=== PATIENT | female | born 1945 | race Caucasian/White ===

== ENCOUNTER 2016-09-02 09:03 | Emergency (ER) | payer MEDICARE, MEDICAID ==
[2016-09-02] MEDS ORDERED: oxyCODONE TAB* 5 MG TAB PO ONE ×3 (09:51→13:20)
--- NOTE | 2016-09-02 10:20 | RAD ---
HISTORY: Trauma, laceration above left eye COMPARISONS: November 07, 2015 TECHNIQUE: Multiple contiguous axial CT scans were obtained of the head without intravenous contrast. FINDINGS: HEMORRHAGE/INFARCT: There is no hemorrhage or acute infarct. MASSES/SHIFT: There is no mass or shift. EXTRA-AXIAL SPACES: There are no extra-axial fluid collections. SULCI AND VENTRICLES: The sulci and ventricles are normal in size and position for the patient's stated age. CEREBRUM: There are no focal parenchymal abnormalities. BRAINSTEM: There are no focal parenchymal abnormalities. CEREBELLUM: There are no focal parenchymal abnormalities. VESSELS: The vessels are grossly normal. PARANASAL SINUSES: The paranasal sinuses are clear. ORBITS: The orbits are unremarkable. BONES AND SOFT TISSUE: No bone or soft tissue abnormalities are noted. OTHER: None IMPRESSION: NO ACUTE INTRACRANIAL PATHOLOGY.
--- NOTE | 2016-09-02 10:23 | RAD ---
HISTORY: Trauma, fall. No other history is provided COMPARISONS: March 17, 2014 TECHNIQUE: Multiple contiguous axial CT scans were obtained of the cervical spine without intravenous contrast, with coronal and sagittal multiplanar reformations. FINDINGS: BRAIN: The visualized brain is unremarkable CENTRAL CANAL: Evaluation of the central canal is limited on CT technique; however, there is no obvious canalicular mass or epidural hemorrhage. ALIGNMENT: The alignment is normal, without subluxation or dislocation. VERTEBRAL BODIES: The odontoid process is intact. The atlantoaxial intervals are symmetric. The vertebral bodies are normal in attenuation, without fracture. JOINTS: There is mild uncovertebral and facet hypertrophy. There is osteoarthritis of the atlantoaxial articulation. MUSCULATURE: Unremarkable INTERVERTEBRAL DISCS: There is diffuse loss of intervertebral disc height. AXIAL IMAGES: C2-C3: There is no osseous neural foraminal narrowing or central canal stenosis. C3-C4: There is no osseous neural foraminal narrowing or central canal stenosis. C4-C5: There is no osseous neural foraminal narrowing or central canal stenosis. C5-C6: There is no osseous neural foraminal narrowing or central canal stenosis. C6-C7: There is no osseous neural foraminal narrowing or central canal stenosis. C7-T1: There is no osseous neural foraminal narrowing or central canal stenosis. SOFT TISSUES: The visualized soft tissues of the neck are unremarkable. The prevertebral fat stripe is preserved. OTHER: None. IMPRESSION: 1. DEGENERATIVE DISC DISEASE AND OSTEOARTHRITIS. 2. NO ACUTE OSSEOUS INJURY TO THE CERVICAL SPINE
--- NOTE | 2016-09-02 10:46 | RAD ---
Indication: Facial injury. CT of the facial bones was obtained in the axial plane. Sagittal and coronal reconstructed images were obtained. The patient is edentulous. The mandible demonstrates no fracture. Maxilla demonstrates no fracture. The pterygoid plates are intact. Zygomatic arch is unremarkable. The orbits are unremarkable. Skull base is unremarkable. Nasal bones appear intact with no evidence of fracture. IMPRESSION: No fracture of the facial bones is identified. Paranasal sinuses are clear.
--- NOTE | 2016-09-02 11:55 | RAD ---
Indication: Left chest pain after fall. 2 views of the chest and shape no mediastinal shift. Heart is of normal size and configuration. No pleural, pneumonia or pneumothorax is noted. Right upper lobe atelectasis is noted. When compared to previous exam of November 06, 2015 findings are similar. IMPRESSION: No pneumothorax is noted. Right upper lobe atelectasis is noted.
--- NOTE | 2016-09-02 12:05 | RAD ---
Indication: Left chest pain. 3 views of left ribs demonstrate no fracture. No other bone or joint abnormality is noted. IMPRESSION: No fracture of the left ribs is noted.
--- NOTE | 2016-09-02 13:25 | ED ---
Bird Friedman Adam, scribed for Pete Kim MD on 09/02/16 at 0940 . Adult Trauma - HPI Summary HPI Summary: She states that she tripped over some snow and fell on her left side, hitting her head at 08:30. She has a TOLENTINO at the site of some dried blood above her left eye. She also has left-sided rib pain since the fall. Her pain is 8-9/10 in severity and is worsening. She denies any blurriness, dizziness, lightheadedness , or new numbness/tingling. She denies losing consciousness but she states that there was a pool of blood on the ground where she hit her head. She has not taken any pain medication. She denies ever having a concussion. She is a former tobacco user. FMHx of CVA (mother in 70's, sister in 50's), open heart surgery, diverticulitis, and bladder CA. PMHx of hypothyroidism, hepatitis C, osteoporosis, and arthritis. She has a blood clot in her left thigh. She was on Warfarin but is no longer. - History of Current Complaint Chief Complaint: EDFacialInjury Stated Complaint: FALL Time Seen by Provider: 09/02/16 09:27 Hx Obtained From: Patient Mechanism of Injury: Fall Ambulatory at the Scene: Yes Loss of Consciousness: no loss of consciousness Onset/Duration: Started Hours Ago, Traumatic, Still Present Onset of Pain: Immediate Onset Severity: Mild Current Severity: Moderate Pain Intensity: 10 Pain Scale Used: 0-10 Numeric Location: Head, Chest - Left ribs Aggravating Factor(s): Nothing Alleviating Factor(s): Nothing Associated Signs & Symptoms: Positive: Negative - Additional Pertinent History Primary Care Physician: [id number] - Allergy/Home Medications Allergies/Adverse Reactions: Allergies Allergy/AdvReac Type Severity Reaction Status Date / Time Promethazine [From Phenergan] Allergy Intermediate Hives Verified 02/22/16 13:39 Acetaminophen [From Tylenol] Allergy See Comment Verified 02/22/16 13:39 Ibuprofen Allergy HEP C Verified 05/28/16 19:50 NSAIDs AdvReac Mild ULCERS Verified 02/22/16 13:39 Tramadol [From Ultram] AdvReac Mild OUT OF IT Verified 02/22/16 13:39 PMH/Surg Hx/FS Hx/Imm Hx Endocrine/Hematology History: Reports: Hx Thyroid Disease, Other Endocrine/ Hematological Disorders - hepatitis c, h/o bleeding issue w/ elevated INR in the past Denies: Hx Anticoagulant Therapy, Hx Diabetes Cardiovascular History: Reports: Hx Deep Vein Thrombosis, Hx Hypertension - STATES NOT BEING TREATED FOR HYPERTENSION Denies: Hx Congestive Heart Failure, Hx Pacemaker/ICD Comment Only: Other Cardiovascular Problems/Disorders - PACS Respiratory History: Reports: Other Respiratory Problems/Disorders - r lung mass removal-benign Denies: Hx Asthma, Hx Chronic Obstructive Pulmonary Disease (COPD) GI History: Reports: Hx Gastroesophageal Reflux Disease, Hx Ulcer, Other GI Disorders - DIARRHEA X 1 WEEK, PERIUMBILICAL ABD PAIN History: Denies: Hx Renal Disease Musculoskeletal History: Reports: Hx Arthritis, Hx Back Problems, Hx Osteoporosis, Other Musculoskeletal History - bilat carpal tunnel surg, bernardo knee replacement. 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 Hx Chemotherapy: No Hx Radiation Therapy: No - Surgical History Surgery Procedure, Year, and Place: CHOLECYSTECTOMY JONATHAN EN Y GASTRIC BYPASS ( 1999) X2 R LUNG MASS REMOVED,BILATERAL KNEE REPLACEMENT, BILATERAL CARPAL TUNNEL,BILATERAL ROTATOR CUFF SURGERY, CATARACTS ,RT EYE MUSCLE SURGERY A CHILD, RT LUMPECTOMY 1979, LT LUMPECTOMY 2013,TONSILS Infectious Disease History: No Infectious Disease History: Reports: Hx Hepatitis Denies: Hx Human Immunodeficiency Virus (HIV), Traveled Outside the [place] in Last 30 Days - Family History Known Family History: Positive: Cardiac Disease - Open heart surgery (sister), Other - Brother - colon ca, son - pancreatitis, sister and mother CVA - Social History Occupation: Retired Lives: Alone Alcohol Use: Rare Substance Use Type: Reports: None, Prescribed Substance Use Comment - Amount & Last Used: denies substance abuse however ED staff notied carmona (injection sites) Hx Tobacco Use: Yes Smoking Status (MU): Former Smoker Type: Cigarettes Review of Systems Negative: Blurred Vision Positive: Myalgia - Left-sided rib pain Positive: Other - Dried blood above left eye Positive: Headache. Negative: Weakness, Numbness, Syncope All Other Systems Reviewed And Are Negative: Yes Physical Exam Triage Information Reviewed: Yes Vital Signs On Initial Exam: Initial Vitals Temp Pulse Resp BP Pulse Ox 97.9 F 81 20 121/75 97 09/02/16 09:11 09/02/16 09:11 09/02/16 09:11 09/02/16 09:11 09/02/16 09:11 Vital Signs Reviewed: Yes Appearance: Positive: Well-Appearing, No Pain Distress Skin: Positive: Warm, Skin Color Reflects Adequate Perfusion, Dry Head/Face: Positive: Normal Head/Face Inspection Eyes: Positive: EOMI, SRINI ENT: Positive: Normal ENT inspection Neck: Positive: Supple, Nontender Respiratory/Lung Sounds: Positive: Clear to Auscultation, Breath Sounds Present Cardiovascular: Positive: RRR Abdomen Description: Positive: Nontender, Soft Bowel Sounds: Positive: Present Musculoskeletal: Positive: Strength/ROM Intact, Other - Mild tenderness over the left lower ribs Neurological: Positive: Normal, Sensory/Motor Intact, Alert, Oriented to Person Place, Time Psychiatric: Positive: Affect/Mood Appropriate - [place] Coma Scale Coma Scale Total: 15 Procedures - Laceration/Wound Repair 1 Location: head - Glued a 5 mm long laceration to the left forehead Laceration/Wound Explored: clean - Cleaned with Shur-cleanse and sterile saline Diagnostics - Vital Signs Vital Signs Temp Pulse Resp BP Pulse Ox 09/02/16 09:11 97.9 F 81 20 121/75 97 - Laboratory Lab Statement: Any lab studies that have been ordered have been reviewed, and results considered in the medical decision making process. - Radiology RIBS Radiology Interpretation Completed By: Radiologist - IMPRESSION: No fracture of the left ribs is noted. CXR Radiology Interpretation Completed By: Radiologist - IMPRESSION: No pneumothorax is noted. Right upper lobe atelectasis is noted. - CT CERVICAL SPINE CT Interpretation Completed By: Radiologist - IMPRESSION: 1. DEGENERATIVE DISC DISEASE AND OSTEOARTHRITIS. 2. NO ACUTE OSSEOUS INJURY TO THE CERVICAL SPINE BRAIN CT Interpretation Completed By: Radiologist - IMPRESSION: NO ACUTE INTRACRANIAL PATHOLOGY. MAXILLOFACIAL CT Interpretation Completed By: Radiologist - IMPRESSION: No fracture of the facial bones is identified. Paranasal sinuses are clear. Adult Trauma Course/Dx - Course Assessment/Plan: WELL IN ED. DISCUSSED RESULTS WITH PATIENT. DISCHARGE HOME STABLE. - Diagnoses Provider Diagnoses: Head injury, Facial laceration Discharge - Discharge Plan Condition: Stable Disposition: HOME Patient Education Materials: Head Injury (ED), Skin Adhesive Care (ED), Facial Laceration (ED) Referrals: Natan Burrell MD [Primary Care Provider] - Additional Instructions: DISCUSSED RESULTS WITH PATIENT. NAD IN ED. DISCHARGE HOME STABLE. The documentation as recorded by the Bird jiménez Adam accurately reflects the service I personally performed and the decisions made by , Pete Kim MD.
[2016-09-02 13:27] VITALS: BP 113/61
== END 2016-09-02 13:32 | disposition home or self-care (01) ==
LOC: ED 09:03
DX: S09.90XA Unspecified injury of head, initial encounter (principal); S01.81XA Laceration without foreign body of other part of head, initial encounter; R07.81 Pleurodynia; W18.40XA Slipping, tripping and stumbling without falling, unspecified, initial encounter; Y93.9 Activity, unspecified; Y92.9 Unspecified place or not applicable; Z87.891 Personal history of nicotine dependence
CPT/HCPCS: 70450; 70486; 71020; 72125; 99284; A9270-GY

== ENCOUNTER 2016-11-01 02:25 | Emergency (ER) | payer MEDICARE, MEDICAID ==
[2016-11-01 02:52] LABS: Hematocrit 41 % (35-47); Hemoglobin 12.7 g/dl (12.0-16.0); Mean Corpuscular HGB Conc 31 g/dl (31-36); Mean Corpuscular Hemoglobin 25 pg (27-31); Mean Corpuscular Volume 81 fL (80-97); Mean Platelet Volume 8 um3 (7.4-10.4); Red Blood Count 5.05 10^6/ul (4.0-5.4); Red Cell Distribution Width 16 % (10.5-15); White Blood Count 9.2 10^3/ul (3.5-10.8)
[2016-11-01 02:59] LABS: Add Diff/Slide Review? Slide Review Added; Comments Flag Yes
--- NOTE | 2016-11-01 03:08 | ED ---
Ashley Friedman Erika, scribed for Micheal Stoddard MD on 11/01/16 at 0239 . 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 When asked what happened, patient states "I fell" and "I don't know what I was doing outside." Per EMS, patient was found naked outside with an abrasion to the left forehead. Time spent outside is unknown. Pt now complains of constant headache. She states that she drank vodka tonight. Report indicated that patient had not been taking her medications, but patient states that she has been. - History Of Current Complaint Stated Complaint: AMS Time Seen by Provider: 11/01/16 02:29 Hx Obtained From: Patient, EMS Mechanism Of Injury: Fall From A Standing Position Onset/Duration: Started Hours Ago, Traumatic, Still Present Severity Currently: Moderate Associated Signs And Symptoms: Confusion, Headache, Other: - abrasion to the left forehead - Allergies/Home Medications Allergies/Adverse Reactions: Allergies Allergy/AdvReac Type Severity Reaction Status Date / Time Promethazine [From Phenergan] Allergy Intermediate Hives Verified 02/22/16 13:39 Acetaminophen [From Tylenol] Allergy See Comment Verified 02/22/16 13:39 Ibuprofen Allergy HEP C Verified 05/28/16 19:50 NSAIDs AdvReac Mild ULCERS Verified 02/22/16 13:39 Tramadol [From Ultram] AdvReac Mild OUT OF IT Verified 02/22/16 13:39 PMH/Surg Hx/FS Hx/Imm Hx Endocrine/Hematology History: Reports: Hx Thyroid Disease, Other Endocrine/ Hematological Disorders - hepatitis c, h/o bleeding issue w/ elevated INR in the past Denies: Hx Anticoagulant Therapy, Hx Diabetes Cardiovascular History: Reports: Hx Deep Vein Thrombosis, Hx Hypertension - STATES NOT BEING TREATED FOR HYPERTENSION Denies: Hx Congestive Heart Failure, Hx Pacemaker/ICD Comment Only: Other Cardiovascular Problems/Disorders - PACS Respiratory History: Reports: Other Respiratory Problems/Disorders - r lung mass removal-benign Denies: Hx Asthma, Hx Chronic Obstructive Pulmonary Disease (COPD) GI History: Reports: Hx Gastroesophageal Reflux Disease, Hx Ulcer, Other GI Disorders - DIARRHEA X 1 WEEK, PERIUMBILICAL ABD PAIN History: Denies: Hx Renal Disease Musculoskeletal History: Reports: Hx Arthritis, Hx Back Problems, Hx Osteoporosis, Other Musculoskeletal History - bilat carpal tunnel surg, bernardo knee replacement. 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 Hx Chemotherapy: No Hx Radiation Therapy: No - Surgical History Surgery Procedure, Year, and Place: CHOLECYSTECTOMY JONATHAN EN Y GASTRIC BYPASS ( 1999) X2 R LUNG MASS REMOVED,BILATERAL KNEE REPLACEMENT, BILATERAL CARPAL TUNNEL,BILATERAL ROTATOR CUFF SURGERY, CATARACTS ,RT EYE MUSCLE SURGERY A CHILD, RT LUMPECTOMY 1979, LT LUMPECTOMY 2013,TONSILS Infectious Disease History: Reports: Hx Hepatitis Denies: Hx Human Immunodeficiency Virus (HIV) - Family History Known Family History: Positive: Cardiac Disease, Other - Brother - colon ca, son - pancreatitis, sister and mother CVA - Social History Occupation: Retired Hx Tobacco Use: Yes Smoking Status (MU): Former Smoker Type: Cigarettes Review of Systems Skin: Other - abrasion to the left forehead Neurological: Other - confusion. Intoxicated Positive: Headache All Other Systems Reviewed And Are Negative: Yes Physical Exam Triage Information Reviewed: Yes Vital Signs On Initial Exam: Temp Pulse Resp BP Pulse Ox 97.0 F 95 16 135/61 100 11/01/16 02:25 11/01/16 02:25 11/01/16 02:25 11/01/16 02:25 11/01/16 02:25 Vital Signs Reviewed: Yes Appearance: Positive: Well-Appearing, Pain Distress - mild discomfort Skin: Positive: Warm Head/Face: Positive: Other - abrasion lt lat frontal scalp Eyes: Positive: EOMI, SRINI ENT: Positive: Hearing grossly normal Neck: Positive: Supple Respiratory/Lung Sounds: Positive: Breath Sounds Present Cardiovascular: Positive: RRR Abdomen Description: Positive: Nontender, Soft Bowel Sounds: Positive: Present Musculoskeletal: Positive: Strength/ROM Intact Neurological: Positive: Sensory/Motor Intact, Alert, Oriented to Person Place, Time, Normal Gait Psychiatric: Positive: Anxious Diagnostics - Vital Signs Vital Signs Temp Pulse Resp BP Pulse Ox 11/01/16 02:25 97.0 F 95 16 135/61 100 - Laboratory Lab Results: Lab Results 11/01/16 Range/Units 02:40 WBC 9.2 (3.5-10.8) 10^3/ul RBC 5.05 (4.0-5.4) 10^6/ul Hgb 12.7 (12.0-16.0) g/dl Hct 41 (35-47) % MCV 81 (80-97) fL MCH 25 L (27-31) pg MCHC 31 (31-36) g/dl RDW 16 H (10.5-15) % Plt Count 206 (150-450) 10^3/ul MPV 8 (7.4-10.4) um3 Neut % (Auto) 71.1 (38-83) % Lymph % (Auto) 18.4 L (25-47) % [place] % (Auto) 8.7 (1-9) % Eos % (Auto) 1.4 (0-6) % Baso % (Auto) 0.4 (0-2) % Absolute Neuts (auto) 6.6 (1.5-7.7) 10^3/ul Absolute Lymphs (auto) 1.7 (1.0-4.8) 10^3/ul Absolute Monos (auto) 0.8 (0-0.8) 10^3/ul Absolute Eos (auto) 0.1 (0-0.6) 10^3/ul Absolute Basos (auto) 0 (0-0.2) 10^3/ul Absolute Nucleated RBC 0 10^3/ul Nucleated RBC % 0 Result Diagrams: 11/01/16 02:40 11/01/16 02:40 Lab Statement: Any lab studies that have been ordered have been reviewed, and results considered in the medical decision making process. - Radiology CXR Xray Interpretation: No Acute Changes Radiology Interpretation Completed By: ED Physician - CT CT Brain CT Interpretation Completed By: Radiologist - Imaging professor of physical education - No evidence for acute pathology Re-Evaluation - Re-Evaluation First Eval Re-Evaluation Time: 06:22 - pt seen and cleared by [facility] Head Injury Course/Dx Assessment/Plan: Patient is medically cleared for [facility] evaluation at 03:30. [facility] senior case manager recommends discharge, so patient is discharged with follow up from her PCP. Brain CT negative. - Diagnoses Provider Diagnoses: Unspecified psychosis Discharge - Discharge Plan Condition: Stable Disposition: HOME Patient Education Materials: Brief Psychotic Disorder (ED) Referrals: Natan Burrell MD [Primary Care Provider] - Additional Instructions: Please follow up with your PCP The documentation as recorded by the Ashley jiménez Erika accurately reflects the service I personally performed and the decisions made by me, Micheal Stoddard MD.
[2016-11-01 03:14] LABS: ALT 10 U/L (7-52); AST 15 U/L (13-39); Alkaline Phosphatase 76 U/L (34-104); Anion Gap 6 mmol/L (2-11); BUN/Creatinine Ratio 15.6 (8-20); Blood Urea Nitrogen 14 mg/dL (6-24); CO2 Carbon Dioxide 22 mmol/L (22-32); Calcium 9.9 mg/dL (8.6-10.3); Chloride 112 mmol/L (101-111); EGFR African American 79.8 (>60); EGFR Non-African American 62.1 (>60); Glucose 106 mg/dL (70-100); Potassium 3.7 mmol/L (3.5-5.0); Sodium 140 mmol/L (133-145)
[2016-11-01 03:35] LABS: Acetaminophen < 15 mcg/mL; Alcohol 49 mg/dL (<10); Salicylate < 2.50 mg/dL (<30)
[2016-11-01 03:45] LABS: TSH (Thyroid Stimulating Horm) 10.58 mcIU/mL (0.34-5.60)
[2016-11-01 05:19] LABS: Urine Bacteria 1+ (Absent); Urine Bilirubin Negative (Negative); Urine Glucose Negative (Negative); Urine Nitrite Positive (Negative)
[2016-11-01 05:36] LABS: Benzodiazepine Urine Screen None Detected (None Detect)
--- NOTE | 2016-11-01 07:52 | RAD ---
INDICATION: Intracranial injury COMPARISON: September 02, 2016 TECHNIQUE: Noncontrast axial source images were acquired from the skull base to the vertex. FINDINGS: Ventricles/sulci: The ventricles and cisterns are normal in size and configuration for age. Brain parenchyma: There is no focal parenchymal finding, evidence of intracranial mass, or intracranial mass effect. Intracranial hemorrhage:None. Extra-axial spaces: There are no abnormal extra axial fluid collections or evidence of extra-axial mass. Calvarium: There is no calvarial fracture or other calvarial abnormality. Scalp: There is no evidence of scalp or extracalvarial soft tissue abnormality. Paranasal sinuses/mastoid: The paranasal sinuses and mastoid air cells are clear. Other: None. IMPRESSION: NEGATIVE EXAMINATION
--- NOTE | 2016-11-01 07:57 | RAD ---
INDICATION: Chest pain. COMPARISON: Comparison is made with prior chest x-ray studies from December 19, 2008, February 06, 2015, November 06, 2015 and September 02, 2016. TECHNIQUE: Dual-energy PA and lateral views of the chest were obtained. FINDINGS: The heart is upper limits of normal in size and unchanged from the prior exam. There is a small chronic infiltrate in the right upper lobe. The lungs are otherwise clear. No pleural effusion is seen. Postsurgical changes are noted in the right shoulder. IMPRESSION: SMALL CHRONIC RIGHT UPPER LOBE INFILTRATE, UNCHANGED. NO EVIDENCE FOR ACUTE FINDING.
[2016-11-01 09:32] VITALS: BP 120/79
--- NOTE | 2016-11-03 07:05 | PN ---
Progress Note - Progress Note Note: Patient was sent home with diagnosis of unspecified psychosis. Patient was not complaining of any symptoms. Urine preliminary culture grew 75-100,000 E Coli. Will wait for final culture results to call and check on patient if she is having symptoms, so if an antibiotic is needed susceptibility results are available to start one. No changes needed at this time.
--- NOTE | 2016-11-04 08:08 | PN ---
Progress Note - Progress Note Note: Patient was called at 8am on 11/04/16 and message left to return call and discuses received urine culture results. Urine culture grew 75-100,000 E Coli. Patient was not complaining of symptoms while at ED. Was calling to see if she was experiencing symptoms and if so would be treated with antibiotic. Final culture results showed susceptibility to all antibiotics, including Macrobid, Bactrim and Ciprofloxacin. Will wait for call back, if no returned call on 11/04/16 will have letter sent to follow up with PCP or return to ED if worsening symptoms. Depending on symptoms will or will not be treated with Macrobid as bacterial growth was <100,000.
--- NOTE | 2016-11-04 10:59 | PN ---
Progress Note - Progress Note Note: Patient returned call at 10:57am. States she has had some urgency and frequency with little production. Also has some lower intermittent back pain. Symptoms have been going on for the past week without improvement. Denies fever/ chills, nausea/vomiting. Macrobid will be sent as it was susceptible per urine culture final results. Aware of worsening signs and symptoms, side effects and instructed to drink plenty of fluids and OTC naproxen for pain.
== END 2016-11-01 07:50 | disposition home or self-care (01) ==
LOC: ED 02:25
DX: F29 Unspecified psychosis not due to a substance or known physiological condition (principal); S00.81XA Abrasion of other part of head, initial encounter; R41.0 Disorientation, unspecified; R51 Headache; W19.XXXA Unspecified fall, initial encounter; Y93.9 Activity, unspecified; Y92.9 Unspecified place or not applicable; Y99.8 Other external cause status; Z87.891 Personal history of nicotine dependence
CPT/HCPCS: 36415; 70450; 71020; 80053; 80307; 80320; 80329; 81003; 81015; 84443; 85025; 87077; 87086; 87186; 99283; G0480

== ENCOUNTER 2016-12-23 23:08 | Emergency (ER) | payer MEDICARE, MEDICAID ==
[2016-12-24] MEDS ORDERED: oxyCODONE TAB* 5 MG TAB PO ONE ×2 (00:41→08:48)
[2016-12-24 01:27] LABS: Urine Bilirubin Negative (Negative); Urine Glucose Negative (Negative); Urine Nitrite Negative (Negative)
[2016-12-24 01:34] LABS: Benzodiazepine Urine Screen None Detected (None Detect)
[2016-12-24 01:44] LABS: Add Diff/Slide Review? Slide Review Added; Comments Flag Yes; Hematocrit 41 % (35-47); Hemoglobin 12.7 g/dl (12.0-16.0); Mean Corpuscular HGB Conc 31 g/dl (31-36); Mean Corpuscular Hemoglobin 25 pg (27-31); Mean Corpuscular Volume 81 fL (80-97); Mean Platelet Volume 9 um3 (7.4-10.4); Red Blood Count 5.12 10^6/ul (4.0-5.4); Red Cell Distribution Width 17 % (10.5-15); White Blood Count 15.6 10^3/ul (3.5-10.8)
[2016-12-24 01:54] LABS: Ammonia 33 mol/L (16-53)
[2016-12-24 01:55] LABS: ALT 13 U/L (7-52); AST 22 U/L (13-39); Albumin 3.9 g/dL (3.2-5.2); Alkaline Phosphatase 123 U/L (34-104); Anion Gap 4 mmol/L (2-11); BUN/Creatinine Ratio 15.5 (8-20); Blood Urea Nitrogen 13 mg/dL (6-24); C Reactive Protein 2.36 mg/L (< 5.00); CO2 Carbon Dioxide 25 mmol/L (22-32); Calcium 9.8 mg/dL (8.6-10.3); Chloride 109 mmol/L (101-111); Creatine Kinase 403 U/L (10-223); EGFR African American 86.5 (>60); EGFR Non-African American 67.2 (>60); Globulin 2.8 g/dL (2-4); Glucose 98 mg/dL (70-100); Lipase 17 U/L (11.0-82.0); Magnesium 1.8 mg/dL (1.9-2.7); Potassium 3.7 mmol/L (3.5-5.0); Sodium 138 mmol/L (133-145); Total Protein 6.7 g/dL (6.4-8.9); Troponin I 0.01 ng/mL (<0.04)
[2016-12-24 01:56] LABS: Acetaminophen < 15 mcg/mL; Alcohol < 10 mg/dL (<10)
[2016-12-24 01:59] LABS: B Type Natriuretic Peptide 233 pg/mL
[2016-12-24 02:06] LABS: TSH (Thyroid Stimulating Horm) 2.33 mcIU/mL (0.34-5.60)
[2016-12-24] MEDS ORDERED: NS 0.9% 1000 ML* 1,000 ML IV ONE (06:29)
--- NOTE | 2016-12-24 06:45 | ED ---
Keith Friedman Benjamin, scribed for Pete Kim MD on 12/24/16 at 0053 . Lower Extremity - HPI Summary HPI Summary: 71yo female states that pt has been falling frequently the past few years because her left leg gives up frequently. Pt fell tonight and unable to get up on her own. Pt has pre-existing contusions on right periorbital area, right eblow, and bilateral knees. Pt has hx of bilateral knee replacements 15 years ago. Pt is on warfarin. Pt states that there isnt any new injury from tonight s fall. Pt reports pain in left knee, foot, and toes. Pt think she might have broken her left 3rd toe 2 days ago from a previous fall. - History of Current Complaint Chief Complaint: EDBackInjuryPain Stated Complaint: FALL Time Seen by Provider: 12/24/16 00:27 Hx Obtained From: Patient Mechanism Of Injury: Fall From A Standing Position Onset/Duration: Resolved Severity Initially: Mild Severity Currently: None Pain Intensity: 0 Pain Scale Used: 0-10 Numeric Timing: Intermittent Associated Signs And Symptoms: Positive: Bruising - contusions on right periorbital area and extremities, Weakness - LLE Aggravating Factor(s): Nothing Alleviating Factor(s): Nothing - Allergies/Home Medications Allergies/Adverse Reactions: Allergies Allergy/AdvReac Type Severity Reaction Status Date / Time Promethazine [From Phenergan] Allergy Intermediate Hives Verified 11/17/16 12:22 Acetaminophen [From Tylenol] Allergy See Comment Verified 11/17/16 12:22 Ibuprofen Allergy HEP C Verified 11/17/16 12:22 NSAIDs AdvReac Mild ULCERS Verified 11/17/16 12:22 Tramadol [From Ultram] AdvReac Mild OUT OF IT Verified 11/17/16 12:22 PMH/Surg Hx/FS Hx/Imm Hx Endocrine/Hematology History: Reports: Hx Thyroid Disease, Other Endocrine/ Hematological Disorders - hepatitis c, h/o bleeding issue w/ elevated INR in the past Denies: Hx Anticoagulant Therapy, Hx Diabetes Cardiovascular History: Reports: Hx Deep Vein Thrombosis, Hx Hypertension - STATES NOT BEING TREATED FOR HYPERTENSION Denies: Hx Congestive Heart Failure, Hx Pacemaker/ICD Comment Only: Other Cardiovascular Problems/Disorders - PACS Respiratory History: Reports: Other Respiratory Problems/Disorders - r lung mass removal-benign Denies: Hx Asthma, Hx Chronic Obstructive Pulmonary Disease (COPD) GI History: Reports: Hx Gastroesophageal Reflux Disease, Hx Ulcer, Other GI Disorders - DIARRHEA X 1 WEEK, PERIUMBILICAL ABD PAIN History: Denies: Hx Renal Disease Musculoskeletal History: Reports: Hx Arthritis, Hx Back Problems, Hx Osteoporosis, Other Musculoskeletal History - bilat carpal tunnel surg, bernardo knee replacement. 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 Hx Chemotherapy: No Hx Radiation Therapy: No - Surgical History Surgery Procedure, Year, and Place: CHOLECYSTECTOMY JONATHAN EN Y GASTRIC BYPASS ( 1999) X2 R LUNG MASS REMOVED,BILATERAL KNEE REPLACEMENT, BILATERAL CARPAL TUNNEL,BILATERAL ROTATOR CUFF SURGERY, CATARACTS ,RT EYE MUSCLE SURGERY A CHILD, RT LUMPECTOMY 1979, LT LUMPECTOMY 2013,[facility] Infectious Disease History: No Infectious Disease History: Reports: Hx Hepatitis Denies: Hx Human Immunodeficiency Virus (HIV), Traveled Outside the [place] in Last 30 Days - Family History Known Family History: Positive: None - reviewed & noncontributory, Cardiac Disease, Other - Brother - colon ca, son - pancreatitis, sister and mother CVA - Social History Alcohol Use: None Substance Use Type: Reports: None, Prescribed Substance Use Comment - Amount & Last Used: Pt denies Hx Tobacco Use: Yes Smoking Status (MU): Former Smoker Type: Cigarettes Review of Systems Constitutional: Negative Eyes: Negative ENT: Negative Cardiovascular: Negative Respiratory: Negative Gastrointestinal: Negative Genitourinary: Negative Positive: Arthralgia - left 3rd toe; left knee; back Skin: Negative Positive: Weakness - LLE Psychological: Normal All Other Systems Reviewed And Are Negative: Yes Physical Exam Triage Information Reviewed: Yes Vital Signs On Initial Exam: Initial Vitals BP 144/63 12/23/16 23:30 Vital Signs Reviewed: Yes Appearance: Positive: Well-Appearing, No Pain Distress, Well-Nourished Skin: Positive: Warm, Skin Color Reflects Adequate Perfusion, Dry, Other - Ecchymosis left holiness, left knee, right knee, and left elbow. Head/Face: Positive: Normal Head/Face Inspection Eyes: Positive: EOMI, SRINI ENT: Positive: Normal ENT inspection Neck: Positive: Supple, Nontender Respiratory/Lung Sounds: Positive: Clear to Auscultation, Breath Sounds Present Cardiovascular: Positive: RRR Abdomen Description: Positive: Nontender, No Organomegaly, Soft Bowel Sounds: Positive: Present Musculoskeletal: Positive: Other - subjective LLE weakness Neurological: Positive: Other - mildly confused. Negative: Focal Deficit @ - no focal neurological deficit Psychiatric: Positive: Affect/Mood Appropriate - Ileana Coma Scale Coma Scale Total: 15 Diagnostics - Vital Signs Vital Signs Temp Pulse Resp BP Pulse Ox 12/24/16 00:01 98 F 70 17 140/66 99 12/24/16 00:00 70 17 100 12/23/16 23:31 72 19 99 12/23/16 23:30 144/63 - Laboratory Lab Results: Lab Results 12/23/16 12/24/16 12/24/16 Range/Units 23:15 00:56 01:25 WBC 15.6 H (3.5-10.8) 10^3/ul RBC 5.12 (4.0-5.4) 10^6/ul Hgb 12.7 (12.0-16.0) g/dl Hct 41 (35-47) % MCV 81 (80-97) fL MCH 25 L (27-31) pg MCHC 31 (31-36) g/dl RDW 17 H (10.5-15) % Plt Count 231 (150-450) 10^3/ul MPV 9 (7.4-10.4) um3 Neut % (Auto) 79.0 (38-83) % Lymph % (Auto) 11.1 L (25-47) % Bourbon % (Auto) 8.3 (1-9) % Eos % (Auto) 1.0 (0-6) % Baso % (Auto) 0.6 (0-2) % Absolute Neuts (auto) 12.3 H (1.5-7.7) 10^3/ul Absolute Lymphs (auto) 1.7 (1.0-4.8) 10^3/ul Absolute Monos (auto) 1.3 H (0-0.8) 10^3/ul Absolute Eos (auto) 0.2 (0-0.6) 10^3/ul Absolute Basos (auto) 0.1 (0-0.2) 10^3/ul Absolute Nucleated RBC 0 10^3/ul Nucleated RBC % 0 INR (Anticoag Therapy) (0.89-1.11) APTT (26.0-36.3) seconds Sodium (133-145) mmol/L Potassium (3.5-5.0) mmol/L Chloride (101-111) mmol/L Carbon Dioxide (22-32) mmol/L Anion Gap (2-11) mmol/L BUN (6-24) mg/dL Creatinine (0.51-0.95) mg/dL Est GFR ( Amer) (>60) Est GFR (Non-Af Amer) (>60) BUN/Creatinine Ratio (8-20) Glucose (70-100) mg/dL Lactic Acid (0.5-2.0) mmol/L Calcium (8.6-10.3) mg/dL Magnesium (1.9-2.7) mg/dL Total Bilirubin (0.2-1.0) mg/dL AST (13-39) U/L ALT (7-52) U/L Alkaline Phosphatase (34-104) U/L Ammonia (16-53) mol/L Total Creatine Kinase (10-223) U/L CK-MB (CK-2) (0.6-6.3) ng/mL Troponin I (<0.04) ng/mL C-Reactive Protein (< 5.00) mg/L B-Natriuretic Peptide ( - 100) pg/mL Total Protein (6.4-8.9) g/dL Albumin (3.2-5.2) g/dL Globulin (2-4) g/dL Albumin/Globulin Ratio (1-3) Lipase (11.0-82.0) U/L TSH (0.34-5.60) mcIU/mL Urine Color Yellow Urine Appearance Cloudy Urine pH 8.0 (5-9) Ur Specific Surprise 1.013 (1.010-1.030) Urine Protein Negative (Negative) Urine Ketones Negative (Negative) Urine Blood Negative (Negative) Urine Nitrate Negative (Negative) Urine Bilirubin Negative (Negative) Urine Urobilinogen Negative (Negative) Ur Leukocyte Esterase Negative (Negative) Urine Glucose Negative (Negative) Urine Opiates Screen None detected (None Detect) Acetaminophen mcg/mL Ur Barbiturates Screen None detected (None Detect) Ur Phencyclidine Scrn None detected (None Detect) Ur Amphetamines Screen None detected (None Detect) U Benzodiazepines Scrn None detected (None Detect) Urine Cocaine Screen None detected (None Detect) U Cannabinoids Screen None detected (None Detect) Serum Alcohol (<10) mg/dL 12/24/16 12/24/16 12/24/16 Range/Units 01:25 01:25 01:25 WBC (3.5-10.8) 10^3/ul RBC (4.0-5.4) 10^6/ul Hgb (12.0-16.0) g/dl Hct (35-47) % MCV (80-97) fL MCH (27-31) pg MCHC (31-36) g/dl RDW (10.5-15) % Plt Count (150-450) 10^3/ul MPV (7.4-10.4) um3 Neut % (Auto) (38-83) % Lymph % (Auto) (25-47) % Bourbon % (Auto) (1-9) % Eos % (Auto) (0-6) % Baso % (Auto) (0-2) % Absolute Neuts (auto) (1.5-7.7) 10^3/ul Absolute Lymphs (auto) (1.0-4.8) 10^3/ul Absolute Monos (auto) (0-0.8) 10^3/ul Absolute Eos (auto) (0-0.6) 10^3/ul Absolute Basos (auto) (0-0.2) 10^3/ul Absolute Nucleated RBC 10^3/ul Nucleated RBC % INR (Anticoag Therapy) 0.92 (0.89-1.11) APTT 29.6 (26.0-36.3) seconds Sodium 138 (133-145) mmol/L Potassium 3.7 (3.5-5.0) mmol/L Chloride 109 (101-111) mmol/L Carbon Dioxide 25 (22-32) mmol/L Anion Gap 4 (2-11) mmol/L BUN 13 (6-24) mg/dL Creatinine 0.84 (0.51-0.95) mg/dL Est GFR ( Amer) 86.5 (>60) Est GFR (Non-Af Amer) 67.2 (>60) BUN/Creatinine Ratio 15.5 (8-20) Glucose 98 (70-100) mg/dL Lactic Acid (0.5-2.0) mmol/L Calcium 9.8 (8.6-10.3) mg/dL Magnesium 1.8 L (1.9-2.7) mg/dL Total Bilirubin 0.80 (0.2-1.0) mg/dL AST 22 (13-39) U/L ALT 13 (7-52) U/L Alkaline Phosphatase 123 H (34-104) U/L Ammonia 33 (16-53) mol/L Total Creatine Kinase 403 H (10-223) U/L CK-MB (CK-2) 8.0 H (0.6-6.3) ng/mL Troponin I 0.01 (<0.04) ng/mL C-Reactive Protein 2.36 (< 5.00) mg/L B-Natriuretic Peptide 233 H ( - 100) pg/mL Total Protein 6.7 (6.4-8.9) g/dL Albumin 3.9 (3.2-5.2) g/dL Globulin 2.8 (2-4) g/dL Albumin/Globulin Ratio 1.4 (1-3) Lipase 17 (11.0-82.0) U/L TSH 2.33 (0.34-5.60) mcIU/mL Urine Color Urine Appearance Urine pH (5-9) Ur Specific Surprise (1.010-1.030) Urine Protein (Negative) Urine Ketones (Negative) Urine Blood (Negative) Urine Nitrate (Negative) Urine Bilirubin (Negative) Urine Urobilinogen (Negative) Ur Leukocyte Esterase (Negative) Urine Glucose (Negative) Urine Opiates Screen (None Detect) Acetaminophen < 15 mcg/mL Ur Barbiturates Screen (None Detect) Ur Phencyclidine Scrn (None Detect) Ur Amphetamines Screen (None Detect) U Benzodiazepines Scrn (None Detect) Urine Cocaine Screen (None Detect) U Cannabinoids Screen (None Detect) Serum Alcohol < 10 (<10) mg/dL 12/24/16 Range/Units 01:25 WBC (3.5-10.8) 10^3/ul RBC (4.0-5.4) 10^6/ul Hgb (12.0-16.0) g/dl Hct (35-47) % MCV (80-97) fL MCH (27-31) pg MCHC (31-36) g/dl RDW (10.5-15) % Plt Count (150-450) 10^3/ul MPV (7.4-10.4) um3 Neut % (Auto) (38-83) % Lymph % (Auto) (25-47) % Bourbon % (Auto) (1-9) % Eos % (Auto) (0-6) % Baso % (Auto) (0-2) % Absolute Neuts (auto) (1.5-7.7) 10^3/ul Absolute Lymphs (auto) (1.0-4.8) 10^3/ul Absolute Monos (auto) (0-0.8) 10^3/ul Absolute Eos (auto) (0-0.6) 10^3/ul Absolute Basos (auto) (0-0.2) 10^3/ul Absolute Nucleated RBC 10^3/ul Nucleated RBC % INR (Anticoag Therapy) (0.89-1.11) APTT (26.0-36.3) seconds Sodium (133-145) mmol/L Potassium (3.5-5.0) mmol/L Chloride (101-111) mmol/L Carbon Dioxide (22-32) mmol/L Anion Gap (2-11) mmol/L BUN (6-24) mg/dL Creatinine (0.51-0.95) mg/dL Est GFR ( Amer) (>60) Est GFR (Non-Af Amer) (>60) BUN/Creatinine Ratio (8-20) Glucose (70-100) mg/dL Lactic Acid 0.9 (0.5-2.0) mmol/L Calcium (8.6-10.3) mg/dL Magnesium (1.9-2.7) mg/dL Total Bilirubin (0.2-1.0) mg/dL AST (13-39) U/L ALT (7-52) U/L Alkaline Phosphatase (34-104) U/L Ammonia (16-53) mol/L Total Creatine Kinase (10-223) U/L CK-MB (CK-2) (0.6-6.3) ng/mL Troponin I (<0.04) ng/mL C-Reactive Protein (< 5.00) mg/L B-Natriuretic Peptide ( - 100) pg/mL Total Protein (6.4-8.9) g/dL Albumin (3.2-5.2) g/dL Globulin (2-4) g/dL Albumin/Globulin Ratio (1-3) Lipase (11.0-82.0) U/L TSH (0.34-5.60) mcIU/mL Urine Color Urine Appearance Urine pH (5-9) Ur Specific Surprise (1.010-1.030) Urine Protein (Negative) Urine Ketones (Negative) Urine Blood (Negative) Urine Nitrate (Negative) Urine Bilirubin (Negative) Urine Urobilinogen (Negative) Ur Leukocyte Esterase (Negative) Urine Glucose (Negative) Urine Opiates Screen (None Detect) Acetaminophen mcg/mL Ur Barbiturates Screen (None Detect) Ur Phencyclidine Scrn (None Detect) Ur Amphetamines Screen (None Detect) U Benzodiazepines Scrn (None Detect) Urine Cocaine Screen (None Detect) U Cannabinoids Screen (None Detect) Serum Alcohol (<10) mg/dL Result Diagrams: 12/24/16 01:25 12/24/16 01:25 Lab Statement: Any lab studies that have been ordered have been reviewed, and results considered in the medical decision making process. - Radiology Foot XR Xray Interpretation: No Acute Changes Radiology Interpretation Completed By: ED Physician Knee XR Xray Interpretation: No Acute Changes Radiology Interpretation Completed By: ED Physician - CT CT Brain CT Interpretation: No Acute Changes CT Interpretation Completed By: Radiologist CT L spine CT Interpretation: No Acute Changes CT Interpretation Completed By: Radiologist - EKG 2352.. Cardiac Rate: NL - 70bpm EKG Rhythm: Sinus Rhythm EKG Interpretation: RBBB. Inverted T at V2, flat T at III and aVF Lower Extremity Course/Dx - Course Course Of Treatment: NO CRITICAL CARE TIME Assessment/Plan: PATIENT STATES SHE DOES NOT FEEL SAFE GOING HOME TO TO REPEAT FALLS AND WEAKNESS. SOCIAL WORK CONSULTATION PENDING AT SHIFT CHANGE, STABLE. - Diagnoses Provider Diagnoses: Weakness, Falls frequently, Head injury, Knee contusion, Foot contusion - Physician Notifications Discussed Care of Patient With: Dr. Miguel (hospitalist) @[phone]. Discharge - Discharge Plan Condition: Stable Disposition: OTHER Discharge Disposition Comment: S Referrals: Natan Burrell MD [Primary Care Provider] - The documentation as recorded by the Keith jiménez Benjamin accurately reflects the service I personally performed and the decisions made by me, Pete Kim MD.
--- NOTE | 2016-12-24 08:00 | RAD ---
HISTORY: Fall, left leg weakness COMPARISONS: November 17, 2016 TECHNIQUE: Multiple contiguous axial CT scans were obtained of the head without intravenous contrast. FINDINGS: HEMORRHAGE/INFARCT: There is no hemorrhage or acute infarct. MASSES/SHIFT: There is no mass or shift. EXTRA-AXIAL SPACES: There are no extra-axial fluid collections. SULCI AND VENTRICLES: The sulci and ventricles are normal in size and position for the patient's stated age. CEREBRUM: There are no focal parenchymal abnormalities. BRAINSTEM: There are no focal parenchymal abnormalities. CEREBELLUM: There are no focal parenchymal abnormalities. VESSELS: The vessels are grossly normal. PARANASAL SINUSES: The paranasal sinuses are clear. ORBITS: The orbits are unremarkable. BONES AND SOFT TISSUE: No bone or soft tissue abnormalities are noted. OTHER: None IMPRESSION: NO ACUTE INTRACRANIAL PATHOLOGY.
--- NOTE | 2016-12-24 08:02 | RAD ---
INDICATION: Left foot injury COMPARISON: None TECHNIQUE: AP, lateral, and oblique views were obtained. FINDINGS: There is no acute fracture. The joint spaces are maintained. There are small heel spurs. The soft tissues are normal.. IMPRESSION: NO ACUTE FRACTURE
--- NOTE | 2016-12-24 08:03 | RAD ---
HISTORY: Low back pain, left leg weakness, fall COMPARISONS: MRI dated June 30, 2015 TECHNIQUE: Multiple contiguous axial CT scans were obtained of the lumbar spine without intravenous contrast, with coronal and sagittal multiplanar reformations. FINDINGS: SPINAL CANAL: Evaluation of the central canal is limited on CT technique; however, there is no obvious canalicular mass or epidural hemorrhage. ALIGNMENT: The alignment is normal. VERTEBRAL BODIES: There is mild anterolateral marginal osteophyte formation. There is a Schmorl's node of the superior endplate of T11, stable from the previous examination. There is no displaced fracture. JOINTS: There is mild facet hypertrophic change MUSCULATURE: Unremarkable INTERVERTEBRAL DISCS: There is diffuse loss of intervertebral disc height throughout the spine. AXIAL IMAGES: T10-T11: There is no osseous neural foraminal narrowing or central canal stenosis T11-T12: There is no osseous neural foraminal narrowing or central. T12-L1: There is no osseous neural foraminal narrowing or central canal stenosis. L1-L2: There is no osseous neural foraminal narrowing or central canal stenosis. L2-L3: There is no osseous neural foraminal narrowing or central canal stenosis. L3-L4: There is mild disc bulge. There is no significant osseous neural foraminal narrowing or central canal stenosis. L4-L5: There is broad-based disc bulge. There is no osseous neural foraminal narrowing or central calcinosis. L5-S1: There is marginal osteophyte formation at the neural foramina bilaterally. There is moderate right neural foraminal narrowing. There is no significant central canal stenosis. SOFT TISSUES: The visualized soft tissues of the abdomen are unremarkable. OTHER: None IMPRESSION: 1. MILD DEGENERATIVE DISC DISEASE AND OSTEOARTHRITIS. 2. THERE IS RIGHT-SIDED NEURAL FORAMINAL NARROWING L5-S1. THERE IS NO SIGNIFICANT OSSEOUS CENTRAL CANAL STENOSIS.
--- NOTE | 2016-12-24 08:05 | RAD ---
INDICATION: Knee pain. Fall. COMPARISON: November 17, 2016 TECHNIQUE: AP, lateral, tunnel, and sunrise views were obtained. FINDINGS: There is left knee arthroplasty. There is no evidence of hardware failure. There is no acute bony change. The soft tissues are normal. IMPRESSION: LEFT KNEE ARTHROPLASTY. NO ACUTE FINDINGS.
[2016-12-24 09:09] VITALS: BP 121/60
--- NOTE | 2016-12-24 14:28 | ED ---
Chandler Friedman Billy, singhibed for William Cooper MD on 12/24/16 at 0847 . Progress - Progress Note Progress Note: Patient signed out at shift change pending social media job titles consult. 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 She has pain medications at home. She will be discharged home to be seen by visiting nurses. Re-Evaluation - Re-Evaluation First Eval Re-Evaluation Time: 08:55 Course/Dx - Diagnoses Provider Diagnoses: Fall, Ambulatory dysfunction, Chronic back pain Discharge - Discharge Plan Condition: Stable Disposition: HOME Meds/Orders/Equipment: Home Care: Skilled Needs Location: Determined By Patient Patient Education Materials: Chronic Back Pain (ED), Fall Prevention for Older Adults (ED) Referrals: Services, [facility] [Other] (Please contact to request home assessment for home health aide services.) Program, Falls Prevention [Other] (Please contact for in home assessment of safety for grab bars.) Visiting Nurse Service [place] [Outside] - 2 Days Natan Burrell MD [Primary Care Provider] - The documentation as recorded by the Chandler jiménez Billy accurately reflects the service I personally performed and the decisions made by Allison deshpande Drew, MD.
== END 2016-12-24 09:38 | disposition home or self-care (01) ==
LOC: ED 23:08
DX: M54.9 Dorsalgia, unspecified (principal); R26.89 Other abnormalities of gait and mobility; W19.XXXA Unspecified fall, initial encounter; Y92.9 Unspecified place or not applicable; G89.29 Other chronic pain
CPT/HCPCS: 36415; 70450; 72131; 80053; 80307; 80320; 80329; 81003; 82140; 82550; 82553; 83605; 83690; 83735; 83880; 84443; 84484; 85025; 85610; 85730; 86140; 93005; 99284; A9270-GY; G0480

== ENCOUNTER 2017-06-30 22:42 | Emergency (ER) | payer MEDICARE ==
[2017-07-01 01:14] LABS: Hematocrit 34 % (35-47); Hemoglobin 10.5 g/dl (12.0-16.0); Mean Corpuscular HGB Conc 31 g/dl (31-36); Mean Corpuscular Hemoglobin 23 pg (27-31); Mean Corpuscular Volume 76 fL (80-97); Mean Platelet Volume 9 um3 (7.4-10.4); Red Blood Count 4.51 10^6/ul (4.0-5.4); Red Cell Distribution Width 19 % (10.5-15); White Blood Count 9.8 10^3/ul (3.5-10.8)
[2017-07-01 01:29] LABS: Alcohol < 10 mg/dL (<10)
[2017-07-01 01:30] LABS: ALT 10 U/L (7-52); AST 16 U/L (13-39); Albumin 3.6 g/dL (3.2-5.2); Alkaline Phosphatase 66 U/L (34-104); Anion Gap 5 mmol/L (2-11); BUN/Creatinine Ratio 18.9 (8-20); Blood Urea Nitrogen 17 mg/dL (6-24); CO2 Carbon Dioxide 27 mmol/L (22-32); Calcium 9.6 mg/dL (8.6-10.3); Chloride 106 mmol/L (101-111); EGFR African American 79.6 (>60); EGFR Non-African American 61.9 (>60); Globulin 2.3 g/dL (2-4); Glucose 87 mg/dL (70-100); Potassium 4.3 mmol/L (3.5-5.0); Sodium 138 mmol/L (133-145); Total Protein 5.9 g/dL (6.4-8.9)
[2017-07-01 03:26] LABS: Urine Bilirubin Negative (Negative); Urine Glucose Negative (Negative); Urine Nitrite Negative (Negative)
[2017-07-01 03:35] LABS: Benzodiazepine Urine Screen None Detected (None Detect)
--- NOTE | 2017-07-01 05:41 | ED ---
Tania Friedman Edward, scribed for Good Stevens MD on 06/30/17 at 2324 . Altered Mental Status - HPI Summary HPI Summary: 72 y/o female BIBA c/o AMS described as confusion. Symptoms not aggravated or alleviated by anything. Pt denies being tired. Pt denies other complaints currently. Pt lives alone. History limited due to AMS. Pt states she has not been drinking and does not smoke. However, it is known that the pt drinks and uses marijuana. The pt is not a trustworthy historian. - History Of Current Complaint Chief Complaint: EDAltMentalStatus Stated Complaint: LETHARGIC Hx Obtained From: Patient Onset/Duration: Unknown Timing: Constant Character: Confusion Aggravating Factor(s): Nothing Alleviating Factor(s): Nothing Associated Signs And Symptoms: Positive: Negative - Allergies/Home Medications Allergies/Adverse Reactions: Allergies Allergy/AdvReac Type Severity Reaction Status Date / Time Promethazine [From Phenergan] Allergy Intermediate Hives Verified 06/30/17 22:55 Acetaminophen [From Tylenol] Allergy See Comment Verified 06/30/17 22:55 Ibuprofen Allergy HEP C Verified 06/30/17 22:55 NSAIDs AdvReac Mild ULCERS Verified 06/30/17 22:55 Tramadol [From Ultram] AdvReac Mild OUT OF IT Verified 06/30/17 22:55 PMH/Surg Hx/FS Hx/Imm Hx Previously Healthy: No Endocrine/Hematology History: Reports: Hx Thyroid Disease, Other Endocrine/ Hematological Disorders - hepatitis c, h/o bleeding issue w/ elevated INR in the past Denies: Hx Anticoagulant Therapy, Hx Diabetes Cardiovascular History: Reports: Hx Deep Vein Thrombosis, Hx Hypertension - STATES NOT BEING TREATED FOR HYPERTENSION Denies: Hx Congestive Heart Failure, Hx Pacemaker/ICD Comment Only: Other Cardiovascular Problems/Disorders - PACS Respiratory History: Reports: Other Respiratory Problems/Disorders - r lung mass removal-benign Denies: Hx Asthma, Hx Chronic Obstructive Pulmonary Disease (COPD) GI History: Reports: Hx Gastroesophageal Reflux Disease, Hx Ulcer, Other GI Disorders - DIARRHEA X 1 WEEK, PERIUMBILICAL ABD PAIN History: Denies: Hx Renal Disease Musculoskeletal History: Reports: Hx Arthritis, Hx Back Problems, Hx Osteoporosis, Other Musculoskeletal History - bilat carpal tunnel surg, bernardo knee replacement. 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 Hx Chemotherapy: No Hx Radiation Therapy: No - Surgical History Surgery Procedure, Year, and Place: CHOLECYSTECTOMY JONATHAN EN Y GASTRIC BYPASS ( 1999) X2 R LUNG MASS REMOVED,BILATERAL KNEE REPLACEMENT, BILATERAL CARPAL TUNNEL,BILATERAL ROTATOR CUFF SURGERY, CATARACTS ,RT EYE MUSCLE SURGERY A CHILD, RT LUMPECTOMY 1979, LT LUMPECTOMY 2013,TONSILS Infectious Disease History: No Infectious Disease History: Reports: Hx Hepatitis Denies: Hx Human Immunodeficiency Virus (HIV), Traveled Outside the [place] in Last 30 Days - Family History Known Family History: Positive: Cardiac Disease, Other - Brother - colon ca, son - pancreatitis, sister and mother CVA - Social History Alcohol Use: Occasionally Hx Substance Use: Yes Substance Use Type: Reports: Marijuana Substance Use Comment - Amount & Last Used: last week Hx Tobacco Use: Yes Smoking Status (MU): Former Smoker Type: Cigarettes Review of Systems Constitutional: Negative Eyes: Negative ENT: Negative Cardiovascular: Negative Respiratory: Negative Gastrointestinal: Negative Genitourinary: Negative Musculoskeletal: Negative Skin: Negative Neurological: Other - AMS - confusion Psychological: Normal All Other Systems Reviewed And Are Negative: Yes Physical Exam Triage Information Reviewed: Yes Vital Signs On Initial Exam: Initial Vitals Temp Pulse Resp BP Pulse Ox 97.6 F 84 14 126/68 100 06/30/17 22:49 06/30/17 22:49 06/30/17 22:49 06/30/17 22:49 06/30/17 22:49 Vital Signs Reviewed: Yes Appearance: Positive: Well-Appearing, No Pain Distress Skin: Positive: Warm, Skin Color Reflects Adequate Perfusion, Dry Head/Face: Positive: Normal Head/Face Inspection, Other - Dried drool on mouth Eyes: Positive: Other: - Pupils are midrange and reactive. Extraocular movements are good. ENT: Positive: Normal ENT inspection Neck: Positive: Supple, Nontender Respiratory/Lung Sounds: Positive: Clear to Auscultation, Breath Sounds Present Cardiovascular: Positive: RRR, Pulses are Symmetrical in both Upper and Lower Extremities Abdomen Description: Positive: Nontender, Soft Bowel Sounds: Positive: Present Musculoskeletal: Positive: Normal, Strength/ROM Intact Neurological: Positive: Sensory/Motor Intact, Other - Pt is somnolent and slurs her speech. There are no focal neurological deficits. Diagnostics - Vital Signs Vital Signs Temp Pulse Resp BP Pulse Ox 06/30/17 23:04 81 95 06/30/17 23:02 103/81 06/30/17 22:49 97.6 F 84 14 126/68 100 - Laboratory Lab Results: Lab Results 07/01/17 07/01/17 07/01/17 Range/Units 01:00 01:00 01:00 WBC 9.8 (3.5-10.8) 10^3/ul RBC 4.51 (4.0-5.4) 10^6/ul Hgb 10.5 L (12.0-16.0) g/dl Hct 34 L (35-47) % MCV 76 L (80-97) fL MCH 23 L (27-31) pg MCHC 31 (31-36) g/dl RDW 19 H (10.5-15) % Plt Count 235 (150-450) 10^3/ul MPV 9 (7.4-10.4) um3 Neut % (Auto) 72.5 (38-83) % Lymph % (Auto) 16.1 L (25-47) % Adair % (Auto) 8.3 (1-9) % Eos % (Auto) 2.5 (0-6) % Baso % (Auto) 0.6 (0-2) % Absolute Neuts (auto) 7.1 (1.5-7.7) 10^3/ul Absolute Lymphs (auto) 1.6 (1.0-4.8) 10^3/ul Absolute Monos (auto) 0.8 (0-0.8) 10^3/ul Absolute Eos (auto) 0.2 (0-0.6) 10^3/ul Absolute Basos (auto) 0.1 (0-0.2) 10^3/ul Absolute Nucleated RBC 0.01 10^3/ul Nucleated RBC % 0.1 Sodium 138 (133-145) mmol/L Potassium 4.3 (3.5-5.0) mmol/L Chloride 106 (101-111) mmol/L Carbon Dioxide 27 (22-32) mmol/L Anion Gap 5 (2-11) mmol/L BUN 17 (6-24) mg/dL Creatinine 0.90 (0.51-0.95) mg/dL Est GFR ( Amer) 79.6 (>60) Est GFR (Non-Af Amer) 61.9 (>60) BUN/Creatinine Ratio 18.9 (8-20) Glucose 87 (70-100) mg/dL Lactic Acid (0.5-2.0) mmol/L Calcium 9.6 (8.6-10.3) mg/dL Total Bilirubin 0.30 (0.2-1.0) mg/dL AST 16 (13-39) U/L ALT 10 (7-52) U/L Alkaline Phosphatase 66 (34-104) U/L Ammonia 41 (16-53) mol/L Troponin I 0.00 (<0.04) ng/mL Total Protein 5.9 L (6.4-8.9) g/dL Albumin 3.6 (3.2-5.2) g/dL Globulin 2.3 (2-4) g/dL Albumin/Globulin Ratio 1.6 (1-3) Urine Color Urine Appearance Urine pH (5-9) Ur Specific Garfield (1.010-1.030) Urine Protein (Negative) Urine Ketones (Negative) Urine Blood (Negative) Urine Nitrate (Negative) Urine Bilirubin (Negative) Urine Urobilinogen (Negative) Ur Leukocyte Esterase (Negative) Urine Glucose (Negative) Urine Ascorbic Acid (Negative) Urine Opiates Screen (None Detect) Ur Barbiturates Screen (None Detect) Ur Phencyclidine Scrn (None Detect) Ur Amphetamines Screen (None Detect) U Benzodiazepines Scrn (None Detect) Urine Cocaine Screen (None Detect) U Cannabinoids Screen (None Detect) Serum Alcohol < 10 (<10) mg/dL 07/01/17 07/01/17 07/01/17 Range/Units 01:00 03:00 03:00 WBC (3.5-10.8) 10^3/ul RBC (4.0-5.4) 10^6/ul Hgb (12.0-16.0) g/dl Hct (35-47) % MCV (80-97) fL MCH (27-31) pg MCHC (31-36) g/dl RDW (10.5-15) % Plt Count (150-450) 10^3/ul MPV (7.4-10.4) um3 Neut % (Auto) (38-83) % Lymph % (Auto) (25-47) % Adair % (Auto) (1-9) % Eos % (Auto) (0-6) % Baso % (Auto) (0-2) % Absolute Neuts (auto) (1.5-7.7) 10^3/ul Absolute Lymphs (auto) (1.0-4.8) 10^3/ul Absolute Monos (auto) (0-0.8) 10^3/ul Absolute Eos (auto) (0-0.6) 10^3/ul Absolute Basos (auto) (0-0.2) 10^3/ul Absolute Nucleated RBC 10^3/ul Nucleated RBC % Sodium (133-145) mmol/L Potassium (3.5-5.0) mmol/L Chloride (101-111) mmol/L Carbon Dioxide (22-32) mmol/L Anion Gap (2-11) mmol/L BUN (6-24) mg/dL Creatinine (0.51-0.95) mg/dL Est GFR ( Amer) (>60) Est GFR (Non-Af Amer) (>60) BUN/Creatinine Ratio (8-20) Glucose (70-100) mg/dL Lactic Acid 1.6 (0.5-2.0) mmol/L Calcium (8.6-10.3) mg/dL Total Bilirubin (0.2-1.0) mg/dL AST (13-39) U/L ALT (7-52) U/L Alkaline Phosphatase (34-104) U/L Ammonia (16-53) mol/L Troponin I (<0.04) ng/mL Total Protein (6.4-8.9) g/dL Albumin (3.2-5.2) g/dL Globulin (2-4) g/dL Albumin/Globulin Ratio (1-3) Urine Color Yellow Urine Appearance Clear Urine pH 6.0 (5-9) Ur Specific Garfield 1.016 (1.010-1.030) Urine Protein Negative (Negative) Urine Ketones Negative (Negative) Urine Blood Negative (Negative) Urine Nitrate Negative (Negative) Urine Bilirubin Negative (Negative) Urine Urobilinogen Negative (Negative) Ur Leukocyte Esterase Negative (Negative) Urine Glucose Negative (Negative) Urine Ascorbic Acid * H (Negative) Urine Opiates Screen Presumptive positive H (None Detect) Ur Barbiturates Screen None detected (None Detect) Ur Phencyclidine Scrn None detected (None Detect) Ur Amphetamines Screen None detected (None Detect) U Benzodiazepines Scrn None detected (None Detect) Urine Cocaine Screen None detected (None Detect) U Cannabinoids Screen Presumptive positive H (None Detect) Serum Alcohol (<10) mg/dL Result Diagrams: 07/01/17 01:00 07/01/17 01:00 Lab Statement: Any lab studies that have been ordered have been reviewed, and results considered in the medical decision making process. - CT BRAIN CT CT Interpretation: No Acute Changes - INVOLUTIONAL CHANGES. NO HEMORRHAGE. NO MASS. NO DETECTABLE INFARCT. NO SHIFT OR HERNIATION. OSSEOUS STRCUTURES ARE INTACT. CT Interpretation Completed By: Radiologist - ED PHYSICIAN REVIEWS AND AGREES - Additional Comments Diagnostic Additional Comments: EKG - NSR @ 77 BPM. Normal axis, normal intervals. Flipped T waves in anterior leads. Re-Evaluation - Re-Evaluation First Eval Re-Evaluation Time: 03:51 Change: Improved Comment: The patient now demonstrates clear speech and steady gait. She wonders why she is in the emergency department. The patient admits to taking OxyContin, Trazodone, and marijuana. The patient's daughter says that this behavior has occurred before. Altered Mental Statu Course/Dx - Course Course Of Treatment: Pt with slurred speech and somnulence with hx of opiate tx and marijuana use. CT neg. No medical cause found. Drug screen c/w hx above. Pt sobered in the ED and returned to functional capacity with clear speech/steady gait and intact cognition. D/W daughter. D/C to home. - Diagnoses Discharge Diagnoses: Polypharmacy ingestion, Drug-induced delirium, Marijuana abuse Discharge - Discharge Plan Condition: Good Disposition: HOME Patient Education Materials: Opioid Pain Management (ED) Referrals: Natan Burrell MD [Primary Care Provider] - Additional Instructions: Call your doctor in the morning -- you will need to have your medications adjusted. If you feel you need help with your medication or drug use contact us or your doctor for resources. Do not use marijuana or alcohol that may cause drowsiness or overdose of your pain/sleeping medication. Return if worse, new symptoms or other concerns. Do not drive. The documentation as recorded by the Tania jiménez Edward accurately reflects the service I personally performed and the decisions made by me, Good Stevens MD.
[2017-07-01 06:12] VITALS: BP 97/52
--- NOTE | 2017-07-01 08:04 | RAD ---
INDICATION: Change in mental status COMPARISON: None TECHNIQUE: Noncontrast axial source images were acquired from the skull base to the vertex. FINDINGS: Ventricles/sulci: The ventricles and cisterns are normal in size and configuration for age. Brain parenchyma: There is no focal parenchymal finding, evidence of intracranial mass, or intracranial mass effect. Intracranial hemorrhage:None. Extra-axial spaces: There are no abnormal extra axial fluid collections or evidence of extra-axial mass. Calvarium: There is no calvarial fracture or other calvarial abnormality. Scalp: There is no evidence of scalp or extracalvarial soft tissue abnormality. Paranasal sinuses/mastoid: The paranasal sinuses and mastoid air cells are clear. Other: None. IMPRESSION: No acute intracranial findings
== END 2017-07-01 06:28 | disposition home or self-care (01) ==
LOC: ED 22:42
DX: T50.901A Poisoning by unspecified drugs, medicaments and biological substances, accidental (unintentional), initial encounter (principal); F12.10 Cannabis abuse, uncomplicated; R41.0 Disorientation, unspecified
CPT/HCPCS: 36415; 70450; 80053; 80307; 80320; 81003; 82140; 83605; 84484; 85025; 93005; 99283; G0480

== ENCOUNTER 2017-07-17 21:05 | Emergency (ER) | payer MEDICARE, MEDICAID ==
[2017-07-17] MEDS ORDERED: oxyCODONE/Acetamin 5/325 MG* TAB PO ONE (22:38)
--- NOTE | 2017-07-17 23:06 | ED ---
Matthew Friedman Tiffany, scribed for Davide Mcdaniel on 07/17/17 at 2241 . Lower Extremity - HPI Summary HPI Summary: This patient is a 72 year old F presenting to [facility] with a chief complaint of bilateral knee pain since this week. The patient rates the pain 8/10 in severity. Symptoms aggravated by nothing. Symptoms alleviated by nothing. The patient has a history of knee arthritis. She takes pain medication but ran out. She requests more pain medication. - History of Current Complaint Chief Complaint: EDExtremityLower Stated Complaint: KNEE PAIN Time Seen by Provider: 07/17/17 22:32 Hx Obtained From: Patient Onset/Duration: Still Present Severity Currently: Severe Pain Intensity: 8 Pain Scale Used: 0-10 Numeric Location: Other - Bilateral knees Aggravating Factor(s): Nothing Alleviating Factor(s): Nothing - Allergies/Home Medications Allergies/Adverse Reactions: Allergies Allergy/AdvReac Type Severity Reaction Status Date / Time Promethazine [From Phenergan] Allergy Intermediate Hives Verified 06/30/17 22:55 Acetaminophen [From Tylenol] Allergy See Comment Verified 06/30/17 22:55 Ibuprofen Allergy HEP C Verified 06/30/17 22:55 NSAIDs AdvReac Mild ULCERS Verified 06/30/17 22:55 Tramadol [From Ultram] AdvReac Mild OUT OF IT Verified 06/30/17 22:55 PMH/Surg Hx/FS Hx/Imm Hx Previously Healthy: No Endocrine/Hematology History: Reports: Hx Thyroid Disease, Other Endocrine/ Hematological Disorders - hepatitis c, h/o bleeding issue w/ elevated INR in the past Denies: Hx Anticoagulant Therapy, Hx Diabetes Cardiovascular History: Reports: Hx Deep Vein Thrombosis, Hx Hypertension - STATES NOT BEING TREATED FOR HYPERTENSION Denies: Hx Congestive Heart Failure, Hx Pacemaker/ICD Comment Only: Other Cardiovascular Problems/Disorders - PACS Respiratory History: Reports: Other Respiratory Problems/Disorders - r lung mass removal-benign Denies: Hx Asthma, Hx Chronic Obstructive Pulmonary Disease (COPD) GI History: Reports: Hx Gastroesophageal Reflux Disease, Hx Ulcer, Other GI Disorders - DIARRHEA X 1 WEEK, PERIUMBILICAL ABD PAIN History: Denies: Hx Renal Disease Musculoskeletal History: Reports: Hx Arthritis, Hx Back Problems, Hx Osteoporosis, Other Musculoskeletal History - bilat carpal tunnel surg, bernardo knee replacement. 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 Hx Chemotherapy: No Hx Radiation Therapy: No - Surgical History Surgery Procedure, Year, and Place: CHOLECYSTECTOMY JONATHAN EN Y GASTRIC BYPASS ( 1999) X2 R LUNG MASS REMOVED,BILATERAL KNEE REPLACEMENT, BILATERAL CARPAL TUNNEL,BILATERAL ROTATOR CUFF SURGERY, CATARACTS ,RT EYE MUSCLE SURGERY A CHILD, RT LUMPECTOMY 1979, LT LUMPECTOMY 2013,TONSILS Infectious Disease History: No Infectious Disease History: Reports: Hx Hepatitis Denies: Hx Human Immunodeficiency Virus (HIV), Traveled Outside the [place] in Last 30 Days - Family History Known Family History: Positive: None - reviewed & noncontributory, Cardiac Disease, Other - Brother - colon ca, son - pancreatitis, sister and mother CVA - Social History Alcohol Use: Occasionally Hx Substance Use: Yes Substance Use Type: Reports: Marijuana Substance Use Comment - Amount & Last Used: last week Hx Tobacco Use: Yes Smoking Status (MU): Former Smoker Type: Cigarettes Review of Systems Negative: Fever Positive: Other - Bilateral knee pain All Other Systems Reviewed And Are Negative: Yes Physical Exam - Summary Physical Exam Summary: Appearance: Well appearing, no pain distress Skin: warm, dry, reflects adequate perfusion Head/face: normal Eyes: EOMI, SRINI ENT: normal Neck: supple, non-tender Respiratory: CTA, breath sounds present Cardiovascular: RRR, pulses symmetrical Abdomen: non-tender, soft Bowel: present Musculoskeletal: normal, strength/ROM intact Neuro: normal, sensory motor intact, A&Ox3 Triage Information Reviewed: Yes Vital Signs On Initial Exam: Initial Vitals Temp Pulse Resp BP Pulse Ox 96.6 F 88 16 132/64 97 07/17/17 21:24 07/17/17 21:24 07/17/17 21:24 07/17/17 21:24 07/17/17 21:24 Vital Signs Reviewed: Yes Diagnostics - Vital Signs Vital Signs Temp Pulse Resp BP Pulse Ox 07/17/17 21:24 96.6 F 88 16 132/64 97 - Laboratory Lab Statement: Any lab studies that have been ordered have been reviewed, and results considered in the medical decision making process. Lower Extremity Course/Dx - Course Course Of Treatment: This patient is a 72 year old F presenting to [facility] with a chief complaint of bilateral knee pain since this week. In the ED course the patient was given Percocet. Patient will be discharged with prescription for Percocet and follow up from PCP. The patient is agreeable with this plan. - Diagnoses Provider Diagnoses: Bilateral knee pain Discharge - Discharge Plan Condition: Stable Disposition: HOME Prescriptions: oxyCODONE/Acetamin 5/325 MG* [Percocet 5/325 TAB*] 1 tab PO Q8H PRN #10 tab MDD 3 PRN Reason: Pain Patient Education Materials: Knee Pain (ED) Referrals: Natan Burrell MD [Primary Care Provider] - 3 Days Additional Instructions: Follow up with PCP in 3 days. Return to the ED if you have any new or worsening symptoms. The documentation as recorded by the Matthew jiménez Tiffany accurately reflects the service I personally performed and the decisions made by Violeta deshpande Emmanuel.
[2017-07-17 23:09] VITALS: BP 144/106
== END 2017-07-17 23:12 | disposition home or self-care (01) ==
LOC: ED 21:05
DX: M25.562 Pain in left knee (principal); M25.561 Pain in right knee; E07.9 Disorder of thyroid, unspecified; I10 Essential (primary) hypertension; Z86.718 Personal history of other venous thrombosis and embolism; K21.9 Gastro-esophageal reflux disease without esophagitis; F41.9 Anxiety disorder, unspecified; F32.9 Major depressive disorder, single episode, unspecified; Z90.49 Acquired absence of other specified parts of digestive tract; Z98.84 Bariatric surgery status; Z96.653 Presence of artificial knee joint, bilateral; F12.90 Cannabis use, unspecified, uncomplicated; Z87.891 Personal history of nicotine dependence
CPT/HCPCS: 99282; A9270-GY

== ENCOUNTER 2017-08-13 05:51 | Emergency (ER) | payer MEDICARE, MEDICAID ==
[2017-08-13 07:05] LABS: Hematocrit 36 % (35-47); Hemoglobin 10.9 g/dl (12.0-16.0); Mean Corpuscular HGB Conc 31 g/dl (31-36); Mean Corpuscular Hemoglobin 23 pg (27-31); Mean Corpuscular Volume 74 fL (80-97); Mean Platelet Volume 8 um3 (7.4-10.4); Platelet Count 304 10^3/ul (150-450); Red Blood Count 4.82 10^6/ul (4.0-5.4); Red Cell Distribution Width 19 % (10.5-15); White Blood Count 11.1 10^3/ul (3.5-10.8)
[2017-08-13 07:19] LABS: EGFR Non-African American 63.5 (>60)
[2017-08-13 07:50] LABS: ABS Basophils 0.1 10^3/ul (0-0.2); ABS Eosinophils 0.2 10^3/ul (0-0.6); ABS Neutrophils 6.8 10^3/ul (1.5-7.7); ABS Nucleated RBC 0 10^3/ul; Eosinophil % 1.6 % (0-6); Lymphocyte % 26.8 % (25-47); Nucleated Red Blood Cells % 0.1
[2017-08-13 11:38] VITALS: BP 141/77
--- NOTE | 2017-08-13 11:48 | ED ---
Progress - Progress Note Progress Note: Pt was signed out at change of shift by Dr. Thomson 0700 08/13/17. Pt had presented with depression, alcohol intoxication and evidence of scratches on her arms, with concern for suicidal behavior. Pt is awaiting clinical sobriety so that she can give sober interview for mental health evaluation. Pt has no physical complaints at at the time of my evaluation denies suicidal ideation. Pt is ambulatory without gait disturbance, speech is clear and pt is calm and cooperative. Cleared for MHE 1000am. - Consult/PCP Time Called: 10:54 Course/Dx - Course Course Of Treatment: Pt brought in by ambulance, intoxicated with alcohol, evidence of injury to both arms with concern for suicidal behavior. Pt had labs and observation until she was clinically sober. Pt had MHE and per Yfn who discussed pt with Dr. Barrientos, pt is stable for DC. - Diagnoses Provider Diagnoses: Anemia, Alcohol abuse, Depression, Anxiety
== END 2017-08-13 11:37 | disposition home or self-care (01) ==
LOC: ED 05:51
DX: D64.9 Anemia, unspecified (principal); F10.10 Alcohol abuse, uncomplicated; F41.8 Other specified anxiety disorders; F32.9 Major depressive disorder, single episode, unspecified
CPT/HCPCS: 36415; 80053; 80307; 80320; 84443; 85025; 99284; G0480

== ENCOUNTER 2017-09-25 15:49 | Observation (INO) | payer MEDICARE, MEDICAID ==
--- NOTE | 2017-09-25 16:05 | RAD ---
Indication: Right-sided weakness. CT of the brain was performed without IV contrast. Ventricular structures are midline. No midline shift is noted. The extra-axial spaces are unremarkable. There is no evidence of intraluminal mass or hemorrhage. No other high or low density lesions are identified. Mastoid air cells and paranasal sinuses are grossly unremarkable. When compared to previous exam of July 01, 2017 no significant change is noted. IMPRESSION: No intracranial mass or hemorrhage is noted.
[2017-09-25 17:06] LABS: INR 1.25 (0.77-1.02)
[2017-09-25 17:11] LABS: EGFR Non-African American 63.5 (>60)
[2017-09-25 17:42] LABS: ABS Basophils 0.1 10^3/ul (0-0.2); ABS Eosinophils 0 10^3/ul (0-0.6); ABS Lymphocytes 0.9 10^3/ul (1.0-4.8); ABS Monocytes 1.3 10^3/ul (0-0.8); ABS Neutrophils 17.6 10^3/ul (1.5-7.7); ABS Nucleated RBC 0 10^3/ul; Eosinophil % 0.1 % (0-6); Hematocrit 34 % (35-47); Hemoglobin 10.2 g/dl (12.0-16.0); Lymphocyte % 4.6 % (25-47); Mean Corpuscular HGB Conc 30 g/dl (31-36); Mean Corpuscular Hemoglobin 22 pg (27-31); Mean Corpuscular Volume 71 fL (80-97); Mean Platelet Volume 9 um3 (7.4-10.4); Nucleated Red Blood Cells % 0; Platelet Count 257 10^3/ul (150-450); Red Blood Count 4.75 10^6/ul (4.0-5.4); Red Cell Distribution Width 18 % (10.5-15); White Blood Count 19.9 10^3/ul (3.5-10.8)
[2017-09-25] MEDS ORDERED: oxyCODONE TAB* 5 MG TAB PO ONE (17:47)
[2017-09-25] MEDS ORDERED: NS 0.9% 1000 ML* 1,000 ML IV ONE (18:05)
--- NOTE | 2017-09-25 20:09 | RAD ---
Indication: Stroke. Single frontal view of the chest performed at 1925 hours was reviewed. Comparison is made with previous exam dated November 01, 2016. No mediastinal shift is noted. Heart is of normal size and configuration. Lung michelle appear clear. IMPRESSION: NO ACTIVE CARDIOPULMONARY DISEASE IS NOTED.
[2017-09-25] MEDS ORDERED: Vancomycin(*) 1,000 MG in NS 0.9% 250 ML* 250 ML IVPB ONE (21:11)
[2017-09-25 21:34] LABS: Urine Appearance Cloudy; Urine Blood 3+ (Negative); Urine Color Yellow; Urine Ketones Negative (Negative); Urine Protein 2+(100 mg/dL) (Negative); Urine Specific Gravity 1.024 (1.010-1.030); Urine Urobilinogen Negative (Negative)
--- NOTE | 2017-09-25 21:57 | PN ---
Tania Friedman Edward, scribed for Matthias Lennon MD on 09/25/17 at 2103 . Progress Note - Progress Note Date of Service: 09/25/17 Note: Pt signed out by Dr. Light at shift change. CXR shows NAD. Re-eval at 21:00. 72 y/o female with history of recent alcohol abuse. Pt came with abnormal movement of RUE. Pt seen by dr light earlier. pt did not have signs or sx of CVA. In the ED course, pt [place] [id number]. Repeat exam, pt has blister filled with fluid over R leg. Pt states she has had it for 1 day. Also pt states she has lymphangitis. Pt given abx and admitted to Dr. Miguel. Dx: cellulitis Procedure note: opened blister @ R leg, with 7 CCs of thick serous fluid drained ; sent for culture. The documentation as recorded by the singhibTania thrasher Edward accurately reflects the service I personally performed and the decisions made by me, Matthias Lennon MD.
--- NOTE | 2017-09-25 23:18 | HP ---
H&P (Free Text) History and Physical: PCP: Reta Burrell MD Date/Time: 09/25/2017 2320 CC: blister R medial calf HPI: Mrs Lawson is a 72YO female who is a very difficult historian due to wild swings in affect from calm to sudden brief tearful outbursts reminiscent of pseudobulbar affect with a HX of hepatitis C, DVT, hypothyroidism, PAOD, anemia , chronic LBP, depression, & anxiety who reports the sudden onset of a large painful blister along her medial R calf earlier today. In contrast ED triage reports she presented for "fall, R-sided weakness, & AMS". During my evaluation , she denied any weakness and moved all extremities equally. She denies injury to the RLE, F/C, sweats, N/V, diarrhea, changes in bowel/bladder, headache, head injury, LOC, chest pain, SOB, and palpitations. The blistered was ruptured by ED and CX sent. WBCs are 19k 88% neutrophils. UA is consistent with UTI. Dr Kuldeep MD ED's note states she was a fall from standing with head injur and loss of consciousness for an unknown amount of time. EMS's initial evaluation reportedly found her to be disoriented even to person. The blister on the back of her leg was felt to be compression related. She mentioned none of this during my questioning and exam. Of note, being asked if she were , single, , or prompted a sudden tearful episode in which she stated that her Thanksgiving last year. She elaborated that she had known her for 6 (six ) years and been for 5 (five). However, multiple previous H&Ps have listed her as being unmarried or . PMedHx hepatitis C DVT hypothyroidism PUD microcytic anemia GERD chronic LBP depression anxiety Ambulatory Orders QUEtiapine TAB* [Seroquel TAB*] 300 mg PO BEDTIME 11/22/14 LORazepam TAB(*) [Ativan 0.5 MG TAB (*)] 0.5 mg PO QID PRN 01/30/15 Ranitidine TAB (NF) [Zantac TAB (NF)] 150 mg PO BID 04/10/15 Levothyroxine TAB* [Synthroid TAB*] 75 mcg PO DAILY 09/25/17 Metoprolol Tartrate TAB* [Lopressor TAB*] 12.5 mg PO BEDTIME 09/25/17 Metoprolol Tartrate TAB* [Lopressor TAB*] 25 mg PO QAM 09/25/17 Nortriptyline CAP* [Pamelor CAP*] 25 - 50 mg PO BEDTIME PRN 09/25/17 Oxycodone TAB(NF) [Oxycodone HCl 10 MG] 20 mg PO TID PRN 09/25/17 Potassium Chlor TAB* [Klor Con ER TAB*] 10 meq PO DAILY 09/25/17 Rivaroxaban TAB(*) [Xarelto 20 mg] 20 mg PO DAILY 09/25/17 Venlafaxine ER (NF) [Effexor ER (NF)] 300 mg PO DAILY 09/25/17 buPROPion SR TAB* [Wellbutrin SR TAB*] 150 mg PO DAILY 09/25/17 traZODone TAB* [Desyrel TAB*] 50 - 100 mg PO BEDTIME PRN 09/25/17 Allergies acetaminophen Allergy (Verified 09/25/17 19:50) Unknown Reaction Details ibuprofen Allergy (Verified 09/25/17 19:50) Unknown Reaction Details NSAIDS (Non-Steroidal Anti-Inflamma Allergy (Verified 09/25/17 19:50) GI Upset promethazine Allergy (Verified 09/25/17 19:50) Hives tramadol [From Ultram] Allergy (Verified 09/25/17 19:50) Unknown Reaction Details SocHx: quit smoking ~20 years ago w/ ~30PYHX, denies alcohol & recreational drugs; lives alone, has a son in [place] and a daughter living in [facility]; full code status FamHx: positive for Alzheimer's, colon CA, & bladder CA ROS: as above, otherwise reviewed and all were negative vitals: Vital Signs Temp 37.9 C 09/26/17 00:59 Pulse 92 09/26/17 00:59 Resp 18 09/26/17 01:33 BP 140/59 09/26/17 00:59 Pulse Ox 100 09/26/17 00:59 Intake & Output 09/25/17 09/25/17 09/26/17 11:59 23:59 11:59 Intake Total 1250 Balance 1250 Weight 58.967 kg 63.458 kg Intake: IV Fluids 1250 Constitutional: NAD, normally developed, overweight white female HEENM: atraumatic; sclera/conjunctiva: anicteric/clear; hearing: clinically intact; oropharynx: clear, mucosa moist Neck: soft tissue: no nuchal rigidity; thyroid: noprmal Pulmonary: clear to auscultation bilaterally, good aeration, no accessory muscle use CV: RR/RR, normal S1S2, no carotid bruit, no jugular venous distention, 2+ B DP/ PT, no edema Abdominal: soft, non-distended, non-tender, no rebound/guarding/rigidity, normoactive bowel sounds, no hepatosplenomegaly or masses, no costovertebral angle tenderness Musculoskeletal: general: grossly intact, no tenderness to palpation Integumental: R medial rachel/calf with fresh dressing covering a large drained blister/bullae Psychiatric orientation: AA&O to PPS affect: highly variable from clam/stoic to sudden tearful outbursts reminiscent of pseudobulbar affect mood: cooperative eye contact: fair content: unreliable responses: timely insight: poor Testing: Lab Results 09/25/17 09/25/17 09/25/17 Range/Units 16:04 16:23 16:23 WBC 19.9 H (3.5-10.8) 10^3/ul RBC 4.75 (4.0-5.4) 10^6/ul Hgb 10.2 L (12.0-16.0) g/dl Hct 34 L (35-47) % MCV 71 L (80-97) fL MCH 22 L (27-31) pg MCHC 30 L (31-36) g/dl RDW 18 H (10.5-15) % Plt Count 257 (150-450) 10^3/ul MPV 9 (7.4-10.4) um3 Neut % (Auto) 88.3 H (38-83) % Lymph % (Auto) 4.6 L (25-47) % [place] % (Auto) 6.6 (0-7) % Eos % (Auto) 0.1 (0-6) % Baso % (Auto) 0.4 (0-2) % Absolute Neuts (auto) 17.6 H (1.5-7.7) 10^3/ul Absolute Lymphs (auto) 0.9 L (1.0-4.8) 10^3/ul Absolute Monos (auto) 1.3 H (0-0.8) 10^3/ul Absolute Eos (auto) 0 (0-0.6) 10^3/ul Absolute Basos (auto) 0.1 (0-0.2) 10^3/ul Absolute Nucleated RBC 0 10^3/ul Nucleated RBC % 0 Hypochromasia 2+ INR (Anticoag Therapy) (0.77-1.02) Sodium 133 (133-145) mmol/L Potassium 5.1 H (3.5-5.0) mmol/L Chloride 102 (101-111) mmol/L Carbon Dioxide 26 (22-32) mmol/L Anion Gap 5 (2-11) mmol/L BUN 28 H (6-24) mg/dL Creatinine 0.88 (0.51-0.95) mg/dL Est GFR ( Amer) 81.7 (>60) Est GFR (Non-Af Amer) 63.5 (>60) BUN/Creatinine Ratio 31.8 H (8-20) Glucose 122 H (70-100) mg/dL POC Glucose (mg/dL) 114 H (70-100) mg/dL Lactic Acid (0.5-2.0) mmol/L Calcium 9.8 (8.6-10.3) mg/dL Magnesium 2.1 (1.9-2.7) mg/dL Total Bilirubin 0.50 (0.2-1.0) mg/dL AST 81 H (13-39) U/L ALT 25 (7-52) U/L Alkaline Phosphatase 76 (34-104) U/L Troponin I 0.00 (<0.04) ng/mL Total Protein 6.7 (6.4-8.9) g/dL Albumin 3.9 (3.2-5.2) g/dL Globulin 2.8 (2-4) g/dL Albumin/Globulin Ratio 1.4 (1-3) TSH 2.52 (0.34-5.60) mcIU/mL Urine Color Urine Appearance Urine pH (5-9) Ur Specific [place] (1.010-1.030) Urine Protein (Negative) Urine Ketones (Negative) Urine Blood (Negative) Urine Nitrate (Negative) Urine Bilirubin (Negative) Urine Urobilinogen (Negative) Ur Leukocyte Esterase (Negative) Urine WBC (Auto) (Absent) Urine RBC (Auto) (Absent) Ur Squamous Epith Cells (Absent) Urine Bacteria (Absent) Urine Glucose (Negative) Urine Ascorbic Acid (Negative) Serum Alcohol < 10 (<10) mg/dL 09/25/17 09/25/17 09/25/17 Range/Units 16:23 16:23 21:13 WBC (3.5-10.8) 10^3/ul RBC (4.0-5.4) 10^6/ul Hgb (12.0-16.0) g/dl Hct (35-47) % MCV (80-97) fL MCH (27-31) pg MCHC (31-36) g/dl RDW (10.5-15) % Plt Count (150-450) 10^3/ul MPV (7.4-10.4) um3 Neut % (Auto) (38-83) % Lymph % (Auto) (25-47) % [place] % (Auto) (0-7) % Eos % (Auto) (0-6) % Baso % (Auto) (0-2) % Absolute Neuts (auto) (1.5-7.7) 10^3/ul Absolute Lymphs (auto) (1.0-4.8) 10^3/ul Absolute Monos (auto) (0-0.8) 10^3/ul Absolute Eos (auto) (0-0.6) 10^3/ul Absolute Basos (auto) (0-0.2) 10^3/ul Absolute Nucleated RBC 10^3/ul Nucleated RBC % Hypochromasia INR (Anticoag Therapy) 1.25 H (0.77-1.02) Sodium (133-145) mmol/L Potassium (3.5-5.0) mmol/L Chloride (101-111) mmol/L Carbon Dioxide (22-32) mmol/L Anion Gap (2-11) mmol/L BUN (6-24) mg/dL Creatinine (0.51-0.95) mg/dL Est GFR ( Amer) (>60) Est GFR (Non-Af Amer) (>60) BUN/Creatinine Ratio (8-20) Glucose (70-100) mg/dL POC Glucose (mg/dL) (70-100) mg/dL Lactic Acid 1.9 (0.5-2.0) mmol/L Calcium (8.6-10.3) mg/dL Magnesium (1.9-2.7) mg/dL Total Bilirubin (0.2-1.0) mg/dL AST (13-39) U/L ALT (7-52) U/L Alkaline Phosphatase (34-104) U/L Troponin I (<0.04) ng/mL Total Protein (6.4-8.9) g/dL Albumin (3.2-5.2) g/dL Globulin (2-4) g/dL Albumin/Globulin Ratio (1-3) TSH (0.34-5.60) mcIU/mL Urine Color Yellow Urine Appearance Cloudy Urine pH 5.0 (5-9) Ur Specific [place] 1.024 (1.010-1.030) Urine Protein 2+(100 mg/dl) H (Negative) Urine Ketones Negative (Negative) Urine Blood 3+ H (Negative) Urine Nitrate Negative (Negative) Urine Bilirubin Negative (Negative) Urine Urobilinogen Negative (Negative) Ur Leukocyte Esterase Trace H (Negative) Urine WBC (Auto) 1+(6-10/hpf) H (Absent) Urine RBC (Auto) Trace(0-2/hpf) (Absent) Ur Squamous Epith Cells Present H (Absent) Urine Bacteria Absent (Absent) Urine Glucose 1+(50 mg/dl) H (Negative) Urine Ascorbic Acid * H (Negative) Serum Alcohol (<10) mg/dL ECG, personally reviewed: NSR rate 87, no ischemia CXR, personally reviewed: IMPRESSION: NO ACTIVE CARDIOPULMONARY DISEASE IS NOTED. CT brain WO, personally reviewed: IMPRESSION: No intracranial mass or hemorrhage is noted. Impression: 72F presenting with acute confusion delirium ? withdrawal, possible fall with LOC ? post-concussive, leukocytosis of uncertain etiology DIAGNOSIS & PLAN Primary acute confusion/delirium ? withdrawal vs psychosis : telemetry : check ammonia level : neurochecks : consider psychiatric evaluation in AM : supportive care possible fall with LOC ? post-concussive : on rivaroxaban for HX DVT, CT brain WO negative : supplemental oxygen : neurochecks : consider neurology consult in AM leukocytosis ? etiology : cannot exclude infection : blood, sputum, & urine CXs : given Vancomycin in ED : hold further ABX for now & trend WBCs & temperature curves Secondary hepatitis C : no acute issues HTN : continue metoprolol HX DVT : continue rivaroxaban hypothyroidism : continue levothyroxine microcytic anemia GERD/PUD : omeprazole chronic LBP : continue oxycodone depression : continue venlafaxine, quetiapine, & nortriptyline anxiety : continue lorazepam & bupropion SR Admission Rational: inpatient for complex medical presentation not anticipated to be adequately evaluated and improved w/i 48h to allow for discharge DVTp: rivaroxaban Code Status: full HCP: sonJuan Manuel
[2017-09-26] MEDS ORDERED: traZODone TAB* 50 MG TAB PO PRN (01:15)
[2017-09-26] MEDS ORDERED: Nortriptyline CAP* 25 MG PO PRN (01:15)
[2017-09-26] MEDS: oxyCODONE TAB* 5 MG TAB PO PRN ×3 (01:33→19:35)
[2017-09-26] MEDS ORDERED: Melatonin (NF) 3 MG TAB PO PRN (03:03)
[2017-09-26] MEDS ORDERED: Ondansetron INJ* 2 MG/ML VIAL IV PRN (03:03)
[2017-09-26] MEDS: Levothyroxine TAB* 75 MCG TAB PO SCH (05:11)
[2017-09-26] MEDS: Omeprazole CAP* 20 MG PO SCH (05:11)
[2017-09-26] MEDS: LORazepam TAB(*) 0.5 MG PO PRN (05:11)
[2017-09-26 09:11] LABS: EGFR Non-African American 82.7 (>60)
[2017-09-26 09:12] LABS: ABS Basophils 0.1 10^3/ul (0-0.2); ABS Eosinophils 0.2 10^3/ul (0-0.6); ABS Lymphocytes 1.8 10^3/ul (1.0-4.8); ABS Monocytes 1.1 10^3/ul (0-0.8); ABS Neutrophils 9.5 10^3/ul (1.5-7.7); ABS Nucleated RBC 0 10^3/ul; Eosinophil % 1.5 % (0-6); Hematocrit 30 % (35-47); Hemoglobin 9.3 g/dl (12.0-16.0); Mean Corpuscular HGB Conc 31 g/dl (31-36); Mean Corpuscular Hemoglobin 22 pg (27-31); Mean Corpuscular Volume 70 fL (80-97); Mean Platelet Volume 8 um3 (7.4-10.4); Nucleated Red Blood Cells % 0; Platelet Count 217 10^3/ul (150-450); Red Blood Count 4.32 10^6/ul (4.0-5.4); Red Cell Distribution Width 18 % (10.5-15); White Blood Count 12.6 10^3/ul (3.5-10.8)
[2017-09-26] MEDS: Docusate CAP* 100 MG PO SCH ×3 (10:44→20:10)
[2017-09-26] MEDS: Rivaroxaban TAB(*) 20 MG TAB PO SCH (10:45)
[2017-09-26] MEDS: Venlafaxine EXT RELEASE CAP* 75 MG PO SCH (10:45)
[2017-09-26] MEDS: Famotidine TAB* 20 MG PO SCH ×2 (10:46→20:09)
[2017-09-26] MEDS: Metoprolol Tartrate TAB* 25 MG PO SCH (10:46)
[2017-09-26] MEDS: buPROPion SR TAB.SR* 150 MG PO SCH (10:46)
[2017-09-26] MEDS: Potassium Chlor TAB* 10 MEQ TAB.ER PO SCH (12:30)
--- NOTE | 2017-09-26 12:47 | ED ---
Vale Friedman Thomas, scribed for Rohit Light MD on 09/25/17 at 1621 . Head Injury - HPI Summary HPI Summary: The patient is a 72 year old female brought in by ambulance after she fell and had loss of consciousness for an unknown amount of time. There is not a clear etiology to the fall. The patient is on Xarelto. She lives at home. The patient reports she cant stop her hand from hitting her face. Per EMS, the patient was not alert to person prior to arrival, although she is alert to person in the emergency department. She has a compression blister on the back of her right calf. The patient denies any numbness or tingling. - History Of Current Complaint Chief Complaint: EDNeurologicalDeficit Stated Complaint: POSSIBLE STROKE Time Seen by Provider: 09/25/17 16:00 Hx Obtained From: Patient, EMS Mechanism Of Injury: Fall From A Standing Position Onset/Duration: Still Present Onset of Pain: Immediate Severity Initially: Moderate Pain Intensity: 7 Pain Scale Used: 0-10 Numeric Alleviating Factor(s): Other: - Nothing Associated Signs And Symptoms: Other: - LOC, "can't stop hand from hitting face "; NEGATIVE: numbness, tingling Anticoagulant Therapy: Other: - Xarelto - Allergies/Home Medications Allergies/Adverse Reactions: Allergies Allergy/AdvReac Type Severity Reaction Status Date / Time acetaminophen Allergy Unknown Verified 09/25/17 19:50 Reaction Details ibuprofen Allergy Unknown Verified 09/25/17 19:50 Reaction Details NSAIDS (Non-Steroidal Allergy GI Upset Verified 09/25/17 19:50 Anti-Inflamma promethazine Allergy Hives Verified 09/25/17 19:50 tramadol [From Ultram] Allergy Unknown Verified 09/25/17 19:50 Reaction Details Home Medications: Home Medications Levothyroxine TAB* [Synthroid TAB*] 75 mcg PO DAILY 09/25/17 [History Confirmed 09/25/17] Metoprolol Tartrate TAB* [Lopressor TAB*] 12.5 mg PO BEDTIME 09/25/17 [History Confirmed 09/25/17] Metoprolol Tartrate TAB* [Lopressor TAB*] 25 mg PO QAM 09/25/17 [History Confirmed 09/25/17] Nortriptyline CAP* [Pamelor CAP*] 25 - 50 mg PO BEDTIME PRN 09/25/17 [History Confirmed 09/25/17] Oxycodone TAB(NF) [Oxycodone HCl 10 MG] 20 mg PO TID PRN 09/25/17 [History Confirmed 09/25/17] Potassium Chlor TAB* [Klor Con ER TAB*] 10 meq PO DAILY 09/25/17 [History Confirmed 09/25/17] Rivaroxaban TAB(*) [Xarelto 20 mg] 20 mg PO DAILY 09/25/17 [History Confirmed ] Venlafaxine ER (NF) [Effexor ER (NF)] 300 mg PO DAILY 09/25/17 [History Confirmed 09/25/17] buPROPion SR TAB* [Wellbutrin SR TAB*] 150 mg PO DAILY 09/25/17 [History Confirmed 09/25/17] traZODone TAB* [Desyrel TAB*] 50 - 100 mg PO BEDTIME PRN 09/25/17 [History Confirmed 09/25/17] PMH/Surg Hx/FS Hx/Imm Hx Endocrine/Hematology History: Reports: Hx Thyroid Disease, Other Endocrine/ Hematological Disorders - hepatitis c, h/o bleeding issue w/ elevated INR in the past Denies: Hx Anticoagulant Therapy, Hx Diabetes Cardiovascular History: Reports: Hx Deep Vein Thrombosis, Hx Hypertension - STATES NOT BEING TREATED FOR HYPERTENSION Denies: Hx Congestive Heart Failure, Hx Pacemaker/ICD Comment Only: Other Cardiovascular Problems/Disorders - PACS Respiratory History: Reports: Other Respiratory Problems/Disorders - r lung mass removal-benign Denies: Hx Asthma, Hx Chronic Obstructive Pulmonary Disease (COPD) GI History: Reports: Hx Gastroesophageal Reflux Disease, Hx Ulcer, Other GI Disorders - DIARRHEA X 1 WEEK, PERIUMBILICAL ABD PAIN History: Denies: Hx Renal Disease Musculoskeletal History: Reports: Hx Arthritis, Hx Back Problems, Hx Osteoporosis, Other Musculoskeletal History - bilat carpal tunnel surg, bernardo knee replacement. 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 Hx Chemotherapy: No Hx Radiation Therapy: No - Surgical History Surgery Procedure, Year, and Place: CHOLECYSTECTOMY JONATHAN [facility] Y GASTRIC BYPASS ( 1999) X2 R LUNG MASS REMOVED,BILATERAL KNEE REPLACEMENT, BILATERAL CARPAL TUNNEL,BILATERAL ROTATOR CUFF SURGERY, CATARACTS ,RT EYE MUSCLE SURGERY A CHILD, RT LUMPECTOMY 1979, LT LUMPECTOMY 2013,[facility] Infectious Disease History: Unable to Obtain/Confirm Infectious Disease History: Reports: Hx Hepatitis Denies: Hx Human Immunodeficiency Virus (HIV), Traveled Outside the [place] in Last 30 Days - Family History Known Family History: Positive: Cardiac Disease, Other - Brother - colon ca, son - pancreatitis, sister and mother CVA - Social History Alcohol Use: Occasionally Hx Substance Use: Yes Substance Use Type: Reports: Marijuana Substance Use Comment - Amount & Last Used: last week Hx Tobacco Use: Yes Smoking Status (MU): Former Smoker Type: Cigarettes Review of Systems Negative: Fever Negative: Epistaxis Neurological: Other - LOC, "can't stop hand from hiting face"; NEGATIVE: numbness Negative: Numbness All Other Systems Reviewed And Are Negative: Yes Physical Exam - Summary Physical Exam Summary: Appearance: The patient is well-nourished in no acute distress and in no acute pain. Skin: The skin is warm and dry and skin color reflects adequate perfusion. She has a compression blister on the back of her right calf. HEENT: The head is normocephalic and atraumatic. The pupils are equal and reactive. The conjunctivae are clear and without drainage. Nares are patent and without drainage. Mouth reveals moist mucous membranes and the throat is without erythema and exudate. The external ears are intact. The ear canals are patent and without drainage. The tympanic membranes are intact. Neck: the neck is supple with full range of motion and non-tender. There are no carotid bruits. There is no neck vein distension. Respiratory: Chest is non-tender. Lungs are clear to auscultation and breath sounds are symmetrical and equal. Cardiovascular: Heart is regular rate and rhythm.~There is no murmur or rub auscultated.~There is no peripheral edema and pulses are symmetrical and equal. Abdomen: The abdomen is soft and non-tender. There are normal bowel sounds heard in all four quadrants and there is no organomegaly palpated. Musculoskeletal: There is no back tenderness noted. Extremities are non-tender with full range of motion. There is good capillary refill. There is no peripheral edema or calf tenderness elicited. Neurological: Patient is alert and oriented to person, place and time. The patient has symmetrical motor strength in all four extremities. Cranial nerves are grossly intact. Deep tendon reflexes are symmetrical and equal in all four extremities. NIH Stroke Scale = 0. Psychiatric: The patient has an appropriate affect and does not exhibit any anxiety or depression. Triage Information Reviewed: Yes Vital Signs On Initial Exam: Initial Vitals Temp Pulse Resp BP Pulse Ox 99.1 F 88 18 108/88 100 09/25/17 16:00 09/25/17 16:00 09/25/17 16:00 09/25/17 16:00 09/25/17 16:00 Vital Signs Reviewed: Yes Diagnostics - Vital Signs Vital Signs Temp Pulse Resp BP Pulse Ox 09/25/17 16:00 99.1 F 88 18 108/88 100 - Laboratory Lab Results: Lab Results 09/25/17 09/25/17 09/25/17 Range/Units 16:04 16:23 16:23 WBC 19.9 H (3.5-10.8) 10^3/ul RBC 4.75 (4.0-5.4) 10^6/ul Hgb 10.2 L (12.0-16.0) g/dl Hct 34 L (35-47) % MCV 71 L (80-97) fL MCH 22 L (27-31) pg MCHC 30 L (31-36) g/dl RDW 18 H (10.5-15) % Plt Count 257 (150-450) 10^3/ul MPV 9 (7.4-10.4) um3 Neut % (Auto) 88.3 H (38-83) % Lymph % (Auto) 4.6 L (25-47) % [place] % (Auto) 6.6 (0-7) % Eos % (Auto) 0.1 (0-6) % Baso % (Auto) 0.4 (0-2) % Absolute Neuts (auto) 17.6 H (1.5-7.7) 10^3/ul Absolute Lymphs (auto) 0.9 L (1.0-4.8) 10^3/ul Absolute Monos (auto) 1.3 H (0-0.8) 10^3/ul Absolute Eos (auto) 0 (0-0.6) 10^3/ul Absolute Basos (auto) 0.1 (0-0.2) 10^3/ul Absolute Nucleated RBC 0 10^3/ul Nucleated RBC % 0 Hypochromasia 2+ INR (Anticoag Therapy) (0.77-1.02) Sodium 133 (133-145) mmol/L Potassium 5.1 H (3.5-5.0) mmol/L Chloride 102 (101-111) mmol/L Carbon Dioxide 26 (22-32) mmol/L Anion Gap 5 (2-11) mmol/L BUN 28 H (6-24) mg/dL Creatinine 0.88 (0.51-0.95) mg/dL Est GFR ( Amer) 81.7 (>60) Est GFR (Non-Af Amer) 63.5 (>60) BUN/Creatinine Ratio 31.8 H (8-20) Glucose 122 H (70-100) mg/dL POC Glucose (mg/dL) 114 H (70-100) mg/dL Lactic Acid (0.5-2.0) mmol/L Calcium 9.8 (8.6-10.3) mg/dL Magnesium 2.1 (1.9-2.7) mg/dL Total Bilirubin 0.50 (0.2-1.0) mg/dL AST 81 H (13-39) U/L ALT 25 (7-52) U/L Alkaline Phosphatase 76 (34-104) U/L Troponin I 0.00 (<0.04) ng/mL Total Protein 6.7 (6.4-8.9) g/dL Albumin 3.9 (3.2-5.2) g/dL Globulin 2.8 (2-4) g/dL Albumin/Globulin Ratio 1.4 (1-3) TSH 2.52 (0.34-5.60) mcIU/mL Urine Color Urine Appearance Urine pH (5-9) Ur Specific [place] (1.010-1.030) Urine Protein (Negative) Urine Ketones (Negative) Urine Blood (Negative) Urine Nitrate (Negative) Urine Bilirubin (Negative) Urine Urobilinogen (Negative) Ur Leukocyte Esterase (Negative) Urine WBC (Auto) (Absent) Urine RBC (Auto) (Absent) Ur Squamous Epith Cells (Absent) Urine Bacteria (Absent) Urine Glucose (Negative) Urine Ascorbic Acid (Negative) Serum Alcohol < 10 (<10) mg/dL 09/25/17 09/25/17 09/25/17 Range/Units 16:23 16:23 21:13 WBC (3.5-10.8) 10^3/ul RBC (4.0-5.4) 10^6/ul Hgb (12.0-16.0) g/dl Hct (35-47) % MCV (80-97) fL MCH (27-31) pg MCHC (31-36) g/dl RDW (10.5-15) % Plt Count (150-450) 10^3/ul MPV (7.4-10.4) um3 Neut % (Auto) (38-83) % Lymph % (Auto) (25-47) % [place] % (Auto) (0-7) % Eos % (Auto) (0-6) % Baso % (Auto) (0-2) % Absolute Neuts (auto) (1.5-7.7) 10^3/ul Absolute Lymphs (auto) (1.0-4.8) 10^3/ul Absolute Monos (auto) (0-0.8) 10^3/ul Absolute Eos (auto) (0-0.6) 10^3/ul Absolute Basos (auto) (0-0.2) 10^3/ul Absolute Nucleated RBC 10^3/ul Nucleated RBC % Hypochromasia INR (Anticoag Therapy) 1.25 H (0.77-1.02) Sodium (133-145) mmol/L Potassium (3.5-5.0) mmol/L Chloride (101-111) mmol/L Carbon Dioxide (22-32) mmol/L Anion Gap (2-11) mmol/L BUN (6-24) mg/dL Creatinine (0.51-0.95) mg/dL Est GFR ( Amer) (>60) Est GFR (Non-Af Amer) (>60) BUN/Creatinine Ratio (8-20) Glucose (70-100) mg/dL POC Glucose (mg/dL) (70-100) mg/dL Lactic Acid 1.9 (0.5-2.0) mmol/L Calcium (8.6-10.3) mg/dL Magnesium (1.9-2.7) mg/dL Total Bilirubin (0.2-1.0) mg/dL AST (13-39) U/L ALT (7-52) U/L Alkaline Phosphatase (34-104) U/L Troponin I (<0.04) ng/mL Total Protein (6.4-8.9) g/dL Albumin (3.2-5.2) g/dL Globulin (2-4) g/dL Albumin/Globulin Ratio (1-3) TSH (0.34-5.60) mcIU/mL Urine Color Yellow Urine Appearance Cloudy Urine pH 5.0 (5-9) Ur Specific [place] 1.024 (1.010-1.030) Urine Protein 2+(100 mg/dl) H (Negative) Urine Ketones Negative (Negative) Urine Blood 3+ H (Negative) Urine Nitrate Negative (Negative) Urine Bilirubin Negative (Negative) Urine Urobilinogen Negative (Negative) Ur Leukocyte Esterase Trace H (Negative) Urine WBC (Auto) 1+(6-10/hpf) H (Absent) Urine RBC (Auto) Trace(0-2/hpf) (Absent) Ur Squamous Epith Cells Present H (Absent) Urine Bacteria Absent (Absent) Urine Glucose 1+(50 mg/dl) H (Negative) Urine Ascorbic Acid * H (Negative) Serum Alcohol (<10) mg/dL Result Diagrams: 09/26/17 08:49 09/26/17 08:49 Lab Statement: Any lab studies that have been ordered have been reviewed, and results considered in the medical decision making process. - CT CT Brain CT Interpretation: No Acute Changes - NO INTRACRANIAL MASS OR HEMORRHAGE IS NOTED. Dr. Light has reviewed this report. CT Interpretation Completed By: Radiologist - EKG 16:41 Cardiac Rate: NL EKG Rhythm: Sinus Rhythm - at 87 BPM EKG Interpretation: Nonspecific septal changes. National Institutes Of Health - NIH Scale Level of Consciousness: Alert/Keenly Responsive Ask Patient the Month and His/Her Age: Both Correct Ask Pt to Open/Close Eyes and Coach Mechanic/Release Non-Paretic Hand: Both Correctly Best Gaze (Only Horizontal Eye Movement): Normal Visual Field Testing: No Visual Loss Facial Paresis-Pt to Smile & Close Eyes or Grimace Symmetry: Normal/Symmetrical Motor Function - Right Arm: No Drift-Holds 10 Seconds Motor Function - Left Arm: No Drift-Holds 10 Seconds Motor Function - Right Leg: No Drift-Holds 10 Seconds Motor Function - Left Leg: No Drift-Holds 10 Seconds Limb Ataxia-Must be out of Proportion to Weakness Present: Absent Sensory (Use Pinprick to Test Arms/Legs/Trunk/Face): Normal Best Language (Describe Picture, Name Items): No Aphasia Dysarthria (Read Several Words): Normal Extinction and Inattention: No Abnormality Total Score: 0 Head Injury Course/Dx Course Of Treatment: Ms. Lawson presented as a possible Code Collado with a fall, head injury and LOC. She reported to me that she was weak on the right side although I could not detect it in a limited evaluation on the EMS guerney in front of the charge nurse station. She was noted to have a right ptosis and mydriasis. She is on Xarelto so she was sent immediately to CT which was read as WNL. She reported to me that she has had her right eye symptoms and signs for decades although that is not reflected in old records. She is very shaky on her feet and admits that she normally uses a walker and is able to use one here to go to the BR. Her initial W/U is negative and after CT, her main C/O is that her right hand keeps hitting herself in the face. She demonstates that for me each time I interact with her. She frequently visits the ED and is usually intoxicated and we are still pending her U/A and ETOH level. I'm not sure what her disposition will be. - Diagnoses Provider Diagnoses: Syncope Discharge - Discharge Plan Condition: Stable Disposition: OTHER Discharge Disposition Comment: Signed out to Dr. Lennon at change of shift. The documentation as recorded by the Vale jiménez Thomas accurately reflects the service I personally performed and the decisions made by me, Rohit Light MD.
--- NOTE | 2017-09-26 14:27 | RAD ---
HISTORY: Right ankle pain, fall COMPARISONS: June 29, 2006 VIEWS: 3, Frontal, lateral, and oblique views of the right ankle FINDINGS: BONE DENSITY: Normal. BONES: There is no displaced fracture. Calcaneal enthesophytes are noted JOINTS: There is no arthropathy. ALIGNMENT: There is no dislocation. SOFT TISSUES: Unremarkable. OTHER FINDINGS: None. IMPRESSION: NO ACUTE OSSEOUS INJURY. IF SYMPTOMS PERSIST, RECOMMEND REPEAT IMAGING.
--- NOTE | 2017-09-26 16:34 | PN ---
Subjective Date of Service: 09/26/17 Interval History: Seen and examined several times throughout the day Patient identifies her right ankle and the blister on her right lower leg as the reasons she is in the hospital She cannot identify the timing of onset She is labile during conversation and frequently starts crying and talks about her boyfriend who in June. She is easily distracted She denies any pain, T[place], N/V, LH, SOB She endorses urinary urgency and hesitancy, denies dysuria Objective Active Medications: Bupropion HCl (Wellbutrin Sr Tab*) 150 mg PO DAILY [facility] Last Admin: 09/26/17 10:46 Dose: 150 mg Docusate Sodium (Colace Cap*) 200 mg PO BID [facility] Last Admin: 09/26/17 12:29 Dose: Not Given Famotidine (Pepcid Tab*) 20 mg PO BID [facility] PRN Reason: Protocol Last Admin: 09/26/17 10:46 Dose: 20 mg Levothyroxine Sodium (Synthroid Tab*) 75 mcg PO 0600 [facility] Last Admin: 09/26/17 05:11 Dose: 75 mcg Lorazepam (Ativan Tab(*)) 0.5 mg PO QID PRN PRN Reason: ANXIETY Last Admin: 09/26/17 05:11 Dose: 0.5 mg Melatonin (Melatonin (Nf)) 3 mg PO BEDTIME PRN; Protocol PRN Reason: Sleep Metoprolol Tartrate (Lopressor Tab*) 12.5 mg PO BEDTIME [facility] Metoprolol Tartrate (Lopressor Tab*) 25 mg PO QAM [facility] Last Admin: 09/26/17 10:46 Dose: 25 mg Nortriptyline HCl (Pamelor Cap*) 25 mg PO BEDTIME PRN PRN Reason: MIGRAINE HEADACHE Omeprazole (Prilosec Cap*) 20 mg PO DAILY@0600 [facility] Last Admin: 09/26/17 05:11 Dose: 20 mg Ondansetron HCl (Zofran Inj*) 4 mg IV Q6H PRN PRN Reason: NAUSEA Oxycodone HCl (Roxycodone Tab*) 20 mg PO TID PRN PRN Reason: PAIN Last Admin: 09/26/17 10:47 Dose: 20 mg Potassium Chloride (Klor Con Er Tab*) 10 meq PO DAILY [facility] Last Admin: 09/26/17 12:30 Dose: 10 meq Quetiapine Fumarate (Seroquel Tab*) 300 mg PO BEDTIME [facility] Rivaroxaban (Xarelto(*)) 20 mg PO DAILY [facility] Last Admin: 09/26/17 10:45 Dose: 20 mg Trazodone HCl (Desyrel Tab*) 50 mg PO BEDTIME PRN PRN Reason: SLEEP Venlafaxine HCl (Effexor Xr Cap*) 300 mg PO DAILY [facility] Last Admin: 09/26/17 10:45 Dose: 300 mg Vital Signs - 8 hr 09/26/17 09/26/17 09/26/17 08:29 08:55 10:47 Temperature Pulse Rate 93 Respiratory 16 17 Rate Blood Pressure 121/55 (mmHg) O2 Sat by Pulse Oximetry 09/26/17 09/26/17 09/26/17 10:59 11:36 13:33 Temperature 98.4 F Pulse Rate 90 Respiratory 16 Rate Blood Pressure 122/51 (mmHg) O2 Sat by Pulse 99 100 Oximetry 09/26/17 14:07 Temperature Pulse Rate Respiratory Rate Blood Pressure (mmHg) O2 Sat by Pulse 95 Oximetry Oxygen Devices in Use Now: None, Nasal Cannula Appearance: NAD Eyes: No Scleral Icterus, PERRLA Ears/Nose/Mouth/Throat: NL Teeth, Lips, Gums, Clear Oropharnyx, Mucous Membranes Moist Neck: NL Appearance and Movements; NL JVP, Trachea Midline Respiratory: Symmetrical Chest Expansion and Respiratory Effort, Clear to Auscultation Cardiovascular: NL Sounds; No Murmurs; No JVD, RRR Abdominal: NL Sounds; No Tenderness; No Distention, No Hepatosplenomegaly Lymphatic: No Cervical Adenopathy, No Axillary Adenopathy Extremities: No Edema, No Clubbing, Cyanosis Skin: - - blister on right medial calf was drained and now has no fluctuance no erythema Neurological: Alert and Oriented x 3, - - CN2-12 intact, 4/5 strength in right hand but can overcome weakness if asked to hold up hands, decreased sensation in right arm to soft touch but jumps with pain when placed on bed and indicates it caused more pain Result Diagrams: 09/26/17 08:49 09/26/17 08:49 Additional Lab and Data: Lab Results 09/25/17 09/25/17 09/25/17 Range/Units 16:04 16:23 16:23 WBC 19.9 H (3.5-10.8) 10^3/ul RBC 4.75 (4.0-5.4) 10^6/ul Hgb 10.2 L (12.0-16.0) g/dl Hct 34 L (35-47) % MCV 71 L (80-97) fL MCH 22 L (27-31) pg MCHC 30 L (31-36) g/dl RDW 18 H (10.5-15) % Plt Count 257 (150-450) 10^3/ul MPV 9 (7.4-10.4) um3 Neut % (Auto) 88.3 H (38-83) % Lymph % (Auto) 4.6 L (25-47) % [place] % (Auto) 6.6 (0-7) % Eos % (Auto) 0.1 (0-6) % Baso % (Auto) 0.4 (0-2) % Absolute Neuts (auto) 17.6 H (1.5-7.7) 10^3/ul Absolute Lymphs (auto) 0.9 L (1.0-4.8) 10^3/ul Absolute Monos (auto) 1.3 H (0-0.8) 10^3/ul Absolute Eos (auto) 0 (0-0.6) 10^3/ul Absolute Basos (auto) 0.1 (0-0.2) 10^3/ul Absolute Nucleated RBC 0 10^3/ul Nucleated RBC % 0 Hypochromasia 2+ INR (Anticoag Therapy) (0.77-1.02) Sodium 133 (133-145) mmol/L Potassium 5.1 H (3.5-5.0) mmol/L Chloride 102 (101-111) mmol/L Carbon Dioxide 26 (22-32) mmol/L Anion Gap 5 (2-11) mmol/L BUN 28 H (6-24) mg/dL Creatinine 0.88 (0.51-0.95) mg/dL Est GFR ( Amer) 81.7 (>60) Est GFR (Non-Af Amer) 63.5 (>60) BUN/Creatinine Ratio 31.8 H (8-20) Glucose 122 H (70-100) mg/dL POC Glucose (mg/dL) 114 H (70-100) mg/dL Lactic Acid (0.5-2.0) mmol/L Calcium 9.8 (8.6-10.3) mg/dL Magnesium 2.1 (1.9-2.7) mg/dL Total Bilirubin 0.50 (0.2-1.0) mg/dL AST 81 H (13-39) U/L ALT 25 (7-52) U/L Alkaline Phosphatase 76 (34-104) U/L Troponin I 0.00 (<0.04) ng/mL Total Protein 6.7 (6.4-8.9) g/dL Albumin 3.9 (3.2-5.2) g/dL Globulin 2.8 (2-4) g/dL Albumin/Globulin Ratio 1.4 (1-3) TSH 2.52 (0.34-5.60) mcIU/mL Urine Color Urine Appearance Urine pH (5-9) Ur Specific [place] (1.010-1.030) Urine Protein (Negative) Urine Ketones (Negative) Urine Blood (Negative) Urine Nitrate (Negative) Urine Bilirubin (Negative) Urine Urobilinogen (Negative) Ur Leukocyte Esterase (Negative) Urine WBC (Auto) (Absent) Urine RBC (Auto) (Absent) Ur Squamous Epith Cells (Absent) Urine Bacteria (Absent) Urine Glucose (Negative) Urine Ascorbic Acid (Negative) Serum Alcohol < 10 (<10) mg/dL 09/25/17 09/25/17 09/25/17 Range/Units 16:23 16:23 21:13 WBC (3.5-10.8) 10^3/ul RBC (4.0-5.4) 10^6/ul Hgb (12.0-16.0) g/dl Hct (35-47) % MCV (80-97) fL MCH (27-31) pg MCHC (31-36) g/dl RDW (10.5-15) % Plt Count (150-450) 10^3/ul MPV (7.4-10.4) um3 Neut % (Auto) (38-83) % Lymph % (Auto) (25-47) % [place] % (Auto) (0-7) % Eos % (Auto) (0-6) % Baso % (Auto) (0-2) % Absolute Neuts (auto) (1.5-7.7) 10^3/ul Absolute Lymphs (auto) (1.0-4.8) 10^3/ul Absolute Monos (auto) (0-0.8) 10^3/ul Absolute Eos (auto) (0-0.6) 10^3/ul Absolute Basos (auto) (0-0.2) 10^3/ul Absolute Nucleated RBC 10^3/ul Nucleated RBC % Hypochromasia INR (Anticoag Therapy) 1.25 H (0.77-1.02) Sodium (133-145) mmol/L Potassium (3.5-5.0) mmol/L Chloride (101-111) mmol/L Carbon Dioxide (22-32) mmol/L Anion Gap (2-11) mmol/L BUN (6-24) mg/dL Creatinine (0.51-0.95) mg/dL Est GFR ( Amer) (>60) Est GFR (Non-Af Amer) (>60) BUN/Creatinine Ratio (8-20) Glucose (70-100) mg/dL POC Glucose (mg/dL) (70-100) mg/dL Lactic Acid 1.9 (0.5-2.0) mmol/L Calcium (8.6-10.3) mg/dL Magnesium (1.9-2.7) mg/dL Total Bilirubin (0.2-1.0) mg/dL AST (13-39) U/L ALT (7-52) U/L Alkaline Phosphatase (34-104) U/L Troponin I (<0.04) ng/mL Total Protein (6.4-8.9) g/dL Albumin (3.2-5.2) g/dL Globulin (2-4) g/dL Albumin/Globulin Ratio (1-3) TSH (0.34-5.60) mcIU/mL Urine Color Yellow Urine Appearance Cloudy Urine pH 5.0 (5-9) Ur Specific [place] 1.024 (1.010-1.030) Urine Protein 2+(100 mg/dl) H (Negative) Urine Ketones Negative (Negative) Urine Blood 3+ H (Negative) Urine Nitrate Negative (Negative) Urine Bilirubin Negative (Negative) Urine Urobilinogen Negative (Negative) Ur Leukocyte Esterase Trace H (Negative) Urine WBC (Auto) 1+(6-10/hpf) H (Absent) Urine RBC (Auto) Trace(0-2/hpf) (Absent) Ur Squamous Epith Cells Present H (Absent) Urine Bacteria Absent (Absent) Urine Glucose 1+(50 mg/dl) H (Negative) Urine Ascorbic Acid * H (Negative) Serum Alcohol (<10) mg/dL Assess/Plan/Problems-Billing Assessment: 72 yo F h/o self reported bipolar dz without hospitalizations, HCV, DVT, chronic LBP, depression, anxiety with unclear presentation to ED found with blister, leukocytosis, and unclear history of syncope and weakness - Patient Problems (1) Weakness Comment: right hand - inconsistent exam. Low suspision for CVA. Refusing to work with PT/OT consistently (2) Leukocytosis Comment: unclear etiology frequent E. coli UTIs and reports urinary symptoms start bactrim and await cultures (3) Bipolar disorder Comment: seroquel (4) Blister Comment: gram stain negative cover with clean guaze (5) Ankle pain Comment: xray without fracture PT/OT (6) DVT prophylaxis Comment: xarelto also for DVT
[2017-09-26] MEDS: Sulfamethox/Trimethoprim DS 800/160* TAB PO SCH (20:09)
[2017-09-26] MEDS ORDERED: Metoprolol Tartrate TAB* 25 MG PO SCH (21:00)
[2017-09-26] MEDS ORDERED: QUEtiapine TAB* 300 MG PO SCH (21:00)
[2017-09-27] MEDS: LORazepam TAB(*) 0.5 MG PO PRN ×3 (03:24→15:45)
[2017-09-27] MEDS: oxyCODONE TAB* 5 MG TAB PO PRN ×3 (03:24→15:15)
[2017-09-27] MEDS: Omeprazole CAP* 20 MG PO SCH (05:29)
[2017-09-27] MEDS: Levothyroxine TAB* 75 MCG TAB PO SCH (05:29)
[2017-09-27 06:22] LABS: Hematocrit 29 % (35-47); Mean Corpuscular HGB Conc 31 g/dl (31-36); Mean Corpuscular Hemoglobin 22 pg (27-31); Mean Corpuscular Volume 71 fL (80-97); Mean Platelet Volume 9 um3 (7.4-10.4); Platelet Count 198 10^3/ul (150-450); Red Cell Distribution Width 18 % (10.5-15); White Blood Count 9.1 10^3/ul (3.5-10.8)
[2017-09-27 06:59] LABS: ABS Basophils 0 10^3/ul (0-0.2); ABS Eosinophils 0.3 10^3/ul (0-0.6); ABS Lymphocytes 1.4 10^3/ul (1.0-4.8); ABS Monocytes 0.7 10^3/ul (0-0.8); ABS Neutrophils 6.6 10^3/ul (1.5-7.7); ABS Nucleated RBC 0 10^3/ul; Eosinophil % 2.9 % (0-6); Lymphocyte % 15.5 % (25-47); Nucleated Red Blood Cells % 0.1
[2017-09-27] MEDS: Venlafaxine EXT RELEASE CAP* 75 MG PO SCH (09:22)
[2017-09-27] MEDS: Docusate CAP* 100 MG PO SCH (09:22)
[2017-09-27] MEDS: buPROPion SR TAB.SR* 150 MG PO SCH (09:22)
[2017-09-27] MEDS: Famotidine TAB* 20 MG PO SCH (09:22)
[2017-09-27] MEDS: Potassium Chlor TAB* 10 MEQ TAB.ER PO SCH (09:22)
[2017-09-27] MEDS: Rivaroxaban TAB(*) 20 MG TAB PO SCH (09:22)
[2017-09-27] MEDS: Sulfamethox/Trimethoprim DS 800/160* TAB PO SCH (09:23)
[2017-09-27] MEDS: Metoprolol Tartrate TAB* 25 MG PO SCH (09:23)
[2017-09-27 15:12] VITALS: BP 111/56
--- NOTE | 2017-09-28 12:25 | DS ---
CC: Dr. Burrell * DISCHARGE SUMMARY: DATE OF ADMISSION: 09/25/17 DATE OF DISCHARGE: 09/27/17 PRIMARY CARE PROVIDER: Dr. Burrell. PRIMARY DIAGNOSES: Include increased falls and right medial calf blister, post - concussive syndrome. SECONDARY DIAGNOSES: Include: 1. History of hepatitis C. 2. Deep venous thrombosis. 3. Hypothyroidism. 4. Gastroesophageal reflux disease. 5. Chronic lower back pain. 6. Depression. 7. Anxiety. 8. Bipolar disorder per self report. MEDICATIONS ON DISCHARGE: Include: 1. Lorazepam 0.5 mg 4 times a day as needed. 2. Metoprolol tartrate 25 mg in the morning and 12.5 mg at bedtime. 3. Effexor 300 mg daily. 4. Potassium chloride 10 mEq daily. 5. Nortriptyline 25 to 50 mg at bedtime as needed. 6. Bupropion 150 mg daily. 7. Seroquel 300 mg at bedtime. 8. Synthroid 75 mg daily. 9. Trazodone 50 to 100 mg at bedtime as needed. 10. Ranitidine 150 mg twice daily. 11. Rivaroxaban 20 mg daily. 12. Oxycodone 20 mg 3 times a day as needed. PERTINENT LABORATORY STUDIES: Pertinent microbiology is negative for Gram stain of right medial blister, negative blood cultures, and negative urine. HISTORY OF PRESENT ILLNESS AND HOSPITAL COURSE: This is a 72-year-old female, past medical history as outlined in the history of present illness on the day of admission, presented to the hospital after a fall at home with complaints of a blister on her right calf. She was admitted to the hospitalist service. The blister was drained in the emergency room and cultures negative. During her first 24 hours in the hospital stay, the patient was noted to be of wild swings in her affect, frequently crying and then interacted happy. This is completely resolved on her second day of remission. She was interactive without wild swings in emotion. Patient complain of right ankle pain for which x-ray did not indicate any acute fracture. She was able to ambulate with a walker, seen by a Physical Therapy, who recommended discharge to home. I witnessed this. Physical Therapy agreed that the patient is able to ambulate without distress. The patient does complain of right hand numbness which has been present for somewhere between 3 and 5 years which was not evaluated further. At followup please: 1. Evaluate for continued ability to care for herself at home. 2. No other specific labs or vitals that need followup. Reasons to return to the hospital including, but not limited to, recurrent or worsening symptoms including chest pain, shortness of breath, fevers, chills, night sweats, nausea, lightheadedness, loss of consciousness, near loss of consciousness, bleeding from any source discussed with the patient. She acknowledged understanding. TIME SPENT: Greater than 60 minutes was spent on discharge of this patient, greater than half was spent [id number] with the patient. [id number]/[facility] #: [id number] MTDD
== END 2017-09-27 16:30 | disposition home or self-care (01) ==
LOC: ED 15:49 → MED 23:30
PROVIDERS: ADMIT Hospitalist; ATTEND Internal Medicine
DX: R41.0 Disorientation, unspecified (principal); D72.829 Elevated white blood cell count, unspecified; B19.20 Unspecified viral hepatitis C without hepatic coma; I10 Essential (primary) hypertension; Z86.718 Personal history of other venous thrombosis and embolism; Z79.01 Long term (current) use of anticoagulants; E03.9 Hypothyroidism, unspecified; D50.9 Iron deficiency anemia, unspecified; S80.821A Blister (nonthermal), right lower leg, initial encounter; L03.115 Cellulitis of right lower limb; X58.XXXA Exposure to other specified factors, initial encounter; Y92.9 Unspecified place or not applicable; M25.571 Pain in right ankle and joints of right foot; K21.9 Gastro-esophageal reflux disease without esophagitis; M54.5 Low back pain; G89.29 Other chronic pain; F32.9 Major depressive disorder, single episode, unspecified; F41.9 Anxiety disorder, unspecified; Z79.899 Other long term (current) drug therapy; Z88.6 Allergy status to analgesic agent; Z88.8 Allergy status to other drugs, medicaments and biological substances; Z87.891 Personal history of nicotine dependence
CPT/HCPCS: 36415; 70450; 71045; 80048; 80053; 80320; 81003; 81015; 82140; 83605; 83735; 84443; 84484; 85025; 85610; 87040; 87070; 87086; 87205; 93005; 94760; 96365; 99285; A9270-GY; G0378; G0480; G8978-GP-CI; G8978-GP-CM; G8979-GP-CI; G8980-GP-CM; G8987-GO-CJ; G8988-GO-CI; G8989-GO-CI; J3370

== ENCOUNTER 2018-01-21 16:45 | Emergency (ER) | payer MEDICARE, MEDICAID ==
[2018-01-21 17:04] VITALS: BP 141/65
[2018-01-21] MEDS ORDERED: Cyclobenzaprine TAB* 10 MG PO ONE (17:59)
--- NOTE | 2018-01-21 17:59 | ED ---
Lower Extremity - HPI Summary HPI Summary: 73-year-old female presents with acute on chronic knee pain back pain and shoulder pain for the past couple days. She denies any injury. No fevers. No rash. No edema. She states it is her arthritis pain that is acting up. States the oxycodone is not working for her pain anymore. She cannot take Tylenol ibuprofen. Pain is in the same location as her arthritis pain. she states she is working with primary to get home health aid. She denies any weakness. She still able to ambulate. She denies any numbness or tingling. No loss of bowel or bladder saddle anesthesias. no chest pain or SOB. - History of Current Complaint Chief Complaint: EDGeneral Stated Complaint: RT SHOULDER AND BACK PAIN Time Seen by Provider: 01/21/18 16:55 Pain Intensity: 8 - Allergies/Home Medications Allergies/Adverse Reactions: Allergies Allergy/AdvReac Type Severity Reaction Status Date / Time acetaminophen Allergy Unknown Verified 01/21/18 17:04 Reaction Details ibuprofen Allergy Unknown Verified 01/21/18 17:04 Reaction Details NSAIDS (Non-Steroidal Allergy GI Upset Verified 01/21/18 17:04 Anti-Inflamma promethazine Allergy Hives Verified 01/21/18 17:04 tramadol [From Ultram] Allergy Unknown Verified 01/21/18 17:04 Reaction Details PMH/Surg Hx/FS Hx/Imm Hx Endocrine/Hematology History: Reports: Hx Thyroid Disease, Other Endocrine/ Hematological Disorders - hepatitis c, h/o bleeding issue w/ elevated INR in the past Denies: Hx Anticoagulant Therapy, Hx Diabetes Cardiovascular History: Reports: Hx Deep Vein Thrombosis, Hx Hypertension - STATES NOT BEING TREATED FOR HYPERTENSION Denies: Hx Congestive Heart Failure, Hx Pacemaker/ICD Comment Only: Other Cardiovascular Problems/Disorders - PACS Respiratory History: Reports: Other Respiratory Problems/Disorders - r lung mass removal-benign Denies: Hx Asthma, Hx Chronic Obstructive Pulmonary Disease (COPD) GI History: Reports: Hx Gastroesophageal Reflux Disease, Hx Ulcer, Other GI Disorders - DIARRHEA X 1 WEEK, PERIUMBILICAL ABD PAIN History: Denies: Hx Renal Disease Musculoskeletal History: Reports: Hx Arthritis, Hx Back Problems, Hx Osteoporosis, Other Musculoskeletal History - bilat carpal tunnel surg, bernardo knee replacement. 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 Hx Chemotherapy: No Hx Radiation Therapy: No - Surgical History Surgery Procedure, Year, and Place: CHOLECYSTECTOMY JONATHAN EN Y GASTRIC BYPASS ( 1999) X2 R LUNG MASS REMOVED,BILATERAL KNEE REPLACEMENT, BILATERAL CARPAL TUNNEL,BILATERAL ROTATOR CUFF SURGERY, CATARACTS ,RT EYE MUSCLE SURGERY A CHILD, RT LUMPECTOMY 1979, LT LUMPECTOMY 2013,TONSILS Infectious Disease History: No Infectious Disease History: Reports: Hx Hepatitis Denies: Hx Human Immunodeficiency Virus (HIV), Traveled Outside the [place] in Last 30 Days - Family History Known Family History: Positive: None - reviewed & noncontributory, Cardiac Disease, Other - Brother - colon ca, son - pancreatitis, sister and mother CVA - Social History Alcohol Use: Occasionally Hx Substance Use: Yes Substance Use Type: Reports: Marijuana Substance Use Comment - Amount & Last Used: last week Hx Tobacco Use: Yes Smoking Status (MU): Former Smoker Type: Cigarettes Review of Systems Negative: Fever Negative: Chest Pain Negative: Shortness Of Breath Positive: Myalgia - bilaterals knee, right side back, right shoulder pain All Other Systems Reviewed And Are Negative: Yes Physical Exam Triage Information Reviewed: Yes Vital Signs On Initial Exam: Initial Vitals Temp Pulse Resp BP Pulse Ox 98.1 F 100 16 141/65 99 01/21/18 16:59 01/21/18 16:59 01/21/18 16:59 01/21/18 16:59 01/21/18 16:59 Vital Signs Reviewed: Yes Appearance: Positive: Well-Appearing Skin: Positive: Warm, Dry Head/Face: Positive: Normal Head/Face Inspection Eyes: Positive: Normal, Conjunctiva Clear ENT: Positive: Pharynx normal Respiratory/Lung Sounds: Positive: Clear to Auscultation, Breath Sounds Present Cardiovascular: Positive: Normal, RRR Musculoskeletal: Positive: Strength/ROM Intact - knees, shoulder, and back with pain, Other - Tenderness on bilateral knees, right side of back, right shoulder , negative Straight leg raise, sensation grossly intact, scars on bilateral knees, no edema noted, negative drop arm, negative [place] impingement, good pulses Neurological: Positive: Normal Psychiatric: Positive: Normal Diagnostics - Vital Signs Vital Signs Temp Pulse Resp BP Pulse Ox 01/21/18 16:59 98.1 F 100 16 141/65 99 - Laboratory Lab Statement: Any lab studies that have been ordered have been reviewed, and results considered in the medical decision making process. Lower Extremity Course/Dx - Course Course Of Treatment: 73-year-old female presents with acute on chronic knee pain back pain and shoulder pain for the past couple days. She denies any injury. No fevers. No rash. No edema. She states it is her arthritis pain that is acting up. States the oxycodone is not working for her pain anymore. She cannot take Tylenol ibuprofen. Pain is in the same location as her arthritis pain. she states she is working with primary to get home health aid. She denies any weakness. She still able to ambulate. She denies any numbness or tingling. No loss of bowel or bladder saddle anesthesias. no chest pain or SOB. On exam range of motion of extremities and back pain with pain. Negative straight leg raise. Neurovascularly intact. Discuss will not get any imaging as no injury. Will add on muscle relaxer for the back pain. Told to follow-up with primary if want a pain medication change. Patient understands and agrees with plan. - Diagnoses Differential Diagnosis/HQI/PQRI: Positive: Fracture (Closed), Sprain, Strain Provider Diagnoses: Knee pain, Back pain, Right shoulder pain Discharge - Sign-Out/Discharge Documenting (check all that apply): Discharge/Admit/Transfer - Discharge Plan Condition: Good Disposition: HOME Prescriptions: Cyclobenzaprine TAB* [Flexeril 10 MG TAB*] 10 mg PO TID PRN #21 tab PRN Reason: Pain Patient Education Materials: Osteoarthritis (ED) Referrals: Natan Burrell MD [Primary Care Provider] - Additional Instructions: Take normal pain medication take muscle relaxer three times a day Apply ice, rest, elevate Follow up with primary care physician within 5 days Return to ED if develop any new or worsening symptoms - Billing Disposition and Condition Condition: GOOD Disposition: Home
== END 2018-01-21 18:13 | disposition home or self-care (01) ==
LOC: ED 16:45
DX: M25.562 Pain in left knee (principal); M25.561 Pain in right knee; M25.511 Pain in right shoulder; M54.9 Dorsalgia, unspecified; Z87.891 Personal history of nicotine dependence; Z88.8 Allergy status to other drugs, medicaments and biological substances; Z79.899 Other long term (current) drug therapy; I10 Essential (primary) hypertension; Z86.718 Personal history of other venous thrombosis and embolism; K21.9 Gastro-esophageal reflux disease without esophagitis; F41.9 Anxiety disorder, unspecified; F32.9 Major depressive disorder, single episode, unspecified; Z79.01 Long term (current) use of anticoagulants
CPT/HCPCS: 99281; A9270-GY

== ENCOUNTER 2018-01-24 22:23 | Emergency (ER) | payer MEDICARE, MEDICAID ==
[2018-01-24] MEDS ORDERED: oxyCODONE TAB* 5 MG TAB PO ONE (23:46)
--- NOTE | 2018-01-24 23:53 | ED ---
Head Injury - HPI Summary HPI Summary: Patient complains of mechanical fall at 10:30 PM tonight with subsequent right wrist pain and bruising around right eye. Patient states she tripped over the curb. Patient denies LOC, N/V, vision change, change in mental status, neck pain , back pain, chest wall pain, abdomen pain, left upper extremity pain, bilateral lower extremity pain, of sensation or function distally in right upper extremity. Patient ambulatory. Patient has history of chronically dilated right pupil, and chronically lazy right eye lid which is pending surgery. Patient on Xarelto before blood clot in left lower extremity. Medical history is hypothyroid, 8KI, blood clot, bipolar. - History Of Current Complaint Chief Complaint: EDHeadInjury Stated Complaint: FALL Time Seen by Provider: 01/24/18 23:30 Mechanism Of Injury: Fall From A Standing Position Onset/Duration: Started Hours Ago Onset of Pain: Immediate Severity Currently: Severe Severity Initially: Severe Pain Intensity: 10 Pain Scale Used: 0-10 Numeric Location of Head Injury: Temporal - Allergies/Home Medications Allergies/Adverse Reactions: Allergies Allergy/AdvReac Type Severity Reaction Status Date / Time acetaminophen Allergy Unknown Verified 01/24/18 22:30 Reaction Details ibuprofen Allergy Unknown Verified 01/24/18 22:30 Reaction Details NSAIDS (Non-Steroidal Allergy GI Upset Verified 01/24/18 22:30 Anti-Inflamma promethazine Allergy Hives Verified 01/24/18 22:30 tramadol [From Ultram] Allergy Unknown Verified 01/24/18 22:30 Reaction Details PMH/Surg Hx/FS Hx/Imm Hx Endocrine/Hematology History: Reports: Hx Thyroid Disease, Other Endocrine/ Hematological Disorders - hepatitis c, h/o bleeding issue w/ elevated INR in the past Denies: Hx Anticoagulant Therapy, Hx Diabetes Cardiovascular History: Reports: Hx Deep Vein Thrombosis, Hx Hypertension - STATES NOT BEING TREATED FOR HYPERTENSION Denies: Hx Congestive Heart Failure, Hx Pacemaker/ICD Comment Only: Other Cardiovascular Problems/Disorders - PACS Respiratory History: Reports: Other Respiratory Problems/Disorders - r lung mass removal-benign Denies: Hx Asthma, Hx Chronic Obstructive Pulmonary Disease (COPD) GI History: Reports: Hx Gastroesophageal Reflux Disease, Hx Ulcer, Other GI Disorders - DIARRHEA X 1 WEEK, PERIUMBILICAL ABD PAIN History: Denies: Hx Renal Disease Musculoskeletal History: Reports: Hx Arthritis, Hx Back Problems, Hx Osteoporosis, Other Musculoskeletal History - bilat carpal tunnel surg, bernardo knee replacement. 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 Hx Chemotherapy: No Hx Radiation Therapy: No - Surgical History Surgery Procedure, Year, and Place: CHOLECYSTECTOMY JONATHAN EN Y GASTRIC BYPASS ( 1999) X2 R LUNG MASS REMOVED,BILATERAL KNEE REPLACEMENT, BILATERAL CARPAL TUNNEL,BILATERAL ROTATOR CUFF SURGERY, CATARACTS ,RT EYE MUSCLE SURGERY A CHILD, RT LUMPECTOMY 1979, LT LUMPECTOMY 2013,TONSILS Infectious Disease History: No Infectious Disease History: Reports: Hx Hepatitis Denies: Hx Human Immunodeficiency Virus (HIV), Traveled Outside the [place] in Last 30 Days - Family History Known Family History: Positive: None - reviewed & noncontributory, Cardiac Disease, Other - Brother - colon ca, son - pancreatitis, sister and mother CVA - Social History Alcohol Use: Occasionally Hx Substance Use: Yes Substance Use Type: Reports: Marijuana Substance Use Comment - Amount & Last Used: last week Hx Tobacco Use: Yes Smoking Status (MU): Former Smoker Type: Cigarettes Review of Systems Constitutional: Negative Eyes: Negative ENT: Negative Cardiovascular: Negative Respiratory: Negative Gastrointestinal: Negative Genitourinary: Negative Positive: Other Positive: Bruising Neurological: Negative Psychological: Normal All Other Systems Reviewed And Are Negative: Yes Physical Exam - Summary Physical Exam Summary: Positive snuffbox tenderness. Mild swelling and ecchymosis to right wrist. PMS intact distally. No pain with flexion or extension of right shoulder, right elbow, fingers. No deformity, erythema, extra warmth to right wrist. Ecchymosis and swelling to right eye involving eyelid and eyebrow. EOMs intact. No deformity noted. No evidence of trauma to other areas of head, face , nose, tongue, teeth, lips. No pain with palpation of neck back, chest wall, abdomen, hips. Patient flexes and extends bilateral lower extremities without any indication of pain, and bilateral left upper extremity without any indication of pain. Abrasion to right elbow. Triage Information Reviewed: Yes Vital Signs On Initial Exam: Initial Vitals Temp Pulse Resp BP Pulse Ox 97.6 F 79 18 127/95 98 01/24/18 22:26 01/24/18 22:26 01/24/18 22:26 01/24/18 22:26 01/24/18 22:26 Vital Signs Reviewed: Yes Appearance: Positive: Well-Appearing Skin: Positive: Warm Head/Face: Positive: Other Eyes: Positive: Normal ENT: Positive: Normal ENT inspection Neck: Positive: Supple Respiratory/Lung Sounds: Positive: Clear to Auscultation Cardiovascular: Positive: Normal Abdomen Description: Positive: Nontender Musculoskeletal: Positive: Normal Neurological: Positive: Normal Psychiatric: Positive: Normal AVPU Assessment: Alert - Ileana Coma Scale Best Eye Response: 4 - Spontaneous Best Motor Response: 6 - Obeys Commands Best Verbal Response: 5 - Oriented Coma Scale Total: 15 Diagnostics - Vital Signs Vital Signs Temp Pulse Resp BP Pulse Ox 01/24/18 22:26 97.6 F 79 18 127/95 98 - Laboratory Lab Statement: Any lab studies that have been ordered have been reviewed, and results considered in the medical decision making process. - Radiology wrist Xray Interpretation: Positive (See Comments) - Distal radius fracture Radiology Interpretation Completed By: ED Physician forearm Xray Interpretation: Positive (See Comments) - Distal radius fracture Radiology Interpretation Completed By: ED Physician - CT brain CT Interpretation: No Acute Changes CT Interpretation Completed By: Radiologist Head Injury Course/Dx Course Of Treatment: Patient complains of mechanical fall at 10:30 PM tonight with subsequent right wrist pain and bruising around right eye. Patient states she tripped over the curb. Patient denies LOC, N/V, vision change, change in mental status, neck pain, back pain, chest wall pain, abdomen pain, left upper extremity pain, bilateral lower extremity pain, of sensation or function distally in right upper extremity. Patient ambulatory. Patient has history of chronically dilated right pupil, and chronically lazy right eye lid which is pending surgery. Patient on Xarelto before blood clot in left lower extremity. Medical history is hypothyroid, 8KI, blood clot, bipolar. Positive snuffbox tenderness. Mild swelling and ecchymosis to right wrist. PMS intact distally. No pain with flexion or extension of right shoulder, right elbow, fingers. No deformity, erythema, extra warmth to right wrist. Distal radius fracture. Sugar tong splint placed with thumb elevated for possible scaphoid fracture due to snuffbox tenderness. sling. Patient has orthopedic doctor and will call today to arrange for follow-up. Patient already has prescription for oxycodone 20 mg 3 times a day. - Diagnoses Provider Diagnoses: Distal radius fracture, right Discharge - Sign-Out/Discharge Documenting (check all that apply): Discharge/Admit/Transfer - Discharge Plan Condition: Stable Disposition: HOME Patient Education Materials: Wrist Fracture in Adults (ED), Scaphoid Fracture ( ED) Referrals: Natan Burrell MD [Primary Care Provider] - Additional Instructions: Follow-up with your orthopedic doctor. Return to the ED for any new or worsening symptoms - Billing Disposition and Condition Condition: STABLE Disposition: Home
[2018-01-25] MEDS ORDERED: oxyCODONE TAB* 5 MG TAB PO ONE (01:13)
[2018-01-25 02:11] VITALS: BP 127/94
--- NOTE | 2018-01-25 07:58 | RAD ---
Indication: Fall, right wrist injury 3 views of the wrist demonstrates fracture through the distal radius at the radial styloid process. No significant displacement is noted. IMPRESSION: Fracture through the distal radius at the radial styloid process.
--- NOTE | 2018-01-25 08:01 | RAD ---
Indication: Head injury. CT of the brain was performed without IV contrast. Ventricular structures are midline. No midline shift is noted. Central and cortical atrophy is noted. There is no evidence of intracranial mass or hemorrhage. No other high or low density lesions are identified. Hematoma is noted in the right supraorbital region. Underlying bony structure is unremarkable with mastoid air cells and paranasal sinuses to be clear. IMPRESSION: No intracranial mass or hemorrhage. Supraorbital hematoma is noted.
--- NOTE | 2018-01-25 08:02 | RAD ---
Indication: Fall, forearm injury. 2 views of the right forearm demonstrates fracture of the radial styloid process. No significant displacement is noted. IMPRESSION: Nondisplaced fracture distal radius. The remainder of the radius and ulna are unremarkable.
== END 2018-01-25 02:10 | disposition home or self-care (01) ==
LOC: ED 22:23
DX: S52.501A Unspecified fracture of the lower end of right radius, initial encounter for closed fracture (principal); W18.09XA Striking against other object with subsequent fall, initial encounter; Y93.89 Activity, other specified; Y92.9 Unspecified place or not applicable; M25.531 Pain in right wrist; Z88.6 Allergy status to analgesic agent; Z87.891 Personal history of nicotine dependence
CPT/HCPCS: 70450; 99282; A9270-GY

== ENCOUNTER 2018-01-25 10:16 | Emergency (ER) | payer MEDICARE, MEDICAID ==
[2018-01-25] MEDS ORDERED: oxyCODONE TAB* 5 MG TAB PO ONE ×2 (11:50→11:53)
--- NOTE | 2018-01-25 12:50 | RAD ---
INDICATION: RIGHT thigh pain and swelling post fall last night. COMPARISON: January 24, 2018 CT brain. September 25, 2017 CT brain. TECHNIQUE: Multidetector CT base of the skull through mandible without contrast. Multiplanar reformation. REPORT: Approximate 2 cm diameter RIGHT supraorbital scalp hematoma without significant interval change. Surrounding infiltrative hematoma or edema. Negative for post septal orbital hematoma or edema. The RIGHT ocular globe demonstrates heterogeneously increased density compared with the LEFT ocular globe however this finding is unchanged compared with the September 25, 2017 CT without suggestion of acute traumatic injury. The orbital and maxillary sinus margins, zygomatic arches, lamina papyracea, base of the maxilla, pterygoid plates, and nasal bones are intact. Edentulous. The senile morphology mandible is intact. Normal temporal mandibular joint alignment. IMPRESSION: 1. No evidence for facial fracture. 2. Approximate 2 cm diameter RIGHT supraorbital scalp hematoma without significant interval change. Surrounding infiltrative hematoma or edema. Negative for post septal orbital hematoma or edema.
[2018-01-25 14:22] VITALS: BP 128/86
--- NOTE | 2018-01-27 11:15 | ED ---
Shawn Friedman Tenzin, scribed for Josef Odell MD on 01/25/18 at 1155 . Upper Extremity Pain - HPI Summary HPI Summary: Pt is a 73 years old female BIBA with complaints of pain in her right arm after falling again today. Pt notes that she tripped over a curb and fell on her face yesterday and was seen by a PA at the ED. Today she is complaining that her armin wrap is partially coming off and she is feeling numbness and tingling [place] [id number] this morning in her arms. Pt rates the pain at 10/10 in severity. Pt denies: Fever, Chills, Sore throat, chest pain, SOB, cough, abd pain, V/N/D, Dysuria, Hematuria, rash and Dizziness. No aggravating and alleviating factors were noted. Pt notes that she falls often and has no vision in her right eye since she was [age] years old. She does has cataract done to her eyes. Pt notes that her head feels fine after the fall. She is currently on Xarelto. She does not drink. Additionally she adds that she broke her left wrist also in the past. Pt did not take any medication today. But she notes that she was prescribed Oxocodone 20 mg 3X a day for arthritis problem for years. PSHX: both knee replaced. - History of Current Complaint Chief Complaint: EDExtremityUpper Stated Complaint: NUMBNESS, TINGLING Time Seen by Provider: 01/25/18 10:50 Hx Obtained From: Patient Pain Location: Arm - right arm. Aggravating Factor(s): Nothing Alleviating Factor(s): Nothing Associated Signs & Symptoms: Positive: Swelling - in her right eye, Redness - right eye, Other - right arm pain.. Negative: Fever, Chest Pain, SOB, Diaphoresis, Nausea, Vomiting - Allergies/Home Medications Allergies/Adverse Reactions: Allergies Allergy/AdvReac Type Severity Reaction Status Date / Time acetaminophen Allergy Unknown Verified 01/24/18 22:30 Reaction Details ibuprofen Allergy Unknown Verified 01/24/18 22:30 Reaction Details NSAIDS (Non-Steroidal Allergy GI Upset Verified 01/24/18 22:30 Anti-Inflamma promethazine Allergy Hives Verified 01/24/18 22:30 tramadol [From Ultram] Allergy Unknown Verified 01/24/18 22:30 Reaction Details Home Medications: Home Medications Levothyroxine TAB* [Synthroid TAB*] 75 mcg PO DAILY 01/25/18 [History Confirmed 01/25/18] Metoprolol Tartrate TAB* [Lopressor TAB*] 25 mg PO QAM 01/25/18 [History Confirmed 01/25/18] Potassium Chlor TAB* [Klor Con ER TAB*] 10 meq PO DAILY 01/25/18 [History Confirmed 01/25/18] QUEtiapine TAB* [Seroquel 300 MG TAB*] 300 mg PO BEDTIME 01/25/18 [History Confirmed 01/25/18] Ranitidine TAB (NF) [Zantac TAB (NF)] 150 mg PO BID 01/25/18 [History Confirmed 01/25/18] Rivaroxaban TAB(*) [Xarelto 20 mg] 20 mg PO DAILY 01/25/18 [History Confirmed ] Venlafaxine EXT RELEASE CAP* [Effexor Xr CAP*] 300 mg PO DAILY 01/25/18 [ History Confirmed 01/25/18] buPROPion SR TAB* [Wellbutrin SR TAB*] 150 mg PO QAM 01/25/18 [History Confirmed 01/25/18] oxyCODONE TAB* [Roxycodone TAB 5 mg*] 20 mg PO TID PRN 01/25/18 [History Confirmed 01/25/18] traZODone TAB* [Desyrel TAB*] 50 - 100 mg PO BEDTIME PRN 01/25/18 [History Confirmed 01/25/18] PMH/Surg Hx/FS Hx/Imm Hx Endocrine/Hematology History: Reports: Hx Thyroid Disease, Other Endocrine/ Hematological Disorders - hepatitis c, h/o bleeding issue w/ elevated INR in the past Denies: Hx Anticoagulant Therapy, Hx Diabetes Cardiovascular History: Reports: Hx Deep Vein Thrombosis, Hx Hypertension - STATES NOT BEING TREATED FOR HYPERTENSION Denies: Hx Congestive Heart Failure, Hx Pacemaker/ICD Comment Only: Other Cardiovascular Problems/Disorders - PACS Respiratory History: Reports: Other Respiratory Problems/Disorders - r lung mass removal-benign Denies: Hx Asthma, Hx Chronic Obstructive Pulmonary Disease (COPD) GI History: Reports: Hx Gastroesophageal Reflux Disease, Hx Ulcer, Other GI Disorders - DIARRHEA X 1 WEEK, PERIUMBILICAL ABD PAIN History: Denies: Hx Renal Disease Musculoskeletal History: Reports: Hx Arthritis, Hx Back Problems, Hx Osteoporosis, Other Musculoskeletal History - bilat carpal tunnel surg, bernardo knee replacement. 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 Hx Chemotherapy: No Hx Radiation Therapy: No - Surgical History Surgery Procedure, Year, and Place: CHOLECYSTECTOMY JONATHAN EN Y GASTRIC BYPASS ( 1999) X2 R LUNG MASS REMOVED,BILATERAL KNEE REPLACEMENT, BILATERAL CARPAL TUNNEL,BILATERAL ROTATOR CUFF SURGERY, CATARACTS ,RT EYE MUSCLE SURGERY A CHILD, RT LUMPECTOMY 1979, LT LUMPECTOMY 2013,TONSILS Infectious Disease History: No Infectious Disease History: Reports: Hx Hepatitis Denies: Hx Human Immunodeficiency Virus (HIV), Traveled Outside the [place] in Last 30 Days - Family History Known Family History: Positive: None - reviewed & noncontributory, Cardiac Disease, Other - Brother - colon ca, son - pancreatitis, sister and mother CVA - Social History Alcohol Use: Occasionally Hx Substance Use: Yes Substance Use Type: Reports: Marijuana Substance Use Comment - Amount & Last Used: last week Hx Tobacco Use: Yes Smoking Status (MU): Former Smoker Type: Cigarettes Review of Systems Negative: Fever, Chills Positive: Erythema - right eye. Negative: Sore Throat Negative: Chest Pain Negative: Shortness Of Breath, Cough Negative: Abdominal Pain, Vomiting, Diarrhea, Nausea Negative: dysuria, hematuria Negative: Myalgia, Edema Negative: Rash All Other Systems Reviewed And Are Negative: Yes Physical Exam - Summary Physical Exam Summary: Constitutional: Well-developed, Well-nourished, Alert. (-) Distressed Skin: Warm, Dry HENT: Normocephalic; Atraumatic Eyes: right infraorbital tenderness Neck: Musculoskeletal ROM normal neck. (-) JVD, (-) Stridor, (-) Tracheal deviation Cardio: Rhythm regular, rate normal, Heart sounds normal; Intact distal pulses; The pedal pulses are 2+ and symmetric. Radial pulses are 2+ and symmetric. (-) Murmur Pulmonary/Chest wall: Effort normal. (-) Respiratory distress, (-) Wheezes, (-) Rales Abd: Soft, (-) Tenderness, (-) Distension, (-) Guarding, (-) Rebound Musculoskeletal: (-) Edema Lymph: (-) Cervical adenopathy Neuro: Alert, Oriented x3 Psych: Mood and affect Normal Triage Information Reviewed: Yes Vital Signs On Initial Exam: Initial Vitals Temp Pulse Resp BP Pulse Ox 97.9 F 67 22 127/79 100 01/25/18 10:21 01/25/18 10:21 01/25/18 10:21 01/25/18 10:21 01/25/18 10:21 Vital Signs Reviewed: Yes Procedures - Splinting Right Upper Extremity Location: right hand: thumb spica splint Hand-Made Type: fiberglass Splint: thumb spica Pre-Proc Neuro Vasc Exam: normal Post-Proc Neuro Vasc Exam: normal Diagnostics - Vital Signs Vital Signs Temp Pulse Resp BP Pulse Ox 01/25/18 10:21 97.9 F 67 22 127/79 100 - Laboratory Lab Statement: Any lab studies that have been ordered have been reviewed, and results considered in the medical decision making process. - CT Maxillofacial W/O CT Interpretation Completed By: Radiologist - IMPRESSION: 1. No evidence for facial fracture. 2. Approximate 2 cm diameter RIGHT supraorbital scalp hematoma without significant interval change. Surrounding infiltrative hematoma or edema. Negative for post septal orbital hematoma or edema. Re-Evaluation - Re-Evaluation First Eval Re-Evaluation Time: 13:00 - normal gait. Course/Dx - Course Course Of Treatment: Pt is a 73 years old female BIBA with complaints of pain in her right arm after falling again today. Pt was given pain medications at the ED for her pain. CT was negative for facial fracture. New Splint on right hand was applied in the ED today. Thumb spica splint, 2 inch fiber glass, 18 cm length. Pt's circulation and movement were checked before and after the splint application. Pt is also advised to use cane and walker as much as possible. Pt is advised to see Ortho or f/u with PCP in 3-5 days. - Diagnoses Provider Diagnoses: Wrist fracture, right Discharge - Sign-Out/Discharge Documenting (check all that apply): Discharge/Admit/Transfer - Discharge. - Discharge Plan Condition: Stable Disposition: HOME Patient Education Materials: Wrist Fracture in Adults (ED), Splint Care (ED) Referrals: Natan Burrell MD [Primary Care Provider] - 3 Days Additional Instructions: Follow up with your primary care physician in three-five days or see [facility] in 3-5 days. . RETURN TO THE EMERGENCY DEPARTMENT FOR CHANGING OR WORSENING SYMPTOMS. The documentation as recorded by the Shawn jiménez Tenzin accurately reflects the service I personally performed and the decisions made by me, Josef Odell MD.
== END 2018-01-25 13:45 | disposition home or self-care (01) ==
LOC: ED 10:16
DX: S62.101A Fracture of unspecified carpal bone, right wrist, initial encounter for closed fracture (principal); L53.9 Erythematous condition, unspecified; W19.XXXA Unspecified fall, initial encounter; Y92.9 Unspecified place or not applicable; Z87.891 Personal history of nicotine dependence
CPT/HCPCS: 70486; 99282; A9270-GY

== ENCOUNTER 2018-02-03 17:51 | Emergency (ER) | payer MEDICARE, MEDICAID ==
[2018-02-03] MEDS ORDERED: oxyCODONE/Acetamin 5/325 MG* TAB PO ONE (18:58)
--- NOTE | 2018-02-03 20:12 | ED ---
Upper Extremity Pain - HPI Summary HPI Summary: 73-year-old female presents with right wrist pain for the past week. She broke her wrist a week ago. She was placed in a splint and it was too tight she came back for reapplication of splint. She seen by ortho yesterday and placed in a removable thumb spica splint. States that she's been having increased swelling to her right hand. She admits occasional numbness and tingling. She states her pain is increasing as she ran out of her pain medications. She has been keeping it elevated but she has not been placing ice on the area. No rashes to the area. no new injury. - History of Current Complaint Chief Complaint: EDExtremityUpper Stated Complaint: RT WRIST PAIN/WEEK AGO FELL FACIAL INJURY Time Seen by Provider: 02/03/18 18:27 - Allergies/Home Medications Allergies/Adverse Reactions: Allergies Allergy/AdvReac Type Severity Reaction Status Date / Time acetaminophen Allergy Unknown Verified 02/03/18 18:13 Reaction Details ibuprofen Allergy Unknown Verified 02/03/18 18:13 Reaction Details NSAIDS (Non-Steroidal Allergy GI Upset Verified 02/03/18 18:13 Anti-Inflamma promethazine Allergy Hives Verified 02/03/18 18:13 tramadol [From Ultram] Allergy Unknown Verified 02/03/18 18:13 Reaction Details PMH/Surg Hx/FS Hx/Imm Hx Endocrine/Hematology History: Reports: Hx Thyroid Disease, Other Endocrine/ Hematological Disorders - hepatitis c, h/o bleeding issue w/ elevated INR in the past Denies: Hx Anticoagulant Therapy, Hx Diabetes Cardiovascular History: Reports: Hx Deep Vein Thrombosis, Hx Hypertension - STATES NOT BEING TREATED FOR HYPERTENSION Denies: Hx Congestive Heart Failure, Hx Pacemaker/ICD Comment Only: Other Cardiovascular Problems/Disorders - PACS Respiratory History: Reports: Other Respiratory Problems/Disorders - r lung mass removal-benign Denies: Hx Asthma, Hx Chronic Obstructive Pulmonary Disease (COPD) GI History: Reports: Hx Gastroesophageal Reflux Disease, Hx Ulcer, Other GI Disorders - DIARRHEA X 1 WEEK, PERIUMBILICAL ABD PAIN History: Denies: Hx Renal Disease Musculoskeletal History: Reports: Hx Arthritis, Hx Back Problems, Hx Osteoporosis, Other Musculoskeletal History - bilat carpal tunnel surg, bernardo knee replacement. 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 Hx Chemotherapy: No Hx Radiation Therapy: No - Surgical History Surgery Procedure, Year, and Place: CHOLECYSTECTOMY JONATHAN EN Y GASTRIC BYPASS ( 1999) X2 R LUNG MASS REMOVED,BILATERAL KNEE REPLACEMENT, BILATERAL CARPAL TUNNEL,BILATERAL ROTATOR CUFF SURGERY, CATARACTS ,RT EYE MUSCLE SURGERY A CHILD, RT LUMPECTOMY 1979, LT LUMPECTOMY 2013,TONSILS Infectious Disease History: Yes Infectious Disease History: Reports: Hx Hepatitis Denies: Hx Human Immunodeficiency Virus (HIV), Traveled Outside the [place] in Last 30 Days - Family History Known Family History: Positive: None - reviewed & noncontributory, Cardiac Disease, Other - Brother - colon ca, son - pancreatitis, sister and mother CVA - Social History Alcohol Use: Occasionally Hx Substance Use: Yes Substance Use Type: Reports: Marijuana Substance Use Comment - Amount & Last Used: last week Hx Tobacco Use: Yes Smoking Status (MU): Former Smoker Type: Cigarettes Review of Systems Negative: Fever Negative: Chest Pain Negative: Shortness Of Breath Positive: Myalgia - right wrist pain All Other Systems Reviewed And Are Negative: Yes Physical Exam Triage Information Reviewed: Yes Vital Signs On Initial Exam: Initial Vitals Temp Pulse Resp BP Pulse Ox 97.3 F 106 16 147/80 96 02/03/18 18:05 02/03/18 18:05 02/03/18 18:05 02/03/18 18:05 02/03/18 18:05 Vital Signs Reviewed: Yes Appearance: Positive: Well-Appearing Skin: Positive: Warm, Dry Head/Face: Positive: Normal Head/Face Inspection Eyes: Positive: Normal, Conjunctiva Clear ENT: Positive: Pharynx normal Respiratory/Lung Sounds: Positive: Clear to Auscultation, Breath Sounds Present Cardiovascular: Positive: Normal, RRR Musculoskeletal: Positive: Limited @ - right wrist with pain, Other - tenderness snuff box, edema noted to hand right, good pulses, capillary refill< 2 secs, sensation grossly intact Neurological: Positive: Normal Psychiatric: Positive: Normal Procedures - Splinting right wrist Location: right wrist Splint: thumb spica Pre-Proc Neuro Vasc Exam: normal Post-Proc Neuro Vasc Exam: normal Diagnostics - Vital Signs Vital Signs Temp Pulse Resp BP Pulse Ox 02/03/18 19:23 16 02/03/18 18:05 97.3 F 106 16 147/80 96 - Laboratory Lab Statement: Any lab studies that have been ordered have been reviewed, and results considered in the medical decision making process. Course/Dx - Course Course Of Treatment: 73-year-old female presents with right wrist pain for the past week. She broke her wrist a week ago. She was placed in a splint and it was too tight she came back for reapplication of splint. She seen by ortho yesterday and placed in a removable thumb spica splint. States that she's been having increased swelling to her right hand. She admits occasional numbness and tingling. She states her pain is increasing as she ran out of her pain medications. She has been keeping it elevated but she has not been placing ice on the area. No rashes to the area. On exam no sign of compartment syndrome. She has range of motion of the wrist. Tenderness snuffbox. Neurovascular intact. Had Dr. Odell evaluated and he states to place in a thumb spica splint again for more support. Neurovascular intact pre-and post-splint. Patient has a prescription for oxycodone already so will not write for any more pain medication. Told to follow-up with orthopedic. Prescription agrees with plan. - Diagnoses Differential Diagnosis/HQI/PQRI: Positive: Fracture (Closed), Strain, Sprain, Other - compartment syndrome Provider Diagnoses: Right wrist fracture Discharge - Sign-Out/Discharge Documenting (check all that apply): Discharge/Admit/Transfer - Discharge Plan Condition: Good Disposition: HOME Patient Education Materials: Wrist Fracture in Adults (ED) Referrals: Natan Burrell MD [Primary Care Provider] - Additional Instructions: Follow up with ortho office Use normal pain medication Ice, elevate Return to ED if develop any new or worsening symptoms - Billing Disposition and Condition Condition: GOOD Disposition: Home
[2018-02-03 20:28] VITALS: BP 159/54
== END 2018-02-03 20:30 | disposition home or self-care (01) ==
LOC: ED 17:51
DX: S62.101D Fracture of unspecified carpal bone, right wrist, subsequent encounter for fracture with routine healing (principal); W19.XXXD Unspecified fall, subsequent encounter; E07.9 Disorder of thyroid, unspecified; I10 Essential (primary) hypertension; Z86.718 Personal history of other venous thrombosis and embolism; K21.9 Gastro-esophageal reflux disease without esophagitis; F32.9 Major depressive disorder, single episode, unspecified; F41.9 Anxiety disorder, unspecified; Z96.653 Presence of artificial knee joint, bilateral; Z98.84 Bariatric surgery status; Z90.49 Acquired absence of other specified parts of digestive tract; Z88.6 Allergy status to analgesic agent; Z88.5 Allergy status to narcotic agent; Z88.8 Allergy status to other drugs, medicaments and biological substances; Z82.49 Family history of ischemic heart disease and other diseases of the circulatory system; Z80.0 Family history of malignant neoplasm of digestive organs; Z83.79 Family history of other diseases of the digestive system; Z82.3 Family history of stroke; Z87.891 Personal history of nicotine dependence
CPT/HCPCS: 99283; A9270-GY

== ENCOUNTER 2018-02-21 07:03 | Emergency (ER) | payer MEDICARE, MEDICAID ==
--- NOTE | 2018-02-21 08:02 | ED ---
Complex/Multi-Sys Presentation - HPI Summary HPI Summary: Patient is a 73-year-old female who presents emergency department for "pain." She localizes pain to bilateral groin. She is unable to say how long pain has been there but believes it has been a few days. She does note a mechanical fall over the weekend. Patient states pain this morning was so bad she had difficulty standing up secondary to pain in her hips. She denies back pain, numbness, tingling or weakness. She denies recent illness, cough, chest pain, shortness of breath, vomiting, diarrhea, urinary symptoms. Pt. also notes she has been having RUQ pain. She is unsure how long it has been present. History of cholecystectomy. He shouldn't states she saw her family doctor last week for this pain and was told she is constipated. Patient takes daily oxycodone for chronic pain. Symptoms are mild in severity. Movement makes symptoms worse. Rest makes symptoms better. - History Of Current Complaint Chief Complaint: EDGeneral Time Seen by Provider: 02/21/18 07:20 Hx Obtained From: Patient - Allergies/Home Medications Allergies/Adverse Reactions: Allergies Allergy/AdvReac Type Severity Reaction Status Date / Time acetaminophen Allergy Unknown Verified 02/03/18 18:13 Reaction Details ibuprofen Allergy Unknown Verified 02/03/18 18:13 Reaction Details NSAIDS (Non-Steroidal Allergy GI Upset Verified 02/03/18 18:13 Anti-Inflamma promethazine Allergy Hives Verified 02/03/18 18:13 tramadol [From Ultram] Allergy Unknown Verified 02/03/18 18:13 Reaction Details PMH/Surg Hx/FS Hx/Imm Hx Previously Healthy: Yes Endocrine/Hematology History: Reports: Hx Thyroid Disease, Other Endocrine/ Hematological Disorders - hepatitis c, h/o bleeding issue w/ elevated INR in the past Denies: Hx Anticoagulant Therapy, Hx Diabetes Cardiovascular History: Reports: Hx Deep Vein Thrombosis, Hx Hypertension - STATES NOT BEING TREATED FOR HYPERTENSION Denies: Hx Congestive Heart Failure, Hx Pacemaker/ICD Comment Only: Other Cardiovascular Problems/Disorders - PACS Respiratory History: Reports: Other Respiratory Problems/Disorders - r lung mass removal-benign Denies: Hx Asthma, Hx Chronic Obstructive Pulmonary Disease (COPD) GI History: Reports: Hx Gastroesophageal Reflux Disease, Hx Ulcer, Other GI Disorders - DIARRHEA X 1 WEEK, PERIUMBILICAL ABD PAIN History: Denies: Hx Renal Disease Musculoskeletal History: Reports: Hx Arthritis, Hx Back Problems, Hx Osteoporosis, Other Musculoskeletal History - bilat carpal tunnel surg, bernardo knee replacement. 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 Hx Chemotherapy: No Hx Radiation Therapy: No - Surgical History Surgery Procedure, Year, and Place: CHOLECYSTECTOMY JONATHAN EN Y GASTRIC BYPASS ( 1999) X2 R LUNG MASS REMOVED,BILATERAL KNEE REPLACEMENT, BILATERAL CARPAL TUNNEL,BILATERAL ROTATOR CUFF SURGERY, CATARACTS ,RT EYE MUSCLE SURGERY A CHILD, RT LUMPECTOMY 1979, LT LUMPECTOMY 2013,TONSILS Infectious Disease History: No Infectious Disease History: Reports: Hx Hepatitis Denies: Hx Human Immunodeficiency Virus (HIV), Traveled Outside the [place] in Last 30 Days - Family History Known Family History: Positive: None - reviewed & noncontributory, Cardiac Disease, Other - Brother - colon ca, son - pancreatitis, sister and mother CVA - Social History Occupation: Retired Lives: Alone Alcohol Use: Occasionally Hx Substance Use: Yes Substance Use Type: Reports: Marijuana Substance Use Comment - Amount & Last Used: last week Hx Tobacco Use: Yes Smoking Status (MU): Former Smoker Type: Cigarettes Review of Systems Constitutional: Negative Negative: Fever, Chills Eyes: Negative ENT: Negative Cardiovascular: Negative Negative: Chest Pain Respiratory: Negative Negative: Shortness Of Breath Positive: Abdominal Pain. Negative: Vomiting, Diarrhea, Nausea Genitourinary: Negative Positive: Other - Hip pain Neurological: Negative All Other Systems Reviewed And Are Negative: Yes Physical Exam Triage Information Reviewed: Yes Vital Signs On Initial Exam: Initial Vitals Temp Pulse Resp BP Pulse Ox 97.6 F 80 18 135/47 99 02/21/18 07:07 02/21/18 07:07 02/21/18 07:07 02/21/18 07:07 02/21/18 07:07 Vital Signs Reviewed: Yes Appearance: Positive: Well-Appearing - Pt. lying in bed in NAD. Skin: Positive: Warm, Dry Head/Face: Positive: Normal Head/Face Inspection Eyes: Positive: Normal Neck: Positive: Supple Abdomen Description: Positive: Other: - Abd. is soft, mildly distended. Pain on palpation to the RUQ. No lower abd. tenderness on palpation. Musculoskeletal: Positive: Other - 5/5 strength in bilateral LEs. No calf edema or pain. Negative straight leg test bilaterally. Neurological: Positive: Normal Psychiatric: Positive: Affect/Mood Appropriate Diagnostics - Vital Signs Vital Signs Temp Pulse Resp BP Pulse Ox 02/21/18 07:37 99 F 72 16 141/57 99 02/21/18 07:25 69 96 02/21/18 07:21 141/57 02/21/18 07:07 97.6 F 80 18 135/47 99 - Laboratory Result Diagrams: 02/21/18 08:04 02/21/18 08:04 Lab Statement: Any lab studies that have been ordered have been reviewed, and results considered in the medical decision making process. Complex Multi-Symp Course/Dx Course Of Treatment: Pt. presenting for bilateral groin pain and RUQ pain. She is afebrile and well appearing. She does not have a gallbladder. Did check basic labs which show chronic anemia. Pelvic xray is negative for fracture or dislocation but does show a large amount of stool in lower colon. Pt.'s discomfort is mostly secondary to constipation. Discussed results with pt. She is on chronic oxycodone and does not take a stool softener. Mag citrate rx. Pt. states she has Senokot at home and advised her to start taking. Also advised to increased fluids and fiber in diet. To call PCP today for a f.u apt. To return to ER if sxs change or worsen. Pt. understands and agrees with plan. - Diagnoses Provider Diagnoses: Constipation Discharge - Sign-Out/Discharge Documenting (check all that apply): Patient Departure - Discharge Plan Condition: Good Disposition: HOME Prescriptions: Magnesium CITRATE* [Citrate of Magnesia*] 300 ml PO ONCE #1 btl Patient Education Materials: Constipation (ED) Referrals: Natan Burrell MD [Primary Care Provider] - Additional Instructions: Schedule a follow up appointment with your PCP Take magnesium citrate as directed Take senokot daily as directed for constipation Increase fluids and fiber in diet Return to ER if symptoms change or worsen - Billing Disposition and Condition Condition: GOOD Disposition: Home
--- NOTE | 2018-02-21 08:18 | RAD ---
HISTORY: pain, fall, left-sided groin pain COMPARISONS: June 22, 2015 VIEWS: 1, Single frontal view of the pelvis FINDINGS: BONE DENSITY: Normal. BONES: There is no displaced fracture. JOINTS: There is no arthropathy. ALIGNMENT: There is no dislocation. SOFT TISSUES: Unremarkable. OTHER FINDINGS: None. IMPRESSION: NO ACUTE OSSEOUS INJURY. IF SYMPTOMS PERSIST, RECOMMEND REPEAT IMAGING.
[2018-02-21 08:25] LABS: ABS Basophils 0.1 10^3/ul (0-0.2); ABS Eosinophils 0.3 10^3/ul (0-0.6); ABS Lymphocytes 1.6 10^3/ul (1.0-4.8); ABS Monocytes 1.6 10^3/ul (0-0.8); ABS Nucleated RBC 0 10^3/ul; Eosinophil % 3.1 % (0-6); Hematocrit 28 % (35-47); Hemoglobin 8.5 g/dl (12.0-16.0); Mean Corpuscular HGB Conc 30 g/dl (31-36); Mean Corpuscular Hemoglobin 19 pg (27-31); Mean Corpuscular Volume 63 fL (80-97); Mean Platelet Volume 8.4 um3 (7.4-10.4); Nucleated Red Blood Cells % 0.1; Platelet Count 235 10^3/ul (150-450); Red Blood Count 4.45 10^6/ul (4.00-5.40); Red Cell Distribution Width 21 % (10.5-15); White Blood Count 9.6 10^3/ul (3.5-10.8)
[2018-02-21 08:29] LABS: EGFR Non-African American 55.3 (>60)
[2018-02-21 09:11] VITALS: BP 138/72
[2018-02-21 09:30] LABS: ABS Basophils 0 10^3/ul (0-0.2); ABS Neutrophils 6.6 10^3/ul (1.5-7.7); Monocytes % 16 % (0-7)
== END 2018-02-21 09:11 | disposition home or self-care (01) ==
LOC: ED 07:03
DX: K59.00 Constipation, unspecified (principal); R10.9 Unspecified abdominal pain; M25.559 Pain in unspecified hip; Z87.891 Personal history of nicotine dependence
CPT/HCPCS: 36415; 72170; 80053; 83690; 85025; 99282

== ENCOUNTER 2018-02-23 15:05 | Observation (INO) | payer MEDICARE, MEDICAID ==
[2018-02-23] MEDS ORDERED: NS 0.9% 1000 ML* 1,000 ML IV ONE (15:49)
--- NOTE | 2018-02-23 15:50 | ED ---
Altered Mental Status - HPI Summary HPI Summary: This is scribe Emiliano Goldstein documenting for attending Barrett Rolon MD. Patient is a 73 y/o F BIBA w/ c/o head injury and AMS. In the room, she states she went outside for a cigarette. She states she has no recollection of the fall , but notes that she felt dizzy, thinks she hit her head, but also does not think she experienced LOC. On triage, it is noted that neighbors found her and called her an ambulance. Patient takes pain medications. She is confused, slightly delayed in responses and alert and oriented x 2. When asked where she was, she replied [facility]. EMS reports FSBG > 100. On triage, pain is denied and nothing is noted to aggravate/alleviate Sx. Allergies and home medications are reviewed. - History Of Current Complaint Chief Complaint: EDAltMentalStatus Stated Complaint: FALL/WEAKNESS Time Seen by Provider: 02/23/18 15:42 Hx Obtained From: Patient Timing: Constant Severity Currently: None - pain is denied on triage Character: Confusion Aggravating Factor(s): Nothing Alleviating Factor(s): Nothing Associated Signs And Symptoms: Positive: Recent Trauma - patient reports head injury due to fall from a standing position - Allergies/Home Medications Allergies/Adverse Reactions: Allergies Allergy/AdvReac Type Severity Reaction Status Date / Time acetaminophen Allergy Unknown Verified 02/23/18 15:29 Reaction Details ibuprofen Allergy Unknown Verified 02/23/18 15:29 Reaction Details NSAIDS (Non-Steroidal Allergy GI Upset Verified 02/23/18 15:29 Anti-Inflamma promethazine Allergy Hives Verified 02/23/18 15:29 tramadol [From Ultram] Allergy Unknown Verified 02/23/18 15:29 Reaction Details PMH/Surg Hx/FS Hx/Imm Hx Endocrine/Hematology History: Reports: Hx Thyroid Disease, Other Endocrine/ Hematological Disorders - hepatitis c, h/o bleeding issue w/ elevated INR in the past Denies: Hx Anticoagulant Therapy, Hx Diabetes Cardiovascular History: Reports: Hx Deep Vein Thrombosis, Hx Hypertension - STATES NOT BEING TREATED FOR HYPERTENSION Denies: Hx Congestive Heart Failure, Hx Pacemaker/ICD Comment Only: Other Cardiovascular Problems/Disorders - PACS Respiratory History: Reports: Other Respiratory Problems/Disorders - r lung mass removal-benign Denies: Hx Asthma, Hx Chronic Obstructive Pulmonary Disease (COPD) GI History: Reports: Hx Gastroesophageal Reflux Disease, Hx Ulcer, Other GI Disorders - DIARRHEA X 1 WEEK, PERIUMBILICAL ABD PAIN History: Denies: Hx Renal Disease Musculoskeletal History: Reports: Hx Arthritis, Hx Back Problems, Hx Osteoporosis, Other Musculoskeletal History - bilat carpal tunnel surg, bernardo knee replacement. 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 Hx Chemotherapy: No Hx Radiation Therapy: No - Surgical History Surgery Procedure, Year, and Place: CHOLECYSTECTOMY JONATHAN EN Y GASTRIC BYPASS ( 1999) X2 R LUNG MASS REMOVED,BILATERAL KNEE REPLACEMENT, BILATERAL CARPAL TUNNEL,BILATERAL ROTATOR CUFF SURGERY, CATARACTS ,RT EYE MUSCLE SURGERY A CHILD, RT LUMPECTOMY 1979, LT LUMPECTOMY 2013,TONSILS Infectious Disease History: No Infectious Disease History: Reports: Hx Hepatitis Denies: Hx Human Immunodeficiency Virus (HIV), Traveled Outside the [place] in Last 30 Days - Family History Known Family History: Positive: Cardiac Disease, Other - Brother - colon ca, son - pancreatitis, sister and mother CVA - Social History Alcohol Use: Occasionally Hx Substance Use: Yes Substance Use Type: Reports: Marijuana Substance Use Comment - Amount & Last Used: last week Hx Tobacco Use: Yes Smoking Status (MU): Former Smoker Type: Cigarettes Review of Systems Neurological: Other - recent head trauma due to fall from standing position Positive: Other - confusion, A&Ox2; not oriented to place All Other Systems Reviewed And Are Negative: Yes Physical Exam - Summary Physical Exam Summary: VITAL SIGNS: Reviewed. GENERAL: Patient is a well-developed and nourished female who is lying comfortable in the stretcher. Patient is not in any acute respiratory distress. Slightly somnolent. HEAD AND FACE: No signs of trauma. No ecchymosis, hematomas or skull depressions. No sinus tenderness. EYES: right pupil is slight larger than the left. Right eye surgery is noted. EOMI x 2, No injected conjunctiva, no nystagmus. Nothing else is noted to be abnormal. EARS: Hearing grossly intact. Ear canals and tympanic membranes are within normal limits. MOUTH: Oropharynx within normal limits. NECK: Supple, trachea is midline, no adenopathy, no JVD, no carotid bruit, no c- spine tenderness, neck with full ROM. CHEST: Symmetric, no tenderness at palpation LUNGS: Clear to auscultation bilaterally. No wheezing or crackles. CVS: Regular rate and rhythm, S1 and S2 present, no murmurs or gallops appreciated. ABDOMEN: Soft, non-tender. No signs of distention. No rebound no guarding, and no masses palpated. Bowel sounds are normal. EXTREMITIES: FROM in all major joints, no edema, no cyanosis or clubbing. NEURO: Alert and oriented x 2, not oriented to place (she responds that she is at [facility]. No acute neurological deficits. Slightly slow to respond. SKIN: Dry and warm Triage Information Reviewed: Yes Vital Signs On Initial Exam: Initial Vitals Temp Pulse Resp BP Pulse Ox 97.0 F 94 14 112/64 97 02/23/18 15:23 02/23/18 15:23 02/23/18 15:23 02/23/18 15:23 02/23/18 15:23 Vital Signs Reviewed: Yes Diagnostics - Vital Signs Vital Signs Temp Pulse Resp BP Pulse Ox 02/23/18 15:23 97.0 F 94 14 112/64 97 - Laboratory Result Diagrams: 02/23/18 16:13 02/23/18 16:13 Lab Statement: Any lab studies that have been ordered have been reviewed, and results considered in the medical decision making process. - Radiology CXR Xray Interpretation: Positive (See Comments) Radiology Interpretation Completed By: Radiologist - mild cardiomegaly, patchy airspace disease of the right lung base. This report was reviewed by ED physician. - CT CT head CT Interpretation: No Acute Changes CT Interpretation Completed By: Radiologist - no evidence for acute intracranial abnormality. - EKG 1625 Cardiac Rate: NL - rate of 86 bpm EKG Rhythm: Sinus Rhythm EKG Comparison: No Significant Change - No ST elevation, has q waves in 3 and inverted t wave in v2; this EKG is similar to previous one taken on 09/25/17 Re-Evaluation - Re-Evaluation First Eval Re-Evaluation Time: 18:10 Comment: Patient informed of test results and labs. She was informed of likely decision to admit patient. Altered Mental Statu Course/Dx - Course Assessment/Plan: This patient is a 73-year-old female who presents to the emergency room with a chief complaint of altered mental status. Patient reports that today she had an accidental fall because she felt dizzy week And is slightly confused. Blood test results shows a hypochromic microcytic anemia which is slightly decreased for her Baseline, glucose of 101, magnesium 1.6 for which she was given magnesium by mouth. CPK is 771, TSH of 10.8. Urinalysis negative for UTI. Urine toxicology positive for opiates. I believe the most of her symptoms are secondary to overuse of opioids. Head CT impression: No evidence for acute intracranial abnormality. Chest x-ray impression: mild cardiomegaly. Patchy airspace disease of the right lung base. EKG shows no ST elevations. In the ED course and the patient was given IV fluids, the patient was given Levaquin for the pneumonia. At this point because of the findings test results I discussed the case with Dr. Alamo from the hospitalist services and he accepted the patient for admission. The patient is hemoglobin and crit stable. - Diagnoses Provider Diagnoses: Pneumonia, Altered mental state - Provider Notifications Discussed Care Of Patient With: Manuel Alamo Time Discussed With Above Provider: 18:20 Instructed by Provider To: Other - Dr. Alamo was consulted on this patient's case at 18:20. He accepts patient for admission to hospital. Discharge - Sign-Out/Discharge Documenting (check all that apply): Patient Departure - admit - Discharge Plan Condition: Good Disposition: ADMITTED TO [facility] Referrals: Natan Burrell MD [Primary Care Provider] -
--- NOTE | 2018-02-23 16:22 | RAD ---
HISTORY: AMS COMPARISONS: September 25, 2017 VIEWS: 1: frontal portable view of the chest at 4:08 PM FINDINGS: LINES AND TUBES: None. CARDIOMEDIASTINAL SILHOUETTE: The cardiac silhouette is mildly enlarged. The cardiomediastinal silhouette is otherwise normal for portable technique. PLEURA: The costophrenic angles are sharp. No pleural abnormalities are noted. LUNG PARENCHYMA: There is patchy alveolar opacification of the right lung base. ABDOMEN: The upper abdomen is clear. There is no subphrenic gas. BONES AND SOFT TISSUES: No bone or soft tissue abnormalities are noted. IMPRESSION: 1. MILD CARDIOMEGALY. 2. PATCHY AIRSPACE DISEASE OF THE RIGHT LUNG BASE.
[2018-02-23 16:40] LABS: EGFR Non-African American 68.7 (>60)
--- NOTE | 2018-02-23 17:05 | RAD ---
INDICATION: Altered mental status. COMPARISON: Comparison is made with a prior study from January 24, 2018. TECHNIQUE: Contiguous axial sections of the brain were obtained from the skull base to the vertex without contrast. FINDINGS: The ventricles, cisterns and sulci are enlarged consistent with age-related atrophy. No significant focal abnormality or mass effect is seen. There is no evidence for hemorrhage. The right globe is abnormal in density although unchanged from the prior study. No significant focal osseous abnormality is seen. The visualized portion of the paranasal sinuses and mastoid air cells appear clear. IMPRESSION: NO EVIDENCE FOR ACUTE INTRACRANIAL ABNORMALITY.
[2018-02-23 17:29] LABS: ABS Basophils 0 10^3/ul (0-0.2); ABS Eosinophils 0.2 10^3/ul (0-0.6); ABS Lymphocytes 1.1 10^3/ul (1.0-4.8); ABS Monocytes 0.7 10^3/ul (0-0.8); ABS Neutrophils 5.1 10^3/ul (1.5-7.7); Hematocrit 26 % (35-47); Hemoglobin 7.9 g/dl (12.0-16.0); Mean Corpuscular HGB Conc 31 g/dl (31-36); Mean Corpuscular Hemoglobin 19 pg (27-31); Mean Corpuscular Volume 63 fL (80-97); Mean Platelet Volume 8.1 um3 (7.4-10.4); Platelet Count 238 10^3/ul (150-450); Red Blood Count 4.13 10^6/ul (4.00-5.40); Red Cell Distribution Width 21 % (10.5-15); White Blood Count 7.1 10^3/ul (3.5-10.8)
[2018-02-23 17:34] LABS: ABS Basophils 0.1 10^3/ul (0-0.2); Monocytes % 3 % (0-7)
[2018-02-23 17:41] LABS: Urine Appearance Cloudy; Urine Blood Negative (Negative); Urine Color Yellow; Urine Ketones Negative (Negative); Urine Protein Negative (Negative); Urine Specific Gravity 1.014 (1.010-1.030); Urine Urobilinogen Positive (Negative)
[2018-02-23] MEDS ORDERED: Magnesium Oxide TAB* 400 MG PO ONE (18:17)
[2018-02-23] MEDS ORDERED: Levofloxacin 750 MG IVPREMIX(* 750 MG/150 ML BAG IVPB ONE (18:19)
[2018-02-24] MEDS ORDERED: Ondansetron ODT TAB* 4 MG PO PRN (02:27)
[2018-02-24] MEDS ORDERED: Melatonin 3 MG TAB PO PRN (02:27)
[2018-02-24] MEDS ORDERED: NS 0.9% 1000 ML* 1,000 ML IV SCH (02:30)
--- NOTE | 2018-02-24 02:37 | HP ---
H&P (Free Text) History and Physical: PCP: Reta Burrell MD Date/Time: 02/24/2018 0200 CC: fall, near syncope HPI: Mrs Lawson is a 72YO female HX of hepatitis C, DVT, hypothyroidism, PAOD, anemia, chronic LBP, depression, & anxiety presenting after going out to smoke a cigarette and "just falling over". She remembers falling, states she did not hit her head, and did not lose consciousness. She is unaware how long she was on the ground, but states her neighbor found her and called EMS. She denies prodromal symptoms, specifically chest pain, SOB, palpitations, and light- headedness. She has had no F/C, sweats, N/V/D, abdominal pain, B/U/F of urine, or other complaints. ED evaluation is notable for stable vitals. Labs show a stable microcytic anemia, total CK 771. UA is negative. CXR shows patchy LLL infiltrate suspicious mostly for aspiration pneumonitis in this clinical setting. Urine toxic is only positive for opioids of which she takes oxycodone IR 20mg TID. She "does not like to take" tylenol due to her HX of hepatitis C and NSAIDS upset her stomach. She denies any HX of medication reaction involving throat tightness, SOB, or swelling of the face/tongue. I agree with the ED physician's assessment that her issue is primarily of narcotic overuse. As such, I will decrease her oxycodone to 10mg QID PRN and initiate acetaminophen 325mg QID PRN. She was given a single dose of levofloxacin 750mg IV in ED, no further ABX indicated at this time. Trend WBC & temperature curves. Obtain blood & sputum CXs. Check urine S pneumonia antigen. PMedHx hepatitis C HX DVT hypothyroidism PUD microcytic anemia GERD chronic LBP depression anxiety Ambulatory Orders Nursing to reconcile. Levothyroxine TAB* [Synthroid TAB*] 75 mcg PO DAILY 01/25/18 Metoprolol Tartrate TAB* [Lopressor TAB*] 25 mg PO QAM 01/25/18 Potassium Chlor TAB* [Klor Con ER TAB*] 10 meq PO DAILY 01/25/18 QUEtiapine TAB* [Seroquel 300 MG TAB*] 300 mg PO BEDTIME 01/25/18 Ranitidine TAB (NF) [Zantac TAB (NF)] 150 mg PO BID 01/25/18 Venlafaxine EXT RELEASE CAP* [Effexor Xr CAP*] 300 mg PO DAILY 01/25/18 buPROPion SR TAB* [Wellbutrin SR TAB*] 150 mg PO QAM 01/25/18 oxyCODONE TAB* [Roxycodone TAB 5 mg*] 20 mg PO TID PRN 01/25/18 traZODone TAB* [Desyrel TAB*] 50 - 100 mg PO BEDTIME PRN 01/25/18 Allergies promethazine Allergy (Verified 02/23/18 15:29) Hives tramadol [From Ultra] Allergy (Verified 02/23/18 15:29) Unknown Reaction Details acetaminophen Adverse Reaction (Verified 02/24/18 02:57) does not like to take 2nd HX liver disease ibuprofen Adverse Reaction (Verified 02/24/18 02:57) GI Upset NSAIDS (Non-Steroidal Anti-Inflamma Adverse Reaction (Verified 02/24/18 02:28) GI Upset SocHx: quit smoking ~20 years ago w/ ~30PYHX, denies alcohol & recreational drugs; lives alone, has a son in [place] and a daughter living in [facility]; full code status FamHx: positive for Alzheimer's, colon CA, & bladder CA ROS: as above, otherwise reviewed and all were negative vitals: Vital Signs Temp 36.1 C 02/23/18 15:23 Pulse 81 02/23/18 20:00 Resp 13 02/23/18 21:11 BP 149/82 02/23/18 21:11 Pulse Ox 98 02/23/18 20:00 Intake & Output 02/23/18 02/23/18 02/24/18 11:59 23:59 11:59 Weight 68.039 kg Constitutional: NAD, normally developed, overweight white female HEENM: atraumatic; sclera/conjunctiva: anicteric/clear; hearing: clinically intact; oropharynx: clear, mucosa moist Neck: soft tissue: no nuchal rigidity; thyroid: noprmal Pulmonary: clear to auscultation bilaterally, good aeration, no accessory muscle use CV: RR/RR, normal S1S2, no carotid bruit, no jugular venous distention, 2+ B DP/ PT, no edema Abdominal: soft, non-distended, non-tender, no rebound/guarding/rigidity, normoactive bowel sounds, no hepatosplenomegaly or masses, no costovertebral angle tenderness Musculoskeletal: general: grossly intact, no tenderness to palpation Integumental: R medial rachel/calf with fresh dressing covering a large drained blister/bullae Psychiatric orientation: AA&O to PPS affect: highly variable from clam/stoic to sudden tearful outbursts reminiscent of pseudobulbar affect mood: cooperative eye contact: fair content: unreliable responses: timely insight: poor Testing: Lab Results 02/23/18 02/23/18 02/23/18 Range/Units 16:13 16:13 16:13 WBC 7.1 (3.5-10.8) 10^3/ul RBC 4.13 (4.00-5.40) 10^6/ul Hgb 7.9 L (12.0-16.0) g/dl Hct 26 L (35-47) % MCV 63 L (80-97) fL MCH 19 L (27-31) pg MCHC 31 (31-36) g/dl RDW 21 H (10.5-15) % Plt Count 238 (150-450) 10^3/ul MPV 8.1 (7.4-10.4) um3 Neut % (Auto) Not Reportable Lymph % (Auto) Not Reportable Harper % (Auto) Not Reportable Eos % (Auto) Not Reportable Baso % (Auto) Not Reportable Absolute Neuts (auto) 5.1 (1.5-7.7) 10^3/ul Absolute Lymphs (auto) 1.1 (1.0-4.8) 10^3/ul Absolute Monos (auto) 0.7 (0-0.8) 10^3/ul Absolute Eos (auto) 0.2 (0-0.6) 10^3/ul Absolute Basos (auto) 0 (0-0.2) 10^3/ul Absolute Nucleated RBC Not Reportable Immature Gran % 1 (0-9) % Neutrophils % 70 (38-83) % Lymphocytes % 18 L (25-47) % Reactive Lymphs % 6 (0-6) % Monocytes % 3 (0-7) % Eosinophils % 1 (0-6) % Basophils % 1 (0-2) % Myelocytes % 1 (0-1) % Nucleated RBC % Not Reportable Abs Neuts (Manual) 5.0 (1.5-7.7) 10^3/ul Abs Lymphs (Manual) 1.3 (1.0-4.8) 10^3/ul Abs Monocytes (Manual) 0.2 (0-0.8) 10^3/ul Absolute Eos (Manual) 0.1 (0-0.6) 10^3/ul Abs Basophils (Manual) 0.1 (0-0.2) 10^3/ul Normal RBC Morphology Not Reportable Hypochromasia 2+ Hem Pathologist Commnt Pending Sodium 140 (135-145) mmol/L Potassium 3.7 (3.5-5.0) mmol/L Chloride 107 (101-111) mmol/L Carbon Dioxide 30 (22-32) mmol/L Anion Gap 3 (2-11) mmol/L BUN 10 (6-24) mg/dL Creatinine 0.82 (0.51-0.95) mg/dL Est GFR ( Amer) 83.2 (>60) Est GFR (Non-Af Amer) 68.7 (>60) BUN/Creatinine Ratio 12.2 (8-20) Glucose 101 H (70-100) mg/dL Lactic Acid (0.5-2.0) mmol/L Calcium 9.0 (8.6-10.3) mg/dL Magnesium 1.6 L (1.9-2.7) mg/dL Total Bilirubin 0.60 (0.2-1.0) mg/dL AST 69 H (13-39) U/L ALT 40 (7-52) U/L Alkaline Phosphatase 52 (34-104) U/L Ammonia 26 (16-53) mcmol/L Total Creatine Kinase 771 H (10-223) U/L Troponin I 0.01 (<0.04) ng/mL Total Protein 4.9 L (6.4-8.9) g/dL Albumin 2.8 L (3.2-5.2) g/dL Globulin 2.1 (2-4) g/dL Albumin/Globulin Ratio 1.3 (1-3) TSH 10.88 H (0.34-5.60) mcIU/mL Urine Color Urine Appearance Urine pH (5-9) Ur Specific Windham (1.010-1.030) Urine Protein (Negative) Urine Ketones (Negative) Urine Blood (Negative) Urine Nitrate (Negative) Urine Bilirubin (Negative) Urine Urobilinogen (Negative) Ur Leukocyte Esterase (Negative) Urine Glucose (Negative) Urine Opiates Screen (None Detect) Acetaminophen < 15 mcg/mL Ur Barbiturates Screen (None Detect) Ur Phencyclidine Scrn (None Detect) Ur Amphetamines Screen (None Detect) U Benzodiazepines Scrn (None Detect) Urine Cocaine Screen (None Detect) U Cannabinoids Screen (None Detect) Serum Alcohol < 10 (<10) mg/dL 02/23/18 02/23/18 02/23/18 Range/Units 16:13 17:26 17:26 WBC (3.5-10.8) 10^3/ul RBC (4.00-5.40) 10^6/ul Hgb (12.0-16.0) g/dl Hct (35-47) % MCV (80-97) fL MCH (27-31) pg MCHC (31-36) g/dl RDW (10.5-15) % Plt Count (150-450) 10^3/ul MPV (7.4-10.4) um3 Neut % (Auto) Lymph % (Auto) Harper % (Auto) Eos % (Auto) Baso % (Auto) Absolute Neuts (auto) (1.5-7.7) 10^3/ul Absolute Lymphs (auto) (1.0-4.8) 10^3/ul Absolute Monos (auto) (0-0.8) 10^3/ul Absolute Eos (auto) (0-0.6) 10^3/ul Absolute Basos (auto) (0-0.2) 10^3/ul Absolute Nucleated RBC Immature Gran % (0-9) % Neutrophils % (38-83) % Lymphocytes % (25-47) % Reactive Lymphs % (0-6) % Monocytes % (0-7) % Eosinophils % (0-6) % Basophils % (0-2) % Myelocytes % (0-1) % Nucleated RBC % Abs Neuts (Manual) (1.5-7.7) 10^3/ul Abs Lymphs (Manual) (1.0-4.8) 10^3/ul Abs Monocytes (Manual) (0-0.8) 10^3/ul Absolute Eos (Manual) (0-0.6) 10^3/ul Abs Basophils (Manual) (0-0.2) 10^3/ul Normal RBC Morphology Hypochromasia Hem Pathologist Commnt Sodium (135-145) mmol/L Potassium (3.5-5.0) mmol/L Chloride (101-111) mmol/L Carbon Dioxide (22-32) mmol/L Anion Gap (2-11) mmol/L BUN (6-24) mg/dL Creatinine (0.51-0.95) mg/dL Est GFR ( Amer) (>60) Est GFR (Non-Af Amer) (>60) BUN/Creatinine Ratio (8-20) Glucose (70-100) mg/dL Lactic Acid 0.7 (0.5-2.0) mmol/L Calcium (8.6-10.3) mg/dL Magnesium (1.9-2.7) mg/dL Total Bilirubin (0.2-1.0) mg/dL AST (13-39) U/L ALT (7-52) U/L Alkaline Phosphatase (34-104) U/L Ammonia (16-53) mcmol/L Total Creatine Kinase (10-223) U/L Troponin I (<0.04) ng/mL Total Protein (6.4-8.9) g/dL Albumin (3.2-5.2) g/dL Globulin (2-4) g/dL Albumin/Globulin Ratio (1-3) TSH (0.34-5.60) mcIU/mL Urine Color Yellow Urine Appearance Cloudy Urine pH 5.0 (5-9) Ur Specific Windham 1.014 (1.010-1.030) Urine Protein Negative (Negative) Urine Ketones Negative (Negative) Urine Blood Negative (Negative) Urine Nitrate Negative (Negative) Urine Bilirubin Negative (Negative) Urine Urobilinogen Positive A (Negative) Ur Leukocyte Esterase Negative (Negative) Urine Glucose Negative (Negative) Urine Opiates Screen Presumptive positive A (None Detect) Acetaminophen mcg/mL Ur Barbiturates Screen None detected (None Detect) Ur Phencyclidine Scrn None detected (None Detect) Ur Amphetamines Screen None detected (None Detect) U Benzodiazepines Scrn None detected (None Detect) Urine Cocaine Screen None detected (None Detect) U Cannabinoids Screen None detected (None Detect) Serum Alcohol (<10) mg/dL ECG, personally reviewed: NSR rate 86, inverted T-wave V1-2, flattened ST-T III/ AVF; similar to comparison 09/25/2017 CXR, personally reviewed: IMPRESSION: 1. MILD CARDIOMEGALY. 2. PATCHY AIRSPACE DISEASE OF THE RIGHT LUNG BASE. CT brain WO, personally reviewed: IMPRESSION: NO EVIDENCE FOR ACUTE INTRACRANIAL ABNORMALITY. Impression: 73F presenting with confusion & fall with RLL infiltrate on CXR but no other compelling objective evidence of infection (no tachycardia, tachypnea, leukocytosis, granulocytosis) DIAGNOSIS & PLAN Primary RLL infiltrate suspicious for aspiration pneumonitis given presentation : given levofloxacin 750mg IV x1 in ED : hold further ABX : blood & sputum CXs : trend WBC & temperature curves : supportive care confusion w/ fall, likely primarily narcotic related : decreased oxycodone from 20mg TID to 10mg QID : add acetaminophen 325mg QID PRN : monitor response Secondary HTN : continue metoprolol HX DVT : states her PCP d/c'd rivaroxaban ~2 weeks ago 2nd "not needing it anymore" HX hepatitis C : no acute issues hypothyroidism : continue levothyroxine microcytic anemia GERD/PUD : continue ranitidine chronic LBP : continue oxycodone depression : continue venlafaxine, quetiapine, & trazodone anxiety : continue bupropion SR Admission Rational: observation for fall & aspiration pneumonitis DVTp: SCDs & heparin SQ Code Status: full HCP: son, Juan Manuel Lawson
[2018-02-24] MEDS ORDERED: Acetaminophen TAB* 325 MG PO PRN (02:54)
[2018-02-24] MEDS ORDERED: oxyCODONE TAB* 5 MG TAB PO PRN (02:56)
[2018-02-24 03:25] LABS: ABS Basophils 0 10^3/ul (0-0.2); ABS Eosinophils 0.3 10^3/ul (0-0.6); ABS Lymphocytes 1.7 10^3/ul (1.0-4.8); ABS Monocytes 0.9 10^3/ul (0-0.8); ABS Neutrophils 4.5 10^3/ul (1.5-7.7); ABS Nucleated RBC 0 10^3/ul; Eosinophil % 3.7 % (0-6); Hematocrit 27 % (35-47); Hemoglobin 8.2 g/dl (12.0-16.0); Lymphocyte % 23.4 % (25-47); Mean Corpuscular HGB Conc 30 g/dl (31-36); Mean Corpuscular Hemoglobin 19 pg (27-31); Mean Corpuscular Volume 63 fL (80-97); Mean Platelet Volume 8.3 um3 (7.4-10.4); Nucleated Red Blood Cells % 0; Platelet Count 268 10^3/ul (150-450); Red Blood Count 4.35 10^6/ul (4.00-5.40); Red Cell Distribution Width 21 % (10.5-15); White Blood Count 7.4 10^3/ul (3.5-10.8)
[2018-02-24 03:34] LABS: EGFR Non-African American 64.2 (>60)
[2018-02-24 07:19] LABS: INR 0.98 (0.77-1.02)
[2018-02-24] MEDS ORDERED: Magnesium Oxide TAB* 400 MG PO ONE (08:33)
[2018-02-24] MEDS ORDERED: Docusate CAP* 100 MG PO SCH (09:00)
[2018-02-24 19:46] VITALS: BP 112/43
--- NOTE | 2018-02-25 05:39 | DS ---
CC: Dr. Burrell DISCHARGE SUMMARY: DATE OF ADMISSION: 02/24/18 DATE OF DISCHARGE: 02/24/18 PRIMARY CARE PHYSICIAN: Dr. Burrell DISCHARGE DIAGNOSIS: Fall, possible near-syncope, likely secondary to polypharmacy. SECONDARY DIAGNOSES: 1. Hepatitis C. 2. History of deep venous thrombosis. 3. Hypothyroidism. 4. Peptic ulcer disease. 5. Microcytic anemia. 6. Gastroesophageal reflux disease. 7. Chronic low back pain. 8. Depression. 9. Anxiety. MEDICATION LIST: Unchanged from admission. 1. Bupropion SR 150 mg p.o. q.a.m. 2. Levothyroxine 75 mcg p.o. daily. 3. Metoprolol tartrate 25 mg p.o. q.a.m. 4. Oxycodone 20 mg p.o. t.i.d. as needed for pain. 5. Potassium chloride 10 mEq p.o. daily. 6. Seroquel 200 mg at bedtime. 7. Ranitidine 150 mg p.o. b.i.d. 8. Trazodone 50-100 mg p.o. at bedtime as needed for insomnia. 9. Venlafaxine ER 300 mg p.o. daily. HOSPITAL COURSE: Mrs. Lawson is a 73-year-old lady with a past medical history as stated above that p resents to the emergency room after going out to smoke a cigarette and "just falling over." The cabrera ent remembers falling. States she did not hit her head and did not lose consciousness. For more det ails about her presentation, I refer you to her history and physical. Her labs in the emergency room included findings of anemia with a hemoglobin of 8.2, not as far from her baseline. CPK was slightly elevated at 771. Her lactic acid was normal. Urinalysis was normal. Chest x-ray showed patchy airspace disease in the right lung base, but the patient had no complaint s of shortness of breath or cough and this does not appear to be a pneumonia. CT of the brain without contrast showed no evidence for acute intracranial abnormality. In the emergency room, the admitting physician's assessment was that her issue is primarily narcotic overuse. She was described as confused in the emergency room, lethargic, but during my evaluation, the patient was alert and oriented x3 with no signs of confusion and very appropriate. Her EKG showed sinus rhythm at 86 beats per minute with no ischemic changes. Her urine toxicology was positive for opioids. Alcohol level was negative as well as all the other d rugs tested on the urine toxicology. I believe the patient's fall is likely associated with polypharmacy. She has had multiple ER visits for falls over December and January. Looking back at her records, the patient did have an elevated alcohol level in August. Positive cannabinoids in her urine in July and I am concerned the combination of her dose with all the psychotropic medications including bupropion, oxycodone, Seroquel, trazodone , and Effexor maybe the cause of her falls and confusion. The patient is very reluctant to change he r medication regimen at this point because she states "this has been working for me." I did call her primary care provider's office (Dr. Burrell) and left a message requesting he call me back. I contact the patient's daughter (Heidy Michaud) and she verbalized similar concerns that her mom delia nick misusing medications, alcohol and that is the cause of her frequent falls. The patient was seen by Physical Therapy and she was felt should be at her baseline for independence with all function of mobility at this time and did not require skilled PT. We talked about the possibility of having mor e services at home and the patient is also reluctant to have those, so she received a referral for e visiting nurses. There was concern that the right lower lobe infiltrate could represent aspiration, but at this point, the patient's lungs sound clear. She has no complaints of shortness of breath or cough, so she will not be discharged on antibiotics. The patient is medically stable for discharge at this time, but she will need close followup as outpa tient and her primary care provider will have to work on her polypharmacy and make the changes that h e deems appropriate. PHYSICAL EXAMINATION: Vital Signs: Temperature 98.3, heart rate 77, respiratory rate 17, oxygen sat uration 97% on room air, blood pressure is 123/57. General: The patient is a pleasant elderly lady, sitting up in bed, in no acute distress. 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 CVS: Normal S1, S2. Regular rate and rhythm. Chest: Breath sounds present bilaterally with no added sounds. Abdomen: Soft. Bowel sounds are present. Neuro: She i s alert and oriented x3. Able to move all 4 extremities. Power is symmetric. Extremities: No edema , but the patient has a dressing covering on her right medial rachel. DIET: Heart healthy diet. ACTIVITY: As tolerated. DISPOSITION: To home. STATUS WHILE IN HOSPITALIZATION: Observation. Please keep in mind this is a summarized version of this patient's hospital stay. If you need more in formation, please feel free to call me at [phone] or please obtain the full medical records. TIME SPENT: Approximately 45 minutes were spent to complete this discharge. [id number]/CPS #: [id number]
[2018-02-25] MEDS ORDERED: Heparin VIAL(*) 5000 UNITS/ML VIAL (FIVE THOUSAND) SUBCUT SCH (06:00)
== END 2018-02-24 17:15 | disposition home or self-care (01) ==
LOC: ED 15:05 → MED 02-24 02:12
PROVIDERS: ADMIT Hospitalist; ATTEND Internal Medicine
DX: J18.9 Pneumonia, unspecified organism (principal); R41.82 Altered mental status, unspecified; Z87.891 Personal history of nicotine dependence; B19.20 Unspecified viral hepatitis C without hepatic coma; Z86.718 Personal history of other venous thrombosis and embolism; E03.9 Hypothyroidism, unspecified; K27.9 Peptic ulcer, site unspecified, unspecified as acute or chronic, without hemorrhage or perforation; D50.9 Iron deficiency anemia, unspecified; K21.9 Gastro-esophageal reflux disease without esophagitis; F41.8 Other specified anxiety disorders
CPT/HCPCS: 36415; 70450; 71045; 80048; 80053; 80307; 80320; 80329; 81003; 82140; 82550; 83605; 83735; 84443; 84484; 85025; 85060; 85610; 85730; 87040; 93005; 99285; A9270-GY; G0378; G0480; G8978-GP-CI; G8979-GP-CI; G8980-GP-CI

== ENCOUNTER 2018-04-21 14:46 | Emergency (ER) | payer MEDICARE, MEDICAID ==
[2018-04-21 15:28] VITALS: BP 119/59
[2018-04-21] MEDS ORDERED: Tetan/Diph/Pertus SYR(Tdap)* 0.5 ML SYR(BOOSTRIX) use SYR IM ONE (15:31)
--- NOTE | 2018-04-21 15:49 | RAD ---
Indication: Left foot injury. 3 views of left foot demonstrates diffuse osteopenia. No fracture is identified. No other bone or joint abnormality is noted. IMPRESSION: Diffuse osteopenia without evidence of fracture.
--- NOTE | 2018-04-21 16:06 | ED ---
Lower Extremity - HPI Summary HPI Summary: Patient presents with left toe and foot pain since swiping her foot with a door accidentally 2 days ago. She has bruising swelling and a skin injury to her large toe. She's been bearing weight however she reports this is painful. Denies numbness tingling or weakness. She has been applying Neosporin dressing to her abrasion. Unsure of last tetanus. Denies use of anticoagulants currently however she's been on them in the past. She also has a lengthy allergy list evens review her current med rec before prescribing pain medication based on preventing an allergy or med interaction. - History of Current Complaint Chief Complaint: EDExtremityLower Stated Complaint: LT FOOT INJURY Time Seen by Provider: 04/21/18 15:12 Hx Obtained From: Patient Pain Intensity: 5 - Allergies/Home Medications Allergies/Adverse Reactions: Allergies Allergy/AdvReac Type Severity Reaction Status Date / Time promethazine Allergy Hives Verified 02/23/18 15:29 tramadol [From Ultram] Allergy Unknown Verified 02/23/18 15:29 Reaction Details acetaminophen AdvReac does not Verified 02/24/18 02:57 like to take 2nd HX liver disease ibuprofen AdvReac GI Upset Verified 02/24/18 02:57 NSAIDS (Non-Steroidal AdvReac GI Upset Verified 02/24/18 02:28 Anti-Inflamma Home Medications: Home Medications Furosemide TAB* [Lasix TAB*] 20 mg PO DAILY 04/21/18 [History Confirmed 04/21/18 ] LORazepam TAB(*) [Ativan 0.5 MG TAB (*)] 0.5 mg PO Q6H PRN 04/21/18 [History Confirmed 04/21/18] Levothyroxine TAB* [Synthroid TAB*] 88 mcg PO DAILY 04/21/18 [History Confirmed 04/21/18] PMH/Surg Hx/FS Hx/Imm Hx Previously Healthy: Yes Endocrine/Hematology History: Reports: Hx Thyroid Disease, Other Endocrine/ Hematological Disorders - hepatitis c, h/o bleeding issue w/ elevated INR in the past Denies: Hx Anticoagulant Therapy, Hx Diabetes Cardiovascular History: Reports: Hx Deep Vein Thrombosis, Hx Hypertension - STATES NOT BEING TREATED FOR HYPERTENSION Denies: Hx Congestive Heart Failure, Hx Pacemaker/ICD Comment Only: Other Cardiovascular Problems/Disorders - PACS Respiratory History: Reports: Other Respiratory Problems/Disorders - r lung mass removal-benign Denies: Hx Asthma, Hx Chronic Obstructive Pulmonary Disease (COPD) GI History: Reports: Hx Gastroesophageal Reflux Disease, Hx Ulcer, Other GI Disorders - DIARRHEA X 1 WEEK, PERIUMBILICAL ABD PAIN History: Denies: Hx Renal Disease Musculoskeletal History: Reports: Hx Arthritis, Hx Back Problems, Hx Osteoporosis, Other Musculoskeletal History - bilat carpal tunnel surg, bernardo knee replacement. 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 Hx Chemotherapy: No Hx Radiation Therapy: No - Surgical History Surgery Procedure, Year, and Place: CHOLECYSTECTOMY JONATHAN EN Y GASTRIC BYPASS ( 1999) X2 R LUNG MASS REMOVED,BILATERAL KNEE REPLACEMENT, BILATERAL CARPAL TUNNEL,BILATERAL ROTATOR CUFF SURGERY, CATARACTS ,RT EYE MUSCLE SURGERY A CHILD, RT LUMPECTOMY 1979, LT LUMPECTOMY 2013,[place] Infectious Disease History: No Infectious Disease History: Reports: Hx Hepatitis Denies: Hx Human Immunodeficiency Virus (HIV), Traveled Outside the [place] in Last 30 Days - Family History Known Family History: Positive: Cardiac Disease, Other - Brother - colon ca, son - pancreatitis, sister and mother CVA - Social History 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 Alcohol Use: Occasionally Hx Substance Use: Yes Substance Use Type: Reports: Marijuana Substance Use Comment - Amount & Last Used: last week Hx Tobacco Use: Yes Smoking Status (MU): Former Smoker Type: Cigarettes Review of Systems Constitutional: Negative Negative: Fever, Chills Positive: no symptoms reported Positive: Arthralgia, Myalgia, Edema Positive: Bruising Neurological: Negative Psychological: Normal All Other Systems Reviewed And Are Negative: Yes Physical Exam Triage Information Reviewed: Yes Vital Signs On Initial Exam: Initial Vitals Temp Pulse Resp BP Pulse Ox 97.8 F 79 16 119/59 100 04/21/18 15:19 04/21/18 15:19 04/21/18 15:19 04/21/18 15:19 04/21/18 15:19 Vital Signs Reviewed: Yes Diagnostics - Vital Signs Vital Signs Temp Pulse Resp BP Pulse Ox 04/21/18 15:19 97.8 F 79 16 119/59 100 - Laboratory Lab Statement: Any lab studies that have been ordered have been reviewed, and results considered in the medical decision making process. Lower Extremity Course/Dx - Course Course Of Treatment: Pt presents w/ 2 day h/o Lt foot/toe injury with pain, swelling, bruising and skin injury. XR w/o acute fx's but she does have osteopenia. Foot soaked in hibaclens and warm water then wounds dressed in xerform. She came in with thong sandals on (thong rubbing on hallux abrasion). Advised on wound care and contusion care - close f/u w/ PCP Tuesday and will start anbx. Pain control will be provided via an additional 5mg of oxycodocone for 3 days as she has multiple drug allergies, cannot take acetaminophen d/t hep C and already takes oxycodone 10 daily (last filled 04/13/2018 for 30 day supply). SHe will monitor for danger s/sx and return to ED as needed. - Diagnoses Provider Diagnoses: Foot contusion, Foot abrasion Discharge - Sign-Out/Discharge Documenting (check all that apply): Patient Departure - Discharge Plan Condition: Stable Disposition: HOME Prescriptions: Cephalexin CAP* [Keflex CAP*] 500 mg PO BID #20 cap oxyCODONE TAB* [Roxycodone TAB 5 mg*] 5 mg PO BID #6 tab MDD 2 Patient Education Materials: Foot Contusion (ED), Abrasion (ED) Referrals: Natan Burrell MD [Primary Care Provider] - Additional Instructions: You appear to have both a contusion and abrasion to your left foot. Please see educational material for how to care for these injuries. Is important that you keep your foot elevated as much as possible except when using soaks to help keep your wound clean and reduce swelling. You may do one soapy soak per day and one Epsom salt soak per day. Make sure to rinse, pat dry and redressed your wounds after. Additionally, you have been given an antibiotic and advised to follow-up with your PCP Tuesday. Call today to schedule an appointment. *If in the meantime you develop worsening of swelling, streaking, fevers, chills , purulent drainage from your wound, seek medical attention sooner. - Billing Disposition and Condition Condition: STABLE Disposition: Home
[2018-04-21] MEDS ORDERED: oxyCODONE TAB* 5 MG TAB PO ONE (16:30)
== END 2018-04-21 17:20 | disposition home or self-care (01) ==
LOC: ED 14:46
DX: S90.32XA Contusion of left foot, initial encounter (principal); S90.812A Abrasion, left foot, initial encounter; M79.672 Pain in left foot; X58.XXXA Exposure to other specified factors, initial encounter; Y92.9 Unspecified place or not applicable
CPT/HCPCS: 90471; 90715; 99281; A9270-GY

== ENCOUNTER 2019-04-05 17:36 | Inpatient (IN) | payer MEDICARE, MEDICAID ==
--- OUTSIDE RECORDS SUMMARY | 2019-04-05 18:34 | XMS REPORT | Continuity of Care Document ---
:1945 External Reference #:[id number] Author Name Jessika Hernandez M.D. Address [address] [place] [address] Care Team Providers Name Role Phone Natan Burrell - Family Medicine Care Team Information Independent Beauty Consultant [phone] Jenifer Cali - Obstetrics & Care Team Information Independent Beauty Consultant [phone] Gynecology Malcolm Corona - Pain Medicine Care Team Information Independent Beauty Consultant [phone] Problems Active Problems Provider Date Disorder of lung Eder Watts M.D. Onset: 04/05/2003 Chronic pain syndrome Keaton Lehman M.D. Onset: 08/22/2014 Hypothyroidism Keaton Lehman M.D. Onset: 08/22/2014 Benign essential hypertension Keaton Lehman M.D. Onset: 08/22/2014 Chronic hepatitis Keaton Lehman M.D. Onset: 08/22/2014 Osteoporosis Keaton Lehman M.D. Onset: 08/22/2014 Gastroesophageal reflux disease Keaton Lehman M.D. Onset: 08/22/2014 Disorder of breast Keaton Lehman M.D. Onset: 08/22/2014 Anxiety state Keaton Lehman M.D. Onset: 08/22/2014 Partial thickness burn of shoulder Keaton Lehman M.D. Onset: 08/22/2014 Conduction disorder of the heart Keaton Lehman M.D. Onset: 08/22/2014 Liver function tests abnormal Benjamin Griggs M.D. Onset: 11/13/2014 Degenerative joint disease involving Natan Burrell M.D. Onset: 01/06/2015 multiple joints Right upper quadrant pain Natan Burrell M.D. Onset: 01/06/2015 Pneumonia due to Staphylococcus aureus Natan Burrell M.D. Onset: 02/06/2015 Urinary tract infectious disease Natan Burrell M.D. Onset: 02/06/2015 Embolism from thrombosis of vein of distal Natan Burrell M.D. Onset: 2014 lower extremity Arthralgia of the lower leg Natan Burrell M.D. Onset: 03/10/2015 Edema Natan Burrell M.D. Onset: 04/01/2015 Amnesia Natan Burrell M.D. Onset: 05/12/2015 Cellulitis of right lower limb Natan Burrell M.D. Onset: 05/12/2015 Psychophysiologic insomnia Natan Burrell M.D. Onset: 05/26/2015 Abnormal glucose level Natan Burrell M.D. Onset: 05/26/2015 Incontinence without sensory awareness Natan Burrell M.D. Onset: 05/26/2015 Irritable bowel syndrome Natan Burrell M.D. Onset: 06/24/2015 Foot-drop Benjamin Griggs M.D. Onset: 07/09/2015 Arthralgia of the ankle and/or foot Natan Burrell M.D. Onset: 08/12/2015 Anemia Natan Burrell M.D. Onset: 12/02/2015 Pain in calf Natan Burrell M.D. Onset: 02/16/2016 Migraine without aura, not refractory Natan Burrell M.D. Onset: 02/16/2016 Neck pain Natan Burrell M.D. Onset: 02/16/2016 Chronic deep venous thrombosis of lower Natan Burrell M.D. Onset: 2015 extremity Chronic hepatitis C Jessika Hernandez M.D. Onset: 04/05/2019 Stress incontinence (female) (male) Natan Burrell M.D. Onset: 08/15/2018 Shoulder joint pain Natan Burrell M.D. Onset: 08/15/2018 Bleeding from nose Natan Burrell M.D. Onset: 06/09/2018 Epigastric pain Natan Burrell M.D. Onset: 03/03/2018 Anemia due to chronic blood loss Natan Burrell M.D. Onset: 03/03/2018 Pain in left lower limb Natan Burrell M.D. Onset: 11/29/2017 Arthralgia of the pelvic region and thigh Natan Burrell M.D. Onset: 2016 Pain in right lower limb Natan Burrell M.D. Onset: 06/09/2017 Low back pain Natan Burrell M.D. Onset: 02/04/2017 Abrasion and/or friction burn of lower limb Natan Burrell M.D. Onset: 12/31 without infection Contusion of knee Natan Burrell M.D. Onset: 12/31/2016 Other insomnia Natan Burrell M.D. Onset: 12/31/2016 Nervous system symptoms Natan Burrell M.D. Onset: 12/31/2016 Dysthymic disorder Natan Burrell M.D. Onset: 10/19/2016 Increased frequency of urination Natan Burrell M.D. Onset: 10/19/2016 Social History Type Date Description Comments Sex Unknown ETOH Use Denies alcohol use Tobacco Use Start: Unknown End: Unknown Patient is a former smoker Smoking Status Reviewed: 11/06/18 Patient is a former smoker Allergies, Adverse Reactions, Alerts Active Allergies Reaction Severity Comments Date Phenergan hives 08/22/2014 NSAIDs ulcer 08/22/2014 Tramadol stroke-like symptoms 08/22/2014 Acetaminophen hx of Hep C 08/22/2014 Xifaxan rash 12/03/2014 Medications Active Medications SIG Qnty Indications Ordering Date Provider Levothyroxine Take 2 Tablets By 180Tablet Natan Garrido Sodium Mouth Every Day For Arianna Burrell 9 50mcg Thyroid Tablets Physical Therapy please diagnose and H81.10 Kari Gilman treat for bppv; DRAKE Agarwal 9 execute and teach Solomon maneuver if appropriate. Oxycodone HCL 1 by mouth every 8 90tabs G89.4 Natan Garrido 20mg hours as needed mdd 3 Ashanti M.D. 9 Tablets Venlafaxine HCL ER Take 2 Capsules By 180Caps Natan Garrido Mouth 1 Time Daily Dedrick BurrellDRadha 9 150mg Caps ER 24HR For Depression Klor-Con 10 Take 1 Tablet By 90Tablet Benjamin Garrido 10Meq Mouth Every Day For MD Amisha 9 Tablets ER Potassium Supplementation Trazodone HCL Take 1 To 2 Tablets 180Tablet Natan Garrido 50mg By Mouth AT Bedtime Dedrick BurrellDRadha 9 Tablets as Needed For Sleep Oxybutynin Chloride Take One Tablet By 270tabs N39.3 Natan Garrido Mouth Three Times A Ashanti M.DRadha 9 5mg Tablets Day as Needed For Bladder Control Ferrous Sulfate Take 1 Tablet By 90tabs D50.0 Natan Garrido Mouth Every Day For Dedrick BurrellDRadha 9 325(65Fe) mg Anemia Tablets Multivitamin 1 by mouth daily 30units Kandace Muse Gummies Womenlogan Huffman NP 8 Chewtabs Omeprazole Take 1 Capsule By 90caps R10.13 Natan Garrido 20mg Mouth Every Day For Ashanti M.DRadha [address] Stomach Furosemide Take 1 Tablet By 90tabs R60.0 Natan Garrido 20mg Mouth Every Day In Ashanti M.DRadha 8 Tablets The Morning as Needed For Leg Swelling K-Tab 1 by mouth every day 30tabs Benjamin Garrido 10Meq Tablets for potassium MD Amisha 7 ER supplementation. Ranitidine HCL Take 1 Tablet By 180tabs Benjamin Gregory Mouth Twice A Day Arianna Griggs 7 150mg Tablets Bupropion HCL ER Take 1 Tablet By 30tabs F34.1 Natan Garrido (SR) Mouth Every Morning Dedrick BurrellDRadha 7 150mg Tablets For Depression ER 12HR Quetiapine Fumarate Take 1 Tablet By 90tabs Natan Garrido Mouth Every Evening Arianna Burrell 5 300mg Tablets AT Bedtime Lorazepam take 1 tablet by 120tabs W18.39xA Natan T. 0.5mg mouth four times a Arianna Burrell 5 Tablets day as needed for anxiety Metoprolol Tartrate Take 1 By Mouth Every 135tabs Natan T. Morning, Take 1/2 By Arianna Burrell 0 25mg Tablets Mouth Every Night AT Bedtime Immunizations CPT Code Status Date Vaccine Lot # [id number] Given 04/12/2018 High-Dose, Influenza Virus Vacccine-fluzone 65 and older 90982 Given 03/18/2017 High-Dose, Influenza Virus Vacccine-fluzone 65 and older 75494 Given 09/02/2016 High-Dose, Influenza Virus Vacccine-fluzone 65 and older 00192 Given 04/17/2015 High-Dose, Influenza Virus Vacccine-fluzone 65 and older 29673 Given 08/22/2014 Zostivax [id number] 07932 Given 07/06/2006 Hep A & Hep B Adult, adult dosage, for [id number] intramuscular use 88675 Given 05/12/2006 Meningococcal Conjugate Vaccine,Serogroups For [id number] Intramuscular Use 97921 Given 05/12/2006 Hep A & Hep B Adult, adult dosage, for [id number] intramuscular use 70032 Given 07/03/2004 Influenza Virus Vaccine, Live For Intranasla Use 16332 Given 05/07/2004 Td Immunization, For Use In Individuals 7 Years Or Older 81210 Given 05/17/2003 Pneumococcal Immunization 54871 Given 05/17/2003 DO Not Use Split Influenza Virus Vaccine Vital Signs Date Vital Result Comment 04/05/2019 4:55pm BP Systolic 110 mmHg BP Diastolic 60 mmHg Heart Rate 76 /min Body Temperature 97.7 F 02/15/2019 2:12pm BP Systolic 118 mmHg BP Diastolic 52 mmHg Heart Rate 78 /min Body Temperature 98.4 F Results Test Date Facility Test Result H/L Range Note Laboratory test 01/12/2019 [facility] [place] SEE RESULT 1 finding Pathology BELOW Laboratory test 10/29/2018 [facility] [place] Lactic Acid 0.8 mmol/L Normal 0.5-2.0 2 finding Comp Metabolic 10/29/2018 [facility] Sodium 138 mmol/L Normal 135-145 Panel Potassium 4.3 mmol/L Normal 3.5-5.0 Chloride 106 mmol/L Normal 101-111 Co2 Carbon Dioxide 30 mmol/L Normal 22-32 Anion Gap 2 mmol/L Normal 2-11 Glucose 130 mg/dL High 70-100 Blood Urea Nitrogen 14 mg/dL Normal 6-24 Creatinine 0.79 mg/dL Normal 0.51-0.95 BUN/Creatinine Ratio 17.7 Normal 8-20 Calcium 9.6 mg/dL Normal 8.6-10.3 Total Protein 5.4 g/dL Low 6.4-8.9 Albumin 3.2 g/dL Normal 3.2-5.2 Globulin 2.2 g/dL Normal 2-4 Albumin/Globulin Ratio 1.5 Normal 1-3 Total Bilirubin 0.40 mg/dL Normal 0.2-1.0 Alkaline Phosphatase 67 U/L Normal 34-104 Alt 14 U/L Normal 7-52 Ast 17 U/L Normal 13-39 Egfr Non- 71.7 >60 Egfr 86.8 >60 3 Laboratory test finding 10/29/2018 [facility] [place] Amylase 31 U/L Normal 29-103 Lipase 24 U/L Normal 11.0-82.0 C Reactive Protein 3.06 mg/L Normal <8.01 Urinalysis Profile 10/29/2018 [facility] [place] Urine Color Yellow Urine Appearance Clear Urine Specific [place] 1.014 Normal 1.010-1.030 Urine pH 6.0 Normal 5-9 Urine Urobilinogen Negative Negative Urine Ketones Negative Negative Urine Protein Negative Negative Urine Leukocytes Trace Abnormal Negative Urine Blood Negative Negative * * Abnormal Negative 4 Urine Nitrite Negative Negative Urine Bilirubin Negative Negative Urine Glucose Negative Negative Urine White Blood Cell Trace(0-5/hpf) Absent Urine Red Blood Cell Absent Absent Urine Bacteria Absent Absent Urine Squamous Epithelial Cell Present Abnormal Absent CBC Auto Diff 10/29/2018 [facility] [place] White Blood Count 6.8 10^3/uL Normal 3.5- 10.8 Red Blood Count 4.43 10^6/uL Normal 3.70-4.87 Hemoglobin 13.3 g/dL Normal 12.0-16.0 Hematocrit 41 % Normal 33-41 Mean Corpuscular Volume 92 fL Normal 80-97 Mean Corpuscular Hemoglobin 30 pg Normal 27-31 Mean Corpuscular HGB Conc 33 g/dL Normal 31-36 Red Cell Distribution Width 15 % Normal 10.5-15 Platelet Count 245 10^3/uL Normal 150-450 Mean Platelet Volume 8.5 fL Normal 7.4-10.4 Abs Neutrophils 5.0 10^3/uL Normal 1.5-7.7 Abs Lymphocytes 1.1 10^3/uL Normal 1.0-4.8 Abs Monocytes 0.5 10^3/uL Normal 0-0.8 Abs Eosinophils 0.1 10^3/uL Normal 0-0.6 Abs Basophils 0 10^3/uL Normal 0-0.2 Abs Nucleated RBC 0 10^3/uL Granulocyte % 74.1 % Lymphocyte % 15.8 % Monocyte % 7.7 % Eosinophil % 2.0 % Basophil % 0.4 % Nucleated Red Blood Cells % 0 Urine Culture And Sensitivities 10/29/2018 [facility] [place] Urine Culture SEE RESULT BELOW 5 1 SEE RESULT BELOW Name: REINA LAWSON Yash : [address]: Praveen Grullon MD Acct: [id number] Unit: [id number] AGE: 74 Location: [facility] Re01/12/19 SEX: F Status: REG REF SPEC: [id number] LI: 01/12/19-[address] [facility] [address]: Praveen Grullon MD REQ: [id number] RECD: 01/12/191239 STATUS: AMY DIANE DR: Natan Burrell MD _ ORDERED: LEVEL 4/2 COMMENTS: [id number] FINAL DIAGNOSIS 1. Skin, left arm lesion, biopsy: -- Lymphangioma. -- Actinic change. 2. Skin, right thigh lesion, biopsy: -- Inflamed actinic keratosis. CLINICAL HISTORY No history given GROSS DESCRIPTION 1. The specimen is received in formalin labeled, Left Arm Skin Lesion, and consists of a 0.6 x 0.5 x 0.3 cm herron-white ovoid skin fragment with a central 0.2 x 0.2 cm white pink mildly bosselated area. The specimen is inked, serially sectioned and submitted entirely in one cassette. 2. The specimen is received in formalin labeled, Right Thigh Skin Lesion, and consists of a 0.8 x 0.7 cm herron-white bosselated to nodular ovoid skin fragment excised to a maximum depth of 0.5 cm which is inked, serially sectioned and submitted entirely in one cassette. Signed by and Reported on: Quique Rai MD 1141 END OF REPORT DEPARTMENT OF PATHOLOGY, [address] [place] [address] Quique Rai M.D. Director [facility] # [id number] 2 [facility] Severe Sepsis and Septic Shock Management Bundle Measure requires all lactic acids initially measuring >2.0 mmol/L be repeated. 3 Because ethnic data is not always readily available, this report includes an eGFR for both -Americans and non- Americans. The National Kidney Disease Education Program (NKDEP) does not endorse the use of the MDRD equation for patients that are not between the ages of 18 and 70, are , have extremes of body size, muscle mass, or nutritional status, or are non- or non-. According to the National Kidney Foundation, irrespective of diagnosis, the stage of the disease is based on the level of kidney function: Stage Description GFR(mL/min/1.73 m(2)) 1 Kidney damage with normal or decreased GFR 90 2 Kidney damage with mild decrease in GFR 60-89 3 Moderate decrease in GFR 30-59 4 Severe decrease in GFR 15-29 5 Kidney failure <15 (or dialysis) 4 *Ascorbic acid is present which may interfere with detection of blood. 5 SEE RESULT BELOW Name: REINA LAWSON Yash : [address]: Matthias Lennon MD Acct: [id number] Unit: [id number] AGE: 73 Location: ED Re10/29/18 SEX: F Status: DEP ER SPEC: [id number] LI: 10/29/[address] [facility] [address]: Matthias Lennon MD REQ: [id number] RECD: 10/29/18 STATUS: SHELLY DIANE DR: Natan Burrell MD _ SOURCE: URINE SPDESC: ORDERED: Urine Culture Procedure Result Reported Site Urine Culture Final 10/31/18- 1029 ML No growth of clinically significant organisms * ML - Main Lab . END OF REPORT DEPARTMENT OF PATHOLOGY, [address] [place] [address] Quique Rai M.D. Director [facility] # [id number] Procedures Date Code Description Status 09/29/2018 [id number] Mammogram Completed 04/15/2016 [id number] Colonoscopy Completed 10/11/2014 [id number] Mammogram Completed 10/11/2014 [id number] Bone Mineral Density Test Completed Medical Devices Description No Information Available Encounters Type Date Location Provider Dx Diagnosis Office Visit 02/15/2019 [facility] Office Doris Olivares M25.511 Pain in right 2:00p [employer] shoulder Office Visit 02/02/2019 Main Office Kari Gilman H81.10 Benign paroxysmal 1:00p DRAKE Agarwal vertigo, unspecified ear Office Visit 11/22/2018 Main Office Doris Olivares G89.4 Chronic pain 3:15p [employer] syndrome Office Visit 11/06/2018 Main Office Kandace Muse M25.521 Pain in right elbow 1:00p DRAKE Huffman Assessments Date Code Description Provider 04/05/2019 W18.39xA Other fall on same level, initial Jessika Hernandez M.D. encounter 04/05/2019 G89.4 Chronic pain syndrome Jessika Hernandez M.D. 04/05/2019 I10 Essential (primary) hypertension Jessika Hernandez M.D. 04/05/2019 F41.1 Generalized anxiety disorder Jessika Hernandez M.D. 04/05/2019 B18.2 Chronic viral hepatitis C Jessika Hernandez M.D. 04/05/2019 R29.6 Repeated falls Jessika Hernandez M.D. 04/05/2019 G43.009 Migraine without aura, not intractable, Jsesika Hernandez M.D. without status migrainosus 04/05/2019 M21.372 Foot drop, left foot Jessika Hernandez M.D. 04/05/2019 N39.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 Jessika Hernandez M.D. 02/15/2019 M25.511 Pain in right shoulder Doris Olivares, [facility] 02/02/2019 H81.10 Benign paroxysmal vertigo, unspecified Kari Agarwal NP ear 11/22/2018 G89.4 Chronic pain syndrome Doris Elise, [facility] 11/06/2018 M25.521 Pain in right elbow Kandace uHffman NP Plan of Treatment Future Appointment(s):04/06/2019 3:20 pm - Natan Burrell M.D. at Main [id number]/05/2019 - Jessika Hernandez M.D.W18.39xA Other fall on same level, initial encounterComments:2 falls today and 1 a week . Unsteady on her feet.sending to the ER by ambulance for further work up. report called in to the ER. Spoke with Debra. Called daughter - Corntey, . no machine.G89.4 Chronic pain nfxttkerD11 Essential (primary) hypertensionComments: Stable. Continue present meds.F41.1 Generalized anxiety vegrbigbV98.2 Chronic viral hepatitis CR29.6 Repeated dfjpqV58.009 Migraine without aura, not intractable, without status incwcdwkaktG72.372 Foot drop, left footN39.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AllComments:Medication Management Patient Understands medications she's taking? Yes No Are there Barriers to Adherence? Yes No Has the patient been asked about herbal supplements and therapies, and OTC meds? Yes No Functional Status Description No Information Available Mental Status Description No Information Available Referrals Description No Information Available
--- NOTE | 2019-04-05 18:53 | ED ---
Adult Trauma - HPI Summary HPI Summary: The patient is a 74 y/o F presenting to [facility] with a chief complaint of increased frequency of falls with three episodes today. She reports that over the last four weeks, she has been falling more than usual, which she believes is secondary to having an off-balance sensation. Today, she was at Dr. Jimenes office, and he was concerned for the falls shes been having that have resulted in bruising on the right leg throughout the rachel. When she was at the office, she had her third fall of the day that has left open skin on the left elbow and left knee. Currently the pain is rated 6/10 in severity. She denies any syncope or LOC with the events. PMHx: thyroid disease, DVT, arthritis, hepatitis. Former smoker, no EtOH, marijuana use. - History of Current Complaint Chief Complaint: EDFall Stated Complaint: FALL PER EMS Time Seen by Provider: 04/05/19 18:04 Hx Obtained From: Patient Mechanism of Injury: Fall Onset/Duration: Started Hours Ago, Still Present Onset of Pain: Immediate Onset Severity: Mild Current Severity: Moderate Pain Intensity: 6 Pain Scale Used: 0-10 Numeric Location: Extremities - left elbow, left knee, right rachel Aggravating Factor(s): Nothing Alleviating Factor(s): Nothing Associated Signs & Symptoms: Positive: Ecchymosis, Other: - Negative: syncope. Negative: Loss of Consciousness - Additional Pertinent History Primary Care Physician: [id number] - Allergy/Home Medications Allergies/Adverse Reactions: Allergies Allergy/AdvReac Type Severity Reaction Status Date / Time promethazine Allergy Hives Verified 10/29/18 23:52 tramadol [From Ultram] Allergy Unknown Verified 10/29/18 23:52 Reaction Details acetaminophen AdvReac does not Verified 10/29/18 23:52 like to take 2nd HX liver disease ibuprofen AdvReac GI Upset Verified 10/29/18 23:52 NSAIDS (Non-Steroidal AdvReac GI Upset Verified 10/29/18 23:52 Anti-Inflamma Home Medications: Home Medications Ferrous Sulfate TAB* 325 mg PO DAILY 04/05/19 [History Confirmed 04/05/19] Levothyroxine TAB* [Synthroid TAB*] 100 mcg PO DAILY 04/05/19 [History Confirmed 04/05/19] Metoprolol Tartrate TAB* [Lopressor TAB*] 12.5 mg PO BEDTIME 04/05/19 [History Confirmed 04/05/19] Metoprolol Tartrate TAB* [Lopressor TAB*] 25 mg PO QAM 04/05/19 [History Confirmed 04/05/19] Multivit-Minerals/Folic Acid [Women's Multivitamin Gummies] 200 mcg PO DAILY 12/17 [History Confirmed 04/05/19] Omeprazole CAP (NF) [Prilosec CAP* 20 MG] 20 mg PO DAILY 04/05/19 [History Confirmed 04/05/19] Oxybutynin TAB* [Ditropan TAB*] 5 mg PO TID 04/05/19 [History Confirmed 04/05/19 ] Ranitidine TAB (NF) [Zantac TAB (NF)] 150 mg PO BID 04/05/19 [History Confirmed 04/05/19] oxyCODONE TAB* [Roxycodone TAB 5 mg*] 5 mg PO TID PRN MDD 2 04/05/19 [History Confirmed 04/05/19] PMH/Surg Hx/FS Hx/Imm Hx Endocrine/Hematology History: Reports: Hx Thyroid Disease, Other Endocrine/ Hematological Disorders - hepatitis c, h/o bleeding issue w/ elevated INR in the past Denies: Hx Anticoagulant Therapy, Hx Diabetes Cardiovascular History: Reports: Hx Deep Vein Thrombosis Denies: Hx Congestive Heart Failure, Hx Hypertension, Hx Pacemaker/ICD Comment Only: Other Cardiovascular Problems/Disorders - PACS Respiratory History: Reports: Other Respiratory Problems/Disorders - r lung mass removal-benign Denies: Hx Asthma, Hx Chronic Obstructive Pulmonary Disease (COPD) GI History: Reports: Hx Gastroesophageal Reflux Disease, Hx Ulcer, Other GI Disorders - DIARRHEA X 1 WEEK, PERIUMBILICAL ABD PAIN History: Denies: Hx Renal Disease Musculoskeletal History: Reports: Hx Arthritis, Hx Back Problems, Hx Osteoporosis, Other Musculoskeletal History - bilat carpal tunnel surg, bernardo knee replacement. 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 Hx Chemotherapy: No Hx Radiation Therapy: No - Surgical History Surgical History: Yes Surgery Procedure, Year, and Place: CHOLECYSTECTOMY;. JONATHAN EN Y GASTRIC BYPASS (1999);. X2;. R LUNG MASS REMOVED;. BILATERAL KNEE REPLACEMENT;. BILATERAL CARPAL TUNNEL,. BILATERAL ROTATOR CUFF SURGERY,. BILATERAL CATARACTS REMOVED;. RT EYE MUSCLE SURGERY X3 A CHILD;. RT LUMPECTOMY 1979; . LT LUMPECTOMY 2013;. TONSILECTOMY - Immunization History Date of Tetanus Vaccine: utd Date of Influenza Vaccine: fall 2017 Infectious Disease History: No Infectious Disease History: Reports: Hx Hepatitis Denies: Hx Human Immunodeficiency Virus (HIV), Traveled Outside the [place] in Last 30 Days - Family History Known Family History: Positive: Cardiac Disease, Other - Brother - colon ca, son - pancreatitis, sister and mother CVA - Social History Alcohol Use: None Hx Substance Use: Yes Substance Use Type: Reports: Marijuana, Prescribed Substance Use Comment - Amount & Last Used: oxycodone at 1800, medical marijuana Hx Tobacco Use: Yes Smoking Status (MU): Former Smoker Type: Cigarettes Review of Systems Positive: Bruising - right rachel, Other - open wounds on the left elbow and left knee Neurological: Other - Positive: 3 falls today. Negative: LOC. Negative: Syncope All Other Systems Reviewed And Are Negative: Yes Physical Exam - Summary Physical Exam Summary: Appearance: The patient is well-nourished in no acute distress and in no acute pain. Skin: The skin is warm and dry, and skin color reflects adequate perfusion. HEENT: The head is normocephalic and atraumatic. The pupils are equal and reactive. The conjunctivae are clear and without drainage. Nares are patent and without drainage. Mouth reveals moist mucous membranes, and the throat is without erythema and exudate. The external ears are intact. The ear canals are patent and without drainage. The tympanic membranes are intact. Neck: The neck is supple with full range of motion and non-tender. There are no carotid bruits. There is no neck vein distension. Respiratory: Chest is non-tender. Lungs are clear to auscultation and breath sounds are symmetrical and equal. Cardiovascular: Heart is regular rate and rhythm. There is no murmur or rub auscultated. There is no peripheral edema and pulses are symmetrical and equal. Abdomen: The abdomen is soft and non-tender. There are normal bowel sounds heard in all four quadrants and there is no organomegaly palpated. Musculoskeletal: There is no back tenderness noted. Extremities are non-tender with full range of motion. There is good capillary refill. There is no peripheral edema or calf tenderness elicited. Neurological: Patient is alert and oriented to person, place and time. The patient has symmetrical motor strength in all four extremities. Cranial nerves are grossly intact. Deep tendon reflexes are symmetrical and equal in all four extremities. Unsteady on her feet, no wide base gait. GCS: 15. Psychiatric: The patient has an appropriate affect and does not exhibit any anxiety or depression. Triage Information Reviewed: Yes Vital Signs On Initial Exam: Initial Vitals Temp Pulse Resp BP Pulse Ox 97.9 F 84 18 112/74 97 04/05/19 17:52 04/05/19 17:52 04/05/19 17:52 04/05/19 17:52 04/05/19 17:52 Vital Signs Reviewed: Yes - Derby Coma Scale Best Eye Response: 4 - Spontaneous Best Motor Response: 6 - Obeys Commands Best Verbal Response: 5 - Oriented Coma Scale Total: 15 Diagnostics - Vital Signs Vital Signs Temp Pulse Resp BP Pulse Ox 04/05/19 17:52 97.9 F 84 18 112/74 97 - Laboratory Result Diagrams: 04/05/19 18:51 04/05/19 18:51 Lab Statement: Any lab studies that have been ordered have been reviewed, and results considered in the medical decision making process. - CT Brain CT CT Interpretation Completed By: Radiologist Summary of CT Findings: Impression: 1. No acute intracranial hemorrhage or acute territorial type infarct. 2. There is minimal periventricular white matter hypodensity, likely representing small vessel ischemic disease in a patient this age. 3. Mild atrophy. ED physician has reviewed this report. - EKG 192 Cardiac Rate: NL - 85 bpm EKG Rhythm: Sinus Rhythm ST Segment: Normal Ectopy: None Summary of EKG Findings: Normal sinus rhythm, normal ST, no ectopy, no STEMI Re-Evaluation - Re-Evaluation First Eval Re-Evaluation Time: 20:30 Comment: Patient unable to ambulate steadily. Second Eval Re-Evaluation Time: 21:30 Comment: Patient aware of being accepted for admission. Adult Trauma Course/Dx - Course Course Of Treatment: Ms. Lawson's enema several weeks of being unsteady on her feet. Her son got her cane a week or so ago to use. The last week she is gotten worse and she has fallen 3 times today. She comes in with multiple abrasions on her knees and elbows and an ecchymotic right ankle. She was kept on a monitor while labs and CT were obtained. I spoke with when these were negative. We are going to admit her to the hospitalist service and he will evaluate her in the morning as she would not build be seen for several months as an outpatient. - Diagnoses Provider Diagnoses: Ataxia - Physician Notifications Discussed Care Of Patient With: Boom Tripp - hospitalist Time Discussed With Above Provider: 21:25 Instructed by Provider To: Admit As Observation - Dr. Tripp accepts the patient for admission. I spoke with Dr. Hill previous to Dr. Tripp who suggested admission at 2100. Discharge ED - Sign-Out/Discharge Documenting (check all that apply): Patient Departure - Patient accepted for admission by Dr. Tripp. Patient Received Moderate/Deep Sedation with Procedure: No - Discharge Plan Condition: Stable Disposition: ADMITTED TO [facility] Referrals: Natan Burrell MD [Primary Care Provider] - - Billing Disposition and Condition Condition: STABLE Disposition: Admitted to [facility] - Attestation Statements Document Initiated by Tonyibe: Yes Documenting Scribe: Virginia Friedman Provider For Whom Yahaira is Documenting (Include Credential): Dr. Rohit Light MD Scribe Attestation: Virginia Friedman, scribed for Dr. Rohit Light MD on 04/05/19 at 2150. Scribe Documentation Reviewed: Yes Provider Attestation: The documentation as recorded by the Virginia jiménez accurately reflects the service I personally performed and the decisions made by me, Dr. Rohit Light MD Status of Scribe Document: Viewed
[2019-04-05 19:04] LABS: Hematocrit 37 % (35-47); Hemoglobin 12.3 g/dL (12.0-16.0); Mean Corpuscular HGB Conc 34 g/dL (31-36); Mean Corpuscular Hemoglobin 32 pg (27-31); Mean Corpuscular Volume 95 fL (80-97); Mean Platelet Volume 8.7 fL (7.4-10.4); Platelet Count 255 10^3/uL (150-450); Red Blood Count 3.85 10^6 /uL (3.70-4.87); Red Cell Distribution Width 16 % (10-15); White Blood Count 10.8 10^3/uL (3.5-10.8)
[2019-04-05 19:12] LABS: INR 1.02 (0.82-1.09)
[2019-04-05 19:24] LABS: ALT 222 U/L (7-52); AST 60 U/L (13-39); Albumin 2.1 g/dL (3.2-5.2); Albumin/Globulin Ratio 1.1 (1-3); Alkaline Phosphatase 98 U/L (34-104); Anion Gap 4 mmol/L (2-11); BUN/Creatinine Ratio 20.6 (8-20); Blood Urea Nitrogen 21 mg/dL (6-24); CO2 Carbon Dioxide 33 mmol/L (22-32); Calcium 8.7 mg/dL (8.6-10.3); Chloride 98 mmol/L (101-111); EGFR African American 64.5 (>60); EGFR Non-African American 53.3 (>60); Globulin 1.9 g/dL (2-4); Glucose 55 mg/dL (70-100); Magnesium 1.8 mg/dL (1.9-2.7); Potassium 3.2 mmol/L (3.5-5.0); Sodium 135 mmol/L (135-145)
[2019-04-05 19:25] LABS: Alcohol < 10 mg/dL (<10)
[2019-04-05 19:28] LABS: Urine Appearance Clear; Urine Bilirubin Negative (Negative); Urine Blood Negative (Negative); Urine Color Yellow; Urine Glucose Negative (Negative); Urine Ketones Trace (Negative); Urine Nitrite Negative (Negative); Urine Protein Negative (Negative); Urine Specific Gravity 1.005 (1.010-1.030); Urine Urobilinogen Positive (Negative)
[2019-04-05 19:38] LABS: TSH (Thyroid Stimulating Horm) 0.74 mcIU/mL (0.34-5.60)
[2019-04-05 19:42] LABS: ABS Lymphocytes 1.4 10^3/ul (1.0-4.8); ABS Monocytes 1.6 10^3/ul (0-0.8); ABS Neutrophils 7.5 10^3/ul (1.5-7.7); Eosinophil % 0.3 %; Lymphocyte % 12.9 %; Nucleated Red Blood Cells % 0.1
[2019-04-06] MEDS: NS 0.9% 1000 ML** 1,000 ML IV SCH ×2 (02:00→20:01)
[2019-04-06] MEDS: oxyCODONE TAB* 5 MG TAB PO PRN ×3 (02:29→19:58)
[2019-04-06] MEDS: LORazepam TAB(*) 0.5 MG PO PRN ×2 (02:30→22:26)
[2019-04-06] MEDS: traZODone TAB* 50 MG TAB PO PRN ×2 (02:30→22:00)
--- NOTE | 2019-04-06 03:29 | HP ---
CC: Dr. Natan Burrell; Dr. Augie Hill* HISTORY AND PHYSICAL: DATE OF ADMISSION: 04/06/19 CHIEF COMPLAINT: Multiple falls. HISTORY OF PRESENT ILLNESS: This is a 74-year-old female with past medical history of hepatitis C; DVT of the left calf; hypothyroidism; premature atrial contractions, on metoprolol; anemia; chronic low back pain; depression; anxiety ; here due to ataxia. The patient stated that she was in her usual state of health up until a few weeks ago when she was noting to have an unsteady gait. Her son finally brought her a cane to use; however, yesterday, the patient had multiple episodes of fall, and she went to see her doctor, Dr. Natan Burrell, who suggested her to come to the ER for further evaluation. She denies any loss of consciousness during the falls. She denies any head trauma during the falls and stated that she did not have any prodrome prior to the fall. No other chest pain, shortness of breath, any nausea, vomiting, diarrhea, any urinary burning sensation, or pain with urination. No urinary incontinence during the fall episode. She denies any other palpitations, any fever or chills. PAST MEDICAL HISTORY: As mentioned: 1. Hepatitis C which was treated. 2. History of DVT of the left calf. She was on anticoagulation for many years , initially on Coumadin, later changed to Eliquis due to severe GI bleed that she had, and she has been discontinued off of any anticoagulation recently. 3. She also has a history of hypothyroidism. 4. Peptic ulcer disease with microcytic anemia. 5. Previous GI bleed as mentioned. 6. Gastroesophageal reflux disease. 7. Chronic low back pain, for which she is on narcotics. 8. Depression and anxiety. 9. She also has some chronic right eye blindness, for which she has had multiple surgeries. 10. Premature atrial contractions, on metoprolol. 11. She also has some swollen legs, for which she takes Lasix. PAST SURGICAL HISTORY: 1. She has had bilateral knee replacements. 2. Bilateral carpal tunnel release surgery. 3. Right shoulder replacement. 4. Five operations on her right eye. 5. Right lung mass resection. 6. Cholecystectomy. 7. twice. 8. Bilateral cataract removal. 9. Amadeo-en-Y gastric bypass surgery for obesity. 10. Lumpectomy on both the right and left breasts. 11. Tonsillectomy. MEDICATIONS: The patient is currently on: 1. Oxycodone 20 mg p.o. every 8 hours p.r.n. 2. Ativan 0.5 mg p.o. t.i.d. p.r.n. 3. Metoprolol 25 mg in the morning and 12.5 mg at bedtime. 4. Quetiapine 300 mg daily at bedtime. 5. Bupropion 150 mg every morning. 6. Ranitidine 150 mg p.o. b.i.d. 7. Omeprazole 20 mg oral daily. 8. Lasix 20 mg oral daily. 9. Multivitamin 200 mg oral daily. 10. Oxybutynin 5 mg p.o. t.i.d. 11. Ferrous sulfate 325 mg oral daily. 12. Trazodone 50 to 100 mg p.o. at bedtime p.r.n. for insomnia. 13. Venlafaxine 300 mg oral daily. 14. Potassium chloride 10 mEq oral daily. 15. Levothyroxine 100 mcg oral daily. ALLERGIES: The patient is allergic to PROMETHAZINE, ULTRAM, ACETAMINOPHEN, IBUPROFEN, and NSAIDs. FAMILY HISTORY: Positive for Alzheimer's, colon cancer, and bladder cancer, but otherwise noncontributory at her age of 74. SOCIAL HISTORY: The patient quit smoking over 20 years ago. Prior to that had 30- pack-year history of smoking. Denies any alcohol or recreational drug use. She lives alone, but she does have a son in [place] and daughter living in [place], [place]. She is a full code and states that both her kids would be her healthcare proxy. REVIEW OF SYSTEMS: A 14-point review of systems did not reveal any new information other than what is mentioned in the HPI. PHYSICAL EXAMINATION GENERAL: The patient is awake, alert, oriented x3, did not appear to be in any acute respiratory distress. VITAL SIGNS: In the ER, BP was noted to be 112/74, heart rate 84, respiration rate 18, saturating 97% on room air, temperature 97.9. HEAD AND NECK: Atraumatic, normocephalic. Pupillary examination revealed postsurgical pupil on the right side, but the left pupil was reactive to light. Neck supple. No jugular venous distention. LUNGS: Clear to auscultation bilaterally. No wheezing, rhonchi or rales. HEART: S1, S2. Regular rate and rhythm. ABDOMEN: Soft, nontender, nondistended. EXTREMITIES: The patient did have multiple bruising of the extremities especially in her right leg. There is some scraping of the left knee, and both her elbows were also scraped from her fall. NEUROLOGIC: The patient was alert and oriented to time, place, and person. She was able to move all 4 extremities equally. DIAGNOSTIC STUDIES/LAB DATA: CBC was unremarkable. Coagulation profile shows INR of 1.02. Comprehensive metabolic panel was showing some low potassium at 3.2 and elevated bicarb at 33. Glucose minimally decreased at 55. Magnesium minimally decreased at 1.8. AST and ALT were minimally elevated. Albumin was noted to be minimally decreased at 2.1. Urinalysis was negative for any protein , there was some trace of ketones but negative for any leukocyte esterase or nitrite. Serum alcohol was noted to be less than 10. EKG showed sinus rhythm at 85 beats per minute with some T wave inversions noted on V2. When compared to her older EKG, these T wave inversions were present from the EKG of 2018. CT brain was read as no acute intracranial hemorrhage or acute territorial type infarct. There is minimal periventricular white matter hypodensity likely representing small vessel ischemic disease in a patient of this age. Mild atrophy was also noted. IMPRESSION: This is a 74-year-old female, here with progressive ataxia over the last few weeks with 3 falls with past medical history of depression and anxiety, and hepatitis C. ASSESSMENT: 1. Ataxia. I doubt it is transient ischemic attack but rather progressive age related versus any neurological deterioration. For now, we will monitor the patient on telemetry and consult Neurology regarding further workup. We will also get physical therapy involvement. 2. History of hepatitis C, stable. 3. History of left calf deep vein thrombosis, has been off anticoagulation per PCP. 4. History of gastroesophageal reflux disease and gastrointestinal bleed. Restart home ranitidine and omeprazole. 5. History of chronic low back pain. Restart home opioids. 6. History of depression and anxiety. Restart home psychiatric medications. 7. History of premature atrial contractions, on metoprolol. 8. DVT prophylaxis with subcutaneous heparin. [id number]/[facility] #: [id number] [facility]
[2019-04-06] MEDS: Levothyroxine TAB* 100 MCG TAB PO SCH (05:09)
[2019-04-06 06:08] LABS: Hematocrit 35 % (35-47); Hemoglobin 11.3 g/dL (12.0-16.0); Mean Corpuscular HGB Conc 32 g/dL (31-36); Mean Corpuscular Hemoglobin 33 pg (27-31); Mean Corpuscular Volume 102 fL (80-97); Mean Platelet Volume 9.6 fL (7.4-10.4); Platelet Count 193 10^3/uL (150-450); Red Blood Count 3.46 10^6 /uL (3.70-4.87); Red Cell Distribution Width 17 % (10-15); White Blood Count 10.3 10^3/uL (3.5-10.8)
[2019-04-06 06:23] LABS: BUN/Creatinine Ratio 17.8 (8-20); Calcium 8.1 mg/dL (8.6-10.3); EGFR Non-African American 50.4 (>60); HDL Cholesterol 41.4 mg/dL; Potassium 3.1 mmol/L (3.5-5.0)
[2019-04-06 06:24] LABS: ABS Eosinophils 0.1 10^3/ul (0-0.6); ABS Lymphocytes 2.1 10^3/ul (1.0-4.8); ABS Monocytes 1.5 10^3/ul (0-0.8); ABS Neutrophils 6.4 10^3/ul (1.5-7.7); Eosinophil % 1.4 %; Lymphocyte % 20.8 %; Nucleated Red Blood Cells % 0.2
[2019-04-06] MEDS ORDERED: FOLIC ACID PO SCH (09:00)
[2019-04-06] MEDS ORDERED: [UNRECOGNIZED DRUG - OTHER] PO SCH (09:00)
[2019-04-06] MEDS ORDERED: MULTIVIT MINERALS PO SCH (09:00)
[2019-04-06] MEDS: Metoprolol Tartrate TAB* 25 MG PO SCH ×2 (09:15→22:00)
[2019-04-06] MEDS: Ferrous Sulfate TAB* 325 MG PO SCH (09:16)
[2019-04-06] MEDS: Pantoprazole TAB * 40 MG TAB PO SCH (09:17)
[2019-04-06] MEDS: Venlafaxine EXT RELEASE CAP* 75 MG PO SCH (09:17)
[2019-04-06] MEDS: Famotidine TAB* 20 MG PO SCH ×2 (09:18→19:57)
[2019-04-06] MEDS: buPROPion SR TAB.SR* 150 MG PO SCH (09:19)
[2019-04-06] MEDS: Oxybutynin TAB* 5 MG PO SCH ×3 (09:19→19:57)
[2019-04-06] MEDS: Multivitamins/Minerals TAB PO SCH (09:20)
[2019-04-06] MEDS: Potassium Chlor TAB* 10 MEQ TAB.ER PO SCH (09:20)
[2019-04-06] MEDS ORDERED: Potassium Chlor TAB* 20 MEQ TAB.ER PO ONE (09:32)
[2019-04-06] MEDS: Heparin VIAL(*) 5000 UNITS/ML VIAL (FIVE THOUSAND) SUBCUT SCH ×2 (09:32→19:58)
[2019-04-06] MEDS ORDERED: Magnesium Sulfate 2 GM IV* 2 GM/50 ML BAG IVPB ONE (09:33)
--- NOTE | 2019-04-06 17:50 | PN ---
Hospitalist Progress Note Date of Service: 04/06/19 Patient seen, briefly examined. Discussed POC. Patient requesting several medications (melatonin and pain meds) during the day, also complaining of calf pain. US ordered, patient has hx of DVT in the past and is no longer on AC. US shows chronic thrombus of left calf, no new DVT and right calf is clear. Discussed with RN that patient cannot have her evening meds early, which will cause daytime sleepiness and is likely contributing to her falls at home. Suspect polypharmacy and non-compliance with medication scheduling at home contributing to falls. Await PT evaluation.
[2019-04-06] MEDS ORDERED: QUEtiapine TAB* 300 MG PO SCH (21:00)
[2019-04-06] MEDS ORDERED: NS 0.9% 1000 ML** 1,000 ML IV ONE (23:45)
--- NOTE | 2019-04-07 00:14 | CONS ---
NEUROLOGY CONSULTATION NOTE: DATE OF CONSULT: 04/06/19 CONSULTING PROVIDER: Rohit Light MD. REASON FOR CONSULT: Frequent falls. CHIEF COMPLAINT: Three falls in one day. HISTORY OF PRESENT ILLNESS: Ms. Reina Lawson is a 74-year-old female with severe osteoarthritis, chronic degenerative disc disease of the cervical and lumbar disease, who has gait instability and frequent falls. The patient stated that she has been falling for the past 1-1/2 years. She does not use a walker or a cane. Ever since this hospitalization, she has been dependent on a walker. The patient stated that she went to her doctor's office on 04/05/19. She got out of the bus at 11 a.m. and then suddenly made a turn and tripped over her right foot. She fell but did not hit her head. She did not lose consciousness. Subsequently, she tried to get up and fell 2 more times. She typically falls usually because of stumbling over objects. She denied any numbness or tingling sensation in the lower extremities. She does have tingling sensation in the hands, but this is because of history of carpal tunnel surgery. She is blind in the right eye. 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 She denied any focal weakness or paresthesias. She denied any chest pain, shortness of breath or palpitations. She had a right shoulder surgery done 1 year ago and was left with weakness on the proximal right upper extremity. Her symptoms are not acute, but seem to be progressing over the years. She denied any history of bowel or bladder impairment. PAST MEDICAL HISTORY: 1. Hepatitis C, which was treated. 2. History of DVT of the left calf for which she was taking Eliquis, but no longer taking Eliquis. She has no history of stroke or seizures. 3. History of hypothyroidism. 4. Peptic ulcer disease. 5. Previous GI bleed. 6. GERD. 7. Chronic low-back pain. 8. Depression. 9. Osteoarthritis. 10. Anxiety. 11. Chronic right eye congenital blindness. 12. PACs. 13. Swelling of the left leg. PAST SURGICAL HISTORY: 1. Bilateral knee replacements. 2. Bilateral carpal tunnel surgery. 3. Right shoulder replacement. 4. Five operations to the right eye. 5. Right lung mass resection. 6. Cholecystectomy. 7. . 8. Bilateral cataract removal. 9. Amadeo-en-Y gastric bypass surgery 4 years ago. She does not take any thiamine or vitamin B12, but does take multivitamins. 10. Tonsillectomy. MEDICATIONS: 1. Oxycodone 20 mg p.o. every 6 hours as needed. 2. Ativan 0.5 mg p.o. t.i.d. as needed. 3. Metoprolol 25 mg in the morning and 12.5 mg at bedtime. 4. Quetiapine 300 mg daily at bedtime. 5. Bupropion 150 mg every morning. 6. Ranitidine 150 mg p.o. b.i.d. 7. Omeprazole 20 mg oral daily. 8. Lasix 20 mg daily. 9. Multivitamin 200 mg daily. 10. Oxybutynin 5 mg p.o. t.i.d. 11. Ferrous sulfate 325 mg oral daily. 12. Trazodone 50 to 100 mg at bedtime. 13. Venlafaxine 300 mg p.o. daily. 14. Potassium chloride 10 mEq oral daily. 15. Levothyroxine 100 mcg daily. ALLERGIES: The patient is allergic to PROMETHAZINE, ULTRAM, ACETAMINOPHEN, IBUPROFEN, and NSAIDs. FAMILY HISTORY: No family history of seizures. She does have family history of Alzheimer's dementia. Her mother had a stroke. SOCIAL HISTORY: The patient quit smoking approximately 20 years ago. She denied any alcohol or recreational drug use. She lives with her . REVIEW OF SYSTEMS: A 14-point review of systems was obtained, is otherwise negative except for what is mentioned in the HPI. PHYSICAL EXAMINATION: Vitals: Temperature of 98.5, pulse of 70, respiratory rate of 16, oxygen saturation 98%, blood pressure 108/50. General: Well- nourished, well-developed female, in no acute distress. Eyes: She is blind in the right eye, but otherwise sclera and cornea are clear on the left. Neck is supple and symmetric, with no carotid bruit. Respiratory: Clear to auscultation bilaterally. No wheezing. Cardiovascular: Regular rate and rhythm , with normal S1 and S2. Extremities: Restricted range of motion of bilateral shoulders, worse on the right. No hammertoes. Swelling of the left lower extremity. There is scraping of the left knee. Skin: No skin lesions, but there is a slight scraping on the left knee. Psych: Affect is broad, normal mood, easy to establish rapport. Neurological Examination: Mental Status: Awake, alert, oriented to person, place, time, and general circumstance. Speech and language including expression and repetition were found to be normal. Cranial Nerves: Pupil equal, round, reactive on the left. Legally blind on the right with swollen pupils. Sensation is intact in the face bilaterally. No facial asymmetry. Tongue is symmetric and midline with no atrophy or fasciculation. Motor Examination: She has 4/5 weakness on shoulder abduction on the right, 4+ on the left. She also has 5-/5 in the right triceps. She has full strength in the distal extremities. She has weakness to hip flexions bilaterally. Otherwise, she has full strength in the distal lower extremities, graded as 5/5. Sensation is intact to light touch and pinprick throughout. She does have distal to proximal sensory gradient at the ankle. Vibration was 6 seconds at the great toe on the right and 7 seconds on the left. Normal proprioception bilaterally. Coordination: Normal tdhgml-th-vgro and heel- to-rachel testing bilaterally. Gait: Wide based with small steps, stooped posture, narrowed stance. No falls. DIAGNOSTIC STUDIES/LAB DATA: Imaging: No other diagnostic testing. WBC of 10.3, hemoglobin of 11, hematocrit of 35, platelet count of 193. Sodium of 137, potassium 3.1, chloride of 104. Creatinine of 1.07. Glucose of 91. Calcium 8.1. Please note, her glucose was 55 when she came into the ED yesterday. Magnesium 1.8. Ammonia 35. TSH of 0.74, vitamin B12 of 878. Urinalysis was negative for pyuria. Serum alcohol was less than 10. CT head without contrast was completed and showed no evidence of acute intracranial abnormality. There is periventricular white matter hypodensity, likely represents small vessel ischemia. DVT of lower extremities showed a chronic thrombus in the left calf. ASSESSMENT AND RECOMMENDATIONS: Ms. Reina Lawson is a 74-year-old female with chronic history of falls and gait instability. On examination, she has evidence of myotomal distribution weakness involving both the upper and lower extremities. She has known osteoarthritis as well as cervical and lumbar spine degenerative disk disease. There is no acute issue here except that she is falling. Her falls have progressed over the last few days. Overall, I do suspect that the symptoms are caused by a combination of polypharmacy with the following medication causing significant sedating effect: Oxycodone, venlafaxine, bupropion, trazodone, Ativan, and quetiapine. Other differential diagnoses includes cervical spine disease and neuropathy. The patient does have history of gastric bypass; thus, increasing her risk for nutritional related neuropathy.. Vitamin B12 level though was within normal range. I have ordered vitamin B1 level, cryoglobulin, SPEP, hemoglobin A1c, and Lyme titers. The results can be reviewed when she is seen as an outpatient. Overall, I do not see any reason to further investigate her symptoms of falls as an inpatient at this point. I do recommend obtaining a cervical spine MRI to evaluate for cervical radiculopathy as well as an EMG of the lower extremities to assess the severity of her neuropathy. These tests can be done as outpatient. I defer further management of polypharmacy to the primary team. Pending final PT evaluation. The patient does live alone and there is a concern that she cannot care for herself at home. I do not see any further recommendations or necessary neurological workup as an inpatient. I will arrange a followup appointment with [facility] within 6 to 8 weeks. Please contact us for any questions or concerns. I will sign off. [id number]/CPS #: [id number] [facility] HOSPITALAnshu
[2019-04-07] MEDS: Levothyroxine TAB* 100 MCG TAB PO SCH (06:40)
[2019-04-07 07:09] LABS: BUN/Creatinine Ratio 18.7 (8-20); Calcium 7.2 mg/dL (8.6-10.3); EGFR African American 91.9 (>60); Potassium 3.5 mmol/L (3.5-5.0)
[2019-04-07] MEDS: Potassium Chlor TAB* 10 MEQ TAB.ER PO SCH (08:21)
[2019-04-07] MEDS: Venlafaxine EXT RELEASE CAP* 75 MG PO SCH (08:23)
[2019-04-07] MEDS: buPROPion SR TAB.SR* 150 MG PO SCH (08:23)
[2019-04-07] MEDS: Oxybutynin TAB* 5 MG PO SCH ×3 (08:24→21:18)
[2019-04-07] MEDS: Multivitamins/Minerals TAB PO SCH (08:24)
[2019-04-07] MEDS: Pantoprazole TAB * 40 MG TAB PO SCH (08:25)
[2019-04-07] MEDS: oxyCODONE TAB* 5 MG TAB PO PRN ×2 (08:25→16:38)
[2019-04-07] MEDS: Famotidine TAB* 20 MG PO SCH ×2 (08:25→21:22)
[2019-04-07] MEDS: Ferrous Sulfate TAB* 325 MG PO SCH (08:25)
[2019-04-07] MEDS: Heparin VIAL(*) 5000 UNITS/ML VIAL (FIVE THOUSAND) SUBCUT SCH ×2 (08:27→21:24)
[2019-04-07] MEDS: Metoprolol Tartrate TAB* 25 MG PO SCH ×2 (09:02→21:18)
[2019-04-07] MEDS ORDERED: traZODone TAB* 50 MG TAB PO PRN (10:33)
--- NOTE | 2019-04-07 15:37 | PN ---
Subjective Date of Service: 04/07/19 Interval History: Patient is feeling well. Patient feels much more secure with a walker. Patient denies pain, F/C, dizziness, CP, SOB, dysuria, diarrhea, or other pain. Patient is very tangential and somewhat sedated. Somewhat unsteady on feet and easily distracted. Family History: Unchanged from Admission Social History: Unchanged from Admission Past Medical History: Unchanged from Admission Objective Active Medications: Bupropion HCl (Wellbutrin Sr Tab*) 150 mg PO QAM [facility] Last Admin: 04/07/19 08:23 Dose: 150 mg Famotidine (Pepcid Tab*) 20 mg PO BID [facility]; Protocol Last Admin: 04/07/19 08:25 Dose: 20 mg Ferrous Sulfate (Ferrous Sulfate Tab*) 325 mg PO DAILY [facility] Last Admin: 04/07/19 08:25 Dose: 325 mg Heparin Sodium (Porcine) (Heparin Vial(*)) 5,000 units SUBCUT Q12HR [facility] Last Admin: 04/07/19 08:27 Dose: Not Given Levothyroxine Sodium (Synthroid Tab*) 100 mcg PO 0600 [facility] Last Admin: 04/07/19 06:40 Dose: 100 mcg Lorazepam (Ativan Tab(*)) 0.5 mg PO BID PRN PRN Reason: ANXIETY Metoprolol Tartrate (Lopressor Tab*) 12.5 mg PO BEDTIME [facility] Last Admin: 04/06/19 22:00 Dose: 12.5 mg Metoprolol Tartrate (Lopressor Tab*) 25 mg PO QAM [facility] Last Admin: 04/07/19 09:02 Dose: 25 mg Multivitamins/Minerals (Theragran/Minerals Tab*) 1 tab PO DAILY [facility] Last Admin: 04/07/19 08:24 Dose: 1 tab Oxybutynin Chloride (Ditropan Tab*) 5 mg PO TID [facility] Last Admin: 04/07/19 14:06 Dose: 5 mg Oxycodone HCl (Roxycodone Tab*) 15 mg PO Q8HR PRN PRN Reason: PAIN - MODERATE Pantoprazole Sodium (Protonix Tab*) 40 mg PO DAILY [facility] Last Admin: 04/07/19 08:25 Dose: 40 mg Potassium Chloride (Klor Con Er Tab*) 10 meq PO DAILY [facility] Last Admin: 04/07/19 08:21 Dose: 10 meq Quetiapine Fumarate (Seroquel Tab*) 200 mg PO BEDTIME [facility] Trazodone HCl (Desyrel Tab*) 25 mg PO BEDTIME PRN PRN Reason: SLEEP Venlafaxine HCl (Effexor Xr Cap*) 300 mg PO DAILY [facility] Last Admin: 04/07/19 08:23 Dose: 300 mg Vital Signs - 8 hr 04/07/19 04/07/19 04/07/19 07:55 08:00 08:05 Temperature 97.9 F Pulse Rate 75 Respiratory 18 16 Rate Blood Pressure 108/50 (mmHg) O2 Sat by Pulse 98 Oximetry 04/07/19 04/07/19 04/07/19 08:25 09:01 10:37 Temperature Pulse Rate Respiratory 16 16 Rate Blood Pressure 115/58 (mmHg) O2 Sat by Pulse Oximetry 04/07/19 14:00 Temperature 97.7 F Pulse Rate 63 Respiratory 16 Rate Blood Pressure 110/48 (mmHg) O2 Sat by Pulse 100 Oximetry Oxygen Devices in Use Now: None Appearance: Patient is a 74yo female who appears stated age and is sitting in the bed in [facility]. Eyes: No Scleral Icterus, PERRLA Ears/Nose/Mouth/Throat: NL Teeth, Lips, Gums, Clear Oropharnyx, Mucous Membranes Moist Neck: NL Appearance and Movements; NL JVP, Trachea Midline Respiratory: Symmetrical Chest Expansion and Respiratory Effort, Clear to Auscultation Cardiovascular: NL Sounds; No Murmurs; No JVD, RRR, No Edema Abdominal: NL Sounds; No Tenderness; No Distention, No Hepatosplenomegaly Lymphatic: No Cervical Adenopathy Extremities: No Edema, No Clubbing, Cyanosis Skin: No Rash or Ulcers Neurological: Alert and Oriented x 3, NL Sensation, NL Muscle Strength and Tone , - - CN II-XII intact. Result Diagrams: 04/06/19 05:32 04/07/19 06:34 Assess/Plan/Problems-Billing Assessment: Patient is a 74yo female with a PMH for Chronic Pain, DVT, and GI bleeding on anticoagulation, here with frequent falls, attributed to polypharmacy. - Patient Problems (1) Fall Current Visit: No Status: Acute Comment: - Likely multifactorial due to deconditioning and opiate use. - CT brain was negative. - Appreciate Neurology input, Possible neuropathy with proximal muscle weakness. - PT consult appreciated - encourage ambulation. May need Rehab. (2) Weakness Current Visit: No Status: Acute Code(s): R53.1 - WEAKNESS SNOMED Code(s): 03535089 Comment: - See above for falls, no signs of CVA, decrease meds and reassess gait daily. (3) Chronic pain Current Visit: No Status: Acute Priority: Medium Code(s): G89.29 - OTHER CHRONIC PAIN SNOMED Code(s): 71419760 Comment: - On Venlafaxine, Oxycodone - Patient is sedated and polypharmacy is likely contributing to falls. - Decrease Oxycodone dose and monitor. (4) Anemia Current Visit: No Status: Acute Priority: Medium Code(s): D64.9 - ANEMIA, UNSPECIFIED SNOMED Code(s): 434801651 Comment: - Much improved, not symptomatic. (5) Hypothyroidism Current Visit: No Status: Acute Code(s): E03.9 - HYPOTHYROIDISM, UNSPECIFIED SNOMED Code(s): 14219203 Comment: -Continue current dose of synthroid. (6) Lower extremity edema Current Visit: No Status: Acute Code(s): R60.0 - LOCALIZED EDEMA SNOMED Code(s): 857019731 Comment: - Unclear cause, possibly due to DVT - Continue Lasix. (7) DVT prophylaxis Current Visit: No Status: Acute Code(s): IBH8981 - SNOMED Code(s): 475871741 Comment: - Heparin, Off anticoagulation due to GI bleed and falls. Status and Disposition: Inpatient, may need rehab, pending safe D/C plan.
[2019-04-07] MEDS: QUEtiapine TAB* 100 MG PO SCH (21:21)
[2019-04-07] MEDS: LORazepam TAB(*) 0.5 MG PO PRN (21:22)
[2019-04-08 06:35] LABS: Hematocrit 32 % (35-47); Hemoglobin 10.6 g/dL (12.0-16.0); Mean Corpuscular HGB Conc 34 g/dL (31-36); Mean Corpuscular Hemoglobin 32 pg (27-31); Mean Corpuscular Volume 97 fL (80-97); Mean Platelet Volume 9.2 fL (7.4-10.4); Platelet Count 213 10^3/uL (150-450); Red Blood Count 3.27 10^6 /uL (3.70-4.87); Red Cell Distribution Width 17 % (10-15); White Blood Count 9.8 10^3/uL (3.5-10.8)
[2019-04-08 06:56] LABS: ALT 106 U/L (7-52); AST 21 U/L (13-39); Albumin 1.7 g/dL (3.2-5.2); Albumin/Globulin Ratio 1.1 (1-3); Alkaline Phosphatase 75 U/L (34-104); Blood Urea Nitrogen 13 mg/dL (6-24); CO2 Carbon Dioxide 26 mmol/L (22-32); Calcium 7.6 mg/dL (8.6-10.3); EGFR African American 114.5 (>60); EGFR Non-African American 94.6 (>60); Globulin 1.6 g/dL (2-4); Glucose 83 mg/dL (70-100); Potassium 3.7 mmol/L (3.5-5.0); Sodium 140 mmol/L (135-145); Total Protein 3.3 g/dL (6.4-8.9)
[2019-04-08 07:00] LABS: Chloride 114 mmol/L (101-111)
[2019-04-08 07:03] LABS: ABS Eosinophils 0.3 10^3/ul (0-0.6); ABS Lymphocytes 1.8 10^3/ul (1.0-4.8); ABS Neutrophils 6.6 10^3/ul (1.5-7.7); Eosinophil % 3.2 %; Lymphocyte % 18.3 %
[2019-04-08] MEDS: Levothyroxine TAB* 100 MCG TAB PO SCH (07:20)
[2019-04-08 08:13] LABS: Folate > 20.00 ng/mL (>3.99)
[2019-04-08 08:39] LABS: C Reactive Protein < 1.00 mg/L (<8.01); Prealbumin 13 mg/dL (18-38)
[2019-04-08 10:00] LABS: Erythrocyte Sed Rate 2 mm/Hr (0-29)
[2019-04-08] MEDS: buPROPion SR TAB.SR* 150 MG PO SCH (11:12)
[2019-04-08] MEDS: Ferrous Sulfate TAB* 325 MG PO SCH (11:13)
[2019-04-08] MEDS: Metoprolol Tartrate TAB* 25 MG PO SCH ×2 (11:13→19:53)
[2019-04-08] MEDS: Famotidine TAB* 20 MG PO SCH ×2 (11:13→19:51)
[2019-04-08] MEDS: Multivitamins/Minerals TAB PO SCH (11:13)
[2019-04-08] MEDS: Heparin VIAL(*) 5000 UNITS/ML VIAL (FIVE THOUSAND) SUBCUT SCH ×2 (11:13→20:02)
[2019-04-08] MEDS: Oxybutynin TAB* 5 MG PO SCH ×3 (11:14→19:51)
[2019-04-08] MEDS: Pantoprazole TAB * 40 MG TAB PO SCH (11:14)
[2019-04-08] MEDS: Potassium Chlor TAB* 10 MEQ TAB.ER PO SCH (11:14)
[2019-04-08] MEDS: Venlafaxine EXT RELEASE CAP* 75 MG PO SCH (11:15)
[2019-04-08 12:09] LABS: Creatine Kinase 23 U/L (10-223)
[2019-04-08] MEDS: oxyCODONE TAB* 5 MG TAB PO PRN ×2 (12:31→19:56)
--- NOTE | 2019-04-08 16:44 | PN ---
Subjective Date of Service: 04/08/19 Interval History: Patient is feeling better today. Patient is feeling somewhat unsteady on her feet, but is feeling more steady. Patient states she has poor oral intake at home due to poor appetite, but would be willing to try nutritional supplementation. Patient denies F/C, N/V, abdominal pain, dysuria, dizziness, or other pain. Family History: Unchanged from Admission Social History: Unchanged from Admission Past Medical History: Unchanged from Admission Objective Active Medications: Bupropion HCl (Wellbutrin Sr Tab*) 150 mg PO QAM [facility] Last Admin: 04/08/19 11:12 Dose: 150 mg Famotidine (Pepcid Tab*) 20 mg PO BID [facility]; Protocol Last Admin: 04/08/19 11:13 Dose: 20 mg Heparin Sodium (Porcine) (Heparin Vial(*)) 5,000 units SUBCUT Q12HR [facility] Last Admin: 04/08/19 11:13 Dose: Not Given Levothyroxine Sodium (Synthroid Tab*) 100 mcg PO 0600 [facility] Last Admin: 04/08/19 07:20 Dose: 100 mcg Lorazepam (Ativan Tab(*)) 0.5 mg PO BID PRN PRN Reason: ANXIETY Last Admin: 04/07/19 21:22 Dose: 0.5 mg Metoprolol Tartrate (Lopressor Tab*) 12.5 mg PO BEDTIME [facility] Last Admin: 04/07/19 21:18 Dose: 12.5 mg Metoprolol Tartrate (Lopressor Tab*) 25 mg PO QAM [facility] Last Admin: 04/08/19 11:13 Dose: 25 mg Multivitamins/Minerals (Theragran/Minerals Tab*) 1 tab PO DAILY [facility] Last Admin: 04/08/19 11:13 Dose: 1 tab Oxybutynin Chloride (Ditropan Tab*) 5 mg PO TID [facility] Last Admin: 04/08/19 14:12 Dose: 5 mg Oxycodone HCl (Roxycodone Tab*) 15 mg PO Q8HR PRN PRN Reason: PAIN - MODERATE Last Admin: 04/08/19 12:31 Dose: 15 mg Pantoprazole Sodium (Protonix Tab*) 40 mg PO DAILY [facility] Last Admin: 04/08/19 11:14 Dose: 40 mg Potassium Chloride (Klor Con Er Tab*) 10 meq PO DAILY [facility] Last Admin: 04/08/19 11:14 Dose: 10 meq Quetiapine Fumarate (Seroquel Tab*) 200 mg PO BEDTIME [facility] Last Admin: 04/07/19 21:21 Dose: 200 mg Trazodone HCl (Desyrel Tab*) 25 mg PO BEDTIME PRN PRN Reason: SLEEP Venlafaxine HCl (Effexor Xr Cap*) 300 mg PO DAILY [facility] Last Admin: 04/08/19 11:15 Dose: 300 mg Vital Signs - 8 hr 04/08/19 04/08/19 04/08/19 11:06 12:31 14:57 Temperature 97.8 F Pulse Rate 71 Respiratory 18 20 16 Rate Blood Pressure 109/49 (mmHg) O2 Sat by Pulse 99 Oximetry 04/08/19 15:16 Temperature 97.4 F Pulse Rate 72 Respiratory 16 Rate Blood Pressure 115/57 (mmHg) O2 Sat by Pulse 99 Oximetry Oxygen Devices in Use Now: None Appearance: Patient is a 74yo female who appears stated age and is sitting in the bed in [facility]. Eyes: No Scleral Icterus, PERRLA Ears/Nose/Mouth/Throat: NL Teeth, Lips, Gums, Clear Oropharnyx, Mucous Membranes Moist Neck: NL Appearance and Movements; NL JVP, Trachea Midline Respiratory: Symmetrical Chest Expansion and Respiratory Effort, Clear to Auscultation Cardiovascular: NL Sounds; No Murmurs; No JVD, RRR, No Edema Abdominal: NL Sounds; No Tenderness; No Distention, No Hepatosplenomegaly Lymphatic: No Cervical Adenopathy Extremities: No Edema, No Clubbing, Cyanosis Skin: No Rash or Ulcers, No Nodules or Sclerosis Neurological: Alert and Oriented x 3, NL Sensation, NL Muscle Strength and Tone , - - CN II-XII intact. Result Diagrams: 04/08/19 05:21 04/08/19 05:21 Assess/Plan/Problems-Billing Assessment: Patient is a 74yo female with a PMH for Chronic Pain, DVT, and GI bleeding on anticoagulation, here with frequent falls, attributed to polypharmacy. - Patient Problems (1) Fall Current Visit: No Status: Acute Comment: - Likely multifactorial due to deconditioning and opiate use. - Gait Much improved. - CT brain was negative. - Appreciate Neurology input, Possible neuropathy with proximal muscle weakness. - PT consult appreciated - encourage ambulation. Improving, will likely be safe to go home. - Negative CPK, No myoglobin in urine. - Muscle weakness likely due to malnutrition with markedly low albumin in setting of lack of inflammation. (2) Weakness Current Visit: No Status: Acute Code(s): R53.1 - WEAKNESS SNOMED Code(s): 52833859 Comment: - See above for falls, no signs of CVA, decrease meds and reassess gait daily. - PT/OT at home and nutritional supplementation. (3) Chronic pain Current Visit: No Status: Acute Priority: Medium Code(s): G89.29 - OTHER CHRONIC PAIN SNOMED Code(s): 09516545 Comment: - On Venlafaxine, Oxycodone - Patient is sedated and polypharmacy is likely contributing to falls. - Decrease Oxycodone dose and monitor. (4) Anemia Current Visit: No Status: Acute Priority: Medium Code(s): D64.9 - ANEMIA, UNSPECIFIED SNOMED Code(s): 258393705 Comment: - Much improved, not symptomatic. - Stop Iron due to macrocytic anemia and poor oral intake. (5) Hypothyroidism Current Visit: No Status: Acute Code(s): E03.9 - HYPOTHYROIDISM, UNSPECIFIED SNOMED Code(s): 49762108 Comment: -Continue current dose of synthroid. (6) Lower extremity edema Current Visit: No Status: Acute Code(s): R60.0 - LOCALIZED EDEMA SNOMED Code(s): 505183394 Comment: - Unclear cause, possibly due to DVT - Continue Lasix. (7) DVT prophylaxis Current Visit: No Status: Acute Code(s): CRG5842 - SNOMED Code(s): 695292667 Comment: - Heparin, Off anticoagulation due to GI bleed and falls. Status and Disposition: Inpatient, Patient does not feel safe going home tonight. Likely D/C in AM tomorrow.
[2019-04-08] MEDS: QUEtiapine TAB* 100 MG PO SCH (19:53)
[2019-04-08] MEDS: LORazepam TAB(*) 0.5 MG PO PRN (19:56)
[2019-04-09] MEDS: Levothyroxine TAB* 100 MCG TAB PO SCH (05:49)
[2019-04-09] MEDS: oxyCODONE TAB* 5 MG TAB PO PRN (05:52)
[2019-04-09 06:14] LABS: Albumin 1.5 g/dL (3.2-5.2); CO2 Carbon Dioxide 22 mmol/L (22-32); Calcium 7.8 mg/dL (8.6-10.3); Chloride 115 mmol/L (101-111); Potassium 4.2 mmol/L (3.5-5.0); Sodium 137 mmol/L (135-145)
[2019-04-09 06:20] LABS: ALT 80 U/L (7-52); AST 24 U/L (13-39); Albumin/Globulin Ratio 0.8 (1-3); Alkaline Phosphatase 77 U/L (34-104); BUN/Creatinine Ratio 21.9 (8-20); Blood Urea Nitrogen 14 mg/dL (6-24); EGFR African American 110.4 (>60); EGFR Non-African American 91.2 (>60); Globulin 1.9 g/dL (2-4); Glucose 70 mg/dL (70-100); Total Protein 3.4 g/dL (6.4-8.9)
[2019-04-09 07:30] LABS: Hematocrit 35 % (35-47); Hemoglobin 11.6 g/dL (12.0-16.0); Mean Corpuscular HGB Conc 33 g/dL (31-36); Mean Corpuscular Hemoglobin 32 pg (27-31); Mean Corpuscular Volume 97 fL (80-97); Mean Platelet Volume 9.6 fL (7.4-10.4); Platelet Count 179 10^3/uL (150-450); Red Cell Distribution Width 17 % (10-15); White Blood Count 13.4 10^3/uL (3.5-10.8)
[2019-04-09 08:04] LABS: ABS Basophils 0.1 10^3/ul (0-0.2); ABS Eosinophils 0.5 10^3/ul (0-0.6); ABS Lymphocytes 2.3 10^3/ul (1.0-4.8); ABS Monocytes 1.3 10^3/ul (0-0.8); ABS Neutrophils 9.2 10^3/ul (1.5-7.7); Eosinophil % 3.4 %; Lymphocyte % 17.1 %; Nucleated Red Blood Cells % 0.2
[2019-04-09] MEDS ORDERED: Metoprolol Tartrate TAB* 25 MG PO SCH ×2 (09:00→09:15)
[2019-04-09] MEDS: Venlafaxine EXT RELEASE CAP* 75 MG PO SCH (10:31)
[2019-04-09] MEDS: buPROPion SR TAB.SR* 150 MG PO SCH (10:32)
[2019-04-09] MEDS: Pantoprazole TAB * 40 MG TAB PO SCH (10:32)
[2019-04-09] MEDS: Potassium Chlor TAB* 10 MEQ TAB.ER PO SCH (10:33)
[2019-04-09] MEDS: Famotidine TAB* 20 MG PO SCH (10:33)
[2019-04-09] MEDS: Multivitamins/Minerals TAB PO SCH (10:33)
[2019-04-09] MEDS: Oxybutynin TAB* 5 MG PO SCH (10:33)
[2019-04-09] MEDS: Heparin VIAL(*) 5000 UNITS/ML VIAL (FIVE THOUSAND) SUBCUT SCH (10:34)
[2019-04-09 11:45] VITALS: BP 102/52
[2019-04-10 11:33] LABS: Albumin 1.7 g/dL (3.4-4.7); Albumin/Globulin Ratio 0.96; Gamma Globulin 0.7 g/dL (0.6-1.6); Total Protein(PEP) 3.5 g/dL (6.3 - 7.9)
--- NOTE | 2019-04-10 18:01 | DS ---
CC: Dr. Natan Burrell; Dr. Trevin Villarreal * DISCHARGE SUMMARY: DATE OF ADMISSION: 04/06/19 DATE OF DISCHARGE: 04/09/19 PRIMARY CARE PROVIDER: Dr. Natan Burrell. MY ATTENDING WHILE IN THE HOSPITAL: Dr. Sandra Singletary.* (DICTATED BY MAN PERKINS) PRIMARY DISCHARGE DIAGNOSES: 1. Multiple falls due to polypharmacy possible muscle weakness, unclear etiology, likely neuropathy, likely protein calorie malnutrition due to severe hypoalbuminemia. 2. Chronic low back pain. SECONDARY DISCHARGE DIAGNOSES: 1. History of chronic deep venous thrombosis in left calf. 2. Hepatitis C, treated. 3. Hypothyroidism. 4. Peptic ulcer disease. 5. History of gastric bypass. 6. History of gastrointestinal bleeding. 7. Gastroesophageal reflux disease. 8. Chronic low back pain. 9. Depression. 10. Anxiety. 11. Premature atrial contractions, on metoprolol. 12. Chronically swollen legs, on Lasix. STUDIES DONE WHILE IN THE HOSPITAL: Brain CT from 04/05/19 read as no acute intracranial hemorrhage or acute territorial type infract. There is minimal periventricular white matter hypodensity likely representing small vessel ischemic disease in the patient of this age, mild atrophy. Venous Doppler study read as chronic thrombus in left calf vein. No other right lower extremity deep vein thrombosis. The liver ultrasound read as no sonographic evidence of pathologic biliary dilatation, marginally increased liver density secondary to hepatic steatosis. MEDICATIONS AT DISCHARGE: 1. Bupropion 150 mg p.o. daily. 2. Potassium chloride 10 mEq p.o. daily. 3. Venlafaxine 300 mg p.o. daily. 4. Furosemide 20 mg p.o. daily. 5. Lorazepam 0.5 mg p.o. b.i.d. as needed. 6. Metoprolol tartrate 12.5 mg p.o. at bedtime. 7. Metoprolol tartrate 25 mg p.o. a.m. 8. Ranitidine 150 mg p.o. b.i.d. 9. Omeprazole 20 mg p.o. daily. 10. Multivitamin 200 mg p.o. daily. 11. Oxybutynin 5 mg p.o. t.i.d. 12. Levothyroxine 100 mcg p.o. daily. 13. Multivitamin 1 tab p.o. daily. 14. Oxycodone 15 mg p.o. q.8 hours as needed. 15. Quetiapine 200 mg p.o. at bedtime. 16. Trazodone 25 mg p.o. at bedtime as needed. New medications at discharge: 1. Lorazepam 0.5 mg p.o. b.i.d. 2. Multivitamin 1 tab p.o. daily. 3. Oxycodone 15 mg p.o. q.8 hours as needed. 4. Quetiapine 200 mg p.o. at bedtime. 5. Trazodone 25 mg p.o. at bedtime as needed. Medications discontinued on discharge. 1. Quetiapine 300 mg p.o. at bedtime. 2. Trazodone 50 to 100 mg p.o. at bedtime as needed. 3. Oxycodone 20 mg p.o. q.8 hours as needed. 4. Ferrous sulfate 325 mg p.o. daily. 5. Lorazepam 0.5 mg p.o. 4 times a day as needed. HOSPITAL COURSE: This is a brief summary of the patient's presentation. For more details, please see history and physical from Dr. Boom Tripp on 04/06/19. In brief, the patient is a 74-year-old female who presented to the emergency department after several falls over the course of a few days before her admission without significant injury, loss of consciousness or other trauma. She did not feel like prodrome, she just felt weakness, her legs gave out. She had no other concerning features for seizure and no focal weakness for stroke. The patient had been previously admitted to the hospital for this multiple times. The patient was admitted to the hospital, seen in consultation by Dr. Augie Hill, who did not recommend further brain imaging, and I believe the patient had a stroke, and this was due to polypharmacy. Ordered a panel for peripheral neuropathy, it is currently pending at this time except for normal vitamin B12 level and a normal A1c. The patient was seen by physical therapy and was felt to be unsteady on her feet. Rehab was recommended; however, when the patient's medications were decreased as above, the patient's gait and mentation significantly improved. The patient's labs, she was noted to have elevated AST and ALT. A repeat serology for hepatitis C was sent as she has previously had a documentation of negative viral load. The patient had normal INR, but a low albumin and low pre-albumin. Discussed with the patient when she ate and also the patient's daughter, and the patient's daughter states that the patient had been skipping meals to keep her weight low, and the patient states that she often did eat only one meal a day that was very difficult for her to eat because of her history of gastric bypass. The patient was seen in consult by Nutrition who recommended nutritional supplementation and large meals. The patient has slightly elevated white count on the day of her discharge, but had no fevers, chills. The patient's CRP level was less than 1. The patient had no protein in her urine. The patient had liver ultrasound as above, negative for signs of cirrhosis and/or other synthetic function were not elevated. The patient's LFTs returned almost normal at the day of her discharge. On the day of discharge, the patient was able to walk all the way around the unit with a walker and no unsteadiness. The patient was discharged with a walker and visiting nurse services as well as continued support through Meals [employer] Wheels and private aid services paid for by her family. The patient was discharged, stable on medical discharge on 04/09/19. PHYSICAL EXAMINATION ON DAY OF DISCHARGE: General: The patient is a 74-year- old female who appears her stated age and sitting comfortably in bed, in no acute distress. Vital Signs: At the time of discharge, temperature 99.6, pulse 71, respiratory rate 16, oxygen saturation 100% on room air, blood pressure 102/53. HEENT: Head normocephalic, atraumatic. Sclerae anicteric. No conjunctival injection. Nasal and oral mucosa moist. No pharyngeal erythema , postnasal drip, or exudate. Neck: Supple, nontender. No lymphadenopathy. No carotid bruits auscultated. No JVD. Cardiac: Regular rate and rhythm. No clicks, murmurs, gallops, or rubs. Pulses 1+ in posterior tibialis and radial areas. 1+ in her bilateral lower extremities. Respiratory: Clear to auscultation bilaterally. No wheezes, rales, or rhonchi. Good air exchange bilaterally. Abdomen: Soft, nontender, nondistended. Bowel sounds present, normoactive in all 4 quadrants. No hepatosplenomegaly. No abdominal bruits auscultated. No hepatosplenomegaly. Genitourinary: No suprapubic tenderness or CVA tenderness. Skin: Clean, dry, and intact. No rash. Neuro: Pupil is dilated and non-reactive. Cranial nerves II through XII, otherwise grossly intact. Grade 3/5 strength in the proximal muscle groups, 4/5 strength in the distal muscles in the bilateral upper and lower extremities distally and proximally. Normal gait with a walker. Psychiatric: Pleasant, calm, and cooperative. DISCHARGE PLAN BY PROBLEM: 1. Falls, ataxia. The patient has a workup for peripheral neuropathy pending. The patient was seen by Dr. Augie Hill who did not believe this is related to an acute cerebrovascular accident. The patient has significant proximal muscle weakness, which is likely due to her malnutrition as evidenced by her low albumin. The patient has been encouraged to eat larger portions, obtain nutritional supplementation and follow up with primary care provider within 1 week and ongoing monitoring of nutritional supplementation. The patient has Meals on Wheels. This also has been discussed with patient's daughter along with the patient. The patient will also have visiting nurse services to monitor her vital signs and weight as well as her safety at home. The patient has no signs of protein wasting enteropathy, liver disease, or nephrotic syndrome as alternative causes of her hypoalbuminemia. The patient is to follow up with Dr. Yfn Villarreal in 4 to 6 weeks for review of her laboratory data. 2. History of hepatitis C. The patient has a history of hepatitis C. RNA assay pending to the hospital, although she previously has been shown to have undetectable viral load after she was treated for hepatitis C, reinfection is possible. If this is negative and patient has persistently elevated LFTs, workup for alternative causes should be undertaken given the patient's hepatic steatosis and history of previously requiring gastric bypass surgery, this likely could be due to nonalcoholic steatohepatitis. 3. Polypharmacy. Dose reductions in medications. The patient's pain was not uncontrolled, as well as her insomnia uncontrolled on the above meds while in the hospital 4. Hypertension, premature atrial contractions. Continue metoprolol as above. 5. Anxiety/depression. Continue trazodone, quetiapine, and venlafaxine. 6. History of deep venous thrombosis. The patient had a severe gastrointestinal bleed on anticoagulation and will continue off of it. The patient's DVT appears chronic and is not symptomatic for her. DISPOSITION: Home. CONDITION: Stable. TIME SPENT: Approximately 60 minutes were spent on this discharge, 30 of which spent [id number] with the patient obtaining history and physical and discussing the treatment plan. MAN PERKINS [id number]/CPS #: [id number] TARAN
== END 2019-04-09 12:45 | disposition home health service (06) | DRG 556 ==
LOC: ED 17:36 → MEDTELE 04-06 01:06
PROVIDERS: ADMIT Internal Medicine; ATTEND Internal Medicine
DX: M62.81 Muscle weakness (generalized) (principal); E46 Unspecified protein-calorie malnutrition; T50.905A Adverse effect of unspecified drugs, medicaments and biological substances, initial encounter; G62.9 Polyneuropathy, unspecified; E88.09 Other disorders of plasma-protein metabolism, not elsewhere classified; M54.5 Low back pain; E03.9 Hypothyroidism, unspecified; K27.9 Peptic ulcer, site unspecified, unspecified as acute or chronic, without hemorrhage or perforation; K21.9 Gastro-esophageal reflux disease without esophagitis; F32.9 Major depressive disorder, single episode, unspecified; F41.9 Anxiety disorder, unspecified; I49.1 Atrial premature depolarization; R27.0 Ataxia, unspecified; M79.89 Other specified soft tissue disorders; M19.90 Unspecified osteoarthritis, unspecified site; M50.30 Other cervical disc degeneration, unspecified cervical region; H54.40 Blindness, one eye, unspecified eye; M51.36 Other intervertebral disc degeneration, lumbar region; Z96.611 Presence of right artificial shoulder joint; Z96.653 Presence of artificial knee joint, bilateral; Y92.009 Unspecified place in unspecified non-institutional (private) residence as the place of occurrence of the external cause; Z68.26 Body mass index [BMI] 26.0-26.9, adult; Z98.84 Bariatric surgery status; Z86.19 Personal history of other infectious and parasitic diseases; Z79.891 Long term (current) use of opiate analgesic; Z79.899 Other long term (current) drug therapy; Z88.6 Allergy status to analgesic agent; Z88.8 Allergy status to other drugs, medicaments and biological substances; Z82.0 Family history of epilepsy and other diseases of the nervous system; Z80.0 Family history of malignant neoplasm of digestive organs; Z80.52 Family history of malignant neoplasm of bladder; Z87.891 Personal history of nicotine dependence; Z86.718 Personal history of other venous thrombosis and embolism; Z82.3 Family history of stroke
CPT/HCPCS: 36415; 70450; 76705; 80048; 80053; 80061; 80320; 81003; 82140; 82550; 82585; 82595; 82607; 82746; 83036; 83605; 83735; 84100; 84134; 84155; 84165; 84425; 84443; 84484; 85025; 85610; 85652; 86140; 86618; 87522; 93005; 93970; 99284; A9270-GY; G0480; G8978-GP-CJ; G8978-GP-CK; G8979-GP-CI; G8979-GP-CJ; G8980-GP-CJ; G8987-GO-CJ; G8988-GO-CI; J1644; J3475

== ENCOUNTER 2019-04-30 17:03 | Emergency (ER) | payer MEDICARE, MEDICAID ==
--- NOTE | 2019-04-30 17:19 | ED ---
Lower Extremity - HPI Summary HPI Summary: This patient is a 74 year old female presenting to [facility] with a chief complaint of bilateral lower extremity pain and pitting edema in both legs. She states she has been admitted for this problem twice before. She denies SOB. The patient normally ambulates with a walker and she lives alone. She states she has had more difficulty standing up than usual. She also notes a decrease in appetite. - History of Current Complaint Stated Complaint: PAIN IN BOTH LEGS PER PT Hx Obtained From: Patient - Allergies/Home Medications Allergies/Adverse Reactions: Allergies Allergy/AdvReac Type Severity Reaction Status Date / Time promethazine Allergy Hives Verified 10/29/18 23:52 tramadol [From Ultram] Allergy Unknown Verified 10/29/18 23:52 Reaction Details acetaminophen AdvReac does not Verified 10/29/18 23:52 like to take 2nd HX liver disease ibuprofen AdvReac GI Upset Verified 10/29/18 23:52 NSAIDS (Non-Steroidal AdvReac GI Upset Verified 10/29/18 23:52 Anti-Inflamma PMH/Surg Hx/FS Hx/Imm Hx Endocrine/Hematology History: Reports: Hx Thyroid Disease, Other Endocrine/ Hematological Disorders - hepatitis c, h/o bleeding issue w/ elevated INR in the past Denies: Hx Anticoagulant Therapy, Hx Diabetes Cardiovascular History: Reports: Hx Deep Vein Thrombosis Denies: Hx Congestive Heart Failure, Hx Hypertension, Hx Pacemaker/ICD Comment Only: Other Cardiovascular Problems/Disorders - PACS Respiratory History: Reports: Other Respiratory Problems/Disorders - r lung mass removal-benign Denies: Hx Asthma, Hx Chronic Obstructive Pulmonary Disease (COPD) GI History: Reports: Hx Gastroesophageal Reflux Disease, Hx Ulcer, Other GI Disorders - DIARRHEA X 1 WEEK, PERIUMBILICAL ABD PAIN History: Denies: Hx Renal Disease Musculoskeletal History: Reports: Hx Arthritis, Hx Back Problems, Hx Osteoporosis, Other Musculoskeletal History - bilat carpal tunnel surg, bernardo knee replacement. 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 JONATHAN EN Y GASTRIC BYPASS (1999);. X2;. R LUNG MASS REMOVED;. BILATERAL KNEE REPLACEMENT;. BILATERAL CARPAL TUNNEL,. BILATERAL ROTATOR CUFF SURGERY,. BILATERAL CATARACTS REMOVED;. RT EYE MUSCLE SURGERY X3 A CHILD;. RT LUMPECTOMY 1979; . LT LUMPECTOMY 2013;. TONSILECTOMY - Immunization History Date of Tetanus Vaccine: utd Date of Influenza Vaccine: fall 2017 Infectious Disease History: Reports: Hx Hepatitis Denies: Hx Human Immunodeficiency Virus (HIV) - Family History Known Family History: Positive: Cardiac Disease, Other - Brother - colon ca, son - pancreatitis, sister and mother CVA - Social History Alcohol Use: None Hx Substance Use: Yes Substance Use Type: Reports: None Substance Use Comment - Amount & Last Used: oxycodone at 1800, medical marijuana Hx Tobacco Use: Yes Smoking Status (MU): Former Smoker Type: Cigarettes Review of Systems Positive: Other - Decreased appetite. . Negative: Fever Positive: Edema - Bilateral lower extremities, Other - Bilateral leg pain All Other Systems Reviewed And Are Negative: Yes Physical Exam - Summary Physical Exam Summary: VITAL SIGNS: Reviewed. GENERAL: Patient is a well-developed and nourished FEMALE who is lying comfortable in the stretcher. Patient is not in any acute respiratory distress. HEAD AND FACE: No signs of trauma. No ecchymosis, hematomas or skull depressions. No sinus tenderness. EYES: PERRLA, EOMI x 2, No injected conjunctiva, no nystagmus. EARS: Hearing grossly intact. Ear canals and tympanic membranes are within normal limits. MOUTH: Oropharynx within normal limits. NECK: Supple, trachea is midline, no adenopathy, no JVD, no carotid bruit, no c- spine tenderness, neck with full ROM. CHEST: Symmetric, no tenderness at palpation. LUNGS: Clear to auscultation bilaterally. No wheezing or crackles. CVS: Regular rate and rhythm, S1 and S2 present, no murmurs or gallops appreciated. ABDOMEN: Soft, non-tender. No signs of distention. No rebound, no guarding, and no masses palpated. Bowel sounds are normal. EXTREMITIES: FROM in all major joints, 2+ edema in the bilateral lower extremities, no cyanosis or clubbing. NEURO: Alert and oriented x 3. No acute neurological deficits. Speech is normal and follows commands. SKIN: Dry and warm. Triage Information Reviewed: Yes Vital Signs Reviewed: Yes Diagnostics - Laboratory Result Diagrams: 04/30/19 17:37 04/30/19 17:37 Lab Statement: Any lab studies that have been ordered have been reviewed, and results considered in the medical decision making process. - Radiology CXR Radiology Interpretation Completed By: Radiologist Summary of Radiographic Findings: No radiographic evidence of acute cardiopulmonary disease. ED Provider has reviewed this report. Re-Evaluation - Re-Evaluation First Eval Re-Evaluation Time: 17:28 Comment: Patient is ambulating on her own in the ED. Lower Extremity Course/Dx - Course Assessment/Plan: This patient is a 74 year old female presenting to [facility] with a chief complaint of bilateral lower extremity pain and pitting edema in both legs. She states she has been admitted for this problem twice before. She denies SOB. The patient normally ambulates with a walker and she lives alone. She states she has had more difficulty standing up than usual. She also notes a decrease in appetite. Blood test results without any significant abnormality except for potassium 3.1.urinalysis negative for UTI. Chest x-ray impression: No radiographic evidence of acute cardiopulmonary disease. In the ED course the patient was given potassium chloride. The patient is ambulating in the emergency department with her walker and sometimes without a walker. Patient has a good steady walk. Therefore the patient will be discharged home with follow-up with primary care physician. She will continue taking her Lasix was recommended. She will elevate her legs as recommended. I discussed all the findings and test results with the patient. Patient was instructed to return to the emergency room immediately if any of the symptoms return worsens. Plan of care was discussed with the patient and understands and agrees. All questions were answered at patient satisfaction. There were no further complaints or concerns. Lung exam before discharge: CTA B/L. Good air exchange. No wheezing or crackles heard. CVS: S1 and S2 present. No murmurs appreciated. Patient is alert and oriented x 3. Patient is hemodynamically stable. Patient will be discharged home with follow up PCP in the next 2-3 days - Diagnoses Provider Diagnoses: Bilateral lower extremity edema, Hypokalemia Discharge ED - Sign-Out/Discharge Documenting (check all that apply): Patient Departure - Discharge Patient Received Moderate/Deep Sedation with Procedure: No - Discharge Plan Condition: Stable Disposition: HOME Patient Education Materials: Hypokalemia (ED), Leg Edema (ED) Referrals: Natan Burrell MD [Primary Care Provider] - Additional Instructions: Return to ED with any new or worsening symptoms. - Billing Disposition and Condition Condition: STABLE Disposition: Home - Attestation Statements Document Initiated by Yahaira: Yes Documenting Scribe: Homar Bentley Provider For Whom Yahaira is Documenting (Include Credential): Barrett Rolon MD Scribe Attestation: Homar Friedman scribed for Barrett Rolon MD on 04/30/19 at [id number]. Scribe Documentation Reviewed: Yes Provider Attestation: The documentation as recorded by the Homar jiménez accurately reflects the service I personally performed and the decisions made by , Barrett Rolon MD Status of Scribe Document: Viewed
[2019-04-30 17:49] LABS: ABS Basophils 0.1 10^3/ul (0-0.2); ABS Eosinophils 0.1 10^3/ul (0-0.6); ABS Lymphocytes 1.6 10^3/ul (1.0-4.8); ABS Monocytes 1.2 10^3/ul (0-0.8); ABS Neutrophils 4.8 10^3/ul (1.5-7.7); Eosinophil % 1.1 %; Hematocrit 40 % (35-47); Hemoglobin 13.4 g/dL (12.0-16.0); Lymphocyte % 20.9 %; Mean Corpuscular HGB Conc 33 g/dL (31-36); Mean Corpuscular Hemoglobin 33 pg (27-31); Mean Corpuscular Volume 99 fL (80-97); Mean Platelet Volume 8.7 fL (7.4-10.4); Platelet Count 319 10^3/uL (150-450); Red Blood Count 4.06 10^6 /uL (3.70-4.87); Red Cell Distribution Width 14 % (10-15); White Blood Count 7.8 10^3/uL (3.5-10.8)
--- OUTSIDE RECORDS SUMMARY | 2019-04-30 18:03 | XMS REPORT | Continuity of Care Document ---
:1945 External Reference #:[id number] Author Name Benjamin Lion MD Address [address] [place] [address] Care Team Providers Name Role Phone Natan Burrell - Family Medicine Care Team Information [employer] [phone] Jenifer Cali - Obstetrics & Care Team Information [employer] [phone] Gynecology Malcolm Corona - Pain Medicine Care Team Information [employer] [phone] Problems Active Problems Provider Date Disorder of [...] execute and teach Solomon maneuver if appropriate. Venlafaxine HCL ER Take 2 Capsules By 180Caps Natan Garrido Mouth 1 Time Daily Arianna Burrell 9 150mg Caps ER 24HR For Depression Klor-Con 10 Take 1 Tablet By 90Tablet Benjamin Garrido 10Meq Mouth Every Day For MD Amisha 9 Tablets ER Potassium Supplementation Trazodone HCL Take 1/2 Tablets By 180Tablet Natan Garrido 50mg Mouth AT Bedtime as Arianna Burrell 9 Tablets Needed For Sleep Oxybutynin Chloride Take One Tablet By 270tabs N39.3 Natan Garrido Mouth Three Times A Arianna Burrell 9 5mg Tablets Day as Needed For Bladder Control Multivitamin 1 by mouth daily 30units Kandace Muse Gummilukas Huffman NP 8 Chewtabs Furosemide Take 1 Tablet By 90tabs R60.0 Natan Garrido 20mg Mouth Every Day In Arianna Burrell 8 Tablets The Morning as Needed For Leg Swelling Omeprazole Take 1 Capsule By 90caps R10.13 Natan Garrido 20mg Mouth Every Day For Arianna Burrell [address] Stomach K-Tab 1 by mouth every day 30tabs Benjamin Garrido 10Meq Tablets for potassium MD Amisha 7 ER supplementation. Ranitidine HCL Take 1 Tablet By 180tabs Benjamin Gregory Mouth Twice A Day Arianna Griggs 7 150mg Tablets Bupropion HCL ER Take 1 Tablet By 30tabs F34.1 Natan Garrido (SR) Mouth Every Morning Arianna Burrell 7 150mg Tablets For Depression ER 12HR Metoprolol Tartrate Take 1 By Mouth Every 135tabs Natan Garrido Morning, Take 1/2 By Arianna Burrell 0 25mg Tablets Mouth Every Night AT Bedtime Lorazepam 1 by mouth twice a Unknown 0.5mg day as needed anxiety 0 Tablets Oxycodone HCL 1 by mouth every 8 Unknown 15mg hours as needed. 0 Tablets Quetiapine Fumarate 1 by mouth every Unknown evening 0 200mg Tablets History Medications Oxycodone HCL 1 by mouth every 90tabs G89.4 Natan BerriosRadha Burrell, 12/06/2018 - 20mg 8 hours as M.DRadha 04/13/2019 Tablets needed mdd 3 Immunizations CPT Code Status Date Vaccine Lot # [id number] Given 04/12/2018 High-Dose, Influenza Virus Vacccine-fluzone 65 and older 07025 Given 03/18/2017 High-Dose, Influenza Virus Vacccine-fluzone 65 and older 74940 Given 09/02/2016 High-Dose, Influenza Virus Vacccine-fluzone 65 and older 82686 Given 04/17/2015 High-Dose, Influenza Virus Vacccine-fluzone 65 and older 60588 Given 08/22/2014 Zostivax [id number] 76759 Given 07/06/2006 Hep A & Hep B Adult, adult dosage, for [id number] intramuscular use 12195 Given 05/12/2006 Meningococcal Conjugate Vaccine,Serogroups For [id number] Intramuscular Use 24885 Given 05/12/2006 Hep A & Hep B Adult, adult dosage, for [id number] intramuscular use 84372 Given 07/03/2004 Influenza Virus Vaccine, Live For Intranasla Use 63620 Given 05/07/2004 Td Immunization, For Use In Individuals 7 Years Or Older 44770 Given 05/17/2003 Pneumococcal Immunization 10678 Given 05/17/2003 DO Not Use Split Influenza Virus Vaccine Vital Signs Date Vital Result Comment 04/13/2019 3:56pm BP Systolic 106 mmHg BP Diastolic 64 mmHg Heart Rate 72 /min Body Temperature 97.5 F Respiratory Rate 17 /min Height 59 inches 4'11" Weight 127.00 lb BMI (Body Mass Index) 25.6 kg/m2 04/05/2019 4:55pm BP Systolic 110 mmHg BP Diastolic 60 mmHg Heart Rate 76 /min Body Temperature 97.7 F Results Test Date Facility Test Result H/L Range Note Inr/Protime 04/05/2019 [facility] Inr 1.02 Normal 0.82-1.09 1 Comp Metabolic Panel 04/05/2019 [facility] Sodium 135 mmol/L Normal 135-145 Potassium 3.2 mmol/L Low 3.5-5.0 Chloride 98 mmol/L Low 101-111 Co2 Carbon Dioxide 33 mmol/L High 22-32 Anion Gap 4 mmol/L Normal 2-11 Glucose 55 mg/dL Low 70-100 Blood Urea Nitrogen 21 mg/dL Normal 6-24 Creatinine 1.02 mg/dL High 0.51-0.95 BUN/Creatinine Ratio 20.6 High 8-20 Calcium 8.7 mg/dL Normal 8.6-10.3 Total Protein 4.0 g/dL Low 6.4-8.9 Albumin 2.1 g/dL Low 3.2-5.2 Globulin 1.9 g/dL Low 2-4 Albumin/Globulin Ratio 1.1 Normal 1-3 Total Bilirubin 1.60 mg/dL High 0.2-1.0 Alkaline Phosphatase 98 U/L Normal 34-104 Alt 222 U/L High 7-52 Ast 60 U/L High 13-39 Egfr Non- 53.3 >60 Egfr 64.5 >60 2 Laboratory test finding 04/05/2019 [facility] Magnesium 1.8 mg/dL Low 1.9-2.7 Troponin I 0.00 ng/mL <0.04 3 Alcohol < 10 mg/dL Normal <10 TSH (Thyroid Stim Horm) 0.74 mcIU/mL Normal 0.34-5.60 Urinalysis Profile 04/05/2019 [facility] Urine Color Yellow Urine Appearance Clear Urine Specific Mulberry 1.005 Low 1.010-1.030 Urine pH 7.0 Normal 5-9 Urine Urobilinogen Positive Abnormal Negative Urine Ketones Trace Abnormal Negative Urine Protein Negative Negative Urine Leukocytes Negative Negative Urine Blood Negative Negative Urine Nitrite Negative Negative Urine Bilirubin Negative Negative Urine Glucose Negative Negative CBC Auto Diff 04/05/2019 [facility] White Blood Count 10.8 10^3/uL Normal 3.5- 10.8 Red Blood Count 3.85 10^6/uL Normal 3.70-4.87 Hemoglobin 12.3 g/dL Normal 12.0-16.0 Hematocrit 37 % Normal 35-47 Mean Corpuscular Volume 95 fL Normal 80-97 Mean Corpuscular Hemoglobin 32 pg High 27-31 Mean Corpuscular HGB Conc 34 g/dL Normal 31-36 Red Cell Distribution Width 16 % High 10-15 Platelet Count 255 10^3/uL Normal 150-450 Mean Platelet Volume 8.7 fL Normal 7.4-10.4 Abs Neutrophils 7.5 10^3/uL Normal 1.5-7.7 Abs Lymphocytes 1.4 10^3/uL Normal 1.0-4.8 Abs Monocytes 1.6 10^3/uL High 0-0.8 Abs Eosinophils 0.0 10^3/uL Normal 0-0.6 Abs Basophils 0.0 10^3/uL Normal 0-0.2 Abs Nucleated RBC 0.0 10^3/uL Granulocyte % 71.5 % Lymphocyte % 12.9 % Monocyte % 15.0 % Eosinophil % 0.3 % Basophil % 0.3 % Nucleated Red Blood Cells % 0.1 Laboratory test finding 04/05/2019 [facility] Lactic Acid 0.9 mmol/L Normal 0.5- 2.0 4 Ammonia 35 mcmol/L Normal 16-53 Laboratory test 01/12/2019 [facility] Surgical Pathology SEE RESULT 5 finding BELOW Laboratory test 10/29/2018 [facility] Lactic Acid 0.8 mmol/L Normal 0.5-2.0 6 finding Comp Metabolic Panel 10/29/2018 [facility] Sodium 138 mmol/L Normal 135-145 Potassium 4.3 mmol/L Normal 3.5-5.0 Chloride 106 [...] Egfr Non- 71.7 >60 Egfr 86.8 >60 7 Laboratory test finding 10/29/2018 [facility] Amylase 31 U/L Normal 29-103 Lipase 24 U/L Normal 11.0-82.0 C Reactive Protein 3.06 mg/L Normal <8.01 Urinalysis Profile 10/29/2018 [facility] Urine Color Yellow Urine Appearance Clear Urine Specific Mulberry 1.014 Normal 1.010-1.030 Urine pH 6.0 Normal 5-9 Urine Urobilinogen Negative Negative Urine Ketones Negative Negative Urine Protein Negative Negative Urine Leukocytes Trace Abnormal Negative Urine Blood Negative Negative * * Abnormal Negative 8 Urine Nitrite Negative Negative Urine Bilirubin Negative Negative Urine Glucose Negative Negative Urine White Blood Cell Trace(0-5/hpf) Absent Urine Red Blood Cell Absent Absent Urine Bacteria Absent Absent Urine Squamous Epithelial Cell Present Abnormal Absent CBC Auto Diff 10/29/2018 [facility] White Blood Count 6.8 10^3/uL Normal 3.5- [...] % 0 Urine Culture And Sensitivities 10/29/2018 [facility] Urine Culture SEE RESULT BELOW 9 1 Standard intensity warfarin therapeutic range: 2.0-3.0 High intensity warfarin therapeutic range: 2.5-3.5 2 Because ethnic data is not always readily [...] 15-29 5 Kidney failure <15 (or dialysis) 3 Troponin-I testing on Plasma Separator Tubes (PST) has a known false positive rate of 0.20-0.40%. All positive troponins reflex immediately to secondary confirmatory testing. Using the [employer] DxamBX 800 Access Immunoassay systems, the 99th percentile upper reference limit was demonstrated to be < 0.03 ng/mL. [address] [facility] Severe Sepsis and Septic Shock Management Bundle Measure requires all lactic acids initially measuring >2.0 mmol/L be repeated. 5 SEE RESULT BELOW Name: REINA LAWSON Yash : [address]: Praveen Grullon MD Acct: [id number] Unit: [id number] AGE: 74 Location: [facility] Re01/12/19 SEX: F Status: REG REF SPEC: [id number] LI: 01/12/19-1034 [facility] DR: Praveen Grullon MD REQ: [id number] RECD: 01/12/19-5159 STATUS: AMY DIANE DR: Natan Burrell MD _ ORDERED: LEVEL 4/2 COMMENTS: [id number] FINAL DIAGNOSIS 1. Skin, left arm lesion, [...] 1141 END OF REPORT DEPARTMENT OF PATHOLOGY, [address] [place] [address] Quique Rai M.D. Director [facility] # [id number] [facility] Severe Sepsis and Septic Shock Management Bundle Measure requires all lactic acids initially measuring >2.0 mmol/L be repeated. 7 Because ethnic data is not always readily [...] 15-29 5 Kidney failure <15 (or dialysis) 8 *Ascorbic acid is present which may interfere with detection of blood. 9 SEE RESULT BELOW Name: REINA LAWSON : [address]: Matthias Lennon MD Acct: [id number] Unit: [id number] AGE: 73 Location: ED Re10/29/18 SEX: F Status: DEP ER SPEC: [id number] LI: 10/29/[address]: Matthias Lennon MD REQ: [id number] RECD: 10/29/18 STATUS: COMP ROXI DR: Natan Burrell MD _ SOURCE: URINE SPDESC: ORDERED: Urine Culture Procedure Result Reported Site Urine Culture Final 10/31/18- 1029 ML No growth of clinically significant organisms * ML - Main Lab . END OF REPORT DEPARTMENT OF PATHOLOGY, [address] [place] [address] Quique Rai M.D. Director [facility] # [id number] Procedures Date Code Description Status 09/29/2018 [id number] Mammogram Completed 04/15/2016 [id number] Colonoscopy Completed 10/11/2014 [id number] Mammogram Completed 10/11/2014 [id number] Bone Mineral Density Test Completed Medical Devices Description No Information Available Encounters Type Date Location Provider Dx Diagnosis Office Visit 04/05/2019 Main Office Jessika Hernandez, W18.39xA Other fall on same 3:00p M.D. level, initial encounter G89.4 Chronic pain syndrome I10 Essential (primary) hypertension F41.1 Generalized anxiety disorder B18.2 Chronic viral hepatitis C R29.6 Repeated falls G43.009 Migraine w/o aura, not intractable, w/o status migrainosus M21.372 Foot drop, left foot N39.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 Office Visit 02/15/2019 2:00p [facility] Doris Olivares M25.511 Pain in right [employer] WORK[employer] shoulder Office Visit 02/02/2019 1:00p Main Office Kari Gilman H81.10 Benign paroxysmal Stefano, ROOM SERVICE MANAGER vertigo, unspecified ear Office Visit 11/22/2018 3:15p Main Office Doris Olivares G89.4 Chronic pain [employer] WORKER syndrome Office Visit 11/06/2018 1:00p Main Office Kandace Muse M25.521 Pain in right Huffman, ROOM SERVICE MANAGER elbow Assessments Date Code Description Provider 04/13/2019 T50.905S Adverse effect of unspecified drugs, Benjamin Lion MD medicaments and biological substances, sequela 04/13/2019 R29.6 Repeated falls Benjamin Lion MD 04/13/2019 G89.4 Chronic pain syndrome Benjamin Lion MD 04/05/2019 W18.39xA Other fall on same level, initial Jessika Hernandez M.D. encounter 04/05/2019 G89.4 Chronic pain syndrome Jessika Hernandez M.D. 04/05/2019 I10 Essential (primary) hypertension Jessika Hernandez M.D. 04/05/2019 F41.1 Generalized anxiety disorder Jessika Hernandez M.D. 04/05/2019 B18.2 Chronic viral hepatitis C Jessika Hernandez M.D. 04/05/2019 R29.6 Repeated falls Jessika Hernandez M.D. 04/05/2019 G43.009 Migraine without aura, not intractable, Jessika Hernandez M.D. without status migrainosus 04/05/2019 M21.372 Foot drop, left foot Jessika Hernandez M.D. 04/05/2019 N39.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 Jessika Hernandez M.D. 02/15/2019 M25.511 Pain in right shoulder Doris Elise, [employer] SOCIAL WORKER 02/02/2019 H81.10 Benign paroxysmal vertigo, unspecified Kari Agarwal NP ear 11/22/2018 G89.4 Chronic pain syndrome Doris Elise, HE[employer] SOCIAL WORKER 11/06/2018 M25.521 Pain in right elbow Kandace Huffman NP Plan of Treatment 04/13/2019 - Benjamin Lion MDT50.905S Adverse effect of unspecified drugs, medicaments and biological substances, mpmjpcmR18.6 Repeated ipzicF73.4 Chronic pain syndromeAllComments:Medication Management Patient Understands medications she's taking? Yes No Are there Barriers to Adherence? Yes No Has the patient been asked about herbal supplements and therapies, and OTC meds? Yes No Functional Status Description No Information Available Mental Status Description No Information Available Referrals Description No Information Available
[2019-04-30 18:07] LABS: ALT 30 U/L (7-52); AST 25 U/L (13-39); Albumin 2.3 g/dL (3.2-5.2); Alkaline Phosphatase 94 U/L (34-104); Anion Gap 4 mmol/L (2-11); BUN/Creatinine Ratio 18.1 (8-20); Blood Urea Nitrogen 17 mg/dL (6-24); C Reactive Protein < 1.00 mg/L (<8.01); CO2 Carbon Dioxide 31 mmol/L (22-32); Calcium 8.7 mg/dL (8.6-10.3); Chloride 103 mmol/L (101-111); EGFR African American 70.8 (>60); EGFR Non-African American 58.5 (>60); Globulin 2.2 g/dL (2-4); Glucose 75 mg/dL (70-100); Potassium 3.1 mmol/L (3.5-5.0); Sodium 138 mmol/L (135-145); Total Protein 4.5 g/dL (6.4-8.9)
[2019-04-30 18:26] LABS: Urine Appearance Cloudy; Urine Bilirubin Negative (Negative); Urine Blood Negative (Negative); Urine Color Amber; Urine Glucose Negative (Negative); Urine Ketones Negative (Negative); Urine Nitrite Negative (Negative); Urine Protein Negative (Negative); Urine Specific Gravity 1.015 (1.010-1.030); Urine Urobilinogen Negative (Negative)
[2019-04-30] MEDS ORDERED: Potassium Chlor TAB* 20 MEQ TAB.ER PO ONE (19:32)
[2019-04-30 20:41] VITALS: BP 151/82
== END 2019-04-30 20:33 | disposition home or self-care (01) ==
LOC: ED 17:03
DX: R60.0 Localized edema (principal); M79.605 Pain in left leg; M79.604 Pain in right leg; E03.9 Hypothyroidism, unspecified; Z87.891 Personal history of nicotine dependence; K21.9 Gastro-esophageal reflux disease without esophagitis; F41.9 Anxiety disorder, unspecified; F32.9 Major depressive disorder, single episode, unspecified; Z86.718 Personal history of other venous thrombosis and embolism
CPT/HCPCS: 36415; 71046; 80053; 81003; 83605; 83880; 84484; 85025; 86140; 87040; 99283; A9270-GY

== ENCOUNTER 2019-05-30 04:00 | Inpatient (IN) | payer MEDICAID, MEDICARE ==
--- NOTE | 2019-05-30 04:57 | ED ---
Head Injury - HPI Summary HPI Summary: 74 year old F brought in by EMS to [facility] complains of ecchymosis surrounding her left eye and superficial laceration to her left lateral eyelid after rolling too far in bed, falling out of bed, and landing on the floor 3 hours ago. No LOC, blurred vision, headache, nausea. States she was on the floor for about an hour, yelling for help because she was unable to get up. States her neighbor heard and called EMS. The patient rates the pain 1/10 in severity. Symptoms aggravated by nothing. Symptoms alleviated by nothing. Not on anticoagulants. 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 - History Of Current Complaint Chief Complaint: EDFall Stated Complaint: FALL PER EMS Time Seen by Provider: 05/30/19 04:27 Hx Obtained From: Patient Mechanism Of Injury: Other - after rolling too far in bed, falling out of bed, and landing on the floor Onset/Duration: Started Hours Ago - 3, Still Present Onset of Pain: Hours - 3, Prior to Arrival Severity Initially: Mild Pain Intensity: 1 Pain Scale Used: 0-10 Numeric Aggravating Factor(s): Other: - Nothing Alleviating Factor(s): Other: - Nothing Associated Signs And Symptoms: Negative - LOC, blurred vision, headache, nausea - Allergies/Home Medications Allergies/Adverse Reactions: Allergies Allergy/AdvReac Type Severity Reaction Status Date / Time promethazine Allergy Hives Verified 10/29/18 23:52 tramadol [From Ultram] Allergy Unknown Verified 10/29/18 23:52 Reaction Details acetaminophen AdvReac does not Verified 10/29/18 23:52 like to take 2nd HX liver disease ibuprofen AdvReac GI Upset Verified 10/29/18 23:52 NSAIDS (Non-Steroidal AdvReac GI Upset Verified 10/29/18 23:52 Anti-Inflamma rifaximin [From Xifaxan] AdvReac Unknown Verified 05/30/19 17:15 Reaction Details Home Medications: Home Medications traZODone TAB* [Desyrel TAB*] 50 - 100 mg PO BEDTIME PRN 05/30/19 [History Confirmed 05/30/19] PMH/Surg Hx/FS Hx/Imm Hx Endocrine/Hematology History: Reports: Hx Thyroid Disease, Other Endocrine/ Hematological Disorders - hepatitis c, h/o bleeding issue w/ elevated INR in the past Denies: Hx Anticoagulant Therapy, Hx Diabetes Cardiovascular History: Reports: Hx Deep Vein Thrombosis Denies: Hx Congestive Heart Failure, Hx Hypertension, Hx Pacemaker/ICD Comment Only: Other Cardiovascular Problems/Disorders - PACS Respiratory History: Reports: Other Respiratory Problems/Disorders - r lung mass removal-benign Denies: Hx Asthma, Hx Chronic Obstructive Pulmonary Disease (COPD) GI History: Reports: Hx Gastroesophageal Reflux Disease, Hx Ulcer, Other GI Disorders - DIARRHEA X 1 WEEK, PERIUMBILICAL ABD PAIN History: Denies: Hx Renal Disease Musculoskeletal History: Reports: Hx Arthritis, Hx Back Problems, Hx Osteoporosis, Other Musculoskeletal History - bilat carpal tunnel surg, bernardo knee replacement. 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 JONATHAN EN Y GASTRIC BYPASS (1999);. X2;. R LUNG MASS REMOVED;. BILATERAL KNEE REPLACEMENT;. BILATERAL CARPAL TUNNEL,. BILATERAL ROTATOR CUFF SURGERY,. BILATERAL CATARACTS REMOVED;. RT EYE MUSCLE SURGERY X3 A CHILD;. RT LUMPECTOMY 1979; . LT LUMPECTOMY 2013;. TONSILECTOMY - Immunization History Date of Tetanus Vaccine: utd Date of Influenza Vaccine: fall 2017 Infectious Disease History: No Infectious Disease History: Reports: Hx Hepatitis Denies: Hx Human Immunodeficiency Virus (HIV), Traveled Outside the [place] in Last 30 Days - Family History Known Family History: Positive: Cardiac Disease, Other - Brother - colon ca, son - pancreatitis, sister and mother CVA - Social History Alcohol Use: None Hx Substance Use: Yes Substance Use Comment - Amount & Last Used: oxycodone, medical marijuana Hx Tobacco Use: Yes Smoking Status (MU): Former Smoker Type: Cigarettes Review of Systems Negative: Blurred Vision Negative: Nausea Positive: Other - ecchymosis surrounding her left eye and superficial laceration to her left lateral eyelid Neurological: Negative - LOC Negative: Headache All Other Systems Reviewed And Are Negative: Yes Physical Exam - Summary Physical Exam Summary: General: Well-developed, Well-nourished FEMALE. No acute distress. HEENT: Ecchymosis surrounding her left eye, superficial laceration of 8 mm to her left lateral eyelid Eyes: Conjuctiva normal. Her left pupil is round, equal, and reactive to light, extraocular muscles are in tact. The right pupil is 8 mm and not reactive. Ears: TMs within normal limits. Nares: (-) discharge, (-) erythema. Oropharynx: Clear, mucous membranes moist, (-) exudates. Neck: Soft, FROM, (-) lymphadenopathy, (-) thyromegaly, (-) JVD. Cardiovascular: Normal sinus rhythm, (-) murmur. Lungs: Clear to auscultation bilaterally (-) wheezes, (-) rales, (-) rhonchi. Abdomen: Soft, non-tender, non-distended, (-) organomegaly, normal bowel sounds. Back: (-) CVA tenderness Extremities: No edema. Skin: Warm, dry, (-) rash. Neuro: Alert and oriented x3, no focal deficits. Psychiatric: Mood normal, affect normal. GCS: 15 Triage Information Reviewed: Yes Vital Signs On Initial Exam: Initial Vitals Temp Pulse Resp BP Pulse Ox 97.1 F 80 16 112/66 100 05/30/19 04:31 05/30/19 04:31 05/30/19 04:31 05/30/19 04:31 05/30/19 04:31 Vital Signs Reviewed: Yes Procedures - Sedation Patient Received Moderate/Deep Sedation with Procedure: No Diagnostics - Vital Signs Vital Signs Temp Pulse Resp BP Pulse Ox 05/30/19 04:31 97.1 F 80 16 112/66 100 - Laboratory Result Diagrams: 05/31/19 10:55 06/04/19 05:20 Lab Statement: Any lab studies that have been ordered have been reviewed, and results considered in the medical decision making process. - CT Brain CT Interpretation Completed By: Radiologist Summary of CT Findings: There is opacification noted in the left maxillary sinus. There is a questionable fracture noted of the left orbit. Recommend dedicated facial bone CT for further evaluation. No acute intracranial hemorrhage or significant mass effect. ED physician has reviewed this report. Re-Evaluation - Re-Evaluation First Re-Evaluation Time: 08:13 Change: Improved Comment: At 08:13, I discussed imaging results with the patient. Patient would like to go home, pain is well-controlled. Patient has an appointment with her PCP today. Will speak to ENT to see if further workup is needed. Second Re-Evaluation Time: 08:54 Change: Unchanged Comment: At 08:54, I told the patient to follow up with Dr. Benjamin Meza. At 08: 56, I made an appointment for the patient on 06/01/19 at 14:[address] Olivia Yang. Third Re-Evaluation Time: 10:13 Change: Unchanged Comment: At 10:13, patients caregiver is at bedside concerned that the patient may be using alcohol after two recent falls. Patients caregiver is requesting labwork before being discharged home. I reviewed labwork from a recent visit and discussed with the patient that we will do a [facility], chemistry and a urine. Will give breakfast and an ambulatory trial. Patient and caregiver are comfortable with this and the nurse order. Discharge on ambulation. Head Injury Course/Dx Course Of Treatment: 74-year-old female status post fall from bed. With head trauma. Patient alert and oriented 3. Doing well. CT head had questionable findings about the left orbit. Recommend maxillofacial films. They have been ordered. Patient signed out at change shift. - Diagnoses Provider Diagnoses: Fall, Facial trauma, Leukocytosis Discharge ED - Sign-Out/Discharge Documenting (check all that apply): Sign-Out Patient Signing out patient TO: Luiza Hansen - awaiting CT Maxillofacial and pending disposition - Discharge Plan Condition: Improved Disposition: ADMITTED TO [facility] - Billing Disposition and Condition Condition: IMPROVED Disposition: Admitted to [facility] - Attestation Statements Document Initiated by Scribe: Yes Documenting Scribe: Eloise Castro Provider For Whom Yahaira is Documenting (Include Credential): Doris Gottlieb MD Scribe Attestation: Eloise Friedman, scribed for Doris Gottlieb MD on 06/04/19 at 2230. Scribe Documentation Reviewed: Yes Provider Attestation: The documentation as recorded by the scribEloise thrasher accurately reflects the service I personally performed and the decisions made by me, Doris Gottlieb MD Status of Scribe Document: Viewed
--- OUTSIDE RECORDS SUMMARY | 2019-05-30 05:28 | XMS REPORT | Continuity of Care Document ---
:1945 External Reference #:[id number] Author Name Benjamin Lion MD Address [address] [place] [address] Care Team Providers Name Role Phone Natan Burrell - Family Medicine Care Team Information Tour Production Supervisor [phone] Jenifer Cali - Obstetrics & Care Team Information Tour Production Supervisor [phone] Gynecology Malcolm Corona - Pain Medicine Care Team Information Tour Production Supervisor [phone] Problems Active Problems Provider Date Disorder of [...] Medications SIG Qnty Indications Ordering Date Provider Quetiapine Fumarate Take 1 Tablet By 90tabs Doris Olivares Mouth Everyday AT [facility] 9 300mg Tablets Bedtime Levothyroxine Take 2 Tablets By 180Tablet Natan Garrido Sodium Mouth Every Day For Arianna Burrell 9 50mcg Thyroid Tablets Venlafaxine HCL ER Take 2 Capsules By 180Caps Natan Garrido Mouth 1 Time Daily Arianna Burrell 9 150mg Caps ER 24HR For Depression Klor-Con 10 take 1 tablet by 180tabs Benjamin Garrido 10Meq mouth twice day for MD Amisha 9 Tablets ER potassium supplementation Trazodone HCL Take 1 To 2 Tablets 180tabs Natan Garrido 50mg By Mouth AT Bedtime Arianna Burrell 9 Tablets as Needed For Sleep Oxybutynin Chloride Take One Tablet By 270tabs N39.3 Natan Garrido Mouth Three Times A Arianna Burrell 9 5mg Tablets Day as Needed For Bladder Control Multivitamin 1 by mouth daily 30units Kandace Almaz Gummies Liat Huffman NP 8 Chewtabs Furosemide take 2 tablet by 180tabs R60.0 Benjamin Garrido 20mg mouth in the morning MD Amisha 8 Tablets for leg swelling. May take an additional 20mg mid day Omeprazole Take 1 Capsule By 90caps R10.13 [...] HCL 1 by mouth every 8 90tabs Benjamin Garrido 15mg hours as needed. MD Amisha 0 Tablets History Medications Physical Therapy please diagnose and H81.10 Kari Gilman 02/02/2019 - treat for bppv; DRAKE Agarwal 04/20/2019 execute and teach Solomon maneuver if appropriate. Oxycodone HCL 1 by mouth every 8 90tabs G89.4 Natan Burrell, 12/06/2018 - hours as needed mariya Keller 04/13/2019 20mg Tablets 3 Immunizations CPT Code Status Date Vaccine Lot # [id number] Given 04/12/2018 High-Dose, Influenza Virus Vacccine-fluzone 65 and older 06848 Given 03/18/2017 High-Dose, Influenza Virus Vacccine-fluzone 65 and older 92312 Given 09/02/2016 High-Dose, Influenza Virus Vacccine-fluzone 65 and older 75476 Given 04/17/2015 High-Dose, Influenza Virus Vacccine-fluzone 65 and older 91220 Given 08/22/2014 Zostivax [id number] 75751 Given 07/06/2006 Hep A & Hep B Adult, adult dosage, for [id number] intramuscular use 44662 Given 05/12/2006 Meningococcal Conjugate Vaccine,Serogroups For [id number] Intramuscular Use 44525 Given 05/12/2006 Hep A & Hep B Adult, adult dosage, for [id number] intramuscular use 41006 Given 07/03/2004 Influenza Virus Vaccine, Live For Intranasla Use 16676 Given 05/07/2004 Td Immunization, For Use In Individuals 7 Years Or Older 00615 Given 05/17/2003 Pneumococcal Immunization 09701 Given 05/17/2003 DO Not Use Split Influenza Virus Vaccine Vital Signs Date Vital Result Comment 05/10/2019 3:47pm BP Systolic 118 mmHg BP Diastolic 46 mmHg Heart Rate 72 /min Body Temperature 97.2 F Respiratory Rate 17 /min O2 % BldC Oximetry 99 % Ra Height 59 inches 4'11" Weight 124.00 lb BMI (Body Mass Index) 25.0 kg/m2 04/20/2019 4:11pm BP Systolic 122 mmHg BP Diastolic 60 mmHg Heart Rate 90 /min Body Temperature 97.7 F Respiratory Rate 16 /min Height 59 inches 4'11" Weight 121.25 lb BMI (Body Mass Index) 24.5 kg/m2 Results Test Date Facility Test Result H/L Range Note CBC Auto Diff 04/30/2019 [facility] White Blood Count 7.8 10^3/uL Normal 3.5- 10.8 Red Blood Count 4.06 10^6/uL Normal 3.70-4.87 Hemoglobin 13.4 g/dL Normal 12.0-16.0 Hematocrit 40 % Normal 35-47 Mean Corpuscular Volume 99 fL High 80-97 Mean Corpuscular Hemoglobin 33 pg High 27-31 Mean Corpuscular HGB Conc 33 g/dL Normal 31-36 Red Cell Distribution Width 14 % Normal 10-15 Platelet Count 319 10^3/uL Normal 150-450 Mean Platelet Volume 8.7 fL Normal 7.4-10.4 Abs Neutrophils 4.8 10^3/uL Normal 1.5-7.7 Abs Lymphocytes 1.6 10^3/uL Normal 1.0-4.8 Abs Monocytes 1.2 10^3/uL High 0-0.8 Abs Eosinophils 0.1 10^3/uL Normal 0-0.6 Abs Basophils 0.1 10^3/uL Normal 0-0.2 Abs Nucleated RBC 0.0 10^3/uL Granulocyte % 61.8 % Lymphocyte % 20.9 % Monocyte % 15.2 % Eosinophil % 1.1 % Basophil % 1.0 % Nucleated Red Blood Cells % 0.0 Comp Metabolic Panel 04/30/2019 [facility] Sodium 138 mmol/L Normal 135-145 Potassium 3.1 mmol/L Low 3.5-5.0 Chloride 103 mmol/L Normal 101-111 Co2 Carbon Dioxide 31 mmol/L Normal 22-32 Anion Gap 4 mmol/L Normal 2-11 Glucose 75 mg/dL Normal 70-100 Blood Urea Nitrogen 17 mg/dL Normal 6-24 Creatinine 0.94 mg/dL Normal 0.51-0.95 BUN/Creatinine Ratio 18.1 Normal 8-20 Calcium 8.7 mg/dL Normal 8.6-10.3 Total Protein 4.5 g/dL Low 6.4-8.9 Albumin 2.3 g/dL Low 3.2-5.2 Globulin 2.2 g/dL Normal 2-4 Albumin/Globulin Ratio 1.0 Normal 1-3 Total Bilirubin 0.80 mg/dL Normal 0.2-1.0 Alkaline Phosphatase 94 U/L Normal 34-104 Alt 30 U/L Normal 7-52 Ast 25 U/L Normal 13-39 Egfr Non- 58.5 >60 Egfr 70.8 >60 1 Laboratory test finding 04/30/2019 [facility] Troponin I 0.00 ng/mL <0.04 2 C Reactive Protein < 1.00 mg/L Normal <8.01 B-Type Natriuretic Peptide BNP 77 pg/mL <=100 Lactic Acid 0.6 mmol/L Normal 0.5-2.0 3 Urinalysis Profile 04/30/2019 [facility] Urine Color Mayte Urine Appearance Cloudy Urine Specific [place] 1.015 Normal 1.010-1.030 Urine pH 5.0 Normal 5-9 Urine Urobilinogen Negative Negative Urine Ketones Negative Negative Urine Protein Negative Negative Urine Leukocytes Negative Negative Urine Blood Negative Negative * * Abnormal Negative 4 Urine Nitrite Negative Negative Urine Bilirubin Negative Negative Urine Glucose Negative Negative Laboratory test 04/30/2019 [facility] Blood Culture SEE RESULT BELOW 5 finding Inr/Protime 04/05/2019 [facility] Inr 1.02 Normal 0.82-1.09 6 Comp Metabolic Panel 04/05/2019 [facility] Sodium 135 mmol/L Normal 135-145 Potassium 3.2 [...] Egfr Non- 53.3 >60 Egfr 64.5 >60 7 Laboratory test finding 04/05/2019 [facility] Magnesium 1.8 mg/dL Low 1.9-2.7 Troponin I 0.00 ng/mL <0.04 8 Alcohol < 10 mg/dL Normal <10 TSH (Thyroid Stim Horm) 0.74 mcIU/mL Normal 0.34-5.60 Urinalysis Profile 04/05/2019 [facility] Urine Color Yellow Urine Appearance Clear Urine Specific [place] 1.005 Low 1.010-1.030 Urine pH 7.0 Normal 5-9 Urine Urobilinogen Positive Abnormal Negative Urine Ketones Trace Abnormal Negative Urine Protein Negative Negative Urine Leukocytes Negative Negative Urine Blood Negative Negative Urine Nitrite Negative Negative Urine Bilirubin Negative Negative Urine Glucose Negative Negative CBC Auto Diff 04/05/2019 [facility] White Blood Count 10.8 10^3/uL Normal 3.5- [...] Cells % 0.1 Laboratory test finding 04/05/2019 [facility] Lactic Acid 0.9 mmol/L Normal 0.5- 2.0 9 Ammonia 35 mcmol/L Normal 16-53 Laboratory test finding 01/12/2019 [facility] Surgical Pathology SEE RESULT BELOW 10 1 Because ethnic data is not always readily [...] 15-29 5 Kidney failure <15 (or dialysis) 2 Troponin-I testing on Plasma Separator Tubes (PST) has a known false positive rate of 0.20-0.40%. All positive troponins reflex immediately to secondary confirmatory testing. Using the SpeechTrans DxI 800 Access Immunoassay systems, the 99th percentile upper reference limit was demonstrated to be < 0.03 ng/mL. 3 [facility] Severe Sepsis and Septic Shock Management Bundle Measure requires all lactic acids initially measuring >2.0 mmol/L be repeated. 4 *Ascorbic acid is present which may interfere with detection of blood. 5 SEE RESULT BELOW Name: REINA LAWSON : [address]: Barrett Rolon MD Acct: [id number] Unit: [id number] AGE: 74 Location: ED Re04/30/19 SEX: F Status: DEP ER SPEC: [id number] LI: 04/30/19 [facility] DR: Barrett Rolon MD REQ: [id number] RECD: 04/30/19 STATUS: COMP [facility] DR: Natan Burrell MD _ SOURCE: BLOOD,VENO SPDESC: ORDERED: Blood Cult Procedure Result Reported Site Aerobic Culture Bottle Final 05/05/19- 1830 ML No Growth Day 5 Anaerobic Culture Bottle Final 05/05/19- 1830 ML No Growth Day 5 * ML - Main Lab . END OF REPORT DEPARTMENT OF PATHOLOGY, [address] [place] [address] Quique Rai M.D. Director [facility] # [id number] 6 Standard intensity warfarin therapeutic range: 2.0-3.0 High intensity warfarin therapeutic range: 2.5-3.5 7 Because ethnic data is not always [...] 5 Kidney failure <15 (or dialysis) 8 Troponin-I testing on Plasma Separator Tubes (PST) has a known false positive rate of 0.20-0.40%. All positive troponins reflex immediately to secondary confirmatory testing. Using the SpeechTrans DxI 800 Access Immunoassay systems, the 99th percentile upper reference limit was demonstrated to be < 0.03 ng/mL. 9 [facility] Severe Sepsis and Septic Shock Management Bundle Measure requires all lactic acids initially measuring >2.0 mmol/L be repeated. 10 SEE RESULT BELOW Name: REINA LAWSON : [address]: Praveen Grullon MD Acct: [id number] Unit: [id number] AGE: 74 Location: [facility] Re01/12/19 SEX: F Status: REG REF SPEC: [id number] LI: 01/12/19-10[address] [facility] DR: Praveen Grullon MD REQ: [id number] RECD: 01/12/19-1239 STATUS: AMY DIANE DR: Natan Burrell MD _ ORDERED: LEVEL 4/2 COMMENTS: [id number] FINAL DIAGNOSIS 1. Skin, left arm lesion, [...] 1141 END OF REPORT DEPARTMENT OF PATHOLOGY, [address] [place] [address] Quique Rai M.D. Director [facility] # [id number] Procedures Date Code Description Status 09/29/2018 [id number] Mammogram Completed 04/15/2016 [id number] Colonoscopy Completed 10/11/2014 [id number] Mammogram Completed 10/11/2014 [id number] Bone Mineral Density Test Completed Medical Devices Description No Information Available Encounters Type Date Location Provider Dx Diagnosis Office Visit 04/20/2019 3:00p Main Office BETSY De Jesus R29.6 Repeated falls G89.4 Chronic pain syndrome Office Visit 04/13/2019 Main Office Benjamin Garrido T50.905S Adverse effect of 3:00p MD Amisha unsp drug/meds/biol subst, sequela R29.6 Repeated falls G89.4 Chronic pain syndrome Office Visit 04/05/2019 3:00p Main Office Jessika Philip W18.39xA Other fall on Arianna Hernandez same level, initial encounter G89.4 Chronic pain syndrome I10 Essential (primary) hypertension F41.1 Generalized anxiety disorder B18.2 Chronic viral hepatitis C R29.6 Repeated falls G43.009 Migraine w/o aura, not intractable, w/o status migrainosus M21.372 Foot drop, left foot N39.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 Office Visit 02/15/2019 2:00p [facility] Doris Olivares M25.511 Pain in right OPHTHALMIC NURSE shoulder Office Visit 02/02/2019 1:00p Main Office Kari Gilman H81.10 Benign paroxysmal Stefano, [employer] vertigo, unspecified ear Office Visit 11/22/2018 3:15p Main Office Doris Olivares G89.4 Chronic pain OPHTHALMIC NURSE syndrome Assessments Date Code Description Provider 05/10/2019 R60.0 Localized edema Benjamin Lion MD 05/10/2019 E44.0 Moderate protein-calorie malnutrition Benjamin Lion MD 04/20/2019 R29.6 Repeated falls Doris Olivares, [facility] 04/20/2019 G89.4 Chronic pain syndrome Doris Elise [facility] 04/13/2019 T50.905S Adverse effect of unspecified drugs, [...] M.D. 02/15/2019 M25.511 Pain in right shoulder BETSY De Jesus 02/02/2019 H81.10 Benign paroxysmal vertigo, unspecified Kari Agarwal, [employer] ear 11/22/2018 G89.4 Chronic pain syndrome BETSY De Jesus Plan of Treatment Future Appointment(s):06/13/2019 3:00 pm - Benjamin Lion MD at Main Yykvxx6306/05/2019 3:00 pm - Natan Burrell M.D. at Main Iezmqa6008/24/2019 1:20 pm - Natan Burrell M.D. at Main Bdjxse2405/10/2019 - Benjamin Lion, MDR60.0 Localized cuyoaT32.0 Moderate protein-calorie malnutritionComments:We' ll refer you to [facility] for some nutritional education.AllComments:Medication Management Patient Understands medications she's taking? Yes No Are there Barriers to Adherence? Yes No Has the patient been asked about herbal supplements and therapies, and OTC meds? Yes No Functional Status Description No Information Available Mental Status Description No Information Available Referrals Refer to Reason for Referral Status Appt Date [facility] Goss Consult and treat. LT Created [facility] [address] [phone]
--- NOTE | 2019-05-30 07:12 | ED ---
Progress - Progress Note Progress Note: Patient is a sign out at 07:00 on 05/30/[address] Doris Gottlieb MD to Dr. Luiza Hansen MD at shift change, pending imaging results and disposition. At 08:13, I discussed imaging results with the patient. Patient would like to go home, pain is well-controlled. Patient has an appointment with her PCP today. Will speak to ENT to see if further workup is needed. At 08:21, Dr. Benjamin Yeh recommended she follow up with ophthalmology by the end of the week to make sure there is no entrapment and gave me the number for facial surgery in [place]: [phone]. Pts daughter was given that number earlier when calling Dr. Ba office. He reviewed the images, no antibiotics. At 08:54, I told the patient to follow up with Dr. Benjamin Meza. At 08:56, I made an appointment for the patient on 06/01/19 at 14:[address] Olivia Yang - provider in Dr. Meza's office. At 10:13, patients caregiver is at bedside concerned that the patient has had 2 recent falls -lives alone. Patients caregiver is requesting labwork before being discharged home. I reviewed labwork from a recent visit and discussed with the patient that we will do a CMC, chemistry and a urine. Will give breakfast and an ambulatory trial. Patient and caregiver are comfortable with this and the nurse order. Discharge on ambulation. At 11:49, I reviewed labs, ordered magnesium, will admit. I will page the hospitalist. At 11:54, I reviewed her last admission from 05/06/19. Dr. Neyda Garcia agrees to admit the patient to [facility] with a diagnosis of leukocytosis, facial fracture, and fall. reviewed importrance of optho eval - At 11:57, I spoke to patients advocate to update. agreement with plan - Results/Orders Results/Orders: Maxillofacial CT IMPRESSION: 1. Limited study. 2. Blowout fracture involving the floor of the left orbit. 3. Fracture involving the posterior lateral wall of the left maxillary sinus. 4. Fracture of the base of the left nasal bone. 5. Fluid in the left maxillary sinus and sphenoid sinus. Brain CT IMPRESSION: There is opacification noted in the left maxillary sinus. There is a questionable fracture noted of the left orbit. Recommend dedicated facial bone CT for further evaluation. No acute intracranial hemorrhage or significant mass effect. GCS: 15 Reviewed by ED physician. - EKG/XRAY/CT CT: See Results/Orders Re-Evaluation - Re-Evaluation First Re-Evaluation Time: 08:13 Change: Improved Comment: At 08:13, I discussed imaging results with the patient. Patient would like to go home, pain is well-controlled. Patient has an appointment with her PCP today. Will speak to ENT to see if further workup is needed. Second Re-Evaluation Time: 08:54 Change: Unchanged Comment: At 08:54, I told the patient to follow up with Dr. Benjamin Meza. At 08: 56, I made an appointment for the patient on 06/01/19 at 14:[address] Olivia Yang. Third Re-Evaluation Time: 10:13 Change: Unchanged Comment: At 10:13, patients caregiver is at bedside concerned that the patient may be using alcohol after two recent falls. Patients caregiver is requesting labwork before being discharged home. I reviewed labwork from a recent visit and discussed with the patient that we will do a CMC, chemistry and a urine. Will give breakfast and an ambulatory trial. Patient and caregiver are comfortable with this and the nurse order. Discharge on ambulation. Course/Dx - Diagnoses Provider Diagnoses: Fall, Facial trauma, Leukocytosis - Provider Notifications Discussed Care Of Patient With: Benjamin Yeh - At 08:21, Dr. Benjamin Yeh recommended she follow up with ophthalmology by the end of the week to make sure there is no entrapment and gave me the number for facial surgery in [place]: [phone]. Pts daughter was given that number earlier when calling Dr. Ba office. He reviewed the images, no antibiotics. At 11: 54, I reviewed her last admission from 05/06/19. Dr. Neyda Garcia agrees to admit the patient to [facility] with a diagnosis of leukocytosis, facial fracture, and fall. Time Discussed With Above Provider: 08:21 Instructed by Provider To: Admit As Inpatient - Critical Care Time Critical Care Time: 30-74 min - 30 min Discharge ED - Sign-Out/Discharge Documenting (check all that apply): Patient Departure - Admit, Receiving Sign- Out Receiving patient FROM: Doris Gottlieb - 07:00 on 05/30/19 - Discharge Plan Condition: Improved Disposition: ADMITTED TO [facility] - Billing Disposition and Condition Condition: IMPROVED Disposition: Admitted to [facility] - Attestation Statements Document Initiated by Yahaira: Yes Documenting Scribe: Mary Jo Link Provider For Whom Yahaira is Documenting (Include Credential): Luiza Hansen MD Scribe Attestation: Mary Jo Friedman, scribed for Luiza Hansen MD on 06/03/19 at 0803. Scribe Documentation Reviewed: Yes Provider Attestation: The documentation as recorded by the singhibeMary Jo accurately reflects the service I personally performed and the decisions made by me, Luiza Hansen MD Status of Scribe Document: Viewed
[2019-05-30 11:00] LABS: Urine Appearance Clear; Urine Bacteria Absent (Absent); Urine Bilirubin Negative (Negative); Urine Blood Negative (Negative); Urine Color Amber; Urine Glucose Negative (Negative); Urine Ketones Trace (Negative); Urine Nitrite Negative (Negative); Urine Protein Negative (Negative); Urine Red Blood Cell Trace(0-2/hpf) (Absent); Urine Specific Gravity 1.011 (1.010-1.030); Urine Urobilinogen Negative (Negative); Urine White Blood Cell 1+(6-10/hpf) (Absent)
[2019-05-30 11:36] LABS: Hematocrit 40 % (35-47); Hemoglobin 13.6 g/dL (12.0-16.0); Mean Corpuscular HGB Conc 34 g/dL (31-36); Mean Corpuscular Hemoglobin 32 pg (27-31); Mean Corpuscular Volume 95 fL (80-97); Mean Platelet Volume 9.1 fL (7.4-10.4); Platelet Count 201 10^3/uL (150-450); Red Blood Count 4.26 10^6 /uL (3.70-4.87); Red Cell Distribution Width 14 % (10-15); White Blood Count 15.3 10^3/uL (3.5-10.8)
[2019-05-30 11:47] LABS: Albumin 1.9 g/dL (3.2-5.2); Albumin/Globulin Ratio 0.9 (1-3); Calcium 8.6 mg/dL (8.6-10.3); EGFR Non-African American 36.4 (>60); Globulin 2.2 g/dL (2-4); Magnesium 1.7 mg/dL (1.9-2.7); Potassium 3.8 mmol/L (3.5-5.0); Total Protein 4.1 g/dL (6.4-8.9)
[2019-05-30 12:22] LABS: ABS Lymphocytes 2.1 10^3/ul (1.0-4.8); ABS Monocytes 1.5 10^3/ul (0-0.8); ABS Neutrophils 11.6 10^3/ul (1.5-7.7); Eosinophil % 0.1 %; Nucleated Red Blood Cells % 0.2
[2019-05-30] MEDS ORDERED: NS 0.9% 1000 ML** 1,000 ML IV ONE (13:44)
[2019-05-30] MEDS: oxyCODONE TAB* 5 MG TAB PO PRN (16:05)
[2019-05-30] MEDS: Heparin VIAL(*) 5000 UNITS/ML VIAL (FIVE THOUSAND) SUBCUT SCH ×2 (16:09→21:03)
[2019-05-30] MEDS ORDERED: NS 0.9% 1000 ML** 1,000 ML IV SCH (17:00)
[2019-05-30] MEDS ORDERED: Magnesium Sulfate 1 GM IV* 1 GM/100 ML BAG IV ONE (18:00)
--- NOTE | 2019-05-30 19:52 | HP ---
CC: Dr. Burrell * HISTORY AND PHYSICAL: DATE OF ADMISSION: 05/30/19 PRIMARY CARE PROVIDER: Dr. Burrell. ATTENDING PHYSICIAN WHILE IN THE HOSPITAL: Dr. Neyda Garcia * (dictated by Migdalia Squires NP). CHIEF COMPLAINT: Weakness, falls, left orbital fracture. HISTORY OF PRESENT ILLNESS: The patient reports that at 4 a.m. this morning, she got out of bed to go to the bathroom, lost her balance and fell and was unable to get up. The patient reports that she laid on the floor until 5 a.m. The patient then was brought to the emergency room for further evaluation. The patient denied any dizziness or presyncope or syncopal episode. Denied any loss of consciousness from her fall. She denies any chest pain or shortness of breath. She denies any fever or chills. She denies any cough or hemoptysis. She denies any abdominal pain, nausea, vomiting, or diarrhea. She denies any hematuria or dysuria. She denies any focal weakness or sensory losses. She denies any visual complaints. While in the emergency room, the patient had routine lab work drawn and she was found to have a mildly elevated white count at 15.3 and elevated BUN and creatinine. Due to the patient's unsteady gait and continued weakness, Hospital Medicine was asked to see and evaluate her for admission. While in the emergency room, the patient did have unsteady gait with a walker. The patient reports that she usually does not use walker and walks independently. She was also found to have orthostatic hypotension from sitting to standing and did report some mild dizziness. Due to these symptoms, Hospital Medicine was asked to evaluate for admission. PAST MEDICAL HISTORY: Significant for, 1. Hepatitis C which was treated. 2. History of DVT in the left leg, not on anticoagulation due to GI bleed. 3. Hypothyroid. 4. History of GI bleeding. 5. GERD. 6. Chronic lower back pain. 7. Depression and anxiety. 8. Right eye blindness. 9. PACs. 10. History of swollen legs. PAST SURGICAL HISTORY: 1. Bilateral knee replacements. 2. Carpal tunnel release bilaterally. 3. Right shoulder replacement. 4. Right eye surgery. 5. Right lung mass resection. 6. Cholecystectomy. 7. . 8. Bilateral cataracts removed. 9. Gastric bypass. 10. Lumpectomy in both left and right breast. 11. Tonsillectomy. HOME MEDICATIONS: Include: 1. Oxycodone 15 mg p.o. every 8 hours. 2. Lorazepam 0.5 mg p.o. b.i.d. 3. Metoprolol 12.5 at bedtime, 25 mg in the a.m. 4. Seroquel 300 mg p.o. at bedtime. 5. Ranitidine 150 mg p.o. b.i.d. 6. Omeprazole 20 mg p.o. daily. 7. Lasix 20 mg p.o. daily. 8. Multivitamin p.o. daily. 9. Oxybutynin 5 mg p.o. b.i.d. 10. Ferrous sulfate 325 mg p.o. daily. 11. Trazodone 50 to 100 mg at bedtime. 12. Venlafaxine 300 mg p.o. daily. 13. Potassium 10 mEq p.o. daily. 14. Levothyroxine 100 mcg p.o. daily. ALLERGIES: PROMETHAZINE, ULTRAM, ACETAMINOPHEN, IBUPROFEN, and NSAIDS. FAMILY HISTORY: Mother with a history of PACs. Grandmother with heart attack. Brother with diabetes. Brother with colon cancer and father with bladder cancer. SOCIAL HISTORY: The patient quit smoking approximately 20 years ago. Prior to that, she smoked a pack a day for 30 years. She denies any alcohol or illicit drug use. She lives alone. She has a son who lives in [place] and daughter that lives in [place], [place]. She is a full code. Surrogate decision maker in the event she is unable to make her own decisions are her daughter or her son. REVIEW OF SYSTEMS: A 14-point review of systems was completed. All pertinent positives were as mentioned in the HPI. PHYSICAL EXAMINATION GENERAL: At this time, Ms. Lawson is alert and oriented, resting on the stretcher in the emergency room. She is in no acute distress. VITAL SIGNS: Blood pressure 121/60, heart rate 81, respirations are 20, O2 saturation 99%, temperature was 97.2. HEENT: Head is normocephalic. She does have ecchymosis noted to her left eye and cheek as well as her chin. She is blind in her right eye. Mucous membranes are moist. NECK: Supple. LUNGS: Clear to auscultation bilaterally. No wheezes, rales, or rhonchi. CARDIAC: S1 and S2. Regular rate and rhythm. No murmurs, rubs or gallops. ABDOMEN: Soft and nontender. Bowel sounds are present x4. NEUROLOGIC: She is awake, alert and oriented x3. Speech is clear. Thought process is intact. There are no gross focal neuro deficits. EXTREMITIES: She is able to move all 4 extremities. Pedal pulses are +2 bilaterally. SKIN: She does have ecchymosis and a small laceration noted to his left eyebrow with surrounding ecchymosis and swelling. She does have mild ecchymosis noted to the chin. DIAGNOSTIC STUDIES/LAB DATA: WBCs are 15.3, RBCs 4.26, hemoglobin 13.6, hematocrit is 40, platelet count is 201. Sodium 135, potassium 3.8, chloride 94 , carbon dioxide is 37, anion gap was 4, BUN was 27, creatinine 1.42, glucose was 63, calcium is 8.6, magnesium 1.7. ASTs are 40, ALTs are 45, alkaline phosphatase is 93. Urine was positive for trace ketones, leukocyte esterase was +1, wbc's were +1, calcium oxalate crystals were present, bacteria was absent, hyaline casts were present. Serum alcohol was less than 10. She had a CT of the brain, radiologist's impression: No acute intracranial hemorrhage or significant mass effect. There is opacification in left maxillary sinus. There is a questionable fracture noted to the left orbit. She had a maxillofacial CT, limited study, blowout fracture involving the floor of the left orbit. Fracture involving the posterior wall of the left maxillary sinus, fracture at the base of the left nasal bone and fluid within the left maxillary sinus and sphenoid sinus. Chest x-ray showed no acute cardiopulmonary disease. CT of the C-spine showed osteopenia and degenerative disk disease and osteoarthritis. No acute osseous injury of the cervical spine. She had a L- spine CT. No fracture or traumatic alignment of the L-spine, broad based disk protrusion, and ligament thickening resulting in less at least mild spinal canal stenosis at L4-L5. There is no severe osteo encroachment of the spinal canal or neural foramina. She had a CT of the thoracic spine, osteopenia, and degenerative disk disease and osteoarthritis. No acute osseous injury to the thoracic spine. ASSESSMENT AND PLAN: Ms. Lawson is a 74-year-old female with a past medical history significant for hepatitis C, history of deep venous thrombosis in left calf, hypothyroidism, anemia, history of gastrointestinal bleed, gastroesophageal reflux disease, chronic low back pain, depression and anxiety, who presented to the emergency room after a fall at home, who was found to have a left orbital fracture. She will be admitted for: 1. Falls, weakness, unsteady gait. The patient had a fall at home, reporting she lost her balance. I will recommend PT and OT for evaluation and recommendations on assistance with rehab. The patient does not have any clear underlying infection as a cause of her falls. She was found to be orthostatic hypotensive in the emergency room and was given IV fluids. We will reevaluate orthostatic vital signs in the a.m. 2. Orthostatic hypotension. The patient was orthostatically hypotensive in the emergency room. I suspect this is related to dehydration. She will be given a liter of normal saline and IV fluids overnight and repeat orthostatic vital signs in the morning as well as a BMP. 3. Acute kidney injury. The patient does have an elevated BUN and creatinine from her baseline. I suspect this is related to dehydration. We will place her on IV fluids and get a repeat CBC and BMP in the a.m. 4. Left orbital fracture. The patient does have a left orbital blowout fracture. Dr. Yeh was contacted by the emergency room who recommended a facial surgeon in [place], his number is [phone]. He also recommended follow up with Ophthalmology by the end of the week. The patient does have an appointment with Dr. Meza's office on 06/01/19 at 0790. 5. Gastroesophageal reflux disease. The patient should continue on Pepcid 20 mg p.o. daily. 6. Depression and anxiety. The patient should continue on Seroquel and Effexor as previously prescribed. 7. Hypothyroid. She should continue on levothyroxine 100 mcg p.o. daily. 8. History of PACs. The patient should continue on metoprolol 25 mg in morning , 12.5 at bedtime. This dose may need to be adjusted due to her orthostatic hypotension. I am going to hold her Lasix. 9. FEN: She can have a regular diet. 10. Code status: She is a full code. 11. DVT prophylaxis: I will place her on heparin subcu. TIME SPENT: Time spent on this admission was 60 minutes, greater than half that time was spent at the bedside reviewing the events leading thus far to her hospitalization, performing physical exam and reviewing my plan of care. I have discussed this with my attending Dr. Neyda Garcia; she is in agreement with my plan. MIGDALIA SQUIRES, APPRENTICESHIP TRAINING REPRESENTATIVE [id number]/CPS #: [id number] TARAN
[2019-05-30] MEDS ORDERED: QUEtiapine TAB* 100 MG PO SCH (21:00)
[2019-05-30] MEDS: Metoprolol Tartrate TAB* 25 MG PO SCH (21:01)
[2019-05-30] MEDS: QUEtiapine TAB* 100 MG PO SCH (21:05)
[2019-05-31] MEDS: oxyCODONE TAB* 5 MG TAB PO PRN ×3 (00:39→18:37)
[2019-05-31] MEDS: Heparin VIAL(*) 5000 UNITS/ML VIAL (FIVE THOUSAND) SUBCUT SCH ×4 (06:19→21:51)
[2019-05-31] MEDS: Levothyroxine TAB* 100 MCG TAB PO SCH (06:20)
[2019-05-31] MEDS: Venlafaxine EXT RELEASE CAP* 75 MG PO SCH (08:03)
[2019-05-31] MEDS: Famotidine TAB* 20 MG PO SCH (08:03)
[2019-05-31] MEDS: Pantoprazole TAB * 40 MG TAB PO SCH (08:03)
[2019-05-31] MEDS: Multivitamins/Minerals TAB PO SCH (08:03)
[2019-05-31 11:14] LABS: Hematocrit 39 % (35-47); Hemoglobin 13.2 g/dL (12.0-16.0); Mean Corpuscular HGB Conc 34 g/dL (31-36); Mean Corpuscular Hemoglobin 32 pg (27-31); Mean Corpuscular Volume 95 fL (80-97); Mean Platelet Volume 8.9 fL (7.4-10.4); Platelet Count 203 10^3/uL (150-450); Red Blood Count 4.14 10^6 /uL (3.70-4.87); Red Cell Distribution Width 14 % (10-15); White Blood Count 9.7 10^3/uL (3.5-10.8)
[2019-05-31 11:24] LABS: Calcium 8.2 mg/dL (8.6-10.3); EGFR African American 65.9 (>60); EGFR Non-African American 54.5 (>60); Potassium 2.9 mmol/L (3.5-5.0)
[2019-05-31] MEDS ORDERED: Potassium Chlor TAB* 20 MEQ TAB.ER PO ONE (18:00)
[2019-05-31] MEDS: KCL 20 MEQ/100 ML IVPREMIX* 20 MEQ/100 ML BAG IV SCH (18:37)
--- NOTE | 2019-05-31 19:46 | PN ---
Subjective Date of Service: 05/31/19 Interval History: Patient is agreeable to [facility] at time of evaluation. Expresses concerns for who could care for her cat and suggests her daughter could. She denies visual changes, headache, facial pain, fever/chills, difficulty breathing, chest pain. Objective Active Medications: Famotidine (Pepcid Tab*) 20 mg PO DAILY [facility]; Protocol Last Admin: 05/31/19 08:03 Dose: 20 mg Heparin Sodium (Porcine) (Heparin Vial(*)) 5,000 units SUBCUT Q8HR [facility] Last Admin: 05/31/19 12:43 Dose: Not Given Potassium Chloride (Potassium Chloride 20 Meq/100 Ml Ivpremix*) 20 meq in 100 mls @ 50 mls/hr IV Q2H [facility] Stop: 05/31/19 21:59 Last Admin: 05/31/19 18:37 Dose: 50 mls/hr Levothyroxine Sodium (Synthroid Tab*) 100 mcg PO DAILY@0600 [facility] Last Admin: 05/31/19 06:20 Dose: 100 mcg Metoprolol Tartrate (Lopressor Tab*) 12.5 mg PO BEDTIME [facility] Last Admin: 05/30/19 21:01 Dose: 12.5 mg Multivitamins/Minerals (Theragran/Minerals Tab*) 1 tab PO DAILY [facility] Last Admin: 05/31/19 08:03 Dose: 1 tab Oxycodone HCl (Roxycodone Tab*) 15 mg PO Q8HR PRN PRN Reason: PAIN - MODERATE Last Admin: 05/31/19 18:37 Dose: 15 mg Pantoprazole Sodium (Protonix Tab*) 40 mg PO DAILY [facility] Last Admin: 05/31/19 08:03 Dose: 40 mg Quetiapine Fumarate (Seroquel Tab*) 300 mg PO BEDTIME [facility] Last Admin: 05/30/19 21:05 Dose: 300 mg Venlafaxine HCl (Effexor Xr Cap*) 300 mg PO DAILY [facility] Last Admin: 05/31/19 08:03 Dose: 300 mg Vital Signs - 8 hr 05/31/19 05/31/19 15:15 18:37 Temperature 97.1 F Pulse Rate 91 Respiratory 18 16 Rate Blood Pressure 109/60 (mmHg) O2 Sat by Pulse 100 Oximetry Oxygen Devices in Use Now: None Appearance: Thin, elderly white female laying in bed, in NAD Eyes: - - left eye with surrounding ecchymosis; right pupil approx 11mm, consistent with prior surgeries; left pupil approx 4mm Ears/Nose/Mouth/Throat: Mucous Membranes Moist Neck: NL Appearance and Movements; NL JVP Respiratory: Symmetrical Chest Expansion and Respiratory Effort, Clear to Auscultation Cardiovascular: NL Sounds; No Murmurs; No JVD, RRR Abdominal: - - abd soft, nontender, nondistended Extremities: No Edema, No Clubbing, Cyanosis Skin: No Rash or Ulcers Neurological: NL Muscle Strength and Tone, - - alert and oriented to self - Nutrition: Malnutrition Diagnosis/Plan Malnutrition Assessment by Registered Dietitian: Malnutrition Assessment Clinical Characteristics Chronic,Severe Malnutrition Assessment: Inadequate Oral Intake - Pt reports a reduced Criteria appetite x1 mo; consumed 10-50% all meals since adm - anticipate meeting <75% nutrient needs >1 mo (severe) Unintentional Weight Loss - Pt reports unintentional wt loss; current wt 116lb, UBW 130lb x1 mo ago - 10.8% loss x1 mo (severe) Physiological Function Decline - Weakness as adm dx Malnutrition Assessment: Nutritional Supplementals/Nourishments - Will Interventions send Chocolate Ensure Enlive (350kcal, 20g prot / serv) w/ B, L, and D daily to optimize kcal/ prot intake; will monitor continued acceptance. Glycemic Control - Will continue to monitor BG/ FS in the setting of recent hypoglycemia. Texture Modification - Will provide soft textures for ease of chewing; will monitor tolerance and make further recommendations as indicated. Malnutrition Assessment: Goals 1) Pt will tolerate least restrictive dietary textures w/o further difficulty chewing 2) Adequate po intake to support/replete lean body mass and hydration status 3) Improve fluid/electrolyte balance w/ adequate po intake and repletion PRN 4) Improve glycemic control w/ adequate po intake w/o s/sx hypo-/hyperglycemia 5) Maintain bowel regularity w/ adequate po intake w/o development of diarrhea/constipation Result Diagrams: 05/31/19 10:55 05/31/19 10:55 Microbiology and Other Data: Microbiology 05/30/19 10:37 Urine Culture - Final Urine Assess/Plan/Problems-Billing Assessment: 74 yo female with PMHx R eye blindness and prior surgeries, DVt, hypothroidism, chroic back pain, depression/anxiety presents after mechanical fall. - Patient Problems (1) Orbit fracture, left Current Visit: Yes Status: Acute Code(s): S02.85XA - FRACTURE OF ORBIT, UNSPECIFIED, INIT SNOMED Code(s): 90466595 Comment: -needs ophthalmology f/u. Has appt scheduled for tomorrow but will not be able to make it due to needs for [facility], will need to assist with f/u at discharge -continue home oxycodone for pain control (2) Fall Current Visit: No Status: Acute Comment: -likely mechanical -with resulting orbit fracture as above -CT brain negative and CT spine negative for fractures -now needing [facility], patient in agreement but is not oriented and CM unable to contact daughter for dispo planning thus far today (3) Acute kidney injury Current Visit: No Status: Acute Priority: Medium Code(s): N17.9 - ACUTE KIDNEY FAILURE, UNSPECIFIED SNOMED Code(s): 84834468 Comment: -likely prerenal related to dehydration -resolved with IVF (4) Hypokalemia Current Visit: Yes Status: Acute Code(s): E87.6 - HYPOKALEMIA SNOMED Code( s): 84196986 Comment: -dilutional 2/2 IVF -replacing (5) Depression Current Visit: No Status: Acute Code(s): F32.9 - MAJOR DEPRESSIVE DISORDER, SINGLE EPISODE, UNSPECIFIED SNOMED Code(s): 23691134 Comment: - continue effexor and seroquel. (6) Hypothyroidism Current Visit: No Status: Acute Code(s): E03.9 - HYPOTHYROIDISM, UNSPECIFIED SNOMED Code(s): 69432003 Comment: -Continue current dose of synthroid. (7) DVT prophylaxis Current Visit: No Status: Acute Priority: Medium Code(s): WCL6239 - SNOMED Code(s): 053761276 Comment: - SQ heparin. (8) Full code status Current Visit: No Status: Acute Code(s): Z78.9 - OTHER SPECIFIED HEALTH STATUS SNOMED Code(s): 941350387 Status and Disposition: pending [facility] placement
[2019-05-31] MEDS: QUEtiapine TAB* 100 MG PO SCH (21:39)
[2019-05-31] MEDS: Metoprolol Tartrate TAB* 25 MG PO SCH (21:39)
[2019-06-01] MEDS: KCL 20 MEQ/100 ML IVPREMIX* 20 MEQ/100 ML BAG IV SCH (00:12)
[2019-06-01] MEDS: Morphine INJ* 2 MG/ML 1 ML SYRINGE (TWO MG - NEW SYRINGE VERSION) IV PRN ×5 (00:47→22:12)
[2019-06-01] MEDS: Heparin VIAL(*) 5000 UNITS/ML VIAL (FIVE THOUSAND) SUBCUT SCH ×3 (04:57→21:06)
[2019-06-01] MEDS: Levothyroxine TAB* 100 MCG TAB PO SCH (05:27)
[2019-06-01] MEDS: oxyCODONE TAB* 5 MG TAB PO PRN ×2 (08:00→17:40)
[2019-06-01] MEDS: Venlafaxine EXT RELEASE CAP* 75 MG PO SCH (08:01)
[2019-06-01] MEDS: Multivitamins/Minerals TAB PO SCH (08:02)
[2019-06-01] MEDS: Famotidine TAB* 20 MG PO SCH (08:02)
[2019-06-01] MEDS: Pantoprazole TAB * 40 MG TAB PO SCH (08:02)
--- NOTE | 2019-06-01 10:20 | PN ---
Subjective Date of Service: 06/01/19 Interval History: Patient tells me she has nausea after meals which resolves on its own. Denies abd pain, vomiting. She does not have leg pain when they are not being touched. She denies visual changes. She is able to read the newspaper, but mentions she needs her reading glasses which are at home. She denies chest pain, difficulty breathing. Objective Active Medications: Famotidine (Pepcid Tab*) 20 mg PO DAILY [facility]; Protocol Last Admin: 06/01/19 08:02 Dose: 20 mg Heparin Sodium (Porcine) (Heparin Vial(*)) 5,000 units SUBCUT Q8HR [facility] Last Admin: 06/01/19 04:57 Dose: Not Given Levothyroxine Sodium (Synthroid Tab*) 100 mcg PO DAILY@0600 [facility] Last Admin: 06/01/19 05:27 Dose: 100 mcg Metoprolol Tartrate (Lopressor Tab*) 12.5 mg PO BEDTIME [facility] Last Admin: 05/31/19 21:39 Dose: 12.5 mg Morphine Sulfate (Morphine Inj (Syringe))*) 2 mg IV Q4H PRN PRN Reason: PAIN SEVERE Last Admin: 06/01/19 09:02 Dose: 2 mg Multivitamins/Minerals (Theragran/Minerals Tab*) 1 tab PO DAILY [facility] Last Admin: 06/01/19 08:02 Dose: 1 tab Oxycodone HCl (Roxycodone Tab*) 15 mg PO Q8HR PRN PRN Reason: PAIN - MODERATE Last Admin: 06/01/19 08:00 Dose: 15 mg Pantoprazole Sodium (Protonix Tab*) 40 mg PO DAILY [facility] Last Admin: 06/01/19 08:02 Dose: 40 mg Quetiapine Fumarate (Seroquel Tab*) 300 mg PO BEDTIME [facility] Last Admin: 05/31/19 21:39 Dose: 300 mg Venlafaxine HCl (Effexor Xr Cap*) 300 mg PO DAILY [facility] Last Admin: 06/01/19 08:01 Dose: 300 mg Vital Signs - 8 hr 06/01/19 06/01/19 06/01/19 03:20 04:00 08:00 Temperature 97.4 F Pulse Rate 74 Respiratory 16 16 Rate Blood Pressure 93/50 100/50 (mmHg) O2 Sat by Pulse 97 Oximetry 06/01/19 09:02 Temperature Pulse Rate Respiratory 16 Rate Blood Pressure (mmHg) O2 Sat by Pulse Oximetry Oxygen Devices in Use Now: None Appearance: Thin, elderly white female, laying upright in bed, appearing in NAD Eyes: No Scleral Icterus, - - right pupil approx 11cm which is consistent with postoperative changes; ecchymosis around left eye Ears/Nose/Mouth/Throat: Mucous Membranes Moist Respiratory: Symmetrical Chest Expansion and Respiratory Effort, Clear to Auscultation Cardiovascular: NL Sounds; No Murmurs; No JVD, RRR Abdominal: NL Sounds; No Tenderness; No Distention Extremities: No Edema, No Clubbing, Cyanosis Skin: - - tenderness to palpation along bilateral shins out of proportion to exam Neurological: NL Muscle Strength and Tone, - - alert and oriented x4 - Nutrition: Malnutrition Diagnosis/Plan Malnutrition Assessment by Registered Dietitian: Malnutrition Assessment Clinical Characteristics Chronic,Severe Malnutrition Assessment: Inadequate Oral Intake - Pt reports a reduced Criteria appetite x1 mo; consumed 10-50% all meals since adm - anticipate meeting <75% nutrient needs >1 mo (severe) Unintentional Weight Loss - Pt reports unintentional wt loss; current wt 116lb, UBW 130lb x1 mo ago - 10.8% loss x1 mo (severe) Physiological Function Decline - Weakness as adm dx Malnutrition Assessment: Nutritional Supplementals/Nourishments - Will Interventions send Chocolate Ensure Enlive (350kcal, 20g prot / serv) w/ B, L, and D daily to optimize kcal/ prot intake; will monitor continued acceptance. Glycemic Control - Will continue to monitor BG/ FS in the setting of recent hypoglycemia. Texture Modification - Will provide soft textures for ease of chewing; will monitor tolerance and make further recommendations as indicated. Malnutrition Assessment: Goals 1) Pt will tolerate least restrictive dietary textures w/o further difficulty chewing 2) Adequate po intake to support/replete lean body mass and hydration status 3) Improve fluid/electrolyte balance w/ adequate po intake and repletion PRN 4) Improve glycemic control w/ adequate po intake w/o s/sx hypo-/hyperglycemia 5) Maintain bowel regularity w/ adequate po intake w/o development of diarrhea/constipation Result Diagrams: 05/31/19 10:55 06/01/19 17:35 Microbiology and Other Data: Microbiology 05/30/19 10:37 Urine Culture - Final Urine Assess/Plan/Problems-Billing Assessment: 74 yo female with PMHx R eye blindness and prior surgeries, DVt, hypothroidism, chroic back pain, depression/anxiety presents after mechanical fall. - Patient Problems (1) Orbit fracture, left Current Visit: Yes Status: Acute Code(s): S02.85XA - FRACTURE OF ORBIT, UNSPECIFIED, INIT SNOMED Code(s): 87522934 Comment: -needs ophthalmology f/u. Has appt rescheduled for Tuesday06/05/19 -continue home oxycodone for pain control, starting additional percocet and continuing morphine for only breakthrough pain (2) Fall Current Visit: No Status: Acute Comment: -likely mechanical -with resulting orbit fracture as above -CT brain negative and CT spine negative for fractures -now needing [facility]ENC[facility], pending placement -continue PT (3) Acute kidney injury Current Visit: No Status: Acute Priority: Medium Code(s): N17.9 - ACUTE KIDNEY FAILURE, UNSPECIFIED SNOMED Code(s): 47797466 Comment: -likely prerenal related to dehydration -resolved with IVF (4) Hypokalemia Current Visit: Yes Status: Acute Code(s): E87.6 - HYPOKALEMIA SNOMED Code( s): 90799958 Comment: -dilutional 2/2 IVF -resolved (5) Depression Current Visit: No Status: Acute Code(s): F32.9 - MAJOR DEPRESSIVE DISORDER, SINGLE EPISODE, UNSPECIFIED SNOMED Code(s): 30862467 Comment: - continue effexor and seroquel. (6) Hypothyroidism Current Visit: No Status: Acute Code(s): E03.9 - HYPOTHYROIDISM, UNSPECIFIED SNOMED Code(s): 22368363 Comment: -Continue current dose of synthroid. (7) DVT prophylaxis Current Visit: No Status: Acute Priority: Medium Code(s): RHM4322 - SNOMED Code(s): 347176205 Comment: - SQ heparin. (8) Full code status Current Visit: No Status: Acute Code(s): Z78.9 - OTHER SPECIFIED HEALTH STATUS SNOMED Code(s): 498467626 Status and Disposition: pending [facility] placement
[2019-06-01 12:46] LABS: CO2 Carbon Dioxide 26 mmol/L (22-32); Calcium 8.1 mg/dL (8.6-10.3); Chloride 107 mmol/L (101-111); Sodium 137 mmol/L (135-145)
[2019-06-01 12:51] LABS: BUN/Creatinine Ratio 20.5 (8-20); Blood Urea Nitrogen 15 mg/dL (6-24); EGFR African American 94.8 (>60); EGFR Non-African American 78.4 (>60); Glucose 97 mg/dL (70-100)
[2019-06-01 12:58] LABS: Anion Gap 4 mmol/L (2-11)
[2019-06-01] MEDS: oxyCODONE/Acetamin 5/325 MG* TAB PO PRN ×2 (14:00→21:11)
[2019-06-01 14:48] LABS: Magnesium 1.8 mg/dL (1.9-2.7)
[2019-06-01] MEDS ORDERED: Magnesium Oxide TAB* 400 MG PO ONE (18:51)
[2019-06-01] MEDS: QUEtiapine TAB* 100 MG PO SCH (21:08)
[2019-06-01] MEDS: Metoprolol Tartrate TAB* 25 MG PO SCH (21:09)
[2019-06-02] MEDS: Heparin VIAL(*) 5000 UNITS/ML VIAL (FIVE THOUSAND) SUBCUT SCH ×3 (06:09→21:23)
[2019-06-02] MEDS: Levothyroxine TAB* 100 MCG TAB PO SCH (06:10)
[2019-06-02] MEDS: oxyCODONE/Acetamin 5/325 MG* TAB PO PRN ×2 (06:15→13:53)
[2019-06-02] MEDS: Morphine INJ* 2 MG/ML 1 ML SYRINGE (TWO MG - NEW SYRINGE VERSION) IV PRN ×3 (09:28→21:26)
[2019-06-02] MEDS: Venlafaxine EXT RELEASE CAP* 75 MG PO SCH (09:29)
[2019-06-02] MEDS: Famotidine TAB* 20 MG PO SCH (09:29)
[2019-06-02] MEDS: Pantoprazole TAB * 40 MG TAB PO SCH (09:29)
[2019-06-02] MEDS: Multivitamins/Minerals TAB PO SCH (09:29)
--- NOTE | 2019-06-02 12:49 | PN ---
Subjective Date of Service: 06/02/19 Interval History: Patient mentions pain on left side of rib cage near axilla. Patient does not have leg pain at rest if they are not being touched. She denies visual changes, fever/chills, chest pain, difficulty breathing. Objective Active Medications: Famotidine (Pepcid Tab*) 20 mg PO DAILY [facility]; Protocol Last Admin: 06/02/19 09:29 Dose: 20 mg Heparin Sodium (Porcine) (Heparin Vial(*)) 5,000 units SUBCUT Q8HR [facility] Last Admin: 06/02/19 06:09 Dose: Not Given Levothyroxine Sodium (Synthroid Tab*) 100 mcg PO DAILY@0600 [facility] Last Admin: 06/02/19 06:10 Dose: 100 mcg Metoprolol Tartrate (Lopressor Tab*) 12.5 mg PO BEDTIME [facility] Last Admin: 06/01/19 21:09 Dose: 12.5 mg Morphine Sulfate (Morphine Inj (Syringe))*) 2 mg IV Q4H PRN PRN Reason: BREAKTHROUGH pain Last Admin: 06/02/19 09:28 Dose: 2 mg Multivitamins/Minerals (Theragran/Minerals Tab*) 1 tab PO DAILY [facility] Last Admin: 06/02/19 09:29 Dose: 1 tab Ondansetron HCl (Zofran Odt Tab*) 4 mg PO Q6H PRN PRN Reason: NAUSEA Oxycodone HCl (Roxycodone Tab*) 15 mg PO Q8HR PRN PRN Reason: PAIN - MODERATE Last Admin: 06/01/19 17:40 Dose: 15 mg Oxycodone/Acetaminophen (Percocet 5/325 Tab*) 2 tab PO Q4H PRN PRN Reason: PAIN - SEVERE Last Admin: 06/02/19 06:15 Dose: 2 tab Pantoprazole Sodium (Protonix Tab*) 40 mg PO DAILY [facility] Last Admin: 06/02/19 09:29 Dose: 40 mg Quetiapine Fumarate (Seroquel Tab*) 300 mg PO BEDTIME [facility] Last Admin: 06/01/19 21:08 Dose: 300 mg Venlafaxine HCl (Effexor Xr Cap*) 300 mg PO DAILY [facility] Last Admin: 06/02/19 09:29 Dose: 300 mg Vital Signs - 8 hr 06/02/19 06/02/19 06/02/19 06:15 07:12 09:26 Temperature 97.4 F Pulse Rate 73 Respiratory 16 18 20 Rate Blood Pressure 120/61 (mmHg) O2 Sat by Pulse 100 Oximetry 06/02/19 06/02/19 09:28 11:15 Temperature 98.2 F Pulse Rate 83 Respiratory 20 20 Rate Blood Pressure 124/65 (mmHg) O2 Sat by Pulse 100 Oximetry Oxygen Devices in Use Now: None Appearance: Thin, elderly white female, laying in bed, in NAD Eyes: No Scleral Icterus, - - right pupil >left consistent with postoperative changes at baseline Ears/Nose/Mouth/Throat: Mucous Membranes Moist, - - ecchymosis to left supraorbial and infraorbital region Neck: - - neck supple Respiratory: Symmetrical Chest Expansion and Respiratory Effort, Clear to Auscultation Cardiovascular: NL Sounds; No Murmurs; No JVD, RRR Abdominal: - - abd soft, nontender, nondistended Extremities: No Edema, No Clubbing, Cyanosis Skin: No Rash or Ulcers Neurological: Alert and Oriented x 3, NL Muscle Strength and Tone - Nutrition: Malnutrition Diagnosis/Plan Malnutrition Assessment by Registered Dietitian: Malnutrition Assessment Clinical Characteristics Chronic,Severe Malnutrition Assessment: Inadequate Oral Intake - Pt reports a reduced Criteria appetite x1 mo; consumed 10-50% all meals since adm - anticipate meeting <75% nutrient needs >1 mo (severe) Unintentional Weight Loss - Pt reports unintentional wt loss; current wt 116lb, UBW 130lb x1 mo ago - 10.8% loss x1 mo (severe) Physiological Function Decline - Weakness as adm dx Malnutrition Assessment: Nutritional Supplementals/Nourishments - Will Interventions send Chocolate Ensure Enlive (350kcal, 20g prot / serv) w/ B, L, and D daily to optimize kcal/ prot intake; will monitor continued acceptance. Glycemic Control - Will continue to monitor BG/ FS in the setting of recent hypoglycemia. Texture Modification - Will provide soft textures for ease of chewing; will monitor tolerance and make further recommendations as indicated. Malnutrition Assessment: Goals 1) Pt will tolerate least restrictive dietary textures w/o further difficulty chewing 2) Adequate po intake to support/replete lean body mass and hydration status 3) Improve fluid/electrolyte balance w/ adequate po intake and repletion PRN 4) Improve glycemic control w/ adequate po intake w/o s/sx hypo-/hyperglycemia 5) Maintain bowel regularity w/ adequate po intake w/o development of diarrhea/constipation Result Diagrams: 05/31/19 10:55 06/01/19 17:35 Microbiology and Other Data: Microbiology 05/30/19 10:37 Urine Culture - Final Urine Assess/Plan/Problems-Billing Assessment: 74 yo female with PMHx R eye blindness and prior surgeries, DVT, hypothroidism, chroic back pain, depression/anxiety presents after mechanical fall. - Patient Problems (1) Orbit fracture, left Current Visit: Yes Status: Acute Code(s): S02.85XA - FRACTURE OF ORBIT, UNSPECIFIED, INIT SNOMED Code(s): 85078964 Comment: -needs ophthalmology f/u. Has appt rescheduled for Tuesday06/05/19 -continue home oxycodone for pain control, starting additional percocet and continuing morphine for only breakthrough pain (2) Left rib fracture Current Visit: Yes Status: Acute Code(s): S22.32XA - FRACTURE OF ONE RIB, LEFT SIDE, INIT FOR CLOS FX SNOMED Code(s): 50487642 Comment: -nondisplaced left 3rd rib fracture -no intervention needed for nondisplaced fx -continue pain control -lungs have been clear on exam (3) Fall Current Visit: No Status: Acute Comment: -likely mechanical -with resulting orbit fracture and rib fracture as above -CT brain negative and CT spine negative for fractures -now needing VALENCIA, pending placement -continue PT (4) Acute kidney injury Current Visit: No Status: Acute Priority: Medium Code(s): N17.9 - ACUTE KIDNEY FAILURE, UNSPECIFIED SNOMED Code(s): 41825540 Comment: -likely prerenal related to dehydration -resolved with IVF (5) Hypokalemia Current Visit: Yes Status: Acute Code(s): E87.6 - HYPOKALEMIA SNOMED Code( s): 56657631 Comment: -dilutional 2/2 IVF -resolved -also with associated low mag which has been replaced (6) Depression Current Visit: No Status: Acute Code(s): F32.9 - MAJOR DEPRESSIVE DISORDER, SINGLE EPISODE, UNSPECIFIED SNOMED Code(s): 39777936 Comment: - continue effexor and seroquel. (7) Hypothyroidism Current Visit: No Status: Acute Code(s): E03.9 - HYPOTHYROIDISM, UNSPECIFIED SNOMED Code(s): 85759946 Comment: -Continue current dose of synthroid. (8) DVT prophylaxis Current Visit: No Status: Acute Priority: Medium Code(s): VBB3487 - SNOMED Code(s): 470374670 Comment: - SQ heparin. (9) Full code status Current Visit: No Status: Acute Code(s): Z78.9 - OTHER SPECIFIED HEALTH STATUS SNOMED Code(s): 232202657 Status and Disposition: Accepted for discharge to [facility] [place] for Tuesday
[2019-06-02] MEDS: Ondansetron ODT TAB* 4 MG PO PRN (13:53)
[2019-06-02] MEDS: QUEtiapine TAB* 100 MG PO SCH (19:24)
[2019-06-02] MEDS: oxyCODONE TAB* 5 MG TAB PO PRN (19:24)
[2019-06-02] MEDS: Metoprolol Tartrate TAB* 25 MG PO SCH (19:25)
[2019-06-03] MEDS: Morphine INJ* 2 MG/ML 1 ML SYRINGE (TWO MG - NEW SYRINGE VERSION) IV PRN ×4 (02:42→20:13)
[2019-06-03] MEDS: Heparin VIAL(*) 5000 UNITS/ML VIAL (FIVE THOUSAND) SUBCUT SCH ×3 (05:44→20:31)
[2019-06-03] MEDS: oxyCODONE TAB* 5 MG TAB PO PRN ×2 (05:48→13:24)
[2019-06-03] MEDS: Levothyroxine TAB* 100 MCG TAB PO SCH (05:49)
--- NOTE | 2019-06-03 10:01 | PN ---
Subjective Date of Service: 06/03/19 Interval History: Ms. Lawson continues to have pain in L eye, L side ribs, b/l calves. She notes she has had b/l LE edema x approximately 3 months. She has been up with a walker and reports that she is ambulating well. She has no other complaints today. Objective Active Medications: Famotidine (Pepcid Tab*) 20 mg PO DAILY [facility]; Protocol Last Admin: 06/02/19 09:29 Dose: 20 mg Heparin Sodium (Porcine) (Heparin Vial(*)) 5,000 units SUBCUT Q8HR [facility] Last Admin: 06/03/19 05:44 Dose: Not Given Levothyroxine Sodium (Synthroid Tab*) 100 mcg PO DAILY@0600 [facility] Last Admin: 06/03/19 05:49 Dose: 100 mcg Metoprolol Tartrate (Lopressor Tab*) 12.5 mg PO BEDTIME [facility] Last Admin: 06/02/19 19:25 Dose: 12.5 mg Morphine Sulfate (Morphine Inj (Syringe))*) 2 mg IV Q4H PRN PRN Reason: BREAKTHROUGH pain Last Admin: 06/03/19 02:42 Dose: 2 mg Multivitamins/Minerals (Theragran/Minerals Tab*) 1 tab PO DAILY [facility] Last Admin: 06/02/19 09:29 Dose: 1 tab Ondansetron HCl (Zofran Odt Tab*) 4 mg PO Q6H PRN PRN Reason: NAUSEA Last Admin: 06/02/19 13:53 Dose: 4 mg Oxycodone HCl (Roxycodone Tab*) 15 mg PO Q8HR PRN PRN Reason: PAIN - MODERATE Last Admin: 06/03/19 05:48 Dose: 15 mg Oxycodone/Acetaminophen (Percocet 5/325 Tab*) 2 tab PO Q4H PRN PRN Reason: PAIN - SEVERE Last Admin: 06/02/19 13:53 Dose: 2 tab Pantoprazole Sodium (Protonix Tab*) 40 mg PO DAILY [facility] Last Admin: 06/02/19 09:29 Dose: 40 mg Quetiapine Fumarate (Seroquel Tab*) 300 mg PO BEDTIME [facility] Last Admin: 06/02/19 19:24 Dose: 300 mg Venlafaxine HCl (Effexor Xr Cap*) 300 mg PO DAILY [facility] Last Admin: 06/02/19 09:29 Dose: 300 mg Vital Signs: Temp Pulse Resp BP Pulse Ox 97.2 F 76 18 120/57 100 06/03/19 03:15 06/03/19 03:15 06/03/19 13:24 06/03/19 03:15 06/03/19 03:15 Oxygen Devices in Use Now: Nasal Cannula Appearance: Ms. Lawson is an older white female who is sitting up in bed. She appears to be in no acute distress, but does appear moderately uncomfortable when shifting in bed during exam. Pleasant, cooperative. Eyes: No Scleral Icterus, - - R eye dilated, nonresponsive to light (chronic); L eye reactive to light, with chavo-orbital ecchymosis Ears/Nose/Mouth/Throat: NL Teeth, Lips, Gums, Clear Oropharnyx, Mucous Membranes Moist Neck: NL Appearance and Movements; NL JVP, Trachea Midline Respiratory: Symmetrical Chest Expansion and Respiratory Effort, Clear to Auscultation Cardiovascular: NL Sounds; No Murmurs; No JVD, RRR, No Edema Extremities: No Clubbing, Cyanosis, - - b/l LE 2+ pitting pretibial edema, tender to palpation b/l Skin: - - L posterolateral chest wall ecchymosis, L posterior hip ecchymosis Neurological: Alert and Oriented x 3, - - Moves all extremities - Nutrition: Malnutrition Diagnosis/Plan Malnutrition Assessment by Registered Dietitian: Malnutrition Assessment Clinical Characteristics Chronic,Severe Malnutrition Assessment: Inadequate Oral Intake - Pt reports a reduced Criteria appetite x1 mo; consumed 10-50% all meals since adm - anticipate meeting <75% nutrient needs >1 mo (severe) Unintentional Weight Loss - Pt reports unintentional wt loss; current wt 116lb, UBW 130lb x1 mo ago - 10.8% loss x1 mo (severe) Physiological Function Decline - Weakness as adm dx Malnutrition Assessment: Nutritional Supplementals/Nourishments - Will Interventions send Chocolate Ensure Enlive (350kcal, 20g prot / serv) w/ B, L, and D daily to optimize kcal/ prot intake; will monitor continued acceptance. Glycemic Control - Will continue to monitor BG/ FS in the setting of recent hypoglycemia. Texture Modification - Will provide soft textures for ease of chewing; will monitor tolerance and make further recommendations as indicated. Malnutrition Assessment: Goals 1) Pt will tolerate least restrictive dietary textures w/o further difficulty chewing 2) Adequate po intake to support/replete lean body mass and hydration status 3) Improve fluid/electrolyte balance w/ adequate po intake and repletion PRN 4) Improve glycemic control w/ adequate po intake w/o s/sx hypo-/hyperglycemia 5) Maintain bowel regularity w/ adequate po intake w/o development of diarrhea/constipation Result Diagrams: 05/31/19 10:55 06/01/19 17:35 Microbiology and Other Data: Microbiology 05/30/19 10:37 Urine Culture - Final Urine Assess/Plan/Problems-Billing Assessment: 74 yo female with PMHx R eye blindness and prior surgeries, DVT, hypothroidism, chronic back pain, depression/anxiety presents after mechanical fall. - Patient Problems (1) Orbit fracture, left Comment: -needs ophthalmology f/u outpatient; has appt scheduled for Tuesday06/05/19 -continue home oxycodone for pain control -add percocet and continuing morphine for breakthrough pain only (2) Left rib fracture Comment: -nondisplaced left 3rd rib fracture -no intervention needed for nondisplaced fx -continue pain control -lungs have been clear on exam (3) Lower extremity edema Comment: -patient with worsening b/l LE edema, tenderness to palpation about the calves -b/l LE US for DVT ordered -instructions to wrap and elevate if negative for DVT (4) Fall Comment: -likely mechanical -with resulting orbit fracture and rib fracture as above -CT brain negative and CT spine negative for fractures -pt requires VALENCIA, accepted at [facility] for 06/04 -continue PT (5) Hypothyroidism Comment: -Continue current dose of synthroid (6) Depression Comment: - continue effexor and seroquel (7) DVT prophylaxis Comment: -SQ heparin (8) Full code status Status and Disposition: Accepted for discharge to [facility] for Tuesday.
[2019-06-03] MEDS: Famotidine TAB* 20 MG PO SCH (10:12)
[2019-06-03] MEDS: Venlafaxine EXT RELEASE CAP* 75 MG PO SCH (10:12)
[2019-06-03] MEDS: Pantoprazole TAB * 40 MG TAB PO SCH (10:14)
[2019-06-03] MEDS: Multivitamins/Minerals TAB PO SCH (10:14)
[2019-06-03] MEDS: oxyCODONE/Acetamin 5/325 MG* TAB PO PRN (17:47)
[2019-06-03] MEDS: QUEtiapine TAB* 100 MG PO SCH (20:11)
[2019-06-04] MEDS: Heparin VIAL(*) 5000 UNITS/ML VIAL (FIVE THOUSAND) SUBCUT SCH ×2 (05:01→12:49)
[2019-06-04] MEDS: Levothyroxine TAB* 100 MCG TAB PO SCH (05:01)
[2019-06-04] MEDS: oxyCODONE TAB* 5 MG TAB PO PRN (05:22)
[2019-06-04 06:41] LABS: BUN/Creatinine Ratio 18.2 (8-20); Calcium 8.4 mg/dL (8.6-10.3); EGFR African American 89.2 (>60); EGFR Non-African American 73.7 (>60); Magnesium 1.8 mg/dL (1.9-2.7); Potassium 4.7 mmol/L (3.5-5.0)
[2019-06-04] MEDS ORDERED: Magnesium Sulfate 1 GM IV* 1 GM/100 ML BAG IV ONE (07:28)
[2019-06-04] MEDS: Morphine INJ* 2 MG/ML 1 ML SYRINGE (TWO MG - NEW SYRINGE VERSION) IV PRN (08:08)
[2019-06-04] MEDS: Pantoprazole TAB * 40 MG TAB PO SCH (08:16)
[2019-06-04] MEDS: Famotidine TAB* 20 MG PO SCH (08:16)
[2019-06-04] MEDS: Venlafaxine EXT RELEASE CAP* 75 MG PO SCH (08:17)
[2019-06-04] MEDS: Multivitamins/Minerals TAB PO SCH (08:17)
--- NOTE | 2019-06-04 11:04 | DS ---
DISCHARGE SUMMARY: DATE OF ADMISSION: 05/30/19 DATE OF DISCHARGE: 06/04/19 PRIMARY CARE PROVIDER: Dr. Burrell. OTHER PROVIDERS: Dr. Trevin Villarreal and Dr. Benjamin Meza. ATTENDING PHYSICIAN: Neyda Garcia MD * (dictated by MAN Barry). PRIMARY DIAGNOSES: 1. Left orbital fracture. 2. Left rib fracture, nondisplaced. 3. Fall. 4. Orthostatic hypotension. 5. Acute kidney injury. 6. Hypokalemia. SECONDARY DIAGNOSES: 1. Hypothyroidism. 2. Hepatitis C virus - treated. 3. History of deep venous thrombosis, not on anticoagulation due to gastrointestinal bleeding. 4. Gastroesophageal reflux disease. 5. Low back pain. 6. Premature atrial contractions. 7. Bilateral lower extremity edema. 8. Right eye blindness. 9. Depression 10. Anxiety. STUDIES WHILE IN THE HOSPITAL: 1. CT brain without contrast. Impression: There is opacification noted in the left maxillary sinus. There is a questionable fracture noted of the left orbit. Recommend dedicated facial bone CT for further evaluation. 2. Chest x-ray. Impression: No active cardiopulmonary disease. 3. CT maxillofacial without contrast. Impression: Limited study. Blowout fracture involving the floor of the left orbit. Fracture involving the posterior lateral wall of the left maxillary sinus. Fracture of the base of the left nasal bone. Fluid in the left maxillary sinus and sphenoid sinus. 4. CT cervical spine without contrast. Impression: Osteopenia, degenerative disk disease, and osteoarthritis. No acute osseous injury to the cervical spine. 5. CT thoracic spine. Impression: Osteopenia, degenerative disk disease, and osteoarthritis. No acute osseous injury to the thoracic spine. 6. CT of the lumbar spine. Impression: No fracture or traumatic malalignment of the lumbar spine. Broad based disk bulge and ligamentum flavum thickening results in at least mild spinal canal stenosis L4-L5. There is no severe osseous encroachment, spinal canal or neuro foramina. 7. Left ribs. Impression: Nondisplaced left third rib fracture laterally with suggestion of early fracture, healing response. No additional rib fractures evident. Negative for pulmonary contusion, pleural effusion, or pneumothorax. 8. Bilateral lower extremity venous ultrasound. Impression: No evidence of DVT in the right or left leg. MEDICATIONS: Home medications: 1. Furosemide 40 mg p.o. daily. 2. Levothyroxine 100 mcg p.o. daily. 3. Lorazepam 0.5 mg p.o. b.i.d. p.r.n., MDD 2. 4. Multivitamin/minerals 1 tab p.o. daily. 5. Omeprazole 20 mg p.o. daily. 6. Oxybutynin 5 mg p.o. t.i.d. 7. Oxycodone 15 mg p.o. q.8 hours p.r.n. pain. 8. Potassium chloride 10 mEq p.o. b.i.d. 9. Quetiapine 200 mg p.o. at bedtime. 10. Ranitidine 150 mg p.o. b.i.d. 11. Trazodone 50 to 100 mg p.o. at bedtime p.r.n. insomnia. 12. Venlafaxine 300 mg p.o. daily. New home medications: 1. Magnesium oxide 400 mg p.o. daily. 2. Oxycodone/acetaminophen 5/325 two tabs p.o. q.4 hours p.r.n. severe pain. Discontinued home medications: 1. Metoprolol 25 mg p.o. q.a.m., 12.5 mg p.o. at bedtime. HISTORY OF PRESENT ILLNESS/HOSPITAL COURSE: Ms. Lawson is 74-year-old female with a past medical history of bilateral lower extremity edema, hypothyroidism, right eye blindness, history of DVT in the left leg, not on anticoagulation due to GI bleed, who presented to the ER on 05/30/19 after a fall. For full and complete details, please see the history and physical dictated by Kimberley Squires NP, but in short, the patient states that she got out of bed, lost her balance and fell and was unable to get up. In the emergency department, a full workup was performed. The patient was found to have orthostatic hypotension. She was also noted to have a left orbital blowout fracture. The patient was admitted for a fall, weakness, unsteady gait, orthostatic hypotension, acute kidney injury, left orbital blowout fracture. Dr. Yeh was contacted by the ER. He recommended a facial surgeon in [place], phone #[phone]. He recommended followup with Ophthalmology by the end of the week. Prior to discharge, the patient had an appointment scheduled with Dr. Meza for tomorrow, 06/05/19 at 10 a.m. No further recommendations were made for the management of the left orbital blowout fracture. The patient was noted to have a left-sided third rib fracture that was nondisplaced. There is no associated pulmonary contusion, pleural effusion , or pneumothorax. For both of these injuries, the patient will continue pain control medications. The patient was noted to have frequent falls. She had a previous admission for multiple falls, muscle weakness that was likely attributed to neuropathy and polypharmacy. She will be followed by Dr. Villarreal for further workup for neuropathy. In the meantime, she has agreed to discharge to [facility] for subacute rehab. The patient was noted to have orthostatic hypotension upon admission. She was also noted to have an acute kidney injury. These were likely partially due to dehydration. The patient's LOVE resolved with IV hydration. Her orthostatic hypotension improved with the discontinuation of her home metoprolol. Previous dose of metoprolol was 25 mg in the a.m., 12.5 mg p.o. at bedtime. Again, this medication has been discontinued. Please monitor blood pressure and heart rate for need to restart this medication. It does appear that the patient has a history of tachycardia, which is likely the reason she is on metoprolol. There is no documented history of atrial fibrillation. The patient had some mild electrolyte imbalances during her stay. She was noted to have hypokalemia, which was improved with repletion. It is important to note that the patient's home medications of potassium chloride 10 mEq p.o. b.i.d. was held while she was in the hospital. She was also noted to have hypomagnesemia. Throughout her stay, she was given IV magnesium but still remained on the high end of low. She will start outpatient supplementation with instructions to repeat both BMP and magnesium within 1 week to monitor for improvement. The patient has chronic bilateral lower extremity edema, which has worsened somewhat during her stay. This is likely due to her Lasix being withheld throughout her stay. Despite this due to the increase in edema, bilateral ultrasound of the lower extremities was obtained and revealed no DVT in the right or left leg. At the time of discharge, the patient continues to have pain in the left eye, left ribs, bilateral lower extremities. She does note that she was dizzy yesterday but has had no dizziness today. She denies vision changes in the left eye and is legally blind in the right eye. She had a bowel movement yesterday. REVIEW OF SYSTEMS: A 14-point review of systems has been performed and all the pertinent positives and negatives are in the HPI. All other systems are negative. PHYSICAL EXAMINATION: General: Ms. Lawson is a well-developed, well-nourished, older white woman who is sitting in her chair with lower extremities at the floor. She is eating breakfast. She occasionally moans in pain and appears to be mildly uncomfortable. She appears to be in no acute distress. HEENT: Left eye, PERRL. Right eye, dilated, nonresponsive to light - this is chronic, surgical change. Extraocular movements intact bilaterally. Sclera is nonicteric. The patient has a left periorbital ecchymosis that trails down the cheek and settles into the mandible. Hearing grossly intact. Oral mucous membranes are moist. There are no lesions. The pharynx is clear. The tongue is at midline. Cardiovascular: Regular rate and rhythm with S1, S2 present without murmurs, rubs, clicks, or gallops. There is no JVD. There is 2+ pitting edema bilaterally to the lower extremities. Pulmonary: Symmetrical chest expansion with painful deep breathing. No use of accessory muscles. Lungs clear to auscultation bilaterally without rhonchi, wheezes, or rubs. No digital clubbing or cyanosis. Abdomen: Flat. Bowel sounds in all quadrants. Soft, nontender to palpation. Musculoskeletal: The patient is able to move all of her extremities. Neuro: The patient is awake. She is alert and oriented x3. Extraocular movements intact. Left eye PERRL, right eye legally blind. Otherwise, cranial nerves grossly intact. 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 Vital signs: Temperature 98.1 oral, heart rate 97, respiratory rate 18, oxygen saturation 100 % on room air, blood pressure 122/60. Ms. Lawson is stable for discharge to [facility]. CONDITION: Improved. DIET: Resume home diet. ACTIVITY: Use walker at all times. MEDICATIONS: 1. Continue pain management. 2. Metoprolol has been discontinued as it is likely contributing to orthostatic hypotension. Blood pressure has been well controlled throughout stay. Please monitor blood pressure for need for additional antihypertensives. 3. Start magnesium supplementation daily. EDUCATION: 1. Recheck magnesium, BMP in 5 to 7 days to ensure that electrolytes are within range with supplementation. 2. If you develop changes to vision, you must contact Dr. Meza's office or return to the emergency department. 3. For facial injuries, you may follow up with facial specialist in [place] at [phone]. 4. Follow up with primary care provider in 4 to 7 days of discharge from [facility]. 5. Follow up with Dr. Villarreal as scheduled. 6. Return to the ER or nearest hospital if you experience any changes or worsening of symptoms, changes in vision, chest pain or discomfort, shortness of breath, dizziness, lightheadedness, loss of consciousness, high fevers, chills, night sweats, or any other worrisome signs or symptoms. This is a summarized report of a complex medical history and hospital stay. For further details, please see the entire medical record. TIME SPENT: Approximately 40 minutes was spent on this discharge, greater than half that time was spent [id number] with the patient discussing discharge plans and instructions. MAN BARBOSA [id number]/[facility] #: [id number] MTDD
[2019-06-04 11:51] VITALS: BP 115/55
[2019-06-04] MEDS: oxyCODONE/Acetamin 5/325 MG* TAB PO PRN (12:55)
[2019-06-04] MEDS: Ondansetron ODT TAB* 4 MG PO PRN (13:49)
== END 2019-06-04 15:15 | DRG 125 ==
LOC: ED 04:00 → MED 15:30 → OBSVTOIN 05-31 11:00
PROVIDERS: ADMIT Internal Medicine; ATTEND Internal Medicine
DX: S02.32XA Fracture of orbital floor, left side, initial encounter for closed fracture (principal); N17.9 Acute kidney failure, unspecified; S22.32XA Fracture of one rib, left side, initial encounter for closed fracture; S02.842A Fracture of lateral orbital wall, left side, initial encounter for closed fracture; S02.2XXA Fracture of nasal bones, initial encounter for closed fracture; W18.30XA Fall on same level, unspecified, initial encounter; I95.1 Orthostatic hypotension; E87.6 Hypokalemia; E03.9 Hypothyroidism, unspecified; K21.9 Gastro-esophageal reflux disease without esophagitis; M54.5 Low back pain; I49.1 Atrial premature depolarization; H54.40 Blindness, one eye, unspecified eye; E83.42 Hypomagnesemia; F32.9 Major depressive disorder, single episode, unspecified; F41.9 Anxiety disorder, unspecified; M85.88 Other specified disorders of bone density and structure, other site; M50.30 Other cervical disc degeneration, unspecified cervical region; M51.34 Other intervertebral disc degeneration, thoracic region; M47.9 Spondylosis, unspecified; M48.061 Spinal stenosis, lumbar region without neurogenic claudication; E86.0 Dehydration; Y92.9 Unspecified place or not applicable; Z86.718 Personal history of other venous thrombosis and embolism; Z86.19 Personal history of other infectious and parasitic diseases; Z96.653 Presence of artificial knee joint, bilateral; Z96.611 Presence of right artificial shoulder joint; Z98.84 Bariatric surgery status; Z79.891 Long term (current) use of opiate analgesic; Z79.899 Other long term (current) drug therapy; Z88.6 Allergy status to analgesic agent; Z88.1 Allergy status to other antibiotic agents; Z91.09 Other allergy status, other than to drugs and biological substances; Z82.49 Family history of ischemic heart disease and other diseases of the circulatory system; Z83.3 Family history of diabetes mellitus; Z80.52 Family history of malignant neoplasm of bladder; Z80.0 Family history of malignant neoplasm of digestive organs; Z87.891 Personal history of nicotine dependence; R26.81 Unsteadiness on feet
CPT/HCPCS: 36415; 70450; 70486; 71045; 72125; 72128; 72131; 80048; 80053; 80320; 81003; 81015; 83735; 85025; 85060; 87086; 93970; 99285; A9270-GY; G0378; G0480; G8978-GP-CJ; G8979-GP-CI; J1644; J2270; J3475; J3480

== ENCOUNTER 2019-06-09 07:50 | Inpatient (IN) | payer MEDICARE ==
[2019-06-09] MEDS ORDERED: NS 0.9% 1000 ML** 1,000 ML IV ONE ×2 (08:20→11:20)
--- NOTE | 2019-06-09 08:21 | ED ---
Upper Extremity Pain - HPI Summary HPI Summary: This patient is a 74 year old F brought to [facility] by EMS with a chief complaint of left arm pain and bleeding due to fall trying to get up out of bed since 0700 today 06/09/19, per triage. Denies CP or syncope, just felt weak when getting up. Pt reports left rib pain from prior rib fractures. Patient denies hitting head and legs, denies LOC. Patient had recent admit for fall 2/2 orthostatic hypotension c/b orbital blow out fr of L face, rib fractures. Not taking blood thinners. Hx hypothyroidism. - History of Current Complaint Chief Complaint: EDFall Stated Complaint: FALL PER EMS Time Seen by Provider: 06/09/19 07:54 Hx Obtained From: Patient Mechanism Of Injury: Fall From Height Of: Onset/Duration: Started Hours Ago Timing: Constant Pain Location: Arm, Forearm Aggravating Factor(s): Nothing Alleviating Factor(s): Nothing Associated Signs & Symptoms: Positive: Other - left rib pain; denies leg or head pain - Allergies/Home Medications Allergies/Adverse Reactions: Allergies Allergy/AdvReac Type Severity Reaction Status Date / Time promethazine Allergy Hives Verified 10/29/18 23:52 tramadol [From Ultram] Allergy Unknown Verified 10/29/18 23:52 Reaction Details acetaminophen AdvReac does not Verified 10/29/18 23:52 like to take 2nd HX liver disease ibuprofen AdvReac GI Upset Verified 10/29/18 23:52 NSAIDS (Non-Steroidal AdvReac GI Upset Verified 10/29/18 23:52 Anti-Inflamma rifaximin [From Xifaxan] AdvReac Unknown Verified 05/30/19 17:15 Reaction Details PMH/Surg Hx/FS Hx/Imm Hx Endocrine/Hematology History: Reports: Hx Thyroid Disease, Other Endocrine/ Hematological Disorders - hepatitis c, h/o bleeding issue w/ elevated INR in the past Denies: Hx Anticoagulant Therapy, Hx Diabetes Cardiovascular History: Reports: Hx Deep Vein Thrombosis Denies: Hx Congestive Heart Failure, Hx Hypertension, Hx Pacemaker/ICD Comment Only: Other Cardiovascular Problems/Disorders - PACS Respiratory History: Reports: Other Respiratory Problems/Disorders - r lung mass removal-benign Denies: Hx Asthma, Hx Chronic Obstructive Pulmonary Disease (COPD) GI History: Reports: Hx Gastroesophageal Reflux Disease, Hx Ulcer, Other GI Disorders - DIARRHEA X 1 WEEK, PERIUMBILICAL ABD PAIN History: Denies: Hx Renal Disease Musculoskeletal History: Reports: Hx Arthritis, Hx Back Problems, Hx Osteoporosis, Other Musculoskeletal History - bilat carpal tunnel surg, bernardo knee replacement. 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 JONATHAN EN Y GASTRIC BYPASS (1999);. X2;. R LUNG MASS REMOVED;. BILATERAL KNEE REPLACEMENT;. BILATERAL CARPAL TUNNEL,. BILATERAL ROTATOR CUFF SURGERY,. BILATERAL CATARACTS REMOVED;. RT EYE MUSCLE SURGERY X3 A CHILD;. RT LUMPECTOMY 1979; . LT LUMPECTOMY 2013;. TONSILECTOMY - Immunization History Date of Tetanus Vaccine: utd Date of Influenza Vaccine: fall 2017 Infectious Disease History: No Infectious Disease History: Reports: Hx Hepatitis Denies: Hx Human Immunodeficiency Virus (HIV), Traveled Outside the [place] in Last 30 Days - Family History Known Family History: Positive: Cardiac Disease, Other - Brother - colon ca, son - pancreatitis, sister and mother CVA - Social History Alcohol Use: None Hx Substance Use: Yes Substance Use Type: Reports: Marijuana, Synthetic Drugs Substance Use Comment - Amount & Last Used: oxycodone, medical marijuana Hx Tobacco Use: Yes Smoking Status (MU): Former Smoker Type: Cigarettes Review of Systems Negative: Fever Positive: Other - denies head or leg pain; reports arm pain and bleeding, left rib pain All Other Systems Reviewed And Are Negative: Yes Physical Exam - Summary Physical Exam Summary: Constitutional: Elderly female NAD Skin: ecchymosis to the left chest wall, left forearm and hand. Skin tear to the left forearm HENT: Diffuse ecchymosis to L periorbital area and cheek/jaw with tenderness of the left periorbital area Eyes: R fixed pupil. Neck: Musculoskeletal ROM normal neck. (-) JVD, (-) Stridor, (-) Nuchal rigidity Cardio: Rhythm regular,Tachycardic, Heart sounds normal; Intact distal pulses; Radial pulses are 2+ and symmetric. (-) Murmur Pulmonary/Chest wall: Effort normal. (-) Respiratory distress, (-) Wheezes, (-) Rales; + tenderness to the left ribs Abd: Soft, (-) tenderness, (-) Distension, (-) Guarding, (-) Rebound Musculoskeletal: (-) Edema, Tenderness of the left wrist and forearm, no snuffbox tenderness. Lymph: (-) Cervical adenopathy Neuro: Alert, Oriented x3 Psych: Mood and affect Normal Triage Information Reviewed: Yes Vital Signs On Initial Exam: Initial Vitals Temp Pulse Resp BP Pulse Ox 97.6 F 112 20 140/92 97 06/09/19 07:52 06/09/19 07:52 06/09/19 07:52 06/09/19 07:52 06/09/19 07:52 Vital Signs Reviewed: Yes Procedures - Sedation Patient Received Moderate/Deep Sedation with Procedure: No Diagnostics - Vital Signs Vital Signs Temp Pulse Resp BP Pulse Ox 06/09/19 07:57 114 95 06/09/19 07:52 97.6 F 112 20 140/92 97 - Laboratory Result Diagrams: 06/09/19 08:10 06/09/19 08:10 Lab Statement: Any lab studies that have been ordered have been reviewed, and results considered in the medical decision making process. - CT Chest/Thorax CTA CT Interpretation Completed By: Radiologist Summary of CT Findings: Per radiologist,. SEGMENTAL BRANCH EMBOLI OF THE RIGHT LOWER LOBE PULMONARY ARTERY. PRELIMINARY FINDINGS. WERE DISCUSSED WITH DR. YANES IN THE EMERGENCY DEPARTMENT AT APPROXIMATELY 6:00 PM ON. June. ED physician has reviewed this imaging report. - EKG 0809 Cardiac Rate: NL - 115 BPM EKG Rhythm: Sinus Tachycardia Summary of EKG Findings: An EKG at 0809 reveals 115 BPM with sinus tachycardia, T-wave inversions in V1 through V3, when compared to 04/05/19 no significant change. Re-Evaluation - Re-Evaluation First Eval Re-Evaluation Time: 11:20 Comment: Pt is feeling better after medications, will administer a 2nd liter of fluids and ambulate her Second Eval Re-Evaluation Time: 11:55 Comment: Pt is consistently tachycardic so CTA chest will be done to rule out PE Third Eval Re-Evaluation Time: 13:30 Comment: CT w PE. PESI score intermediate, admit to medicine Course/Dx - Course Course Of Treatment: 74-year-old female with a history of recent fall secondary to orthostatic hypotension, hypothyroidism, right eye blindness, DVT, GI bleed who presents after fall. Patients recent admission discharged on 06/05 for similar presentation, at that point had a orbital blowout fracture. - s/p mechanical fall. No obvious new trauma. Denies hitting head. Reporting rib and L forearm pain. PE w old ecchymosis to L side chest wall, L forearm. Check plain films. VS notable for tachycardia, suspect 2/2 pain however cannot r/o dehydration, thyroid abnormalities, PE. Labs notable for neg trop, baseline Hb. Given IVF, lidocaine patch to ribs (has multiple pain med allergies). - Diagnoses Provider Diagnoses: Pulmonary embolism, Fall - Physician Notifications Discussed Care of Patient With: Terry Pierson Time Discussed With Above Provider: 13:33 Instructed by Provider To: Admit As Inpatient Discharge ED - Sign-Out/Discharge Documenting (check all that apply): Patient Departure - admit - Discharge Plan Condition: Stable Disposition: ADMITTED TO [facility] Referrals: Natan Burrell MD [Primary Care Provider] - - Billing Disposition and Condition Condition: STABLE Disposition: Admitted to [facility] - Attestation Statements Document Initiated by Yahaira: Yes Documenting Scribe: Za Hernandez Provider For Whom Yahaira is Documenting (Include Credential): Dr. Do Yanes MD Scribe Attestation: Idalia, Za Hernandez, scribed for Dr. Do Yanes MD on 06/09/19 at 1343. Scribe Documentation Reviewed: Yes Provider Attestation: The documentation as recorded by the Za jiménez accurately reflects the service I personally performed and the decisions made by me, Dr. Do Yanes MD Status of Scribe Document: Viewed
[2019-06-09 08:41] LABS: Hematocrit 40 % (35-47); Hemoglobin 13.5 g/dL (12.0-16.0); Mean Corpuscular HGB Conc 34 g/dL (31-36); Mean Corpuscular Hemoglobin 32 pg (27-31); Mean Corpuscular Volume 95 fL (80-97); Mean Platelet Volume 8.4 fL (7.4-10.4); Platelet Count 344 10^3/uL (150-450); Red Blood Count 4.25 10^6 /uL (3.70-4.87); Red Cell Distribution Width 14 % (10-15); White Blood Count 12.2 10^3/uL (3.5-10.8)
[2019-06-09 08:42] LABS: ABS Eosinophils 0.1 10^3/ul (0-0.6); ABS Lymphocytes 1.4 10^3/ul (1.0-4.8); ABS Monocytes 1.3 10^3/ul (0-0.8); ABS Neutrophils 9.5 10^3/ul (1.5-7.7); Eosinophil % 0.4 %; Lymphocyte % 11.2 %; Nucleated Red Blood Cells % 0.1
[2019-06-09 08:51] LABS: Albumin 1.9 g/dL (3.2-5.2); Albumin/Globulin Ratio 0.8 (1-3); BUN/Creatinine Ratio 19.6 (8-20); Calcium 8.8 mg/dL (8.6-10.3); EGFR African American 57.9 (>60); EGFR Non-African American 47.8 (>60); Globulin 2.4 g/dL (2-4); Potassium 3.9 mmol/L (3.5-5.0); Total Protein 4.3 g/dL (6.4-8.9)
[2019-06-09 08:54] LABS: Troponin I 0.03 ng/mL (<0.04)
[2019-06-09 09:14] LABS: Urine Appearance Cloudy; Urine Bacteria 1+ (Absent); Urine Bilirubin Negative (Negative); Urine Blood Negative (Negative); Urine Color Yellow; Urine Glucose Negative (Negative); Urine Ketones Negative (Negative); Urine Nitrite Negative (Negative); Urine Protein Negative (Negative); Urine Red Blood Cell Absent (Absent); Urine Specific Gravity 1.009 (1.010-1.030); Urine Urobilinogen Negative (Negative); Urine White Blood Cell Trace(0-5/hpf) (Absent)
--- OUTSIDE RECORDS SUMMARY | 2019-06-09 09:23 | XMS REPORT | Continuity of Care Document ---
:1945 External Reference #:[id number] Author Name Olivia Yang O.D. Address [address] [place] [address] Care Team Providers Name Role Phone Natan Burrell M.D. 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 Onset: 04/08/2016 Pseudophakia Russell Almanzar M.D. Onset: 04/08/2016 Hemorrhage of iris AND/OR ciliary body Tiffanie Osorio O.D. Onset: 11/18/2017 Enophthalmos due to trauma Tiffanie Osorio O.D. Onset: 11/18/2017 Fracture of orbital floor Onset: Social History Type Date Description Comments Sex Unknown ETOH Use Denies alcohol use Tobacco Use Start: Unknown End: Unknown Patient is a former smoker Recreational Drug Use Denies Drug Use Smoking Status Reviewed: 06/07/19 Patient is a former smoker Allergies, Adverse Reactions, Alerts Active Allergies Reaction Severity Comments Date NSAIDs 03/17/2016 Phenergan 03/17/2016 Acetaminophen 04/08/2016 Ibuprofen 04/08/2016 Ultram 04/08/2016 Medications Active Medications SIG Qnty Indications Ordering Date Provider Lorazepam Take 1 Tablet By Mouth Unknown 0.5mg Up To Twice A Day Tablets Oxycodone HCL Take 1 Tablet By Mouth Unknown 15mg 5 Times A Day as Tablets Needed For Pain Venlafaxine HCL ER Take 1 Tablet Every Unknown Day 225mg Tablets ER 24HR Quetiapine Fumarate Take 1 Tablet By Mouth Unknown Every Night AT Bedtime 300mg Tablets Metoprolol Tartrate Take 1 By Mouth Every Unknown Morning, Take 1/2 By 25mg Tablets Mouth Every Night AT Bedtim Ranitidine HCL Take 1 Tablet By Mouth Unknown 150mg Twice A Day Tablets Trazodone HCL Unknown 50mg Tablets Xarelto Midura, Natan 20mg Tablets M.D. Levothyroxine Sodium Take 1 Tablet Every Unknown Day 75mcg Tablets Klor-Con 10 Take 1 Tablet By Mouth Unknown 10Meq Every Dayfor Potassium Tablets ER Supplementation Bupropion HCL ER Take 1 Tablet By Mouth Unknown (SR) Every Morning For 150mg Tablets ER Depression 12HR Tubersol Unknown 5Unit/0.1ML Solution Theragran-M Unknown Tablets Oxybutynin Chloride Unknown 5mg Tablets Lasix Unknown 40mg Tablets Magnesium Oxide 400 Unknown 240mg Packet Immunizations Description No Information Available Vital Signs Description No Information Available Results Description No Information Available Procedures Date Code Description Status 05/10/2019 02965 Patient No Show For Appt Completed 03/15/2019 57335 Patient No Show For Appt Completed 03/08/2019 25894 Patient No Show For Appt Completed Medical Devices Description No Information Available Encounters Description No Information Available Assessments Date Code Description Provider 06/07/2019 S02.32xA Fracture of orbital floor, left side, Olivia Yang O.D. initial encounter for closed fracture 06/07/2019 H44.431 Hypotony of eye due to other ocular Olivia Yang O.D. disorders, right eye 06/07/2019 Z96.1 Presence of intraocular lens Olivia Yang O.D. Plan of Treatment 06/07/2019 - Olivia Yagn O.D.S02.32xA Fracture of orbital floor, left side, initial encounter for closed fractureFollow up:6 MOS WITH GZH44.431 Hypotony of eye due to other ocular disorders, right eyeZ96.1 Presence of intraocular lens Functional Status Description No Information Available Mental Status Description No Information Available Referrals Description No Information Available
[2019-06-09] MEDS ORDERED: oxyCODONE TAB* 5 MG TAB PO ONE ×2 (10:20→13:13)
[2019-06-09] MEDS: Lidocaine PATCH 5%* 1 PATCH TRANSDERM SCH (10:21)
[2019-06-09 11:49] LABS: T4, Total 3.86 mcg/dL (6.09-12.23)
[2019-06-09 11:53] LABS: TSH (Thyroid Stimulating Horm) 2.28 mcIU/mL (0.34-5.60)
[2019-06-09] MEDS ORDERED: Iodixanol* (CONTRAST) 320 MG/ML 100 ML SDV IV ONE (12:05)
[2019-06-09] MEDS ORDERED: LORazepam TAB(*) 0.5 MG PO PRN (15:05)
[2019-06-09] MEDS ORDERED: Zosyn per Pharmacy* NOTE FOLLOW UP SCH (18:00)
[2019-06-09] MEDS ORDERED: Piperacillin/Tazobac ADVAN(*) 3.375 GM in NS 0.9% 100 ML* 100 ML IVPB ONE (19:30)
[2019-06-09] MEDS: oxyCODONE TAB* 5 MG TAB PO PRN (19:53)
--- NOTE | 2019-06-09 20:34 | HP ---
HISTORY AND PHYSICAL: DATE OF ADMISSION: 06/09/19 ATTENDING PHYSICIAN: Dr. Terry Pierson * (dictated by MAN Barry). CHIEF COMPLAINT: 1. Fall. 2. Confusion. HISTORY OF PRESENT ILLNESS: Ms. Lawson is a 74-year-old female with a past medical history of left orbital floor fracture and left rib fracture diagnosed on 05/30/19 with inpatient stay from 05/30/19 to 06/04/19 after which she was discharged to [facility]. Past medical history includes bilateral lower extremity edema, treated hepatitis C virus, history of DVT, not on anticoagulation due to history of GI bleed. The patient presents today with confusion status post fall. She is intermittently confused. She complains of pain throughout the body including left shoulder bilateral knees, bilateral hips , head and back. She complains of bilateral eye pain. She is unable to tell me whether she has hit her head or injured her neck during her fall, although she has a left posterior lateral head injury resulting in a small amount of bleeding. She also complains of right shoulder pain. Her daughter came to visit her while she was in the ER and notes that she has been more confused recently. While in the emergency department, the patient received a full workup, which included blood work revealing leukocytosis and elevated creatinine. A CTA of the chest was ordered and it showed right lower lobe pulmonary artery pulmonary embolism. She was noted to be tachycardic while in the ER, left forearm and left wrist x-rays reveal osteopenia, osteoarthritis, and are negative for acute injury. Chest x-ray shows no cardiopulmonary disease. The patient was given 2 L normal saline, oxycodone, transdermal lidocaine patch. The hospitalist team was asked to evaluate the patient for admission. PAST MEDICAL HISTORY: 1. Left orbital floor fracture. The patient follows with Dr. Meza. 2. Hepatitis C virus treated. 3. History of DVT. The patient is not on anticoagulation due to GI bleed although not noted in chart review. 4. Bilateral lower extremity edema. 5. GERD. 6. PACs. 7. Right eye blind. 8. Depression/anxiety. 9. Hypothyroidism. PAST SURGICAL HISTORY: 1. Bilateral knee. 2. Right shoulder. 3. Right eye. 4. Bilateral carpal tunnel. 5. Cholecystectomy. 6. . 7. Bilateral cataract removal. 8. Gastric bypass. 9. Lumpectomy. 10. Left and right tonsillectomy. 11. Right lung mass resection. HOME MEDICATIONS: 1. Furosemide 40 mg p.o. daily. 2. Levothyroxine 100 mcg p.o. daily. 3. Lorazepam 0.5 mg p.o. b.i.d. p.r.n. anxiety. 4. Magnesium oxide 400 mg p.o. daily. 5. Multivitamin/minerals 1 tab p.o. daily. 6. Omeprazole 20 mg p.o. daily. 7. Oxybutynin 5 mg p.o. t.i.d. 8. Oxycodone 15 mg p.o. q.8 hours p.r.n. 9. Oxycodone/acetaminophen 5/325 two tabs p.o. q.4 hours p.r.n. pain, MDD 12. 10. Potassium chloride 10 mEq p.o. b.i.d. 11. Quetiapine 200 mg p.o. at bedtime. 12. Ranitidine 150 mg p.o. b.i.d. 13. Trazodone 50 to 100 mg p.o. at bedtime. 14. Venlafaxine ER 300 mg p.o. daily. DRUG ALLERGIES: PROMETHAZINE, TRAMADOL, ACETAMINOPHEN, IBUPROFEN, NSAIDS, RIFAXIMIN. FAMILY HISTORY: Obtained from chart as the patient is unable to give details. Grandmother, NH; brother, diabetes; brother, colon cancer; father, bladder cancer; mother, PACs. SOCIAL HISTORY: The patient denies current or former use of tobacco although chart notes that she quit smoking approximately 20 years ago and had a 30-pack year history prior to that. She denies the use of alcohol or illicit drugs. She lives alone and has 2 children. 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 In the event that she is unable to make her own medical decisions, she has appointed her son Payal Lawson to be her surrogate decision maker as well as her daughter Peña, phone number [phone]. REVIEW OF SYSTEMS: A 14-point review of systems has been performed and all the pertinent positives and negatives are in the HPI. All other systems are negative. PHYSICAL EXAMINATION GENERAL: Ms. Lawson is a well-developed, well-nourished, average weight older white woman, who is sitting in bed. She appears to be fairly uncomfortable. She is yelling out in pain frequently. She is intermittently confused. HEENT: Right eye with periorbital ecchymosis and left facial ecchymosis. PERRL , right eye. Left eye with chronic surgical changes nonresponsive to light and blind. EOMI. Nonicteric sclerae. Hearing is grossly intact. Oral: Mucous membranes are moist. There are no lesions. The pharynx is clear. The tongue is at midline. The patient has an area of blood in the left posterior lateral head. Otherwise, normocephalic. Vital Signs: Temperature 97.6 temporal, heart rate 113, respiratory rate 13, oxygen saturation 98% on room air, blood pressure 142/72. NECK: Full range of motion. RESPIRATORY: Symmetrical chest expansion without the use of accessory muscles. Clear to auscultation bilaterally without rhonchi, wheezes or rubs. CARDIOVASCULAR: Sinus tachycardia with S1, S2 present without murmurs, rubs, clicks, or gallops. There is no JVD. ABDOMEN: Flat. Bowel sounds in all quadrants. Soft, nontender to palpation. MUSCULOSKELETAL: The patient has painful ROM throughout bilateral upper and lower extremities. Right and left shoulders tender to palpation. The right arm has areas of ecchymosis around the forearm and wrist. The right proximal humerus area has a palpable mass in the bilateral lower extremities, painful, tender to palpation at a proportion to exam. The patient has 2+ pitting edema bilaterally. NEURO: The patient is awake. She is oriented x2, but is unable to tell me the date. The right eye has chronic postsurgical changes and blindness and the pupil is fixed. Otherwise, cranial nerves grossly intact. DIAGNOSTIC STUDIES/LAB DATA: White blood cell count 12.2. Creatinine 1.12, glucose 63. Alk phos 147. Total protein 4.3, albumin 1.9. TSH 3.28, T4 3.86. Chest x-ray no active cardiopulmonary disease. Left forearm osteopenia, osteoarthritis. No acute osseous injury. Left wrist osteopenia, osteoarthritis. No acute osseous injury. CTA of the chest: Segmental branch emboli of the right lower lobe pulmonary artery. Pelvis x-ray: Osteopenia. No acute osseous injury. Bilateral shoulder osteopenia, probable nondisplaced fracture of the lateral third of the left clavicle. Left third rib fracture status post right glenohumeral arthroplasty, otherwise no acute osseous injury. ASSESSMENT AND PLAN: Ms. Lawson is a 74-year-old female with a past medical history of left orbital fracture, history of deep vein thrombosis, bilateral lower extremity edema, anxiety and depression, who presented to ER status post fall with confusion. She was found to have tachycardia. CTA revealed pulmonary embolism. The patient will be admitted for: 1. Sepsis. The patient meets sepsis criteria with leukocytosis and tachycardia. Her tachycardia may be the result of a pulmonary embolism, but this is not certain. A chest x-ray reveals no acute pathology. Urinalysis and blood cultures have been ordered and are pending. The patient will be started on broad spectrum antibiotics after blood cultures have been drawn. 2. Altered mental status, fall. The patient had a recent fall resulting in head injury as evidenced by a laceration to the left posterior lateral head. Head and neck CT are pending. The head CT will be performed after a washout period. After a CTA with contrast PT and OT have been ordered. 3. Pulmonary embolism. The patient presents with tachycardia. She is noted to have a right lower lobe pulmonary embolism. After CT of the head we will start the patient on anticoagulation. Upon chart review, the patient is noted to have a past medical history of GI bleed on anticoagulation although there is no documentation of this except for in the past medical history. She also has a history of multiple DVTs. For this, I will order a hypercoagulable workup and again I will start her on anticoagulation pending results of CT of the head. 4. Left orbital floor fracture. The patient recently saw Dr. Meza for this. Discussion had with Dr. Meza and he states that anticoagulation is okay. He recommends avoiding Valsalva maneuver for approximately 5 days while on anticoagulation to ensure that fracture is stable and there is no bleeding. 5. Acute kidney injury. The patient has a mild LOVE. I suspect that this is due to dehydration. She has been given 2 L of IV fluids. We will recheck BMP in the morning. 6. Hypothyroidism. Continue levothyroxine. 7. Gastroesophageal reflux disease. Continue omeprazole and ranitidine. 8. Depression and anxiety. Continue lorazepam, venlafaxine, Quetiapine. 9. DVT prophylaxis: According to DVT Risk Assessment, the patient scores 3, placing her at high risk. She will be started on a NOAC pending results of CT of head. 10. Code status: Full code. TIME SPENT: Approximately 60 minutes were spent on this admission greater than half that time was spent face to face with the patient and her daughter obtaining history and performing physical and reviewing the plan of care. The case has been reviewed with my attending Dr. Pierson who is in agreement with the plan of care. MAN BARBOSA [id number]/CPS #: [id number] TARAN
[2019-06-09] MEDS ORDERED: Oxybutynin TAB* 5 MG PO PRN (22:30)
[2019-06-09] MEDS: Lidocaine Patch REMOVE* 1 NOTE MISC SCH (22:40)
[2019-06-09] MEDS: QUEtiapine TAB* 100 MG PO SCH (22:40)
[2019-06-09] MEDS: Apixaban* 5 MG TAB PO SCH (22:41)
[2019-06-09] MEDS: traZODone TAB* 50 MG TAB PO PRN (22:41)
[2019-06-09] MEDS: oxyCODONE/Acetamin 5/325 MG* TAB PO PRN (23:04)
[2019-06-09] MEDS: ZOSYN 3.375 GM Q8H per EXTENDED INFUSION IVPB SCH ×2 (23:28)
[2019-06-10 05:44] LABS: Hematocrit 41 % (35-47); Hemoglobin 13.5 g/dL (12.0-16.0); Mean Corpuscular HGB Conc 33 g/dL (31-36); Mean Corpuscular Hemoglobin 32 pg (27-31); Mean Corpuscular Volume 96 fL (80-97); Mean Platelet Volume 7.8 fL (7.4-10.4); Platelet Count 275 10^3/uL (150-450); Red Blood Count 4.24 10^6 /uL (3.70-4.87); Red Cell Distribution Width 15 % (10-15); White Blood Count 9.2 10^3/uL (3.5-10.8)
[2019-06-10] MEDS ORDERED: Levothyroxine TAB* 50 MCG TAB PO SCH (06:00)
[2019-06-10 06:15] LABS: BUN/Creatinine Ratio 21.1 (8-20); Calcium 8.2 mg/dL (8.6-10.3); EGFR African American 74.5 (>60); EGFR Non-African American 61.5 (>60); Potassium 3.8 mmol/L (3.5-5.0)
[2019-06-10 06:34] LABS: ABS Eosinophils 0.1 10^3/ul (0-0.6); ABS Lymphocytes 1.8 10^3/ul (1.0-4.8); ABS Monocytes 1.3 10^3/ul (0-0.8); ABS Neutrophils 6.1 10^3/ul (1.5-7.7); Eosinophil % 1.1 %; Lymphocyte % 19.5 %; Nucleated Red Blood Cells % 0.2
[2019-06-10] MEDS: ZOSYN 3.375 GM Q8H per EXTENDED INFUSION IVPB SCH ×2 (08:20)
[2019-06-10] MEDS: Apixaban* 5 MG TAB PO SCH ×2 (08:30→20:35)
[2019-06-10] MEDS: Pantoprazole TAB * 40 MG TAB PO SCH (08:31)
[2019-06-10] MEDS: Furosemide TAB* 40 MG PO SCH (08:31)
[2019-06-10] MEDS: Magnesium Oxide TAB* 400 MG PO SCH (08:32)
[2019-06-10] MEDS: Famotidine TAB* 20 MG PO SCH (08:33)
[2019-06-10] MEDS: Multivitamins/Minerals TAB PO SCH (08:33)
[2019-06-10] MEDS: Venlafaxine EXT RELEASE CAP* 75 MG PO SCH (08:33)
[2019-06-10] MEDS: Lidocaine PATCH 5%* 1 PATCH TRANSDERM SCH (08:39)
[2019-06-10] MEDS: oxyCODONE TAB* 5 MG TAB PO PRN (08:43)
--- NOTE | 2019-06-10 10:31 | PN ---
Subjective Date of Service: 06/10/19 Interval History: Ms. Lawson states she is doing "ok" today. She continues to have pain all over, including b/l LE. She is still somewhat confused. On chart review, there is mention of GI bleeding due to AC. She was noted to have had an elevated INR of >7 06/2015, as well as hematoma around sciatic nerve , which prompted d/c of warfarin. Unsure if there was a h/o GIB, but none found on chart review. Objective Active Medications: Apixaban (Eliquis*) 10 mg PO BID [facility] Stop: 06/16/19 21:59 Last Admin: 06/10/19 08:30 Dose: 10 mg Apixaban (Eliquis*) 5 mg PO BID [facility] Famotidine (Pepcid Tab*) 20 mg PO DAILY [facility]; Protocol Last Admin: 06/10/19 08:33 Dose: 20 mg Furosemide (Lasix Tab*) 40 mg PO QAM [facility] Last Admin: 06/10/19 08:31 Dose: 40 mg Piperacillin Sod/Tazobactam (Sod 3.375 gm/ Sodium Chloride) 100 mls @ 25 mls/ hr IVPB Q8H [facility] Last Admin: 06/10/19 08:20 Dose: 25 mls/hr Levothyroxine Sodium (Synthroid Tab*) 100 mcg PO DAILY@0600 [facility] Last Admin: 06/10/19 06:49 Dose: 100 mcg Lidocaine (Lidoderm 5% Patch*) 1 patch TRANSDERM DAILY [facility] Last Admin: 06/10/19 08:39 Dose: 1 patch Lorazepam (Ativan Tab(*)) 0.5 mg PO BID PRN PRN Reason: ANXIETY Magnesium Oxide (Magox 400 Tab*) 400 mg PO DAILY [facility] Last Admin: 06/10/19 08:32 Dose: 400 mg Multivitamins/Minerals (Theragran/Minerals Tab*) 1 tab PO DAILY [facility] Last Admin: 06/10/19 08:33 Dose: 1 tab Oxybutynin Chloride (Ditropan Tab*) 5 mg PO TID PRN PRN Reason: OVERACTIVE BLADDER Last Admin: 06/09/19 23:06 Dose: 5 mg Oxycodone HCl (Roxycodone Tab*) 15 mg PO Q8HR PRN PRN Reason: PAIN - MODERATE Last Admin: 06/10/19 08:43 Dose: 15 mg Oxycodone/Acetaminophen (Percocet 5/325 Tab*) 2 tab PO Q4H PRN PRN Reason: PAIN - SEVERE Last Admin: 06/09/19 23:04 Dose: 2 tab Pantoprazole Sodium (Protonix Tab*) 40 mg PO DAILY [facility] Last Admin: 06/10/19 08:31 Dose: 40 mg Pharmacy Consult (Zosyn Per Pharmacy*) 1 note FOLLOW UP .ZOSYN PER PHARMACY [facility] Pharmacy Profile Note (Lidocaine Patch Remove*) 1 note N/A 2100 [facility] Last Admin: 06/09/19 22:40 Dose: 1 note Quetiapine Fumarate (Seroquel Tab*) 200 mg PO BEDTIME [facility] Last Admin: 06/09/19 22:40 Dose: 200 mg Trazodone HCl (Desyrel Tab*) 50 mg PO BEDTIME PRN PRN Reason: SLEEP Last Admin: 06/09/19 22:41 Dose: 50 mg Venlafaxine HCl (Effexor Xr Cap*) 300 mg PO DAILY [facility] Last Admin: 06/10/19 08:33 Dose: 300 mg Vital Signs: Temp Pulse Resp BP Pulse Ox 98.7 F 118 20 98/80 100 06/10/19 16:27 06/10/19 16:27 06/10/19 16:27 06/10/19 16:27 06/10/19 16:27 Oxygen Devices in Use Now: None Appearance: Ms. Lawson is an older white female who is sitting up in bed. She appears comfortable, in no acute distress. Confused at times. Eyes: No Scleral Icterus, - - L eye periorbital ecchymosis; EOMI Ears/Nose/Mouth/Throat: NL Teeth, Lips, Gums, Clear Oropharnyx, Mucous Membranes Moist Neck: NL Appearance and Movements; NL JVP, Trachea Midline Respiratory: Symmetrical Chest Expansion and Respiratory Effort, Clear to Auscultation Cardiovascular: NL Sounds; No Murmurs; No JVD, RRR, - - b/l LE edema 2+ pitting Abdominal: NL Sounds; No Tenderness; No Distention, No Hepatosplenomegaly Extremities: No Clubbing, Cyanosis, - - b/l LE edema 2+ pitting with tenderness to palpation b/l Neurological: - - Alert. Oriented to person, place. Result Diagrams: 06/11/19 06:27 06/12/19 05:28 Microbiology and Other Data: Microbiology 06/09/19 08:55 Urine Culture - Final Urine 06/09/19 22:25 Nasal Screen MRSA (PCR) - Final Nasal Mrsa Not Detected Assess/Plan/Problems-Billing Assessment: 74yof PMHx L orbital fx, h/o DVT, GERD, R eye blindness who presents with AMS, fall, found to meet sepsis criteria with tachycardia, leukocytosis, possibly related to UTI. - Patient Problems (1) Sepsis Comment: -pt presents with leukocytosis, tachycardia -tachycardia could be related to PE -suspect urinary source with trace LE, + bacteria; awaiting culture results -BC NGTD -transition from zosyn to ceftriaxone (2) Pulmonary embolism Comment: -PE noted on CTA -h/o DVT, unprovoked -chart review reports h/o GIB, but no documentation found -does have h/o hematoma while on coumadin however INR was supratherapeutic at that time; coumadin d/c at that admission 06/2015 -continue eliquis (3) Altered mental status Comment: -patient with altered mental status -CT head without acute abnormality -appears to be acute on chronic. Discussed with patient's daughter. She has had ongoing memory issues for last 2 years. Recommend further outpatient f/u. -possibly related to polypharmacy. Reduce percocet to 5 and lorazepam discontinued (4) Fall Comment: -recurrent mechanical falls; recent hospitalization for fall resulting in L orbit fracture and rib fracture with d/c to [facility] 06/04 -CT brain negative and CT spine negative for fracture -continue PT/OT -possibly polypharmacy as patient has chronic opiates and prn ativan (5) Acute kidney injury Comment: -likely prerenal related to dehydration -resolved with IVF (6) Orbit fracture, left Comment: -ophthalmology appt 06/05/2019 -Dr. Meza consulted and recommends avoid Valsalva for first 5d of AC -pt may follow up with [facility] facial specialist for further management (7) Hypothyroidism Comment: -TSH WNL therefore home synthroid is acceptable dose -home synthroid 100mcg (8) GERD (gastroesophageal reflux disease) Comment: -PPI (9) Depression with anxiety Comment: -continue home venlafaxine, quetiapine (10) DVT prophylaxis Comment: -currently on apixaban for PE (11) Full code status
[2019-06-10] MEDS: oxyCODONE/Acetamin 5/325 MG* TAB PO PRN (11:37)
[2019-06-10] MEDS ORDERED: cefTRIAXone(*) 1 GM in NS 0.9% 50 ML* 50 ML IVPB SCH (15:00)
[2019-06-10] MEDS ORDERED: NS 0.9% 1000 ML** 1,000 ML IV ONE (16:30)
[2019-06-10] MEDS ORDERED: oxyCODONE/Acetamin 5/325 MG* TAB PO PRN (17:01)
[2019-06-10 17:41] LABS: Free T4 1.48 ng/dL (0.61-1.12)
[2019-06-10] MEDS: QUEtiapine TAB* 100 MG PO SCH (20:35)
[2019-06-10] MEDS: Lidocaine Patch REMOVE* 1 NOTE MISC SCH (20:36)
[2019-06-10] MEDS: traZODone TAB* 50 MG TAB PO PRN (21:14)
[2019-06-11] MEDS ORDERED: Levothyroxine TAB* 88 MCG TAB PO SCH (06:00)
[2019-06-11 07:00] LABS: ABS Lymphocytes 1.4 10^3/ul (1.0-4.8); Eosinophil % 0.2 %; Hematocrit 36 % (35-47); Hemoglobin 12.1 g/dL (12.0-16.0); Mean Corpuscular HGB Conc 33 g/dL (31-36); Mean Corpuscular Hemoglobin 32 pg (27-31); Mean Corpuscular Volume 95 fL (80-97); Mean Platelet Volume 8.3 fL (7.4-10.4); Nucleated Red Blood Cells % 0.4; Platelet Count 251 10^3/uL (150-450); Red Blood Count 3.81 10^6 /uL (3.70-4.87); Red Cell Distribution Width 15 % (10-15); White Blood Count 11.4 10^3/uL (3.5-10.8)
[2019-06-11 07:14] LABS: BUN/Creatinine Ratio 18.5 (8-20); Calcium 7.9 mg/dL (8.6-10.3); EGFR African American 60.3 (>60); EGFR Non-African American 49.9 (>60)
[2019-06-11] MEDS: Famotidine TAB* 20 MG PO SCH (09:58)
[2019-06-11] MEDS: Venlafaxine EXT RELEASE CAP* 75 MG PO SCH (09:58)
[2019-06-11] MEDS: Apixaban* 5 MG TAB PO SCH ×2 (09:59→20:54)
[2019-06-11] MEDS: Pantoprazole TAB * 40 MG TAB PO SCH (09:59)
[2019-06-11] MEDS: Magnesium Oxide TAB* 400 MG PO SCH (09:59)
[2019-06-11] MEDS: Furosemide TAB* 40 MG PO SCH (09:59)
[2019-06-11] MEDS: Multivitamins/Minerals TAB PO SCH (10:00)
[2019-06-11] MEDS: KCL 20 MEQ/100 ML IVPREMIX* 20 MEQ/100 ML BAG IV SCH ×3 (10:06→15:11)
[2019-06-11] MEDS: Lidocaine PATCH 5%* 1 PATCH TRANSDERM SCH (10:07)
--- NOTE | 2019-06-11 15:11 | PN ---
Subjective Date of Service: 06/11/19 Interval History: Patient weeping at times, telling me she is worried her daughter doesn't know where she is and is worried about her cat. Otherwise patient has no complaints. She denies SOB, chest pain including with inspiration, fever/chills, abd pain, sensation of racing heart. Called daughter. Daughter reiterates that she was in ED at time of admission and therefore knows her mother is in the hospital. Tells me she has had ongoing memory issues for 2 years, but has seemed worse for the last few weeks. She has told her mom to talk to her doctor about it, but reportedly whenever daughter asks patient if this has happened she cannot remember. Objective Active Medications: Apixaban (Eliquis*) 10 mg PO BID [facility] Stop: 06/16/19 21:59 Last Admin: 06/11/19 09:59 Dose: 10 mg Famotidine (Pepcid Tab*) 20 mg PO DAILY [facility]; Protocol Last Admin: 06/11/19 09:58 Dose: 20 mg Furosemide (Lasix Tab*) 40 mg PO QAM [facility] Last Admin: 06/11/19 09:59 Dose: 40 mg Potassium Chloride (Potassium Chloride 20 Meq/100 Ml Ivpremix*) 20 meq in 100 mls @ 50 mls/hr IV Q2H [facility] Stop: 06/11/19 15:59 Last Admin: 06/11/19 12:57 Dose: 50 mls/hr Lactulose (Lactulose*) 30 ml PO TID [facility] Last Admin: 06/11/19 13:12 Dose: 30 ml Levothyroxine Sodium (Synthroid Tab*) 100 mcg PO DAILY@0600 [facility] Lidocaine (Lidoderm 5% Patch*) 1 patch TRANSDERM DAILY [facility] Last Admin: 06/11/19 10:07 Dose: 1 patch Magnesium Oxide (Magox 400 Tab*) 400 mg PO DAILY [facility] Last Admin: 06/11/19 09:59 Dose: 400 mg Multivitamins/Minerals (Theragran/Minerals Tab*) 1 tab PO DAILY [facility] Last Admin: 06/11/19 10:00 Dose: 1 tab Oxybutynin Chloride (Ditropan Tab*) 5 mg PO TID PRN PRN Reason: OVERACTIVE BLADDER Last Admin: 06/09/19 23:06 Dose: 5 mg Oxycodone HCl (Roxycodone Tab*) 15 mg PO Q8HR PRN PRN Reason: PAIN - MODERATE Last Admin: 06/10/19 08:43 Dose: 15 mg Oxycodone/Acetaminophen (Percocet 5/325 Tab*) 1 tab PO Q4H PRN PRN Reason: PAIN - SEVERE Last Admin: 06/10/19 21:15 Dose: 1 tab Pantoprazole Sodium (Protonix Tab*) 40 mg PO DAILY [facility] Last Admin: 06/11/19 09:59 Dose: 40 mg Pharmacy Profile Note (Lidocaine Patch Remove*) 1 note N/A 2100 [facility] Last Admin: 06/10/19 20:36 Dose: 1 note Quetiapine Fumarate (Seroquel Tab*) 200 mg PO BEDTIME [facility] Last Admin: 06/10/19 20:35 Dose: 200 mg Trazodone HCl (Desyrel Tab*) 50 mg PO BEDTIME PRN PRN Reason: SLEEP Last Admin: 06/10/19 21:14 Dose: 50 mg Venlafaxine HCl (Effexor Xr Cap*) 300 mg PO DAILY [facility] Last Admin: 06/11/19 09:58 Dose: 300 mg Vital Signs - 8 hr 06/11/19 06/11/19 08:00 11:48 Temperature 97.8 F 97.5 F Pulse Rate 110 103 Respiratory 18 20 Rate Blood Pressure 128/65 91/49 (mmHg) O2 Sat by Pulse 96 99 Oximetry Oxygen Devices in Use Now: None Appearance: elderly white female, laying upright in hospital bed appearing comfortable and crying at times Eyes: No Scleral Icterus, - - right pupil >>> left pupil which is consistent with postoperative changes; ecchymosis to left aspect of face Ears/Nose/Mouth/Throat: Mucous Membranes Moist Neck: Trachea Midline Respiratory: Symmetrical Chest Expansion and Respiratory Effort, Clear to Auscultation Cardiovascular: NL Sounds; No Murmurs; No JVD, RRR Abdominal: - - abd soft, nontender, nondistended Extremities: No Clubbing, Cyanosis, - - +1 pitting edema to bilateral LEs pretibially Skin: No Rash or Ulcers Neurological: Alert and Oriented x 3, NL Muscle Strength and Tone, - - no asterixis Result Diagrams: 06/11/19 06:27 06/11/19 06:29 Microbiology and Other Data: Microbiology 06/09/19 08:55 Urine Culture - Final Urine 06/09/19 22:25 Nasal Screen MRSA (PCR) - Final Nasal Mrsa Not Detected Assess/Plan/Problems-Billing Assessment: 74yof PMHx L orbital fx, h/o DVT, GERD, R eye blindness who presents from [facility] where she has been for [facility] due to fall and AMS, found to have a PE. - Patient Problems (1) Pulmonary embolism Current Visit: Yes Status: Acute Code(s): I26.99 - OTHER PULMONARY EMBOLISM WITHOUT ACUTE COR PULMONALE SNOMED Code(s): 26139470 Comment: -PE noted on CTA -h/o DVT, unprovoked -chart review reports h/o GIB, but no documentation found -does have h/o hematoma while on coumadin however INR was supratherapeutic at that time; coumadin d/c at that admission 06/2015 -continue eliquis (2) Altered mental status Current Visit: Yes Status: Acute Code(s): R41.82 - ALTERED MENTAL STATUS, UNSPECIFIED SNOMED Code(s): 149057408 Comment: -patient with altered mental status -CT head without acute abnormality -appears to be acute on chronic. Discussed with patient's daughter. She has had ongoing memory issues for last 2 years. Recommend further outpatient f/u. -possibly related to polypharmacy. Reduce percocet to 5 and lorazepam discontinued (3) Hyperammonemia Current Visit: Yes Status: Acute Code(s): E72.20 - DISORDER OF UREA CYCLE METABOLISM, UNSPECIFIED SNOMED Code(s): 1085912 Comment: -unclear etiology -possibly contributing to AMS but seems less likely. Etiology unclear. LFTs normal at admission. Distant history of treated hep c. Repeating ammonia and checking acute hepatitis panel -Continue lactulose -UTI could be a cause, however urine culture was a contamination. Will recheck however will likely be of low utility due to multiple doses of ceftriaxone (4) Acute on chronic heart failure Current Visit: Yes Status: Acute Code(s): I50.9 - HEART FAILURE, UNSPECIFIED SNOMED Code(s): 240143669 Comment: -appears there may be decompensation of her CHF given LE edema -will give 40 mg IV lasix and continue to monitor electrolytes -will restart home po KCl supplement (5) Depression with anxiety Current Visit: Yes Status: Acute Code(s): F41.8 - OTHER SPECIFIED ANXIETY DISORDERS SNOMED Code(s): 482761720 Comment: -continue home venlafaxine, quetiapine (6) GERD (gastroesophageal reflux disease) Current Visit: Yes Status: Acute Code(s): K21.9 - GASTRO-ESOPHAGEAL REFLUX DISEASE WITHOUT ESOPHAGITIS SNOMED Code(s): 647121758 Comment: -PPI (7) Hypothyroidism Current Visit: No Status: Acute Code(s): E03.9 - HYPOTHYROIDISM, UNSPECIFIED SNOMED Code(s): 42668904 Comment: -TSH WNL therefore home synthroid is acceptable dose -home synthroid 100mcg (8) Orbit fracture, left Current Visit: No Status: Acute Code(s): S02.85XA - FRACTURE OF ORBIT, UNSPECIFIED, INIT SNOMED Code(s): 38290409 Comment: -ophthalmology appt 06/05/2019 -Dr. Meza consulted and recommends avoid Valsalva for first 5d of AC -pt may follow up with [place] facial specialist for further management (9) SIRS (systemic inflammatory response syndrome) Current Visit: Yes Status: Acute Code(s): R65.10 - SIRS OF NON-INFECTIOUS ORIGIN W/O ACUTE ORGAN DYSFUNCTION SNOMED Code(s): 104414128 Comment: -meeting SIRS criteria due to tachycardia and leukocytosis. Tachycardia is 2/2 PE. Etiology of leukocytosis is unclear but pt is afebrile and urine culture negative -leukocytosis could possibly be related to stress (10) Fall Current Visit: No Status: Acute Comment: -recurrent mechanical falls; recent hospitalization for fall resulting in L orbit fracture and rib fracture with d/c to [facility] 06/04 -CT brain negative and CT spine negative for fracture -continue PT/OT -possibly polypharmacy as patient has chronic opiates and prn ativan (11) DVT prophylaxis Current Visit: No Status: Acute Priority: Medium Code(s): ERH1336 - SNOMED Code(s): 938484641 Comment: -darryl (12) Full code status Current Visit: No Status: Acute Code(s): Z78.9 - OTHER SPECIFIED HEALTH STATUS SNOMED Code(s): 724170395 Status and Disposition: anticipate d/c back to [facility] for [facility] when medically stable
[2019-06-11] MEDS: QUEtiapine TAB* 100 MG PO SCH (20:55)
[2019-06-11] MEDS: Potassium Chlor TAB* 10 MEQ TAB.ER PO SCH (20:55)
[2019-06-11] MEDS: Lidocaine Patch REMOVE* 1 NOTE MISC SCH (20:56)
[2019-06-11] MEDS: traZODone TAB* 50 MG TAB PO PRN ×2 (21:05→22:06)
[2019-06-12 03:41] LABS: Albumin 1.6 g/dL (3.2-5.2); CO2 Carbon Dioxide 23 mmol/L (22-32); Calcium 7.7 mg/dL (8.6-10.3); Chloride 105 mmol/L (101-111); Sodium 135 mmol/L (135-145)
[2019-06-12 03:47] LABS: ALT 40 U/L (7-52); Albumin/Globulin Ratio 0.9 (1-3); Alkaline Phosphatase 102 U/L (34-104); BUN/Creatinine Ratio 19.4 (8-20); Blood Urea Nitrogen 20 mg/dL (6-24); EGFR African American 63.7 (>60); EGFR Non-African American 52.7 (>60); Globulin 1.8 g/dL (2-4); Glucose 86 mg/dL (70-100); Total Protein 3.4 g/dL (6.4-8.9)
[2019-06-12 03:48] LABS: Anion Gap 7 mmol/L (2-11)
[2019-06-12 05:49] LABS: Potassium Redraw 3.6 mmol/L (3.5-5.0)
[2019-06-12] MEDS ORDERED: Levothyroxine TAB* 100 MCG TAB PO SCH (06:00)
[2019-06-12 07:44] LABS: Hepatitis C Antibody Reactive (Negative)
[2019-06-12] MEDS: Venlafaxine EXT RELEASE CAP* 75 MG PO SCH (08:37)
[2019-06-12] MEDS: Multivitamins/Minerals TAB PO SCH (08:37)
[2019-06-12] MEDS: Lidocaine PATCH 5%* 1 PATCH TRANSDERM SCH (08:37)
[2019-06-12] MEDS: Potassium Chlor TAB* 10 MEQ TAB.ER PO SCH (08:37)
[2019-06-12] MEDS: Magnesium Oxide TAB* 400 MG PO SCH (08:37)
[2019-06-12] MEDS: Famotidine TAB* 20 MG PO SCH (08:37)
[2019-06-12] MEDS: Apixaban* 5 MG TAB PO SCH (08:37)
[2019-06-12] MEDS: Pantoprazole TAB * 40 MG TAB PO SCH (08:37)
[2019-06-12] MEDS ORDERED: Furosemide IV* 10 MG/ML VIAL (40 MG) IV SCH (09:00)
[2019-06-12 11:47] VITALS: BP 114/54
[2019-06-12] MEDS ORDERED: Spironolactone TAB* 25 MG PO SCH (12:00)
[2019-06-12 12:11] LABS: Protein S Antigen 65 % (80 - 160)
[2019-06-12] MEDS: oxyCODONE TAB* 5 MG TAB PO PRN (12:26)
--- NOTE | 2019-06-12 13:16 | DS ---
CC: Dr. Burrell * DISCHARGE SUMMARY: DATE OF ADMISSION: 06/09/19 DATE OF DISCHARGE: 06/12/19 PRIMARY CARE PROVIDER: Dr. Burrell. ATTENDING PHYSICIAN WHILE IN THE HOSPITAL: Mecca Lott MD * (DICTATED BY MAN BRIGHT) PRIMARY DIAGNOSES: 1. Pulmonary embolism. 2. Hyperammonemia, unclear etiology. SECONDARY DIAGNOSES: 1. Left orbital floor fracture. 2. History of hepatitis C. 3. History of deep venous thrombosis. 4. History of supratherapeutic INR when previously on Coumadin, no longer taking Coumadin. 5. Heart failure with preserved ejection fraction. 6. Chronic bilateral lower extremity edema. 7. Gastroesophageal reflux disease. 8. History of PACs. 9. Right eye blindness. 10. Depression/anxiety. 11. Hypothyroidism. PERTINENT STUDIES WHILE IN THE HOSPITAL: Chest CT angiogram on 06/09/19, segmental branch emboli of the right lower lobe pulmonary artery. Brain CT on 06/09/19, no acute intracranial abnormality. No change from comparison study. On 06/10/19, bilateral venous Doppler study. There is limited evaluation of the right calf veins. There is no occlusive thrombus of the right popliteal vein. No left lower extremity DVT. PERTINENT LAB DATA: Ammonia on date of discharge is 84. HISTORY OF PRESENT ILLNESS/HOSPITAL COURSE: Reina Lawson is a 74-year-old white female with past medical history significant for recent left orbital floor fracture, prior history of DVT, prior history of hep C which has since been treated, heart failure with preserved ejection fraction and bilateral lower extremity chronic edema, who presented to the emergency department after a fall at [facility] where she is a subacute rehab patient. She was recently discharged to [facility] on 06/04/19 due to frequent falls at home and requiring rehab. For further details regarding the admission, please see history and physical written by MAN Barry. The patient's daughter does admit that the patient has been having increasing memory loss and confusion over the last 2 years. The patient's daughter is unsure if there has been workup for this as outpatient with her primary care provider as the patient does not remember to discuss this when she goes to her appointments with Dr. Burrell. There was a concern of more confusion than her baseline at admission. This did appear to improve through her hospital stay. There was initial suspicion for UTI; however, her urine culture was contaminated and she was asymptomatic, therefore antibiotics were discontinued. An additional urine culture was collected on day of discharge . The patient was afebrile during her hospital stay. Given that she was confused, ammonia was ordered for workup; however, she has no history of cirrhosis. She has a prior history of hep C, but given that she has no cirrhosis and normal LFTs, hepatic encephalopathy has been effectively ruled out and this is possibly related to her chronic opiate use. She was given lactulose, which decreased ammonia; however, she was without asterixis during her hospital stay and this elevated ammonia is possibly medication related. At the time of admission, the patient was started on Eliquis for a pulmonary embolism. She was frequently tachycardic during her hospital stay, but by the evening prior to discharge and day of discharge this overall resolved. She had good oxygen saturations on room air and was asymptomatic of her pulmonary embolism by date of discharge. Her chronic lower extremity edema did continue and spironolactone was started prior to discharge. The patient's home Xanax was discontinued during this hospital stay given the fact that polypharmacy is quite possibly the reason for the patient's frequent falls. PHYSICAL EXAM ON THE DAY OF DISCHARGE: General: Thin, elderly white female, lying upright in hospital bed, appearing comfortable, in no acute distress, tearful at times. Head: Ecchymosis to the left aspect of the face, small eschar disseminated throughout frontal region and posterior aspect of the skull. Eyes: Right pupil much larger than the left. Sclerae anicteric. ENT: Mucous membranes are moist. Lungs: Clear to auscultation throughout. Cardio : Regular rate and rhythm without murmurs, rubs, or gallops. Abdomen: Abdomen is soft, nontender, nondistended. Extremities: +1 pitting edema bilaterally. Neuro: The patient is alert and oriented x3. She knows who the current president is. She is able to move all extremities and has no tremors or asterixis. DISCHARGE PLAN: Diet: Regular unrestricted diet. Activity: The patient may return to normal activity as tolerated. The patient will be returning to [facility] for continued subacute rehab. She was advised to be very careful with transitions and to please follow the physical therapist guidance regarding reducing her fall risks given that she is now on Eliquis. She should return to the hospital if she has any head trauma, hematuria, dysuria, flank pain, fever, chills, chest pain, difficulty breathing , loss of consciousness. The patient should follow up with her primary care provider 1 week after discharge from [facility] and at that time, it would be beneficial to have further workup regarding her memory loss as it is quite possible the patient has dementia; however, it would not be of benefit to have further workup for this in the hospital stay. At [facility], please followup her urine culture collected on date of discharge given prior culture was contaminated. Please repeat BMP in 1 week and please elevate legs and use Ashu wraps to both legs during the day to assist with lower extremity edema. Please followup the hypercoagulability studies. At the time of discharge, factor V Leiden, prothrombin, protein C, protein S, antithrombin III are pending. Please attempt to wean oxycodone as again this may be contributing the patient' s frequent falls. DISCHARGE MEDICATIONS: 1. Eliquis 10 mg p.o. b.i.d. x7 doses, then 5 mg p.o. b.i.d. 2. Effexor 300 mg p.o. daily. 3. Potassium chloride 10 mEq p.o. b.i.d. 4. Omeprazole 20 mg p.o. daily. 5. Mag oxide 400 mg p.o. daily. 6. Lasix 40 mg p.o. q.a.m. 7. Seroquel 200 mg p.o. at bedtime. 8. Oxybutynin 5 mg p.o. t.i.d. 9. Multivitamin 1 tab p.o. daily. 10. Synthroid 100 mcg p.o. daily. 11. Oxycodone/acetaminophen 5/325 two tabs p.o. q.4 hours p.r.n. pain. 12. Oxycodone 15 mg p.o. q.8 hours p.r.n. pain. 13. Ranitidine 150 mg p.o. b.i.d. 14. Trazodone 50 to 100 mg p.o. at bedtime p.r.n. insomnia. 15. Spironolactone 25 mg p.o. daily. Discontinued home medications: 1. Lorazepam 0.5 mg p.o. b.i.d. p.r.n. anxiety. CONDITION ON DISCHARGE: Stable. DISPOSITION: [facility] for continued subacute rehab. TIME SPENT: Approximately 40 minutes was spent on this discharge, approximately half this time was spent at bedside evaluating the patient and discussing the plan of care. MAN BRIGHT [id number]/CPS #: [id number] TARAN
[2019-06-13 17:00] LABS: Hepatitis B Surface Antigen Nonreactive (Nonreactive)
[2019-06-15 08:09] LABS: Prothrombin 20210 Mutation Heterozygous (Negative)
[2019-06-15 10:33] LABS: Anti-Thrombin III Complex 15.3 ng/mL (<4.3)
[2019-06-17] MEDS ORDERED: Apixaban* 5 MG TAB PO SCH (09:00)
[2019-06-20 13:09] LABS: Factor V Leiden Mutation Negative (Negative)
== END 2019-06-12 14:30 | DRG 871 ==
LOC: ED 07:50 → MEDTELE 20:28
PROVIDERS: ADMIT Internal Medicine; ATTEND Internal Medicine
DX: A41.9 Sepsis, unspecified organism (principal); I26.99 Other pulmonary embolism without acute cor pulmonale; N17.9 Acute kidney failure, unspecified; E72.20 Disorder of urea cycle metabolism, unspecified; I50.9 Heart failure, unspecified; K21.9 Gastro-esophageal reflux disease without esophagitis; E03.9 Hypothyroidism, unspecified; F32.9 Major depressive disorder, single episode, unspecified; H54.40 Blindness, one eye, unspecified eye; I49.1 Atrial premature depolarization; M19.032 Primary osteoarthritis, left wrist; E86.0 Dehydration; F41.9 Anxiety disorder, unspecified; M85.832 Other specified disorders of bone density and structure, left forearm; S02.32XD Fracture of orbital floor, left side, subsequent encounter for fracture with routine healing; S22.32XD Fracture of one rib, left side, subsequent encounter for fracture with routine healing; W18.30XD Fall on same level, unspecified, subsequent encounter; Z86.718 Personal history of other venous thrombosis and embolism; Z86.19 Personal history of other infectious and parasitic diseases; Z98.84 Bariatric surgery status; Z79.891 Long term (current) use of opiate analgesic; Z79.899 Other long term (current) drug therapy; Z88.6 Allergy status to analgesic agent; Z88.8 Allergy status to other drugs, medicaments and biological substances; Z82.49 Family history of ischemic heart disease and other diseases of the circulatory system; Z83.3 Family history of diabetes mellitus; Z80.0 Family history of malignant neoplasm of digestive organs; Z80.52 Family history of malignant neoplasm of bladder; Z87.891 Personal history of nicotine dependence
CPT/HCPCS: 36415; 70450; 71045; 71275; 72125; 72170; 80048; 80053; 80074; 80076; 81003; 81015; 81240; 81241; 82140; 82270; 83520; 83605; 83735; 84436; 84439; 84443; 84484; 85025; 85060; 85302; 85306; 87040; 87077; 87086; 87186; 87522; 87641; 93005; 93970; 99285; A9270-GY; G8978-GP-CK; G8979-GP-CI; G8987-GO-CK; G8988-GO-CJ; J0696; J1940; J2543; J3480; Q9967

== ENCOUNTER 2019-06-22 22:44 | Emergency (ER) | payer MEDICARE ==
[2019-06-22 23:51] LABS: Hematocrit 31 % (35-47); Hemoglobin 10.3 g/dL (12.0-16.0); Mean Corpuscular HGB Conc 33 g/dL (31-36); Mean Corpuscular Hemoglobin 32 pg (27-31); Mean Corpuscular Volume 97 fL (80-97); Mean Platelet Volume 6.8 fL (7.4-10.4); Platelet Count 225 10^3/uL (150-450); Red Blood Count 3.21 10^6 /uL (3.70-4.87); Red Cell Distribution Width 18 % (10-15); White Blood Count 7.7 10^3/uL (3.5-10.8)
[2019-06-22 23:56] LABS: INR 1.15 (0.82-1.09)
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
[2019-06-23 00:10] LABS: Troponin I 0.01 ng/mL (<0.03)
[2019-06-23 00:19] LABS: Albumin 1.9 g/dL (3.2-5.2); Anion Gap 4 mmol/L (2-11); CO2 Carbon Dioxide 26 mmol/L (22-32); Calcium 8.3 mg/dL (8.6-10.3); Chloride 105 mmol/L (101-111); Magnesium 1.8 mg/dL (1.9-2.7); Potassium 3.6 mmol/L (3.5-5.0); Sodium 135 mmol/L (135-145)
[2019-06-23 00:25] LABS: ALT 23 U/L (7-52); AST 18 U/L (13-39); Albumin/Globulin Ratio 0.9 (1-3); Alkaline Phosphatase 95 U/L (34-104); Blood Urea Nitrogen 11 mg/dL (6-24); C Reactive Protein < 1.00 mg/L (<8.01); EGFR African American 72.6 (>60); Globulin 2.2 g/dL (2-4); Glucose 83 mg/dL (70-100); Total Protein 4.1 g/dL (6.4-8.9)
[2019-06-23 00:43] LABS: ABS Eosinophils 0.1 10^3/ul (0-0.6); ABS Lymphocytes 0.8 10^3/ul (1.0-4.8); ABS Monocytes 0.5 10^3/ul (0-0.8); ABS Neutrophils 6.2 10^3/ul (1.5-7.7); Eosinophil % 1.5 %; Lymphocyte % 10.7 %; Nucleated Red Blood Cells % 0.2
[2019-06-23 01:02] LABS: Alcohol < 10 mg/dL (<10)
[2019-06-23 01:24] LABS: TSH (Thyroid Stimulating Horm) 8.12 mcIU/mL (0.34-5.60)
[2019-06-23 02:19] LABS: Urine Appearance Cloudy; Urine Bilirubin Negative (Negative); Urine Blood Negative (Negative); Urine Color Yellow; Urine Glucose Negative (Negative); Urine Ketones Negative (Negative); Urine Nitrite Negative (Negative); Urine Protein Negative (Negative); Urine Specific Gravity 1.009 (1.010-1.030); Urine Urobilinogen Negative (Negative)
[2019-06-23 02:26] VITALS: BP 132/74
[2019-06-23 02:36] LABS: Urine Benzodiazepine Screen None Detected (None Detect); Urine Opiates Screen Presumptive Positive (None Detect)
== END 2019-06-23 03:27 | disposition home or self-care (01) ==
LOC: ED 22:44
DX: S09.90XA Unspecified injury of head, initial encounter (principal); W19.XXXA Unspecified fall, initial encounter; Z91.81 History of falling; Y92.129 Unspecified place in nursing home as the place of occurrence of the external cause; E03.9 Hypothyroidism, unspecified; K21.9 Gastro-esophageal reflux disease without esophagitis; Z96.653 Presence of artificial knee joint, bilateral; F41.9 Anxiety disorder, unspecified; F32.9 Major depressive disorder, single episode, unspecified; Z90.49 Acquired absence of other specified parts of digestive tract; Z98.84 Bariatric surgery status; Z86.718 Personal history of other venous thrombosis and embolism; Z87.891 Personal history of nicotine dependence; Z79.01 Long term (current) use of anticoagulants; Z79.890 Hormone replacement therapy; Z79.899 Other long term (current) drug therapy; Z88.6 Allergy status to analgesic agent; Z88.1 Allergy status to other antibiotic agents; Z88.5 Allergy status to narcotic agent; Z88.8 Allergy status to other drugs, medicaments and biological substances
CPT/HCPCS: 36415; 70450; 80053; 80307; 80320; 81003; 83605; 83735; 84443; 84484; 85025; 85060; 85610; 86140; 93005; 99283; G0480

== ENCOUNTER 2019-07-17 17:13 | Inpatient (IN) | payer MEDICARE ==
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
[2019-07-17 17:50] LABS: Urine Appearance Cloudy; Urine Bilirubin Negative (Negative); Urine Blood Negative (Negative); Urine Color Amber; Urine Glucose Negative (Negative); Urine Ketones Negative (Negative); Urine Nitrite Negative (Negative); Urine Protein Negative (Negative); Urine Specific Gravity 1.013 (1.010-1.030); Urine Urobilinogen Negative (Negative)
[2019-07-17 18:09] LABS: Urine Benzodiazepine Screen None Detected (None Detect); Urine Opiates Screen None Detected (None Detect)
[2019-07-17 18:36] LABS: INR 1.85 (0.82-1.09)
[2019-07-17 18:37] LABS: Hematocrit 35 % (35-47); Hemoglobin 11.7 g/dL (12.0-16.0); Mean Corpuscular HGB Conc 33 g/dL (31-36); Mean Corpuscular Hemoglobin 32 pg (27-31); Mean Corpuscular Volume 95 fL (80-97); Mean Platelet Volume 8.6 fL (7.4-10.4); Platelet Count 594 10^3/uL (150-450); Red Cell Distribution Width 18 % (10-15)
[2019-07-17 18:55] LABS: ALT 33 U/L (7-52); AST 26 U/L (13-39); Albumin 1.7 g/dL (3.2-5.2); Albumin/Globulin Ratio 0.9 (1-3); Alkaline Phosphatase 127 U/L (34-104); Anion Gap 7 mmol/L (2-11); BUN/Creatinine Ratio 23.5 (8-20); Blood Urea Nitrogen 27 mg/dL (6-24); CO2 Carbon Dioxide 26 mmol/L (22-32); Calcium 7.9 mg/dL (8.6-10.3); Chloride 102 mmol/L (101-111); EGFR African American 56.1 (>60); EGFR Non-African American 46.4 (>60); Glucose 82 mg/dL (70-100); Potassium 4.7 mmol/L (3.5-5.0); Sodium 135 mmol/L (135-145); Total Protein 3.7 g/dL (6.4-8.9)
[2019-07-17 18:56] LABS: Troponin I 0.01 ng/mL (<0.03)
[2019-07-17] MEDS ORDERED: NS 0.9% 1000 ML** 1,000 ML IV ONE (19:12)
[2019-07-17 19:15] LABS: TSH (Thyroid Stimulating Horm) 3.26 mcIU/mL (0.34-5.60)
[2019-07-17 19:18] LABS: Free T4 1.41 ng/dL (0.61-1.12)
[2019-07-18] MEDS ORDERED: Lorazepam PYXIS KEY PRN (00:05)
[2019-07-18] MEDS ORDERED: Haloperidol INJ IV/IM* 5 MG/ML AMP IV SLOW PU ONE (00:05)
[2019-07-18 00:24] LABS: Creatine Kinase 86 U/L (10-223); Magnesium 2.1 mg/dL (1.9-2.7)
[2019-07-18] MEDS ORDERED: Vancomycin(*) 1,000 MG in NS 0.9% 250 ML* 250 ML IVPB ONE (00:25)
[2019-07-18] MEDS ORDERED: Vancomycin(*) 1,250 MG in NS 0.9% 250 ML* 250 ML IVPB ONE (00:28)
[2019-07-18] MEDS ORDERED: cefTRIAXone(*) 2 GM in NS 0.9% 100 ML* 100 ML IVPB SCH (00:30)
[2019-07-18] MEDS ORDERED: Vancomycin per Pharmacy* NOTE FOLLOW UP SCH (01:00)
[2019-07-18] MEDS: LORazepam INJ* 2 MG/ML 1 ML VIAL IV PUSH PRN ×2 (01:19→12:06)
[2019-07-18] MEDS: NS 0.9% 1000 ML** 1,000 ML IV SCH ×2 (02:32→15:11)
[2019-07-18] MEDS: Morphine INJ* 4 MG/ML 1 ML SYRINGE (NEW SYRINGE VERSION) IV PRN ×3 (03:13→15:05)
[2019-07-18 08:46] LABS: EGFR African American 47.5 (>60); EGFR Non-African American 39.2 (>60)
[2019-07-18 08:49] LABS: Troponin I 0.02 ng/mL (<0.03)
--- NOTE | 2019-07-18 10:23 | HP ---
CC: Dr. Burrell. ADMISSION HISTORY AND PHYSICAL: DATE OF ADMISSION: 07/17/19 CHIEF COMPLAINT: Altered mental status. HISTORY OF PRESENT ILLNESS: Ms. Lawson is a 74-year-old woman with multiple medical problems who has been a resident at [facility] for subacute rehab for the last month. History is derived from the chart and from reports from her family. Her daughter called the ER earlier this evening and spoke to the ER doctor and reported 4 days of increasing confusion. On the day of admission, she was not following commands at all. The patient also had an unwitnessed fall at the skilled nursing around 1 a.m. on the day of admission. 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 The patient cannot give any more history. Recent chart shows that she was admitted here from 06/09/19 to 06/12/19 with pulmonary emboli and elevated ammonia. During that hospital stay she was started on Eliquis because she previously had elevated INRs beyond therapeutic on warfarin. PAST MEDICAL HISTORY: Hepatitis C, status post treatment; history of DVT; heart failure with preserved ejection fraction; frequent PACs and tachycardia; depression and anxiety; left orbital floor fracture; right eye blindness; hypothyroidism; bilateral lower extremity edema. PAST SURGICAL HISTORY: Bilateral total knee replacement, laparoscopic cholecystectomy, x1, breast lumpectomy, and tonsillectomy. MEDICATIONS ON ADMISSION: 1. Acetaminophen as needed. 2. Apixaban 5 mg p.o. b.i.d. 3. Calcium carbonate 1 tab p.o. daily. 4. Furosemide 20 mg p.o. q.a.m. 5. Levothyroxine 100 mcg p.o. daily. 6. Lorazepam 0.5 mg p.o. b.i.d. p.r.n. anxiety. 7. Omeprazole 20 mg p.o. daily. 8. Biotene oral rinse 15 mL swish and spit 3 times a day as needed. 9. Oxybutynin 5 mg p.o. t.i.d. 10. Oxycodone 5 mg p.o. q.12 hours p.r.n. pain. 11. Potassium chloride 10 mEq p.o. b.i.d. 12. Seroquel XR 50 mg p.o. q.h.s. 13. Spironolactone 25 mg p.o. q.a.m. 14. Venlafaxine XR 300 mg p.o. daily. 15. Magnesium oxide 400 mg p.o. daily. 16. Multivitamin 1 tab p.o. daily. ALLERGIES: PROMETHAZINE, TRAMADOL, IBUPROFEN, RIFAXIMIN, and NSAIDs. SOCIAL HISTORY: She is retired. She is . She has 2 children. Her son , Juan Manuel Lawson, is living in [place] and states that he is the healthcare proxy. She has a daughter named Sun Strickland who lives in [place] and her brother Juan Manuel also report as healthcare proxy. She quit tobacco 20 years ago after 30 pack year history. No alcohol or drug use. FAMILY HISTORY: Notable for Alzheimer's, colon and bladder cancer. Unknown who in the family had what disease. REVIEW OF SYSTEMS: The patient is unable to coherently answer any questions. PHYSICAL EXAMINATION GENERAL: She is groaning, distressed, agitated, in bed. VITAL SIGNS: Temperature is 36.6, pulse is 102 to 106, respirations are 22, blood pressure is 142/77, oxygen saturation 100% on room air. HEENT: Head is normocephalic, atraumatic. Her right pupil is fixed and dilated. Left pupil is reactive. Extraocular muscles are intact. Oropharynx, no lesions. NECK: No JVD. No carotid bruit. No thyromegaly. LUNGS: Clear to auscultation and percussion bilaterally. HEART: Tachycardic, regular. No murmurs. ABDOMEN: Soft, nontender. Positive bowel sounds. No hepatosplenomegaly. EXTREMITIES: 2+ pitting edema bilaterally. There are bandages on both legs with rachel down the heels and feet. NEUROLOGIC: She is awake. Her left eye is roving around, did not make any eye contact. She is yelling out, grunting, screaming. She moves all 4 extremities with equal power. She has a positive gag reflex. She is agitated and combative , not answering questions, not making eye contact. SKIN: The skin exam is also notable for erythema and scaling on the upper arms bilateral. DIAGNOSTIC STUDIES/LAB DATA: Sodium 135, potassium 4.7, chloride 102, bicarb 26, BUN 27, creatinine 1.15, glucose 82, calcium 7.9. Alkaline phosphatase 127 , albumin 1.7, AST 26, ALT 33, lactic acid 2.4, ammonia 92, INR 1.85, troponin 0.01. Venous blood gas shows pH 7.34, pCO2 32, pO2 29. TSH of 3.16, free T4 is 1.41. White count 19.0, hemoglobin 11.7, hematocrit 35%, platelets of 594. Urinalysis is negative. Urine tox screen is negative. EKG shows sinus tachycardia. T-wave inversions in V2 through V4. Chest x-ray is negative for infiltrates, effusions. Head CT shows a small hypodensity in the left frontal lobe that may be artifact versus early hemorrhage. Pelvis x- ray shows no fractures. ASSESSMENT AND PLAN: A 74-year-old woman presenting with subacute confusion, recent fall with elevated white count and elevated ammonia which has been chronic. The differential for altered mental status would include decompensated liver disease, central nervous system bleed, viral encephalitis, metabolic encephalopathy, medication side effect such as serotonin syndrome. The patient will be admitted to the medical floor. We will stop all her oral medications. Repeat head CT will be completed tonight to assess for the central nervous system bleed. I do not see any focal neurologic deficits to suggest stroke. Because of meningitis encephalitis in the differential, the patient will be started on vancomycin and ceftriaxone at meningitis doses. She should have a lumbar puncture when she is more physically cooperative, if possible tomorrow. I discussed the treatment goals with the patient's son. He revised a MOLST form verbally over the phone that was written down in early June, which had some contradictory statements such as full code, but do not intubate and do not use antibiotics. Son questions whether she had the capacity to make any decisions in early June 2019. In any case, he wants her to be do not resuscitate and do not intubate, but treat otherwise with antibiotics, NG tube, fluids, etc. if necessary. For the elevated ammonia, we will place an NG tube and get her started on lactulose. The patient's daughter is not able to be contacted by the phone at this point, but she should come in and coordinate with her brother about do not resuscitate and make sure the forms are filled out properly. For DVT prophylaxis, at this point, the patient's Eliquis will be stopped due to her n.p.o. status and risk of bleed. No other anticoagulation is indicated at this time, but she can be started on heparin in 24 hours after she stopped Eliquis. [id number]/[facility] #: [id number] TARAN
[2019-07-18] MEDS: cefTRIAXone(*) 2 GM in NS 0.9% 100 ML* 100 ML IVPB SCH (12:06)
[2019-07-18] MEDS ORDERED: Vancomycin(*) 1,000 MG in NS 0.9% 250 ML* 250 ML IV SCH (15:00)
[2019-07-18 16:18] LABS: Urine Appearance Cloudy; Urine Bilirubin Negative (Negative); Urine Blood 1+ (Negative); Urine Color Amber; Urine Glucose Negative (Negative); Urine Ketones Trace (Negative); Urine Nitrite Negative (Negative); Urine Protein Negative (Negative); Urine Specific Gravity 1.016 (1.010-1.030); Urine Urobilinogen Positive (Negative)
[2019-07-18 16:42] LABS: Urine Bacteria Absent (Absent); Urine Red Blood Cell Trace(0-2/hpf) (Absent); Urine White Blood Cell 2+(11-20/hpf) (Absent)
--- NOTE | 2019-07-18 17:38 | PN ---
Subjective Date of Service: 07/18/19 Interval History: Patient seen today, lethargic. She did get ativan earlier. NGT in place. receiving her lactulose via NGT. On ativan and morphine. Stat labs ordered but patient has not access. pending her repeat ammonia I may hold off on ativan and morphine given her liver function. CT can from ER noted. stable subdural hematoma Past Medical History: Unchanged from Admission Objective Active Medications: Sodium Chloride (Ns 0.9% 1000 Ml) 1,000 mls @ 100 mls/hr IV PER RATE [facility] Last Admin: 07/18/19 15:11 Dose: 100 mls/hr Vancomycin HCl 1,000 mg/ (Sodium Chloride) 250 mls @ 166.667 mls/hr IV Q12H [facility] Ceftriaxone Sodium 2 gm/ (Sodium Chloride) 100 mls @ 200 mls/hr IVPB Q12H [facility] Last Admin: 07/18/19 12:06 Dose: 200 mls/hr Lactulose (Lactulose*) 30 ml NG TUBE QID [facility] Last Admin: 07/18/19 14:21 Dose: 30 ml Lorazepam (Ativan Inj*) 1 mg IV PUSH Q4H PRN PRN Reason: ANXIETY Last Admin: 07/18/19 12:06 Dose: 1 mg Miscellaneous (Ativan Pyxis Lopez) 1 ea N/A .ATIVAN IV LOPEZ PRN PRN Reason: PYXIS LOPEZ Morphine Sulfate (Morphine Inj (Syringe)*) 4 mg IV Q3H PRN PRN Reason: PAIN - SEVERE Last Admin: 07/18/19 15:05 Dose: 4 mg Pharmacy Consult (Vancomycin Per Pharmacy*) 1 note FOLLOW UP .VANC PER PHARMACY [facility]; Protocol Pharmacy Profile Note (Vancomycin Trough Check) 1 note FOLLOW UP 1430 ONE Stop: 07/19/19 14:31 Vital Signs - 8 hr 07/18/19 07/18/19 07/18/19 09:57 11:15 11:24 Temperature 98.1 F Pulse Rate 121 Respiratory 16 16 18 Rate Blood Pressure 120/49 (mmHg) O2 Sat by Pulse 98 Oximetry 07/18/19 07/18/19 07/18/19 12:06 14:21 15:05 Temperature Pulse Rate Respiratory 18 16 16 Rate Blood Pressure (mmHg) O2 Sat by Pulse Oximetry 07/18/19 07/18/19 07/18/19 15:15 16:12 16:36 Temperature 97.5 F 97.3 F Pulse Rate 87 124 Respiratory 20 20 16 Rate Blood Pressure 140/73 126/67 (mmHg) O2 Sat by Pulse 98 91 Oximetry Oxygen Devices in Use Now: None Appearance: obtunded. lethargic. retract to tactile stimuli Eyes: No Scleral Icterus Ears/Nose/Mouth/Throat: - - NGT in place. ecchymosis throughout her skin Neck: NL Appearance and Movements; NL JVP, Trachea Midline Respiratory: Symmetrical Chest Expansion and Respiratory Effort Cardiovascular: NL Sounds; No Murmurs; No JVD Abdominal: NL Sounds; No Tenderness; No Distention Extremities: - - + edema Skin: - - ecchymosis and bilateral heal stage 1 ulcer Result Diagrams: 07/17/19 18:12 07/18/19 07:53 Assess/Plan/Problems-Billing Assessment: 74 y/o female admitted for Altered mental status most likely secondary to subdural hematoma and hepatic encephalopathy - Patient Problems (1) Altered mental status Current Visit: Yes Status: Acute Code(s): R41.82 - ALTERED MENTAL STATUS, UNSPECIFIED SNOMED Code(s): 834028050 Comment: - patient with altered mental status - CT head reveal subdural hematoma - Etiology unclear. Differential could be due to polypharmacy, subdural hematoma, meningitis, and hepatic encephalopathy - D/c her morphine and ativan - Send for repeat CT head as she has not improved since admission. 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 - Scott cath for I/O (2) Depression with anxiety Current Visit: No Status: Acute Code(s): F41.8 - OTHER SPECIFIED ANXIETY DISORDERS SNOMED Code(s): 976474747 Comment: - Off venlafaxine, and quetiapine (3) GERD (gastroesophageal reflux disease) Current Visit: No Status: Acute Code(s): K21.9 - GASTRO-ESOPHAGEAL REFLUX DISEASE WITHOUT ESOPHAGITIS SNOMED Code(s): 157405070 Comment: - start PPI daily (4) Hypothyroidism Current Visit: No Status: Acute Code(s): E03.9 - HYPOTHYROIDISM, UNSPECIFIED SNOMED Code(s): 84878622 Comment: - TSH/Ft4 noted high FT4 - Recheck in am (5) Hyperammonemia Current Visit: No Status: Chronic Code(s): E72.20 - DISORDER OF UREA CYCLE METABOLISM, UNSPECIFIED SNOMED Code(s): 6535069 Comment: - This reccurent. without known etiology - Continue lactulose - Her CT abdomen from 09/2018 was unremarkable. Will probably repeat CT liver in am if she remain encephalopathy
[2019-07-18] MEDS ORDERED: Pantoprazole IV* 40 MG IV SCH (18:00)
[2019-07-18] MEDS: Pantoprazole IV* 40 MG IV SCH (20:00)
[2019-07-18 20:37] LABS: Albumin 1.6 g/dL (3.2-5.2); Albumin/Globulin Ratio 0.9 (1-3); BUN/Creatinine Ratio 23.4 (8-20); Calcium 7.9 mg/dL (8.6-10.3); EGFR African American 44.4 (>60); EGFR Non-African American 36.7 (>60); Globulin 1.7 g/dL (2-4); Indirect Bilirubin 0.2 mg/dL (0.3-1.0); Magnesium 2.2 mg/dL (1.9-2.7); Phosphorus 3.5 mg/dL (2.5-5.0); Potassium 4.3 mmol/L (3.5-5.0); Total Bilirubin 0.4 mg/dL (0.2-1.0); Total Protein 3.3 g/dL (6.4-8.9)
[2019-07-18 20:48] LABS: Hematocrit 30 % (35-47); Hemoglobin 9.8 g/dL (12.0-16.0); Mean Corpuscular HGB Conc 33 g/dL (31-36); Mean Corpuscular Hemoglobin 32 pg (27-31); Mean Corpuscular Volume 96 fL (80-97); Mean Platelet Volume 8.8 fL (7.4-10.4); Platelet Count 433 10^3/uL (150-450); Red Blood Count 3.12 10^6 /uL (3.70-4.87); Red Cell Distribution Width 18 % (10-15); White Blood Count 23.5 10^3/uL (3.5-10.8)
[2019-07-18 21:47] LABS: ABS Basophils 0.1 10^3/ul (0-0.2); ABS Lymphocytes 1.8 10^3/ul (1.0-4.8); ABS Monocytes 2.1 10^3/ul (0-0.8); ABS Neutrophils 19.5 10^3/ul (1.5-7.7); Eosinophil % 0.1 %; Lymphocyte % 7.7 %; Nucleated Red Blood Cells % 0.2
[2019-07-19] MEDS ORDERED: cefTRIAXone(*) 2 GM in NS 0.9% 100 ML* 100 ML IVPB SCH (01:00)
[2019-07-19] MEDS: cefTRIAXone(*) 2 GM in NS 0.9% 100 ML* 100 ML IVPB SCH ×2 (01:09→11:44)
[2019-07-19] MEDS ORDERED: NS 0.9% 500 ML* 500 ML IV ONE (06:07)
[2019-07-19 07:53] LABS: Hematocrit 29 % (35-47); Hemoglobin 9.2 g/dL (12.0-16.0); Mean Corpuscular HGB Conc 32 g/dL (31-36); Mean Corpuscular Hemoglobin 31 pg (27-31); Mean Corpuscular Volume 97 fL (80-97); Mean Platelet Volume 8.9 fL (7.4-10.4); Platelet Count 395 10^3/uL (150-450); Red Blood Count 2.96 10^6 /uL (3.70-4.87); Red Cell Distribution Width 18 % (10-15); White Blood Count 30.2 10^3/uL (3.5-10.8)
[2019-07-19 08:00] LABS: ALT 40 U/L (7-52); AST 41 U/L (13-39); Albumin 1.5 g/dL (3.2-5.2); Albumin/Globulin Ratio 0.9 (1-3); Alkaline Phosphatase 135 U/L (34-104); BUN/Creatinine Ratio 22.2 (8-20); Blood Urea Nitrogen 34 mg/dL (6-24); CO2 Carbon Dioxide 24 mmol/L (22-32); Calcium 7.8 mg/dL (8.6-10.3); EGFR African American 40.4 (>60); EGFR Non-African American 33.4 (>60); Globulin 1.6 g/dL (2-4); Glucose 78 mg/dL (70-100); Indirect Bilirubin 0.2 mg/dL (0.3-1.0); Magnesium 2.2 mg/dL (1.9-2.7); Phosphorus 3.2 mg/dL (2.5-5.0); Sodium 141 mmol/L (135-145); Total Protein 3.1 g/dL (6.4-8.9)
[2019-07-19 08:01] LABS: Anion Gap 5 mmol/L (2-11); Chloride 112 mmol/L (101-111)
[2019-07-19 08:34] LABS: Polychromasia 1+
[2019-07-19 08:47] LABS: TSH (Thyroid Stimulating Horm) 2.42 mcIU/mL (0.34-5.60)
[2019-07-19 08:51] LABS: Free T4 0.63 ng/dL (0.61-1.12)
[2019-07-19] MEDS: NS 0.9% 1000 ML** 1,000 ML IV SCH (09:01)
[2019-07-19] MEDS: metroNIDAZOLE IV 500 MG/100ML* 500 MG/100 ML BAG IVPB SCH ×3 (09:30→22:39)
[2019-07-19] MEDS: Albumin Human 25%* 25 GM/100 ML BTL IV SCH ×2 (11:44→17:22)
[2019-07-19] MEDS ORDERED: Furosemide IV* 10 MG/ML 2 ML VIAL (20 MG) IV ONE (14:00)
[2019-07-19] MEDS ORDERED: Iodixanol* (CONTRAST) 320 MG/ML 100 ML SDV IV ONE (14:01)
--- NOTE | 2019-07-19 17:35 | PN ---
Subjective Date of Service: 07/19/19 Interval History: Patient seen this morning. She remains obtund. screaming periodically. Trashing around. she is on 1:1. Her labs this morning reveals increase WBC of 30,000. No fever. I did add flagyl empirically to her treatment. CT chest abdomen/Pelvis ordered for source of infection. CT chest did shows pleural effusion and possible loculations. She remains on Vancomyin and Rocephin. On Lactulose 30 ml PO Q4hrs. I did speak to her son Juan Manuel @ [phone]. I did review her course and he did confirm the DNR/DNI. He did provide of long history of Alcohol and drug abuse even up to 3 weeks ago when he visited her home form [place] (after being admitted to the half-way) he did found bottles of Vodka at home after she supposedly was no longer drinking. I asked about his sister and he has not been able to connect to her. Her name is Heidy . 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 At this time, I do attest to the DNR/DNI initiated on admission and I have confirmed that with her son Juan Manuel. Past Medical History: Unchanged from Admission Objective Active Medications: Heparin Sodium (Porcine) (Heparin Flush Picc/Ml/Cvc(*)) 1 - 3 ml FLUSH 0600, 1800 [facility]; Protocol Sodium Chloride (Ns 0.9% 1000 Ml) 1,000 mls @ 100 mls/hr IV PER RATE [facility] Last Admin: 07/19/19 09:01 Dose: 100 mls/hr Ceftriaxone Sodium 2 gm/ (Sodium Chloride) 100 mls @ 200 mls/hr IVPB Q12H [facility] Last Admin: 07/19/19 11:44 Dose: 200 mls/hr Vancomycin HCl 1,000 mg/ (Sodium Chloride) 250 mls @ 166.667 mls/hr IV 0800, 2000 [facility] Metronidazole/Sodium Chloride (Flagyl 500 Mg Ivpb*) 500 mg in 100 mls @ 100 mls /hr IVPB Q6H [facility] Last Admin: 07/19/19 15:03 Dose: 100 mls/hr Albumin Human (Albumin Human 25%*) 25 gm in 100 mls @ 0 mls/hr IV Q6HR [facility] Stop: 07/20/19 11:59 Last Admin: 07/19/19 17:22 Dose: 40 mls/hr Lactulose (Lactulose*) 30 ml NG TUBE Q4H [facility] Last Admin: 07/19/19 17:22 Dose: 30 ml Pantoprazole Sodium (Protonix Iv*) 40 mg IV 1999 [facility] Last Admin: 07/18/19 20:00 Dose: 40 mg Pharmacy Consult (Vancomycin Per Pharmacy*) 1 note FOLLOW UP .VANC PER PHARMACY [facility]; Protocol Pharmacy Profile Note (Vancomycin Trough Check) 1 note FOLLOW UP 0730 ONE Stop: 07/20/19 07:31 Vital Signs - 8 hr 07/19/19 07/19/19 11:15 15:15 Temperature 98.1 F 97.8 F Pulse Rate 107 125 Respiratory 22 22 Rate Blood Pressure 143/72 142/36 (mmHg) O2 Sat by Pulse 90 96 Oximetry Oxygen Devices in Use Now: None Appearance: obutned, lethargic screaming and with no puropseful movement. Eyes: No Scleral Icterus, - Ears/Nose/Mouth/Throat: - - NGT in place Neck: Trachea Midline Respiratory: Symmetrical Chest Expansion and Respiratory Effort Cardiovascular: NL Sounds; No Murmurs; No JVD, - - +1 edema Abdominal: NL Sounds; No Tenderness; No Distention Extremities: - - edema Skin: - - muliple ecchymosis and bilateral heels pressure ulcer - Nutrition: Malnutrition Diagnosis/Plan Malnutrition Assessment by Registered Dietitian: Malnutrition Assessment Clinical Characteristics Acute,Severe Malnutrition Assessment: Muscle Wasting - Temporal (severe) Criteria Inadequate Oral Intake - Pt w/ poor intake; currently NPO - Anticipate meeting <50% nutrient needs >5 days (severe) Unintentional Weight Loss - Pt w/ wt loss per records; current wt 120lb, prev wt on record 136lb (06/2019) - 11.8% loss x1 mo (severe) Malnutrition Assessment: Nutrient Delivery - If unable to advance diet, Interventions recommend initiating TF; will follow and make recommendations as indicated Nutritional Supplementals/Nourishments - Will offer nourishments/supplements upon diet advancement; recommend advancing diet as able GI Related - Will monitor GI s/sx for ability to advance diet and impact on intake Malnutrition Assessment: Goals 1) Recommend advancing diet or initiating TF as able 2) Pt will tolerate diet advancement/initiation of TF w/o exac/development of GI s/sx including difficulty chewing/swallowing 3) Adequate po intake/enteral infusion to replete lean body mass, support wound healing and hydration status 4) Improve fluid/electrolyte balance w/ adequate po intake/enteral infusion and repletion PRN 5) Maintain bowel regularity w/ adequate po intake/enteral infusion w/o exac of diarrhea/ development of constipation 6) Ultimately, adequate po intake to support above goals w/o need for nutrition support Result Diagrams: 07/19/19 07:25 07/19/19 07:25 Microbiology and Other Data: Microbiology 07/18/19 16:00 Urine Culture - Preliminary Urine Klebsiella Aerogenes Assess/Plan/Problems-Billing Assessment: 74 y/o female admitted for Altered mental status most likely secondary to subdural hematoma and hepatic encephalopathy - Patient Problems (1) Altered mental status Current Visit: Yes Status: Acute Code(s): R41.82 - ALTERED MENTAL STATUS, UNSPECIFIED SNOMED Code(s): 035764819 Comment: - patient with altered mental status. - CT head reveal subdural hematoma. repeat CT head shows unchanged hematoma - Etiology unclear. Differential could be due to polypharmacy, subdural hematoma, meningitis, and alcoholic/drug induced hepatic encephalopathy? - D/c her morphine and ativan. 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 (2) Depression with anxiety Current Visit: No Status: Acute Code(s): F41.8 - OTHER SPECIFIED ANXIETY DISORDERS SNOMED Code(s): 831191166 Comment: - Off venlafaxine, and quetiapine (3) GERD (gastroesophageal reflux disease) Current Visit: No Status: Acute Code(s): K21.9 - GASTRO-ESOPHAGEAL REFLUX DISEASE WITHOUT ESOPHAGITIS SNOMED Code(s): 451080843 Comment: - start PPI daily (4) Hypothyroidism Current Visit: No Status: Acute Code(s): E03.9 - HYPOTHYROIDISM, UNSPECIFIED SNOMED Code(s): 77665637 Comment: - TSH/Ft4 noted high FT4 - Recheck level WNL. Will continue to monitor (5) Hyperammonemia Current Visit: No Status: Chronic Code(s): E72.20 - DISORDER OF UREA CYCLE METABOLISM, UNSPECIFIED SNOMED Code(s): 1648983 Comment: - This reccurent. without known etiology - Continue lactulose increased to 30 ml Q 4hrs. Consider adding rifaximin - Her CT abdomen from 09/2018 was un[address]. repeat CT liver shows fatty infiltration. trace ascites. - Other possibility is due to nonhepatic hyperammonia, Drug toxicity, thiamine deficiency... post viral syndrome
[2019-07-19 17:44] LABS: BUN/Creatinine Ratio 20.9 (8-20); Calcium 7.9 mg/dL (8.6-10.3); EGFR African American 41.9 (>60); EGFR Non-African American 34.7 (>60)
[2019-07-19] MEDS ORDERED: Potassium Chloride* LIQUID 20 MEQ/15 ML UDC PO ONE (18:08)
[2019-07-19] MEDS ORDERED: Metoprolol Tartrate IV* 1 MG/ML 5 ML VIAL IV ONE (18:17)
[2019-07-19 18:18] LABS: Hematocrit 26 % (35-47); Hemoglobin 8.2 g/dL (12.0-16.0); Mean Corpuscular HGB Conc 32 g/dL (31-36); Mean Corpuscular Hemoglobin 31 pg (27-31); Mean Corpuscular Volume 99 fL (80-97); Mean Platelet Volume 8.7 fL (7.4-10.4); Platelet Count 285 10^3/uL (150-450); Red Blood Count 2.62 10^6 /uL (3.70-4.87); Red Cell Distribution Width 17 % (10-15); White Blood Count 33.1 10^3/uL (3.5-10.8)
[2019-07-19 18:24] LABS: Polychromasia 1+
[2019-07-19 18:27] LABS: ABS Basophils 0.1 10^3/ul (0-0.2); ABS Eosinophils 0.1 10^3/ul (0-0.6); ABS Lymphocytes 2.3 10^3/ul (1.0-4.8); ABS Monocytes 1.3 10^3/ul (0-0.8); ABS Neutrophils 29.3 10^3/ul (1.5-7.7); ABS Nucleated RBC 0.2 10^3/ul; Eosinophil % 0.2 %; Nucleated Red Blood Cells % 0.5
[2019-07-19] MEDS ORDERED: Thiamine INJ* 100 MG, Folic Acid IV* 1 MG, Multiple Vitamin IV ADULT* 10 ML in D5NS 0.9... IV ONE (18:30)
[2019-07-19] MEDS ORDERED: Acyclovir IV(*) 500 MG/10 ML 100 ML VIAL (500 MG) IVPB SCH (19:00)
[2019-07-19] MEDS: ValACYclovir (*) 1 GM TAB PO SCH (19:10)
[2019-07-19] MEDS ORDERED: Vancomycin(*) 1,000 MG in NS 0.9% 250 ML* 250 ML IV SCH (20:00)
[2019-07-19 20:24] LABS: % Iron Saturation 53 % (15-55); Ferritin 368.2 ng/mL (11-307); Iron 56 ug/dL (50-212); LDH 362 U/L (140-271); Total Iron Binding Capacity 105 mcg/dL (250-450); Transferrin < 75 mg/dL (203-362)
[2019-07-19 20:31] LABS: Folate > 20.00 ng/mL (>3.99)
[2019-07-19] MEDS ORDERED: RiFAXimin* 550 MG TAB PO SCH (21:00)
[2019-07-19] MEDS ORDERED: D5W NS 0.9% 20Meq KCL 1000 ML* 1,000 ML IV SCH (22:30)
[2019-07-19] MEDS: Ampicillin ADVAN(*) 2 GM in NS 0.9% 100 ML* 100 ML IVPB SCH (22:38)
[2019-07-19] MEDS: Pantoprazole IV* 40 MG IV SCH (22:38)
[2019-07-20 00:36] LABS: Influenza A Molecular NEGATIVE (Negative); Influenza B Molecular NEGATIVE (Negative)
[2019-07-20] MEDS: cefTRIAXone(*) 2 GM in NS 0.9% 100 ML* 100 ML IVPB SCH (02:17)
[2019-07-20] MEDS: Albumin Human 25%* 25 GM/100 ML BTL IV SCH ×2 (02:18→06:12)
[2019-07-20] MEDS: ValACYclovir (*) 1 GM TAB PO SCH (02:29)
[2019-07-20] MEDS: metroNIDAZOLE IV 500 MG/100ML* 500 MG/100 ML BAG IVPB SCH (02:32)
[2019-07-20] MEDS: Ampicillin ADVAN(*) 2 GM in NS 0.9% 100 ML* 100 ML IVPB SCH (02:32)
[2019-07-20 07:17] LABS: Hematocrit 23 % (35-47); Hemoglobin 7.2 g/dL (12.0-16.0); Mean Corpuscular HGB Conc 32 g/dL (31-36); Mean Corpuscular Hemoglobin 31 pg (27-31); Mean Corpuscular Volume 98 fL (80-97); Mean Platelet Volume 8.9 fL (7.4-10.4); Platelet Count 181 10^3/uL (150-450); Red Cell Distribution Width 18 % (10-15); White Blood Count 35.4 10^3/uL (3.5-10.8)
[2019-07-20 07:23] LABS: INR 2.12 (0.82-1.09)
[2019-07-20 07:30] LABS: Albumin 3.1 g/dL (3.2-5.2); Albumin/Globulin Ratio 2.8 (1-3); Calcium 8.5 mg/dL (8.6-10.3); EGFR African American 49.6 (>60); Globulin 1.1 g/dL (2-4); Indirect Bilirubin 0.3 mg/dL (0.3-1.0); Phosphorus 1.8 mg/dL (2.5-5.0); Total Bilirubin 0.6 mg/dL (0.2-1.0); Total Protein 4.2 g/dL (6.4-8.9)
[2019-07-20] MEDS ORDERED: Vancomycin Trough Check NOTE FOLLOW UP ONE (07:30)
[2019-07-20 07:34] LABS: Potassium 2.4 mmol/L (3.5-5.0)
[2019-07-20] MEDS ORDERED: Potassium Chlor TAB* 20 MEQ TAB.ER PO ONE (07:53)
[2019-07-20] MEDS ORDERED: KCL 20 MEQ/100 ML IVPREMIX* 20 MEQ/100 ML BAG IV SCH (08:00)
[2019-07-20 08:20] LABS: ABS Basophils 0.1 10^3/ul (0-0.2); ABS Eosinophils 0.1 10^3/ul (0-0.6); ABS Lymphocytes 2.4 10^3/ul (1.0-4.8); ABS Monocytes 1.9 10^3/ul (0-0.8); ABS Nucleated RBC 0.2 10^3/ul; Eosinophil % 0.2 %; Lymphocyte % 6.8 %; Nucleated Red Blood Cells % 0.6
[2019-07-20 08:21] LABS: Polychromasia 1+
[2019-07-20] MEDS ORDERED: Furosemide IV* 10 MG/ML 2 ML VIAL (20 MG) IV ONE (08:52)
[2019-07-20] MEDS ORDERED: Thiamine TAB* 100 MG TAB PO SCH (09:00)
[2019-07-20] MEDS ORDERED: Potassium & Sodium Phos 250MG* = 1 PACKET PO SCH (09:00)
[2019-07-20] MEDS ORDERED: Cyanocobalamin TAB* 500 MCG PO SCH (09:00)
[2019-07-20] MEDS ORDERED: D5W 1/4 NS 20 Meq KCL 1000 ML* 1,000 ML IV SCH (09:00)
[2019-07-20] MEDS ORDERED: Folic Acid TAB* 1 MG PO SCH (09:00)
[2019-07-20] MEDS ORDERED: Furosemide IV* 10 MG/ML 2 ML VIAL (20 MG) ONE (09:03)
[2019-07-20 10:22] VITALS: BP 129/60
--- NOTE | 2019-07-21 23:34 | DS ---
CC: Dr. Natan Burrell DISCHARGE/ SUMMARY: DATE OF ADMISSION: DATE OF : 07/20/19 TIME OF : 10:20 a.m. PRIMARY CARE PROVIDER: Dr. Natan Burrell. CAUSE OF : 1. Asystole. 2. Encephalopathy, most likely hepatic versus sepsis. 3. Liver failure. 4. Leukocytosis. 5. Subdural hematoma. 6. History of alcohol use. HOSPITAL COURSE: This was a 74-year-old female who came into [facility] on the night of 07/17/19 for altered mental status from the senior living at [facility] for increased confusion for the past 4 days prior to arrival to the ER and was not able to follow any command. Apparently, the patient had some unwitnessed fall at the senior living. The patient was known to be on anticoagulation due to recent diagnosis of pulmonary emboli. During her ER evaluation, the patient was found to be altered with significant leukocytosis and lactic acid 2.4 and ammonia of 92 with negative troponin. She was admitted for altered mental status and possible hepatic encephalopathy versus meningitis, and CT scan showed small left frontal hemorrhage which was repeated by a followup CT that did not show any progression of the bleed. Therefore, she was admitted to the medical service for altered mental status and she was initiated with treatment with lactulose via the NG tube along with antibiotic vancomycin and ceftriaxone for her meningitis. Unfortunately, her lactulose did not appear to be effective on the first 24 hours with q.6 hours, hence she was placed on lactulose q.4 hours, and her ammonia improved slightly from 140 down to 96, but her CBC showed persistent elevation of the white count with white count rise up to 30,000. At that time, I escalated her antibiotic to include ampicillin, Flagyl, acyclovir. She was started on albumin infusion followed by Lasix. I had a conversation with the son the night before regarding her update and code status, for which he acknowledged her poor prognosis. He reconfirmed the DNR that was done on admission and DNI. The following day on 07/20/19, her white count seems to be persistently going up to 35,000. I did speak with Anesthesia to evaluate the patient for possible LP puncture, and unfortunately, around 10:15 in the morning, the patient became asystole. She was assessed at bedside. She was in agonal breathing. Tele monitor confirmed the absence of heart beat with the exception of periodic skipped beat. Therefore, the patient was pronounced at 10:20. Her son in [place] was made aware. Body was released. They had no wish to pursue any autopsy. The patient pronounced at 10:20 and the date of was . [id number]/[facility] #: [id number] MTDD
== END 2019-07-20 10:20 | disposition expired | DRG 871 ==
LOC: ED 17:13 → MEDTELE 23:37
PROVIDERS: ADMIT Internal Medicine; ATTEND Internal Medicine
PROC: 02HV33Z Insertion of Infusion Device into Superior Vena Cava, Percutaneous Approach (ICD-10-PCS; principal; 2019-07-18)
DX: A41.9 Sepsis, unspecified organism (principal); S06.5X0A Traumatic subdural hemorrhage without loss of consciousness, initial encounter; G03.9 Meningitis, unspecified; G93.41 Metabolic encephalopathy; I50.32 Chronic diastolic (congestive) heart failure; E72.20 Disorder of urea cycle metabolism, unspecified; R18.8 Other ascites; K21.9 Gastro-esophageal reflux disease without esophagitis; M19.90 Unspecified osteoarthritis, unspecified site; M81.0 Age-related osteoporosis without current pathological fracture; Z96.653 Presence of artificial knee joint, bilateral; H54.61 Unqualified visual loss, right eye, normal vision left eye; R40.2362 Coma scale, best motor response, obeys commands, at arrival to emergency department; R40.2142 Coma scale, eyes open, spontaneous, at arrival to emergency department; R40.2242 Coma scale, best verbal response, confused conversation, at arrival to emergency department; E03.9 Hypothyroidism, unspecified; F41.8 Other specified anxiety disorders; Z66 Do not resuscitate; I46.9 Cardiac arrest, cause unspecified; K72.90 Hepatic failure, unspecified without coma; W19.XXXA Unspecified fall, initial encounter; Z88.6 Allergy status to analgesic agent; Z88.8 Allergy status to other drugs, medicaments and biological substances; Z86.718 Personal history of other venous thrombosis and embolism; Z87.891 Personal history of nicotine dependence; Z87.11 Personal history of peptic ulcer disease
CPT/HCPCS: 36415; 70450; 71045; 71260; 72170; 74177; 80048; 80053; 80076; 80202; 80307; 81003; 81015; 82140; 82550; 82565; 82607; 82728; 82746; 82803; 83540; 83550; 83605; 83615; 83690; 83735; 84100; 84425; 84439; 84443; 84484; 84520; 85025; 85060; 85610; 86850; 86900; 86901; 87040; 87077; 87086; 87186; 93005; 99284; A9270-GY; C1751; J0696; J1630; J1940; J2060; J2270; J3370; J3411; J3480; J3490; P9047; Q9967